=== PATIENT | female | born 1950 | race Caucasian/White ===

== ENCOUNTER 2023-12-18 08:03 | Emergency (ER) | payer OTHER, SELFPAY ==
[2023-12-18 08:05] VITALS: BP 131/97
[2023-12-18 08:38] VITALS: BMI 16.5
[2023-12-18] MEDS: TORADOL 30 MG IV (08:47)
[2023-12-18] MEDS: DILAUDID 0.5 MG IV (08:47)
--- NOTE | 2023-12-18 08:56 | EDRN ---
Justo RUST was at the pts bedside speaking with the pt and the pts cousin, the pt stated to this RN and provider, 'Just go get me pain medication right now i need pain medication i don't need to answer questions or talk about why i'm here',
provider continued to question the pt appropriately with this RN present, orders were placed and per provider this RN administered Toradol IV and dilaudid IV both of which were pushed slowly, the pt screamed and jumped up and continued to scream,
'Ouch ouch you're hurting me you're hurting me someone help me someone help me!', this RN checked the pts PIV and no s/s of infiltration present, positive blood return with a successful flush performed, the pt then stated to this RN, 'Okay okay i
feel much better it's working, you can leave now', VS WNL, the pt is laying in stretcher in the lowest position, side rails up x2, call aggarwal within reach, HOB elevated, no s/s of distress, will continue to monitor the pt closely
[2023-12-18 09:00] VITALS: BP 144/90
[2023-12-18 09:04] LABS: % Basophils 0.6 % (0-2); % Eosinophils 0.1 % (0-6); % Immature Granulocytes 0.2 % (0-0.5); % Lymphocytes 10.1 % (20.5-51.1); % Monocytes 3.4 % (1.7-9.3); % Neutrophils 85.6 % (42.2-75.2); Absolute Basophils 0.1 10^3/uL (0-0.2); Absolute Lymphocytes 1.1 10^3/uL (1.2-3.4); Absolute Monocytes 0.4 10^3/uL (0.1-0.6); Absolute Neutrophils 9.3 10^3/uL (1.4-6.5); Hematocrit 33.4 % (37.0-47.0); Hemoglobin 10.9 g/dL (12.0-16.0); Mean Corp Hgb Conc. 32.6 g/dL (33.0-37.0); Mean Corpuscular Hgb 27.7 pg (27.0-31.0); Mean Corpuscular Volume 84.8 fL (81.0-99.0); Mean Platelet Volume 9.3 fL (7.4-10.4); Nucleated Red Blood Cells % 0 %; Platelet Count 366 10^3/uL (130-400); Red Blood Cell Count 3.94 10^6/uL (4.20-5.40); Red Cell Dist. Width 15.3 % (11.5-14.5); White Blood Cell Count 10.9 10^3/uL (4.8-10.8)
--- NOTE | 2023-12-18 09:09 | ED.GENMED ---
Addendum entered and electronically signed by Jackie Casey NP 12/21/23 16:25:
Final urine culture results: > 100,000 Enterococcus faecalis sensitive to Nitrofurantoin and Levaquin. No answer at pt's number. Called contact Brie, her cousin and explained to stop the Cefuroxime and I sent rx for Nitrofurantoin to her
pharmacy. She will relay the message to pt.
Addendum entered and electronically signed by Eduardo Whitten PA-C 12/20/23 07:51:
UCx positive for enterococcus, pt on cefuroxime. Will await sensitivity however likely to require change to therapy
Original Note:
History of Present Illness
General
Chief Complaint: Urinary Symptoms
Source: patient and family
Time Seen by Provider: 12/18/23 08:26
Travel History
Have you had any contact with someone who has COVID-19?: No
Do you have any symptoms of coronavirus? Fever > 100 degrees, chills, cough, shortness of breath, sore throat, loss of taste or smell, muscle aches, or headache?: No
History of Present Illness
History of Present Illness:
73-year-old female with past medical history of chronic pain, status post right BKA, spina bifida presenting to the emergency department for evaluation of hematuria that has been ongoing for 1 week, unchanged today but due to continued pain decided
to come to the ER for further evaluation. She notes a history of similar in the past and is seeing urology for this but does not follow with urology routinely. She previously lived in [facility] but recently moved in with her cousin
who lives in this area who brought her here for further evaluation. Secondary concern of chronic pain and patient takes methadone as well as gabapentin but has been being weaned down from this by her pain management physician. Patient reportedly
saw her pain management physician on Sunday but states she took her last dose of gabapentin and methadone yesterday and has yet to fern picker her new prescription from the pharmacy. Patient denies any fevers, chills, rigors, vomiting, bowel changes or
any other concerns.
Past History
Past History
ED Past Medical History: Other (Chronic pain on the bifida)
ED Past Surgical History: Orthopedic and Other
Social History
Tobacco: Former smoker
Alcohol: None
Drug: None
Personal: Single
Living: with family
Review of Systems
Review of Systems
All Other Systems: ROS reviewed and negative except as documented in HPI and ROS
Phy Exam
Physical Exam
Physical Exam:
GENERAL: Alert , appears uncomfortable, minimally conversive but when prompted will answer questions more elaborately
EYE: Clear conjunctiva
NECK: Supple
ENT: o/p clr, mmm.
CARDIAC: Regular rate and rhythm .
LUNGS: Clear breath sounds bilaterally, no acute respiratory distress, no wheezes/rales/rhonchi
ABDOMEN: Soft, without focal tenderness, no r/g, no cvat
NEUROLOGICAL: Alert and oriented
SKIN: Warm and dry, skin intact.
MUSCULOSKELETAL: Right BKA stump noted without any overlying erythema, bogginess, pain
PSYCH: Normal and appropriate interaction.
Scores
Heart Failure Risk
Heart Failure Risk Score: Not Applicable
Heart Score for Chest Pain Patients
STEMI patient?: Not applicable
Withdrawal Assessment of Alcohol
Withdrawal Assessment Completed?: Not applicable
Course
Orders/Labs/Results
Orders:
Orders
12/18/23 08:38
Basic Metabolic Panel Urgent
Complete Blood Count/With Diff Urgent
Fentanyl, Urine Urgent
PTT Urgent
Prothrombin Time Urgent
Urinalysis Reflex To Culture Urgent
Date Specimen was Collected: 12/18/23
Time Specimen was Collected: 08:26
Urine Drug Abuse Screen Urgent
Date Specimen was Collected: 12/18/23
Time Specimen was Collected: 08:26
Urine Microscopic Reflex Cult Urgent
Urine Culture Urgent
THOMAS Source: U
Specimen Description:
Date Specimen was Collected: 12/18/23
Time Specimen was Collected: 08:26
12/18/23 08:43
HYDROmorphone [Dilaudid] 0.5 mg IV NOW STA
Ketorolac [Toradol] 30 mg IV NOW STA
12/18/23 08:44
CT Abd/pel Without Iv Or Oral Urgent
Comment:
Reason For Exam: hematuria
12/18/23 08:52
Add On- LAB Urgent
Tests Added?: urine drug screen
12/18/23 10:32
CefTRIAXone [Rocephin] 1,000 mg IV NOW STA
12/18/23 11:31
Gabapentin [Neurontin] 600 mg PO NOW STA
Abnormal Lab Results
12/18/23
08:38
WBC 10.9 H 10^3/uL
(4.8-10.8)
RBC 3.94 L 10^6/uL
(4.20-5.40)
Hgb 10.9 L g/dL
(12.0-16.0)
Hct 33.4 L %
(37.0-47.0)
MCHC 32.6 L g/dL
(33.0-37.0)
RDW 15.3 H %
(11.5-14.5)
Absolute Neuts (auto) 9.3 H 10^3/uL
(1.4-6.5)
Absolute Lymphs (auto) 1.1 L 10^3/uL
(1.2-3.4)
Neutrophils % 85.6 H %
(42.2-75.2)
Lymphocytes % 10.1 L %
(20.5-51.1)
Chloride 108 H mmol/L
(98-107)
Carbon Dioxide 20 L mmol/L
(22-30)
BUN 19 H mg/dl
(7-17)
Glucose 146 H mg/dl
(70-99)
Urine Ketones 1+ A
(Negative)
Ur Occult Blood Reflex 4+ A
(Negative)
Leukocyte Esterase Rfl 2+ A
(Negative)
Urine RBC >100 A /HPF
(0-2)
Urine Albumin (Reflex) 3+ A
(Neg - Trace)
Urine Methadone Screen Positive H
(Negative)
12/18/23 08:38
12/18/23 08:38
Vital Signs
Initial and Last Documented VS:
Initial Vital Signs
Temp Pulse Resp BP Pulse Ox
98.3 F 92 20 131/97 100
12/18/23 08:05 12/18/23 08:05 12/18/23 08:05 12/18/23 08:05 12/18/23 08:05
Last Documented Vital Signs
Temp Pulse Resp BP Pulse Ox
98.3 F 92 20 104/87 99
12/18/23 08:05 12/18/23 08:05 12/18/23 08:05 12/18/23 10:00 12/18/23 10:15
MDM/Problems Addressed
Differential Diagnosis Includes:
Urinary tract infection, malignancy, renal/ureteral colic, exacerbation of patient's usual chronic pain
MDM/Problems Addressed:
73-year-old female present emergency department for evaluation of hematuria x 1 week. Patient has history of similar but unable to tell me exactly what has previously caused the symptoms but she does note that she has been started on antibiotics in
the past for infection which usually does help. Patient noted a secondary concern of her chronic pain exacerbation and pain all over. I expressed to the patient that this is a chronic issue and would unlikely be solved today and has been having
follow-up with her outpatient pain specialist who has been attempting to wean patient down off of her usual pain medications. I did explain that we would give 1 dose of pain medication here however further medication and pain control would need to
be continued through her outpatient pain management regimen. Patient did express understanding.
Chronic conditions affecting care: Other (Chronic pain)
*Radiology
Radiology exam reviewed: radiology read reviewed
*Pulse Oximetry
Patient hypoxic: no
*Critical Care Note
Total Time (30-74mins, 75-104mins- exclusive of procedures): Not Applicable
Patient Management
Escalation/DeEscalation of care consider admission/obs:
Patient's symptoms are improved following medications. Her labs and imaging seem to be most consistent with hemorrhagic cystitis. Patient was given a dose of Rocephin prior to her discharge and cefuroxime for home medication. Patient will
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 Aware of return precautions emergency department but otherwise stable for discharge home.
ED Attending Note
-
Portions of this chart may have been created with voice recognition software.� Occasional wrong word or��sound alike� substitutions may have occurred due to the inherent limitations of voice recognition software.
Discharge Plan
Departure
Patient Disposition: Home (Routine Discharge)
Date of Disposition: 12/18/23
Time of Disposition: 11:27
Patient with high blood pressure during this ER visit?: Yes
Discharge Problem:
Acute hemorrhagic cystitis
Instructions: Urinary Tract Infection, Adult (DC)
Prescriptions:
New
cefuroxime axetil 500 mg tablet
500 mg PO BID 10 Days Qty: 20 0RF
Referrals:
NONE,* [Family Provider] -
Interventions
Interventions:
*Risk Screen - Suicide Last Done: 12/18/23 08:05
*General Assessment Last Done: 12/18/23 08:05
*Neglect/Abuse Screening Last Done: 12/18/23 08:05
ED- Fall Risk Assessment Last Done: 12/18/23 08:38
*ED COVID-19 Vaccine History Last Done: 12/18/23 08:38
*Nursing Disposition Last Done: 12/18/23 11:49
ED-Female Genitourinary Assessment Last Done: 12/18/23 08:38
Discharge Date and Time
Discharge Date/Time: 12/18/23 11:49
[2023-12-18 09:19] LABS: Urine Albumin 3+ (Neg - Trace); Urine Bilirubin Negative (Negative); Urine Character Bloody (Clear); Urine Color Red; Urine Glucose Negative (Negative); Urine Ketone 1+ (Negative); Urine Leukocyte 2+ (Negative); Urine Nitrite Negative (Negative); Urine Occult Blood 4+ (Negative); Urine Specific Gravity 1.015 (<1.030); Urine Urobilinogen Negative (Neg - 1+); Urine pH 6.5 (5.0-9.0)
[2023-12-18 09:31] LABS: Urine Red Blood Cell >100 /HPF (0-2)
[2023-12-18 09:36] VITALS: BP 114/60
--- NOTE | 2023-12-18 09:39 | EDRN ---
the pt returned from CT with no issues, the pt is resting in stretcher in the lowest position, side rails up x2, call aggarwal within reach, HOB flat per the pts request, the pt states that she cannot sit up due to pain, VS WNL, no s/s of distress, the
pt is calm and trying to sleep, will continue to monitor the pt closely
[2023-12-18 09:50] LABS: Blood Urea Nitrogen 19 mg/dl (7-17); Calcium 9.1 mg/dl (8.4-10.2); Carbon Dioxide 20 mmol/L (22-30); Chloride 108 mmol/L (98-107); Estimated Creatinine Clearance 36 ml/min; Glucose 146 mg/dl (70-99); Sodium 136 mmol/L (135-145); eGFR 59.86
[2023-12-18 10:00] VITALS: BP 104/87
--- NOTE | 2023-12-18 10:18 | EDRN ---
the pt is sitting up in bed laughing and talking on the phone, no s/s of distress, the pt reports to this RN, 'My pain is so much better', VS WNL, the pt is sitting up in stretcher in the lowest position, side rails up x2, call aggarwal within reach,
HOB flat per the pts request due to the pt stating that she cannot sit up even though the pt is currently sitting up in bed, the pts cousin is currently still at the pts bedside, will continue to monitor the pt closely
[2023-12-18 10:33] LABS: Amphetamines Negative (Negative); Barbiturates Negative (Negative); Benzodiazepines Negative (Negative); Buprenorphine Negative (Negative); Cocaine Negative (Negative); Marijuana Negative (Negative); Methadone Positive (Negative); Methamphetamines Negative (Negative); Opiates Negative (Negative); Phencyclidine Negative (Negative); Tricyclic Antidepressants Negative (Negative)
[2023-12-18] MEDS: ROCEPHIN 1000 MG IV (10:55)
[2023-12-18 11:05] LABS: Fentanyl, Urine Negative (Negative)
[2023-12-18] MEDS: NEURONTIN 600 MG PO (11:38)
== END 2023-12-18 11:49 | disposition home or self-care (01) ==
LOC: EMR 08:03
PROVIDERS: Physician Assistant Medical; EMERGENCY PHYSICIAN Student in an Organized Health Care Education/Training Program
DX: N30.01 Acute cystitis with hematuria (principal); B95.2 Enterococcus as the cause of diseases classified elsewhere; R03.0 Elevated blood-pressure reading, without diagnosis of hypertension; Z87.891 Personal history of nicotine dependence
CPT/HCPCS: 99284; 96374; 96375 ×2; 74176; 80048; 80306; 80307; 81003; 81015; 85025; 85610; 85730; 87077; 87086; 87186

== ENCOUNTER 2024-04-04 05:23 | Inpatient (IN) | payer OTHER, SELFPAY ==
[2024-04-04] VITALS (47 sets, daily range): BP systolic 45–149; BP diastolic 27–92; BMI 19.3; BMI 18.3
--- NOTE | 2024-04-04 01:56 | ED.GENMED ---
History of Present Illness
<Pratibha Mello MD - Last Filed: 04/04/24 02:37>
General
Chief Complaint: Skin Problem
Source: patient
Time Seen by Provider: 04/04/24 01:46
Travel History
Have you had any contact with someone who has COVID-19?: No
Do you have any symptoms of coronavirus? Fever > 100 degrees, chills, cough, shortness of breath, sore throat, loss of taste or smell, muscle aches, or headache?: No
History of Present Illness
History of Present Illness:
This patient is a 73-year-old female who presents emergency department complaints of a left foot wound that is been present ever since she 'scraped it' a few days ago. The wound is becoming increasingly painful, which prompted her visit here. She
states that she has not had this wound before a few days ago. She denies associated fever or chills, notes intermittent drainage. Patient has a history of a right BKA and expresses concern about another infection occurring. Patient denies chest
pain, shortness of breath, abdominal pain, nausea, vomiting, or other complaints. Patient is under the care of a chronic pain doctor, states that her methadone is being gradually discontinued.
Past History
<Pratibha Mello MD - Last Filed: 04/04/24 02:37>
Past History
ED Past Medical History: Other (Chronic pain, spina bifida, chronic incontinence)
ED Past Surgical History: Orthopedic
Social History
Tobacco: Former smoker
Alcohol: None
Drug: None
Personal: Single
Living: with family
Phy Exam
<Pratibha Mello MD - Last Filed: 04/04/24 02:37>
Physical Exam
Physical Exam:
GENERAL: Alert , in no apparent distress
EYE: pupils equal and reactive
NECK: Supple, no significant adenopathy.
ENT: o/p clr, mmm.
CARDIAC: Regular rate and rhythm .
LUNGS: Clear breath sounds bilaterally, no acute respiratory distress, no wheezes/rales/rhonchi
ABDOMEN: Soft, without focal tenderness, no r/g
NEUROLOGICAL: Alert and oriented, no focal neuro deficits
SKIN:
MUSCULOSKELETAL: r bKA, no skin changes noted to suggest infx here. Left foot at great toe MTP area there is a circular wound noted without active drainage and mild edema, opening dry, no fluctuance/crepitus, no streaking. Superficial abrasions
volar aspect 2/3/4 toe. 2+ dp pulse noted, no cyanosis, well perfused.
PSYCH: Normal and appropriate interaction.
Course
<Pratibha Mello MD - Last Filed: 04/04/24 02:37>
Orders/Labs/Results
Orders:
Orders
04/04/24 01:55
Foot, Left 3 View [CR Foot - Left Min 3 Views] Urgent
Comment:
Reason For Exam: WOUND
04/04/24 02:25
HYDROmorphone [Dilaudid] 1 mg IV NOW STA
04/04/24 02:35
Piperacillin/Tazo 3.375 Gram [Zosyn] 3.375 gram in 50 ml IV NOW
Vancomycin 1 Gram/200 ml [Vancocin] 1 gram in 200 ml IV NOW
04/04/24 03:17
Lactic Acid Urgent
Comment: RECOLLECT
Blood Culture Urgent
THOMAS Source: B
Specimen Description:
Comment: RECOLLECT
04/04/24 03:20
Blood Culture Urgent
THOMAS Source: B
Specimen Description:
Comment: RECOLLECT
04/04/24 03:24
C-Reactive Protein Urgent
Comment: RECOLLECT
Complete Blood Count/With Diff Urgent
Comment: RECOLLECT
Comprehensive Metabolic Panel Urgent
Comment: RECOLLECT
Erythrocyte Sed Rate Urgent
Comment: RECOLLECT
04/04/24 03:25
Ondansetron Injectable [Zofran] 4 mg IV NOW STA
04/04/24 03:26
Ondansetron Injectable [Zofran] 4 mg .ROUTE .STK-MED ONE
04/04/24 03:29
Type+Screen Urgent
04/04/24 03:32
Blood Bank Products [* Blood Bank Products] Urgent
's Orders: En Loomis, DO
Blood Bank Products: *Packed RBC Leuko(PRBC's)
Quantity: 3
Transfuse Today: Yes
Reason: Anemia
04/04/24 03:33
CT Angio Abd/Pelvis w/wo IV [CT Abd/pelvis Angio W/wo Iv] Urgent
Comment:
Reason For Exam: anemia, general abd pain
04/04/24 03:38
HYDROmorphone [Dilaudid] 1 mg IV NOW STA
04/04/24 06:00
Lactic Acid Q4H
Comment: CANCEL 2nd LACTIC ACID IF 1st LACTIC ACID IS LESS THAN 2
Abnormal Lab Results
04/04/24
03:24
RBC 1.67 L 10^6/uL
(4.20-5.40)
Hgb 3.0 L* g/dL
(12.0-16.0)
Hct 11.0 L* %
(37.0-47.0)
MCV 65.9 L fL
(81.0-99.0)
MCH 18.0 L pg
(27.0-31.0)
MCHC 27.3 L g/dL
(33.0-37.0)
RDW 21.8 H %
(11.5-14.5)
Abs Immat Gran (auto) 0.1 H 10^3/uL
(0-0.05)
Absolute Lymphs (auto) 0.7 L 10^3/uL
(1.2-3.4)
Immature Gran % 0.7 H %
(0-0.5)
Neutrophils % 83.4 H %
(42.2-75.2)
Lymphocytes % 9.6 L %
(20.5-51.1)
04/04/24 03:24
Vital Signs
Initial and Last Documented VS:
Initial Vital Signs
Temp Resp BP Pulse Ox
98.8 F 24 132/51 95
04/04/24 00:54 04/04/24 00:54 04/04/24 00:54 04/04/24 00:54
Last Documented Vital Signs
Temp Resp BP Pulse Ox
98.8 F 24 132/51 95
04/04/24 00:54 04/04/24 00:54 04/04/24 00:54 04/04/24 00:54
<En Loomis, DO - Last Filed: 04/04/24 03:40>
Orders/Labs/Results
Orders:
Orders
04/04/24 01:55
Foot, Left 3 View [CR Foot - Left Min 3 Views] Urgent
Comment:
Reason For Exam: WOUND
04/04/24 02:25
HYDROmorphone [Dilaudid] 1 mg IV NOW STA
04/04/24 02:35
Piperacillin/Tazo 3.375 Gram [Zosyn] 3.375 gram in 50 ml IV NOW
Vancomycin 1 Gram/200 ml [Vancocin] 1 gram in 200 ml IV NOW
04/04/24 03:17
Lactic Acid Urgent
Comment: RECOLLECT
Blood Culture Urgent
THOMAS Source: B
Specimen Description:
Comment: RECOLLECT
04/04/24 03:20
Blood Culture Urgent
THOMAS Source: B
Specimen Description:
Comment: RECOLLECT
04/04/24 03:24
C-Reactive Protein Urgent
Comment: RECOLLECT
Complete Blood Count/With Diff Urgent
Comment: RECOLLECT
Comprehensive Metabolic Panel Urgent
Comment: RECOLLECT
Erythrocyte Sed Rate Urgent
Comment: RECOLLECT
04/04/24 03:25
Ondansetron Injectable [Zofran] 4 mg IV NOW STA
04/04/24 03:26
Ondansetron Injectable [Zofran] 4 mg .ROUTE .STK-MED ONE
04/04/24 03:29
Type+Screen Urgent
04/04/24 03:32
Blood Bank Products [* Blood Bank Products] Urgent
's Orders: En Loomis, DO
Blood Bank Products: *Packed RBC Leuko(PRBC's)
Quantity: 3
Transfuse Today: Yes
Reason: Anemia
04/04/24 03:33
CT Angio Abd/Pelvis w/wo IV [CT Abd/pelvis Angio W/wo Iv] Urgent
Comment:
Reason For Exam: anemia, general abd pain
04/04/24 03:38
HYDROmorphone [Dilaudid] 1 mg IV NOW STA
04/04/24 06:00
Lactic Acid Q4H
Comment: CANCEL 2nd LACTIC ACID IF 1st LACTIC ACID IS LESS THAN 2
Abnormal Lab Results
04/04/24
03:24
RBC 1.67 L 10^6/uL
(4.20-5.40)
Hgb 3.0 L* g/dL
(12.0-16.0)
Hct 11.0 L* %
(37.0-47.0)
MCV 65.9 L fL
(81.0-99.0)
MCH 18.0 L pg
(27.0-31.0)
MCHC 27.3 L g/dL
(33.0-37.0)
RDW 21.8 H %
(11.5-14.5)
Abs Immat Gran (auto) 0.1 H 10^3/uL
(0-0.05)
Absolute Lymphs (auto) 0.7 L 10^3/uL
(1.2-3.4)
Immature Gran % 0.7 H %
(0-0.5)
Neutrophils % 83.4 H %
(42.2-75.2)
Lymphocytes % 9.6 L %
(20.5-51.1)
04/04/24 03:24
Vital Signs
Initial and Last Documented VS:
Initial Vital Signs
Temp Resp BP Pulse Ox
98.8 F 24 132/51 95
04/04/24 00:54 04/04/24 00:54 04/04/24 00:54 04/04/24 00:54
Last Documented Vital Signs
Temp Resp BP Pulse Ox
98.8 F 24 132/51 95
04/04/24 00:54 04/04/24 00:54 04/04/24 00:54 04/04/24 00:54
<En Loomis DO - Last Filed: 04/04/24 03:40>
*Critical Care Note
Total Time (30-74mins, 75-104mins- exclusive of procedures): 33 min
comment:
The high probability of a clinically significant, sudden or life threatening deterioration of the cardiovascular/GI system(s) required my full and direct attention, intervention and personal management. The aggregate critical care time was 33
minutes. This time is in addition to time spent performing reported procedures but includes the following:
[x] Data Review and interpretation
[x] Patient assessment and monitoring of vital signs
[x] Documentation
[x] Medication orders and management
<Pratibha Mello MD - Last Filed: 04/04/24 02:37>
Update Note
Update Note:
Patient presents to the Emergency Department with L foot wound
Number and Complexity of Problems Addressed at the Encounter
� Chronic conditions affecting care:
� Acute Exacerbation and/or Progression of Chronic Illness:
� Differential Diagnosis includes:
Amount and/or Complexity of Data to be Reviewed and Analyzed
� I performed an independent evaluation of and my interpretation is:
EKG:
CT:
Xrays:
Laboratory Studies:
Other:
� Review of other/old records reveals:
� Clinical information was obtained by an independent historian:
� Prescriptions/Medications Considered but not given:
� Further testing considered but not performed:
Risk of Complications and/or Morbidity or Mortality of Patient Management
� Social determinants of health affecting care:
� Discussion with other providers (PCP, Hospitalists, Consultants, etc):
� Escalation of care including admission/observation vs risk of discharge considered:
<En Loomis, DO - Last Filed: 04/04/24 03:40>
Update Note
Update Note:
Patient presents to the Emergency Department with L foot wound
Number and Complexity of Problems Addressed at the Encounter
� Chronic conditions affecting care:
� Acute Exacerbation and/or Progression of Chronic Illness:
� Differential Diagnosis includes:
Amount and/or Complexity of Data to be Reviewed and Analyzed
� I performed an independent evaluation of and my interpretation is:
EKG:
CT:
Xrays:
Laboratory Studies:
Other:
� Review of other/old records reveals:
� Clinical information was obtained by an independent historian:
� Prescriptions/Medications Considered but not given:
� Further testing considered but not performed:
Risk of Complications and/or Morbidity or Mortality of Patient Management
� Social determinants of health affecting care:
� Discussion with other providers (PCP, Hospitalists, Consultants, etc):
� Escalation of care including admission/observation vs risk of discharge considered:
3:30 AM care of patient was transitioned pending blood work. Patient was admitted under the assumption of osteomyelitis of her foot. Blood work was obtained showing significant anemia. I placed an ultrasound-guided IV in her right antecubital
fossa and rechecked the blood work which confirmed a hemoglobin of 3. Patient signed consent for 3 units of packed red blood cells. While this was happening, the admitting doctor was at bedside. Given the progression of her abdominal pain, will
obtain a CT angiogram abdomen and pelvis.
Rectal exam was performed showing brown stool guaiac negative
ED Attending Note
<Pratibha Mello MD - Last Filed: 04/04/24 02:37>
-
Portions of this chart may have been created with voice recognition software.� Occasional wrong word or��sound alike� substitutions may have occurred due to the inherent limitations of voice recognition software.
Discharge Plan
Departure
Patient Disposition: Admit
Date of Disposition: 04/04/24
Time of Disposition: 02:36
Admit to: Med/Surg
Presentation/result/management discussed w/ accepting MD/DO: Hospitalist
Condition: Good
Discharge Problem:
Cellulitis
Prescriptions:
No Action
No Current Medications
0
Referrals:
NONE,* [Family Provider] -
Interventions
Interventions:
*Risk Screen - Suicide Last Done: 04/04/24 00:54
*General Assessment Last Done: 04/04/24 01:04
*Neglect/Abuse Screening Last Done: 04/04/24 00:54
*ED COVID-19 Vaccine History Last Done: 04/04/24 00:54
ED-Skin Assessment Last Done: 04/04/24 01:04
Discharge Date and Time
Print Language: ISRAELI
[2024-04-04] MEDS: DILAUDID 1 MG IV ×3 (02:59→04:35)
[2024-04-04] MEDS: ZOFRAN 4 MG IV (03:28)
[2024-04-04 03:30] LABS: % Basophils 0.3 % (0-2); % Eosinophils 0.3 % (0-6); % Immature Granulocytes 0.7 % (0-0.5); % Lymphocytes 9.6 % (20.5-51.1); % Monocytes 5.7 % (1.7-9.3); % Neutrophils 83.4 % (42.2-75.2); Absolute Immature Granulocytes 0.1 10^3/uL (0-0.05); Absolute Lymphocytes 0.7 10^3/uL (1.2-3.4); Absolute Monocytes 0.4 10^3/uL (0.1-0.6); Absolute Neutrophils 5.8 10^3/uL (1.4-6.5); Mean Corp Hgb Conc. 27.3 g/dL (33.0-37.0); Mean Corpuscular Volume 65.9 fL (81.0-99.0); Mean Platelet Volume 10.1 fL (7.4-10.4); Nucleated Red Blood Cells % 0 %; Platelet Count 251 10^3/uL (130-400); Red Blood Cell Count 1.67 10^6/uL (4.20-5.40); Red Cell Dist. Width 21.8 % (11.5-14.5)
[2024-04-04 03:39] LABS: Erythrocyte Sed Rate 140 mm/hour (0-20)
[2024-04-04 03:49] LABS: ALT (SGPT) 188 U/L (0-35); AST (SGOT) 28 U/L (14-36); Albumin 3.1 g/dl (3.5-5.0); Alkaline Phosphatase 109 U/L (38-126); Blood Urea Nitrogen 20 mg/dl (7-17); Calcium 8.6 mg/dl (8.4-10.2); Carbon Dioxide 17 mmol/L (22-30); Chloride 115 mmol/L (98-107); Estimated Creatinine Clearance 30 ml/min; Glucose 127 mg/dl (70-99); Potassium 4.5 mmol/L (3.5-5.1); Sodium 143 mmol/L (135-145); Total Bilirubin 0.4 mg/dl (0.2-1.3); Total Protein 5.7 g/dl (6.3-8.2); eGFR 39.97
[2024-04-04 03:51] LABS: Lactic Acid 1.7 mmol/L (0.7-2.0)
[2024-04-04 04:06] LABS: Anisocytosis 2+; Normal RBC Morphology No
[2024-04-04 04:07] LABS: Hypochromasia 3+; Microcytosis 2+
[2024-04-04 04:08] LABS: Polychromasia Occasional
[2024-04-04] MEDS: ATIVAN 1 MG IV (04:08)
[2024-04-04 04:09] LABS: Ovalocytes Occasional; Schistocytes Occasional; Target Cells 2+
[2024-04-04 04:14] LABS: Rouleaux Occasional; Tear Drop Red Blood Cells 1+
[2024-04-04 04:16] LABS: Acanthocytes Occasional; Hypersegmented Neutrophil Occasional
--- NOTE | 2024-04-04 05:08 | HPS.HSE ---
Family Physician
-
Family Physician: * NONE
Chief Complaint
-
Left foot wound
History of Present Illness
Patient is 73 years old female with history of chronic pain, spina bifida, right BKA, came into the hospital with left foot wound pain. Patient not very forthcoming on my interview and she states that she is in significant amount of pain in her
abdomen and her food. As far she can tells me patient noticed left foot wound after manipulating it and he has been getting more painful over the last several days around this area and some serous drainage coming from the wound. She denies fevers
or chills. She also has abdominal pain that has been increasingly getting worse. She has some nausea and vomiting. She does have chronic pain and she has been taken off her methadone as outpatient. She denies any chest pain or shortness of
breath. In the ER, her hemoglobin was noted to be 3 and it was repeated and appears to be the same. Last hemoglobin back in November here was 10.9. Her creatinine noticed to be 1.4 last creatinine back in November was 1. There is a foot x-ray
pending and I asked for a stat abdominal pelvis CTA that is being ordered and pending.
Medical History
Past Medical History
Past Medical History: Reports Other (Chronic pain, spina bifida.)
Past Surgical History: Reports Other (Right BKA and other orthopedic surgeries)
Social History
Tobacco: Former Smoker
Alcohol: None
Drug: None
Family History
Family History: Not pertinent
Allergies / Home Medications
Allergies reflects when Allergies were last updated in [facility].
Home Medications with original date entered in [facility]
Allergy/Medication List:
Allergies
Allergy/AdvReac Type Severity Reaction Status Date / Time
No Known Allergies Allergy Unverified 04/04/24 00:57
Home Medications
No Meds [No Current Medications] 04/04/24
Review of Systems
-
A 12 point ROS was completed and negative except as noted: Yes
Physical Exam
Vital Signs
Vital Signs
Temp Pulse Resp BP Pulse Ox
98.8 F 85 20 149/67 95
04/04/24 00:54 04/04/24 04:15 04/04/24 04:15 04/04/24 04:00 04/04/24 00:54
Physical exam:
General: Acutely ill
HEENT: Normocephalic, Atraumatic and Moist Mucous Membranes
Respiratory: Clear to Auscultation; Negative Wheezes, Rales or Rhonchi
Cardiac: Regular Rhythm and S1/S2
GI: Soft, Tender and Nondistended
Musculoskeletal: Right BKA. At the left foot area of the lateral part of the MTP there is a wound about 2 x 3 cm with mild drainage and edema, no significant erythema. Rest of the extremity no Clubbing, No Cyanosis and No Edema
Neuro: Awake, Alert and Oriented, no gross neuro-deficits
Psych: Anxious.
Physical Exam
General: Other
Laboratory Results
-
04/04/24 03:24
Laboratory Results
Lactic Acid Cancelled 04/04/24 07:00
Total Bilirubin 0.4 mg/dl (0.2-1.3) 04/04/24 03:24
AST 28 U/L (14-36) 04/04/24 03:24
ALT 188 U/L (0-35) H 04/04/24 03:24
Alkaline Phosphatase 109 U/L (38-126) 04/04/24 03:24
Data Reviewed
-
CT Scan: Image Personally Visualized and interpreted
Lab Data: Labs Reviewed by me
Impression/Plan
-
IMPRESSION:
Patient 73 years old female with chronic pain syndrome came into the hospital with findings of infection of the left foot wound concerns for osteomyelitis. She also was found to have severe anemia in the setting of abdominal pain. Patient at
increased risk of morbidity and mortality due to her presentation and multiple comorbidities therefore she will need to be treated in the hospital and managed accordingly.
PLAN:
Wound infection on left foot:
IV broad-spectrum antibiotics, Zosyn and vancomycin
Follow-up foot x-ray definitive report
Blood cultures
Wound culture
CRP 24
Podiatry consult
Severe microcytic anemia:
Hemoglobin 3
Last hemoglobin 10.9 back in November
Anemia workup
Blood transfusion ordered in the ER.
Plan for CTA of the abdomen pelvis
Start IV PPI twice daily
Monitor hemoglobin every 4-6 hours
Currently hemodynamically stable
Cardiac monitoring
IV fluids
Keep vascular access
Keep n.p.o.
Avoid NSAIDs
Acute kidney injury:
Avoid nephrotoxic
Monitor renal function closely
Monitor urine output
Creatinine today 1.4; Last known creatinine back in November was 1
Chronic pain syndrome:
Keep IV Dilaudid for now until rest of the workup
DVT prophylaxis:
SCDs
CODE STATUS:
Full code
Time spent 75 minutes
[2024-04-04] MEDS: ZOSYN 50 IV ×2 (05:09→08:56)
[2024-04-04] MEDS: VANCOCIN 200 IV (05:09)
--- NOTE | 2024-04-04 05:25 | EDRN ---
pt placed back on special education curriculum specialist, verbalizes understanding of leaving all monitors on. pre-transfusion vital signs taken. unable to obtain spo2 due to poor perfusion. dr gutierrez and blood bank made aware
--- NOTE | 2024-04-04 06:00 | PTCARENOTE ---
Pt arrived from ED, transferred to bed. Pt presenting restless trying to move around and out of the bed, unable to redirect patient. Pt Loudly saying she was in pain, pain medication given. Pt IVF and first unit PRBC started. SPO2 84%, 4L NC placed
SPO2 now 92%. Pt uncooperative with admit questions a times. Report given at bed side to on coming RN.
[2024-04-04] MEDS: DILAUDID 0.5 MG IV (06:10)
[2024-04-04] MEDS: PROTONIX IV 40 MG IV ×3 (06:15→19:55)
[2024-04-04] MEDS: NSS (PRESERVATIVE FREE) 10 ML IV ×3 (06:16→19:55)
[2024-04-04] MEDS: NSS 1000 IV ×2 (06:45→16:08)
[2024-04-04 07:06] LABS: Total Iron Binding Capacity 378 ug/dl (265-497)
[2024-04-04 07:07] LABS: Iron < 20 ug/dl (37-170)
--- NOTE | 2024-04-04 07:07 | CON.GI ---
Addendum entered and electronically signed by Nigel Douglass MD 04/04/24 18:59:
I saw and examined the patient.
The CARBON BRUSH MAKER's note was reviewed and I agree with the note.
Pt is a 73yo with hx spina bifida, cystitis, right BKA with complaint of foot pain with noted foot wound and abdominal pain. On admission noted with hbg 3 with MCV 65.9 with significant iron deficiency. hbg was 10.9 in November. CTA moderate stool
no active GI bleeding. Diffuse mesenteric edema and small amount of ascites within the pelvis. Small bilateral pleural effusions. Anasarca. Findings compatible with hypervolemic state/third spacing.
-severe iron deficiency anemia -reported rectal bleeding intermittently by cousin. No overt GI bleeding since admission. CTA negative for active bleeding
-left foot infection s/p podiatry eval
-Chronic methadone use
-Acute metabolic encephalopathy/hallucination
plan
4 units PRBC ordered by medical team
Continue monitor H&H as well as signs of overt GI bleeding
Patient was refusing to undergo EGD/colonoscopy with CAR[employer] BRUSH MAKER today . unable to have any meaningful conversation . Will hold off on endoscopic evaluation considering patient's current mental status
continue PPI
daily bowel regimen
further management as per medical team
No other recommendation at this point. GI will sign off for now. Please call us back if patient is willing to have endoscopic evaluation after improvement of mental status in the future.
Original Note:
Consultation
-
Date/Time Consultation Requested: 04/04/24 0500
Date/Time Consultation Performed: 04/04/24 0930
Requesting Provider: Marvin Puri MD
Performing Provider: KINGSLEY Jones, Nigel Douglass MD
Reason for Consultation: anemia
Medical History
Chief Complaint / HPI
History of Present Illness:
Pt is a 73yo with hx spina bifida, cystitis, right BKA with complaint of foot pain with noted foot wound and abdominal pain. On admission noted with hbg 3 with MCV 65.9 with significant iron deficiency. Pt with some limited history with some
drifting off but declines for staff to call family. She currently denies dysphagia, GERD, nausea, vomiting, abdominal pain, diarrhea, constipation or rectal bleeding. She report no prior EGD or colonoscopy in past. Last hbg 10.9 back in November
2023. Denies NSAID use.
Past Medical History
Past Medical History: Other (chronic pain, spina bifida, cystitis )
Past Surgical History: Orthopedic (right BKA)
Social History
Tobacco: Smoker (9 cig per day )
Alcohol: None
Drug: None
Living: Other (cousin)
Family History
Family History: Reviewed & Not Pertinent
Allergies / Home Medications
Allergy/AdvReac Type Severity Reaction Status Date / Time
No Known Allergies Allergy Unverified 04/04/24 00:57
�Medication �Instructions �Recorded
No Meds [No Current Medications] 04/04/24
Review of Systems
-
Unable to obtain full review of systems at this time due to: Other (some drifting off in conversation)
History Source: Patient
Constitutional: Reports Weight Loss and Chills
EENT: Reports No Symptoms
Respiratory: Reports Trouble Breathing (on admission )
Cardiac: Reports Chest Pain (at times )
Abdomen/GI: Reports Abdominal Pain (prior to admission now declines)
: Reports No Symptoms
Musculoskeletal: Reports Other (amputation noted foot pain on admission )
Skin: Reports No Symptoms
Neurological: Reports Weakness
Endocrine: Reports No Symptoms
Hematologic/Lymphatic: Reports No Symptoms
Vital Signs
Temp Pulse Resp BP Pulse Ox
97.9 F 79 17 118/65 90
04/04/24 06:28 04/04/24 06:28 04/04/24 06:28 04/04/24 06:28 04/04/24 06:28
Physical Exam
Exam
General: Other (ill appearing - pale with some drifting off in conversation )
HEENT: Normocephalic and Anicteric
Respiratory: Clear
Cardiac: Regular Rhythm
GI: Soft, Non Tender and Non Distended
Musculoskeletal: No Clubbing, No Cyanosis and Other (s/p amp with some ulceration on other foot)
Skin: Warm and Dry
Neuro: Other (awakens to voice answering appropriate some questions then drifts off )
Psych: Calm
Results
WBC 7.0 10^3/uL (4.8-10.8) 04/04/24 03:24
Hgb 3.0 g/dL (12.0-16.0) L* 04/04/24 03:24
Hct 11.0 % (37.0-47.0) L* 04/04/24 03:24
MCV 65.9 fL (81.0-99.0) L 04/04/24 03:24
Plt Count 251 10^3/uL (130-400) 04/04/24 03:24
Absolute Neuts (auto) 5.8 10^3/uL (1.4-6.5) 04/04/24 03:24
Sodium 143 mmol/L (135-145) 04/04/24 03:24
Potassium 4.5 mmol/L (3.5-5.1) 04/04/24 03:24
Chloride 115 mmol/L (98-107) H 04/04/24 03:24
Carbon Dioxide 17 mmol/L (22-30) L 04/04/24 03:24
BUN 20 mg/dl (7-17) H 04/04/24 03:24
Creatinine 1.4 mg/dL (0.6-1.0) H 04/04/24 03:24
Calcium 8.6 mg/dl (8.4-10.2) 04/04/24 03:24
Total Bilirubin 0.4 mg/dl (0.2-1.3) 04/04/24 03:24
AST 28 U/L (14-36) 04/04/24 03:24
ALT 188 U/L (0-35) H 04/04/24 03:24
Alkaline Phosphatase 109 U/L (38-126) 04/04/24 03:24
Diagnostic Image Results:
04/04 CT Abd/pelvis Angio W/wo Iv
1. Limited evaluation of the GI tract. However, no evidence for active bleeding. No evidence for obstruction.
2. Normal caliber abdominal aorta with mild to moderate calcified plaque throughout. No dissections.
3. Diffuse mesenteric edema and small amount of ascites within the pelvis. Small bilateral pleural effusions. Anasarca. Findings compatible with hypervolemic state/third spacing.
4. Atrophic left kidney.
5. Additional findings above.-- Moderate amount of stool within distal colon, including within the rectum.
Prior GI Procedures:
EGD: denies
Colonoscopy: denies
Assessment / Plan
-
Pt is a 73yo with hx spina bifida, cystitis, right BKA with complaint of foot pain with noted foot wound and abdominal pain. On admission noted with hbg 3 with MCV 65.9 with significant iron deficiency. hbg was 10.9 in November. CTA moderate stool
no active GI bleeding. Diffuse mesenteric edema and small amount of ascites within the pelvis. Small bilateral pleural effusions. Anasarca. Findings compatible with hypervolemic state/third spacing.
-severe iron deficiency anemia
-left foot infection s/p podiatry eval
-? abdominal pain on admission
-MARY
-moderate stool on imaging
-mesenteric edema and small amount ascites on CT
other medical problems:
-spina bifida
-cystitis
-right BKA
-tobacco abuse
PLAN:
Etiology of anemia unclear some drop since December 01.9 to 3- PUD, ectasia, mass vs other
agree with transfusion
PPI BID
monitor stools for bleeding
CTA as noted - no active GI bleed
discussed for EGD/colon with patient pt did not answer if would like to proceed-- I discussed with patient and nursing staff if ok to call family - pt declines
will try to obtain [facility] records as pt report prior care at that facility in past
for now monitor for bleeding, transfuse, optimized medically and consider EGD/colon if agreeable when mental status and hbg improves
ok for clear diet-- speech eval for safety with eating
will add Miralax and dulcolax with moderate stool on imaging
pt reported abdominal pain on admission -- she now denies pain CT with noted constipation and mesenteric edema etiology unclear
NSAID/ tobacco avoidance
-
-
Thank you for consultation and allowing me to participate in the patient's care. Please call the vocational school teacher GI physician during the after hours with any questions or concerns.
--- NOTE | 2024-04-04 07:34 | PTCARENOTE ---
Pt lethargic answers to name, pulling O2 off desating to 76O2 at 6l bp 97/51 map 65 hr 82 PRBC running vis MISHA HENLEY Iv not running can not flush. IV team called.
[2024-04-04 07:45] LABS: Ferritin 6.4 ng/ml (11.1-264.0)
[2024-04-04 08:17] LABS: Folate > 20.0 ng/ml (2.76-20); Vitamin B12 937 pg/ml (239-931)
--- NOTE | 2024-04-04 08:33 | W.CS.POD ---
Consult Summary - Podiatry
-
Pt seen for ulcer left foot, appears superficial, no clinical signs of infection, pedal pulses palpable
Admitted for left foot and abdominal pain. relates she was picking at the callus or blister. x-rays are pending, if suspicious for osteomyelitis would confirm with MRI and consult surgical ordnance truck installation mechanic reconditioner.
Recommend wound care consult, will follow consult dictated
[2024-04-04 09:17] LABS: Reticulocyte Count 2.8 % (0.4-2.8)
--- NOTE | 2024-04-04 09:18 | PHA.VAN.IN ---
Assessment
- Assessment
Renal Function: Unknown baseline (SCR 1.4 vs 1 for only prior value here in Nov 2023)
Concomitant Antimicrobials: piperacillin/tazobactam
Plan
- Plan
Initial / Loading Dose: 1000mg - 04/04 05:09 PLUS additional 500mg x1 today
Maintenance Regimen: dosing by level
Monitoring: random 04/05 600
Pharmacokinetics Vancomycin I
- -
Patient Age: 73
Patient Sex: Female
Vancomycin Day #: 1
Indication: Skin And Soft Tissue
Requesting Provider: Dr. Puri
Pertinent Antimicrobial Allergies:
NKDA
Height / Weight:
Height 5 ft 5 in
Actual Weight 49.9 kg
IBW in k
Pertinent Past Medical History: BMI ~18, R BKA
- Vital Signs / Lab Results
Temp Pulse Resp BP Pulse Ox
97.1 F 79 17 118/65 96
04/04/24 07:25 04/04/24 06:28 04/04/24 06:28 04/04/24 06:28 04/04/24 08:00
Lab Results - Hematology
04/04/24 04/04/24
02:54 03:24
WBC Cancelled 7.0
Lab Results - Chemistry
04/04/24 04/04/24
02:54 03:24
BUN Cancelled 20 H
Creatinine Cancelled 1.4 H
Estimated Creat Clear Cancelled 30
Albumin Cancelled 3.1 L
04/04/24 04/04/24 04/04/24
02:54 03:24 07:00
Lactic Acid 1.7 Cancelled Cancelled
--- NOTE | 2024-04-04 09:26 | W.PN.UPDATE ---
Update Note
Progress Note Update
Patient has been uncooperative and at times delirious. Has poor IV access and not able to get PICC line/central line.
Patient here to be transferred to ICU for Precedex drip
1. Acute microcytic anemia /iron deficiency anemia-hemoglobin of 3. MCV of 66 at admission. Presumed blood loss related as cousin reported patient having on and off blood in stool. 4 unit of PRBC ordered out of which patient able to get two
units, two more to be transfused once able. GI invovlved
2. Left foot toe osteomyelitis -confirmed on foot x-ray. Medical and surgical podiatry evaluated. Recommended vascular study and surgery eval once patient able to undergo testing. No true indication for emergent surgery. Currently on empiric
vancomycin and Zosyn, normal WBC/afebrile. No concern for systemic sepsis. will hold abx now and monitor. wound is dry and no drainage on exam, local wound care as needed.
3. Chronic pain on methadone -PDMP reviewed/discussed with patient primary pain specialist. Patient has failed to follow-up regularly. Patient pain specialist has been trying to wean patient off of methadone. Currently patient on p.o. 20 mg twice
daily, changed to 10 mg twice daily. Check QTc periodically with patient being on methadone and other QTc prolonging medication.
4. Acute toxic metabolic encephalopathy -patient was somnolent although now getting agitated. No tachycardia/hypertension. Starting on precedex drip
5. TME/Reported hallucination -cousin reported patient having hallucination episode. Patient damaging a lot of things in the house. Have h/o of sucidial ideation in Nov 14. Once medically stabilized unable to cooperate will require psychiatry
evaluation for
6. Abnormal RBC -peripheral blood smear showing schistocytes/acanthocytes/target cells/target cells/anisocytosis. No thrombocytopenia. Will need to repeat CBC. Check DIC panel as well. Clinical suspicion for both scenario low.
Case discussed with media sales representative.
Time spent : 75mins
--- NOTE | 2024-04-04 09:38 | PTCARENOTE ---
Now recieving 2nd unit of PRBC GI here to see pt, pt refused for GI to talk with cousin whom she lives with . Pt continues to answer some questions not all. Pt Awaiting PICC plaacement to run ABT
--- NOTE | 2024-04-04 11:04 | PTCARENOTE ---
Pr very anxious at this time, gasping for breath O2 back on. Pt will not leave O2 on, taking sips of gingerale , Turned on her r side Pt staes her bottom hurt feels better now .
--- NOTE | 2024-04-04 11:56 | PTCARENOTE ---
Second unit of bloods finishing up. Flavia called with info PT hasd taken methadone for 20 years stopped on sunday DR Haris Ball [facility] is prescriber. Cousin states she has been bleeding rectally foe months. 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
always had mental issues. Cousin states pt can be very difficult.
[2024-04-04] MEDS: ATIVAN 0.5 MG IV (12:06)
--- NOTE | 2024-04-04 12:12 | VATNOTE ---
PICC order noted. Coags/labs unable to be drawn do to multiple blood transfusions. Patient also restless and not always able to follow commands. Concerns relayed to MD, who states he will evaluate the patient. PCN updated.
[2024-04-04] MEDS: VANCOCIN HCL 500 MG 100 IV (13:02)
[2024-04-04] MEDS: DOLOPHINE 10 MG PO ×2 (13:06→19:55)
--- NOTE | 2024-04-04 13:07 | CM ---
Addendum entered by Eloina Benson RN 04/04/24 15:45:
1:1 observation started for patient safety. Transferred from IMU to ICU.
Original Note:
Patient with Hx chronic pain, spina bifida, right BKA with Dx Wound infection on left foot, Severe microcytic anemia, MARY. O2 6L. Transfusion today. COWS per nursing. Receiving IV Fe Gluconate, IV Abx, methadone, Dilaudid prn. Per nurse
assessment; lethargic, agitated.
Met with patient, observed as restless, minimal verbal response to questions, seems confused/disoriented.
Spoke with Brie, patient's cousin;
the patient was living in a hotel in [place] until Nov 2023 when she called Brei and asked her to pick her up and take her to her home.
The patient has been residing with her cousin in Brie's 3 story house with 3+1 TYRONE and 10 steps to 2nd floor bedroom/bath.
She has been independent in ADLs and is able to ambulate with her prosthetic leg, however has been 'crawling on the floor like a spider 90% of the time'.
The patient has been seeing bugs and talks to herself for a while now.
She cut out a section of the box spring of the mattress looking for bugs.
She has destroyed the carpet in the house by using a wire brush on it.
She has damaged the porch, the yard and many other things in the house.
The patient has income from social security however Brie has been buying all her food and cigarettes.
The patient has been taking extra Methadone, ran out of Methadone and then began begging Brie to give her pain meds to her.
She is supplied with Methadone by pain management Dr Ermias Ball in [place].
Brie was assisting the patient to take her meds.
DME - [facility] - not using
No VN.
PCP - patient has not shared this info with her
Pharmacy - [facility]
The patient has no other services and has not been followed by [facility].
Brie states she can no longer allow her to return there to live. She feels that the patient only cares about herself and no one else. Brie had shoulder surgery yesterday and needs to focus on her own recovery.
The patient has a brother in [place] and a brother in [place]. She has no children.
Brie is hoping patient will agree to inpatient drug rehab.
Message to Dr Shirley - wondering if patient may benefit from Psych Consult once she is more alert/oriented.
Plan offer [facility] for drug rehab once no longer actively withdrawing.
Plan will need to resolve housing issue once no longer actively withdrawing.
--- NOTE | 2024-04-04 13:14 | PTCARENOTE ---
Pt remains very resatless and agitated. Brother Gage called pt took round up in Oct to kill herself, was in [facility] . Dr Shirley aware of conversation with brotherbut does not want to call him.
[2024-04-04] MEDS: DULCOLAX 10 MG RECTAL (13:26)
--- NOTE | 2024-04-04 13:39 | PTCARENOTE ---
Pt incont large amt urine .Positive doppler pulse in l foot
[2024-04-04] MEDS: MIRALAX PO (13:45)
[2024-04-04] MEDS: HALDOL 1 MG IV (14:39)
[2024-04-04] MEDS: PRECEDEX 100 IV ×2 (15:08→22:14)
--- NOTE | 2024-04-04 15:11 | PTCARENOTE ---
IR unable to place central line due to pt agitation, Goyo Marmolejo attempted to draw labs . Pt !:1 for safety . Haldol 1mg given. Pt now tx to ICU report to Katy MARMOLEJO
[2024-04-04 15:49] LABS: % Basophils 0.4 % (0-2); % Eosinophils 0.8 % (0-6); % Immature Granulocytes 1.1 % (0-0.5); % Lymphocytes 10.1 % (20.5-51.1); % Monocytes 6.1 % (1.7-9.3); % Neutrophils 81.5 % (42.2-75.2); Absolute Eosinophils 0.1 10^3/uL (0-0.7); Absolute Immature Granulocytes 0.1 10^3/uL (0-0.05); Absolute Lymphocytes 0.7 10^3/uL (1.2-3.4); Absolute Monocytes 0.4 10^3/uL (0.1-0.6); Absolute Neutrophils 5.9 10^3/uL (1.4-6.5); Mean Corp Hgb Conc. 30.4 g/dL (33.0-37.0); Mean Corpuscular Hgb 22.8 pg (27.0-31.0); Mean Corpuscular Volume 75.2 fL (81.0-99.0); Mean Platelet Volume 10.4 fL (7.4-10.4); Nucleated Red Blood Cells % 0.4 %; Platelet Count 205 10^3/uL (130-400); Red Blood Cell Count 2.54 10^6/uL (4.20-5.40); Red Cell Dist. Width 23.5 % (11.5-14.5); White Blood Cell Count 7.2 10^3/uL (4.8-10.8)
[2024-04-04 15:59] LABS: Hematocrit 19.1 % (37.0-47.0); Hemoglobin 5.8 g/dL (12.0-16.0)
[2024-04-04 16:00] LABS: INR 1.29
--- NOTE | 2024-04-04 16:00 | PTCARENOTE ---
Rec'd pt via bed from IMU at 1500- rec'd pt restless. Minimally directable but very forgetful. BOURGEOIS. Pt with R BKA. Denies pain. Speech is mostly clear but will at times ramble. Skin is pale wm and dry. Wounds as documented. L medial foot with
purple/necrotic area open to air. See wound documentation. Respirs are unlabored on 6L nc with sats of 100%-will adjust as tolerated. BS are coarse posteriorly. Monitor SR. + pulses. DP pulse with the doppler. TR LE and UE edema. Denies chest pain .
VS as documented. Extrem are warm. Abd is soft with + BS. Incont of a large amt of pasty yeh chalky colored stool. Incont of small amt of urine. IV Precedex started at 1510 at 0.3 mcg/kg/hr via L Ex Jug IV site. Labs sent at ordered. Unable however
to insert another line for blood. IR to put in a TLC once pt calmer. Pt on one to one observation.
[2024-04-04 16:01] LABS: APTT 23.1 Sec (23.4-35.0)
[2024-04-04 16:03] LABS: D-Dimer 3.22 ug/mlFEU (0.00-0.50)
--- NOTE | 2024-04-04 16:09 | CON.INTV ---
Consultation
Consultation Request
Date/Time Consultation Requested: 04/04/2024
Date/Time Consultation Performed: 04/04/2024
Requesting Provider: Dr. Shirley
Performing Provider: Dr. Duc Cho
Reason for Consultation: Change in mental status/symptomatic any
Medical History
-
History of Present Illness:
73-year-old woman with history of chronic pain, spina bifida, right below the knee amputation, left foot osteomyelitis which is chronic came to the hospital complaining of left groin pain. On admission she was complaining of abdominal pain and foot
pain. Apparently she was taken off her methadone in the outpatient setting.
In the emergency room she was noted to have hemoglobin of 3 g/dL. Previously in November was 10.9. She had mild MARY.
Due to anemia GI was consulted. Patient declined EGD and colonoscopy.
CT abdomen pelvis with bowel edema. Does not complain of abdominal pain. Also noted some constipation
Past Medical History
Past Medical History: Other (See assessment and plan section)
Social History
Tobacco: Former Smoker
Alcohol: None
Drug: None
Family History
Family History: Unable to Obtain
Allergies / Home Medications
Allergies
Allergy/AdvReac Type Severity Reaction Status Date / Time
No Known Allergies Allergy Unverified 04/04/24 00:57
Home Medications
�Medication �Instructions �Recorded �Confirmed �Last Taken �Type
methadone 10 mg tablet 20 mg PO BID Pain 04/04/24 04/04/24 04/01/24 History
Review of Systems
-
Unable to Obtain full review of systems at this time due to: Acuity
Vitals / Labs / Diagnostic Testing
Vital Signs
Temp Pulse Resp BP Pulse Ox
97.6 F 85 15 103/65 100
04/04/24 11:30 04/04/24 15:15 04/04/24 15:15 04/04/24 15:15 04/04/24 15:01
Laboratory Results
04/04/24
15:36
PT 16.0 H
INR 1.29
APTT 23.1 L
Diagnostic Testing:
Physical Exam
-
HEENT: Normocephalic
Cardiovascular: S1/S2 and Regular Rhythm
Respiratory: Clear
GI: Soft
Neurology: Other (Open eyes spontaneously. Occasionally following commands. Restless. At times uncooperative.)
Skin: Warm, Other ( status post right BKA) and Other (Left foot osteomyelitis. Dry)
General: Respiratory Distress (n)
Assessment
-
Toxic metabolic encephalopathy: Unclear etiology.
Severe microcytic anemia-likely chronic blood loss
Acute kidney injury
Left foot caurniqfosxgz-t-vzo Findings consistent with osteomyelitis of the LEFT first metatarsal phalangeal joint.
Conditions present prior admission:
Chronic pain on narcotics
Spina bifida
Right below the knee amputation
Nonhealing left foot wound
Assessment and plan:
Transferred to critical care on 04/04/2024
Toxic metabolic encephalopathy: Unclear etiology. Patient is delirious,? Hospital delirium versus opiate withdrawal.
Only medication she takes at home is methadone.
? Withdrawal from methadone
Haldol I V as needed
Precedex drip, will titrate as necessary. Monitor hemodynamics.
Monitor QT
Hopefully can obtain IV access for transfusion
-
It is not clear if this patient has some psychiatric underlying history.
-
So far no evidence for infection-continue to monitor fever and leukocytosis
Avoid benzodiazepines as possible.
Left foot osteomyelitis suspect chronic: Podiatry following. May need some sort of intervention.
-
Mild acute kidney injury: Suspect volume depletion
Once IV access obtained transfusion and possibly IV fluids.
No other laboratory abnormalities.
Check a UA if able
-
Severe anemia: Iron deficiency
GI correspondence reviewed: Patient declined EGD or colonoscopy
Follow H&H
Bowel movement this afternoon nonbloody.
Suspect chronic bleeding
Continue PPI
-
N.p.o. okay to give pills.
Head of the bed elevation
Fall precautions
One-to-one observation
-
Case discussed with Dr. Shirley
-
Critical care statement: A total of 31 minutes of critical care time was provided for this patient today. This includes management of unstable vital signs, evaluation of the patient at bedside, reviewing the patient's pertinent medical records
including , radiographs, microbiology, laboratory evaluations and discussion with primary team, critical care nursing, and respiratory therapy.
[2024-04-04 16:17] LABS: ALT (SGPT) 165 U/L (0-35); AST (SGOT) 25 U/L (14-36); Albumin 2.9 g/dl (3.5-5.0); Alkaline Phosphatase 105 U/L (38-126); Blood Urea Nitrogen 18 mg/dl (7-17); Calcium 8.4 mg/dl (8.4-10.2); Carbon Dioxide 16 mmol/L (22-30); Chloride 113 mmol/L (98-107); Direct Bilirubin 0.5 mg/dl (0.0-0.4); Estimated Creatinine Clearance 29 ml/min; Glucose 136 mg/dl (70-99); Magnesium 2.1 mg/dl (1.6-2.3); Potassium 4.5 mmol/L (3.5-5.1); Sodium 138 mmol/L (135-145); Total Bilirubin 1.2 mg/dl (0.2-1.3); Total Protein 5.6 g/dl (6.3-8.2); eGFR 39.97
[2024-04-04 16:40] LABS: Anisocytosis 1+; Normal RBC Morphology No
--- NOTE | 2024-04-04 16:40 | PTCARENOTE ---
Precedex currently at 0.7- calms at intervals but then will get restless and try to get oob. Needs frequent reminders. One to one continues.
[2024-04-04 16:43] LABS: Hypochromasia 3+; Schistocytes Occasional
[2024-04-04 16:44] LABS: Microcytosis 1+
--- NOTE | 2024-04-04 16:50 | PTCARENOTE ---
Olena. IR in and RIJ TLC placed. Port CXRay ordered
--- NOTE | 2024-04-04 17:20 | PTCARENOTE ---
Precedex at 0.9 mcg. RIJ TLC placement confirmed. Pt sleeping/dozing sitting leaning over her legs in tcr-aaereurv-djtnfzv resists lying back on pillow. States she wants to go to another bed. Zach placed on pt. Dr. Cho updated on labs
--- NOTE | 2024-04-04 17:40 | PTCARENOTE ---
Placement confirmed on RIJ TLC and #3 unit of PRBC started via RIJTLC. Currently sitting up . with head down on her legs. O2 at 4L nc and sats are 100%
--- NOTE | 2024-04-04 17:56 | PTCARENOTE ---
Dozes then is restless wanting to go to bed even though she is in bed. Blood infusing. Some bloody drainage on RIJ TLC dressing but contained within the dressing. Blood infusing. Pt ripped O2 out of her nose and sats are 100%-will leave off.
Precedex at 1.1 mcg
--- NOTE | 2024-04-04 18:37 | PTCARENOTE ---
Blood infusing. Took in some clear liquids without difficulty and is currenlty dozing. Decreased the Precedex to 0.9 as Bp is starting to run in the 90's 91/51. No other changes.
--- NOTE | 2024-04-04 20:32 | PTCARENOTE ---
Pt initially received sleeping with blood transfusing through R TLC. Precedex at 0.9mcg infusing via L EJ. Pt then awake, restless, agitated, uncooperative, confused to time, place and situation. Pt grossly incontinent. Pt changed and obie care
done. Purewick removed as pt incont of some loose stool. Assessment as charted. Pt follows some directions but not others. Discussed with radio interference investigator KINGSLEY the following- COWS not done as pt back on methadone and is currently on precedex. Also will
check blood work at 2300 before giving any further transfusions. 1:1 remains at bedside.
[2024-04-04 23:02] LABS: Hematocrit 18.7 % (37.0-47.0); Hemoglobin 6.1 g/dL (12.0-16.0)
[2024-04-05] VITALS (29 sets, daily range): BP systolic 107–152; BP diastolic 56–104; BMI 20.1
[2024-04-05] MEDS: NSS 1000 IV ×3 (02:00→21:07)
[2024-04-05] MEDS: DILAUDID 0.5 MG IV ×6 (04:33→23:09)
--- NOTE | 2024-04-05 04:41 | PTCARENOTE ---
Pt awake intermittently. Incontinent of urine. Attends changed. R TLC catheter seemed to be out further than earlier. PCXR done for placement. Examined by wing coverer KINGSLEY and site redressed. Pt screaming 'Knock me out' ' I need pain medicine'. Med
with dilaudid IV. Pt was able to tell me where she was and the month which she could not do at the beginning of the shift. Continues to be uncooperative and restless at times. 1:1 continues.
--- NOTE | 2024-04-05 04:45 | PTCARENOTE ---
Pt awake intermittently. Incont of urine. Attends changed. Pt transfused additional 2 units PRBCs after last HGB result of 6.1. R TLC catheter appears to be out further than it had been. Examined by bundle tier home health manager and portable CXR done. Per [employer]
TLC ok to use. Site redressed. Pt continues to be uncooperative and restless at times. This am awake and screaming 'knock me out' ' I need pain medicine'. Pt med with dilaudid. Pt was able to tell me where she was and month of year which she was
unable to do earlier in shift. 1:1 continues.
[2024-04-05 05:45] LABS: Hematocrit 26.6 % (37.0-47.0); Mean Corpuscular Hgb 25.1 pg (27.0-31.0); Mean Corpuscular Volume 78.7 fL (81.0-99.0); Mean Platelet Volume 9.7 fL (7.4-10.4); Platelet Count 156 10^3/uL (130-400); Red Blood Cell Count 3.38 10^6/uL (4.20-5.40); Red Cell Dist. Width 19.9 % (11.5-14.5); White Blood Cell Count 6.5 10^3/uL (4.8-10.8)
--- NOTE | 2024-04-05 05:47 | W.PN.UPDATE ---
Update Note
Progress Note Update
0500- Right TLC re-dressed. Chest xray obtained for placement verfication.
[2024-04-05 06:00] LABS: ALT (SGPT) 137 U/L (0-35); AST (SGOT) 20 U/L (14-36); Albumin 2.5 g/dl (3.5-5.0); Alkaline Phosphatase 88 U/L (38-126); Blood Urea Nitrogen 15 mg/dl (7-17); Carbon Dioxide 17 mmol/L (22-30); Chloride 113 mmol/L (98-107); Estimated Creatinine Clearance 33 ml/min; Glucose 102 mg/dl (70-99); Magnesium 1.8 mg/dl (1.6-2.3); Phosphorus 3.6 mg/dl (2.5-4.5); Potassium 4.4 mmol/L (3.5-5.1); Sodium 137 mmol/L (135-145); Total Bilirubin 1.5 mg/dl (0.2-1.3); eGFR 48.09
[2024-04-05 06:09] LABS: Hemoglobin 8.5 g/dL (12.0-16.0)
[2024-04-05] MEDS: PRECEDEX 100 IV (06:18)
[2024-04-05] MEDS: DOLOPHINE 10 MG PO ×2 (07:53→19:09)
[2024-04-05] MEDS: PROTONIX IV 40 MG IV ×2 (07:53→19:09)
[2024-04-05] MEDS: NSS (PRESERVATIVE FREE) 10 ML IV ×2 (07:54→19:09)
[2024-04-05] MEDS: MIRALAX 17 GRAMS PO (07:54)
--- NOTE | 2024-04-05 08:20 | W.PN.HOSP.TC ---
Today's Communication/Plan
-
See note
Assessment / Plan
Assessment / Plan
1. Acute microcytic anemia from blood loss
Iron deficiency anemia
GI bleeding
-hemoglobin of 3. MCV of 66 at admission.
-Presumed blood loss related as cousin reported patient having on and off blood in stool, confirmed with patient cousin who has stated of seeing blood in commode many times after patient uses bathroom.
-s/p 5 U prbc , hbg ~ 8.5 in morning today
-GI evaluated and patient apparently declined endoscopy, although patient encephalopathic and not reliable. If patient have further episode of anemia/bleed or agreeable to endoscopy GI will need to be reengaged.
-of note peripheral smear showing multiple variety of abnormal RBC including schistocytes/anisocytosis/microcytosis.
2. Left foot toe osteomyelitis
Suspected PAD
-confirmed on foot x-ray.
-Recommended vascular study once patient able to undergo testing. ordering LE art doppler
-Currently on empiric vancomycin and Zosyn, normal WBC/afebrile. No concern for systemic sepsis. will hold abx now and monitor.
-wound is dry and no drainage on exam, local wound care as needed.
3. Chronic pain on methadone
-PDMP reviewed/discussed with patient primary pain specialist.
- Patient has failed to follow-up regularly. Patient pain specialist has been trying to wean patient off of methadone.
- Currently patient on p.o. 20 mg twice daily, changed to 10 mg twice daily.
- Check QTc periodically with patient being on methadone and other QTc prolonging medication.
4. Acute toxic metabolic encephalopathy
- patient at times not cooperative and difficult is not allowing nurse to provide care
-Patient required to be put on Precedex drip and moved to ICU
-After blood transfusion/improvement in anemia patient more awake and conversive. Psychiatry involved in care this patient continues to have behavioral problems.
5. Visual hallucinations
h/o of suicidal ideation in Nov 14.
-Patient have reportedly seen bugs in house, according to cousin patient ended up tearing apart couch looking for bugs
-No clear history of psychiatric issues/schizophrenia/bipolar disorder
6. MARY
Metabolic acidosis
-Baseline renal function unknown, creatinine 1.2. Bicarb 17
-Maintain on slow IV fluid, already got 5 units of blood transfusion yesterday
-Maintain on oral bicarb
7. Elevated T bilirubin
-minimal, indirect dominant,
Patient remains a poor historian at this point. According to cousin patient having bleeding on and off which patient emphatically denies. Patient also seeing things and have damaged property at cousin's place although patient denying that as well.
Patient not forthcoming with past information. Remains difficult and hindering her own care at times.
Total time spent ;53 mins
Anticipated Discharge: > 48 hours
Subjective/Interval History
-
Date of Service: April 05, 2024
patient remains agitated, does not allow RN to clean patient
remains on precedex drip
no other issues
Objective Data
-
Labs:
Laboratory Results
04/04/24 04/05/24
22:44 05:29
WBC 6.5
Hgb 6.1 L* 8.5 L D
Hct 18.7 L* 26.6 L
Plt Count 156 D
Sodium 137
Potassium 4.4
Chloride 113 H
Carbon Dioxide 17 L
BUN 15
Creatinine 1.2 H
Glucose 102 H
Calcium 8.0 L
Total Bilirubin 1.5 H
AST 20
ALT 137 H
Alkaline Phosphatase 88
Vital Signs:
Vital Signs
Temp Pulse Resp BP Pulse Ox
98.0 F 59 14 152/95 98
04/05/24 06:54 04/05/24 05:00 04/05/24 05:00 04/05/24 05:00 06/15/24 05:00
I&O
04/04/24 04/05/24 04/06/24
06:59 06:59 06:59
Intake Total 0 / 0 4043.0 / 4043.0
Balance 0 / 0 4043.0 / 4043.0
Review of Systems
-
Respiratory: Reports No Symptoms
Cardiac: Reports No Symptoms
Abdomen/GI: Reports No Symptoms
Physical Exam
-
General: Comfortable
HEENT: Negative Oxygen
Respiratory: Clear to Auscultation
Cardiac: Regular Rhythm and S1/S2; Negative Murmur or Rub
GI: Soft, Nontender and Nondistended
Musculoskeletal: No Edema
Neuro: Awake, Alert and Other (Right BKA, Left foot osteo of first MTP joint)
Psych: Agitated
--- NOTE | 2024-04-05 08:39 | W.PN.INTV ---
Today's Communication / Plan
Recommendations
Continue Precedex drip, will wean off today if able.
Monitor hemodynamics
Follow H&H
Antipsychotics for behavior control
One-to-one observation
This patient transfer out of critical care team will sign off.
Assessment
-
73-year-old woman with past medical history noted. Admitted with foot pain. Found to have osteomyelitis. Developed toxic metabolic encephalopathy, agitation on the floors. Transferred to critical care unit 04/04/2024 for chemical restraint.
Started on Precedex. Central line obtained.
Toxic metabolic encephalopathy: Unclear etiology.? Hospital delirium/cannot rule out withdrawal from methadone as well.
Severe microcytic anemia-likely chronic blood loss
Acute kidney injury
Left foot kiejccsfmbpst-m-upw Findings consistent with osteomyelitis of the LEFT first metatarsal phalangeal joint.
Conditions present prior admission:
Chronic pain on narcotics
Spina bifida
Right below the knee amputation
Nonhealing left foot wound
Assessment and plan:
Transferred to critical care on 04/04/2024
Toxic metabolic encephalopathy: Unclear etiology. Patient is delirious,? Hospital delirium versus opiate withdrawal.
Only medication she takes at home is methadone.
Methadone restarted. Patient taking.
Haldol I V as needed
Precedex drip, will titrate as necessary. Monitor hemodynamics. Will continue to wean off today.
Monitor QT.
-
Zyprexa will be started
It is not clear if this patient has some psychiatric underlying history.
Currently followed commands. Intermittently agitated.
-
So far no evidence for infection-continue to monitor fever and leukocytosis
Avoid benzodiazepines as possible.
-
Left foot osteomyelitis suspect chronic: Podiatry following. May need some sort of intervention during this hospital stay.
-
Mild acute kidney injury: Suspect volume depletion, resolving after IV fluid
No other laboratory abnormalities.
Check a UA if able
-
Severe anemia: Iron deficiency
Status posttransfusion hemoglobin responded well up to 8.5.
GI correspondence reviewed: Patient declined EGD or colonoscopy
Follow H&H
Bowel movement this afternoon nonbloody.
Suspect chronic bleeding
Continue PPI
-
N.p.o. okay to give pills.
Head of the bed elevation
Fall precautions
One-to-one observation
-
Case discussed with Dr. Shirley
-
Critical care statement: A total of 31 minutes of critical care time was provided for this patient today. This includes management of unstable vital signs, evaluation of the patient at bedside, reviewing the patient's pertinent medical records
including , radiographs, microbiology, laboratory evaluations and discussion with primary team, critical care nursing, and respiratory therapy.
-Will remain in ICU until Precedex drip can be weaned off.
Subjective Dataa
Subjective Data
Date of Service:
Date of Service: April 05, 2024
Chief Complaint: Videographer Follow Up (Delirium/toxic metabolic encephalopathy)
Subjective:
This morning intermittently agitated. She is redirectable.
Complaining of foot pain.
There is no reports of nausea and vomiting.
Denies shortness of breath.
Review of Systems
General: Fever (n) and Pain
Cardiopulmonary: Dyspnea (n)
GI: Abdominal Pain (n) and Nausea (n)
Objective Data
Data Reviewed
Vital Signs / I&O / Oxygen:
Vital Signs
Temp Pulse Resp BP Pulse Ox
98.0 F 59 14 152/95 98
04/05/24 06:54 04/05/24 05:00 04/05/24 05:00 04/05/24 05:00 04/05/24 05:00
Intake and Output
04/04/24 04/05/24 04/06/24
06:59 06:59 06:59
Intake Total 0 / 0 4043.0 / 4043.0
Balance 0 / 0 4043.0 / 4043.0
SaO2 98
Nasal Cannula flow liters per 4
minute
Physical Exam
General: Respiratory Distress (n) and Comfortable
HEENT: Normocephalic
Cardiovascular: S1-S2 and Regular Rhythm
Respiratory: Clear and Non-Labored Respirations
GI: Soft and Non Distended
Neurology: Awake, Alert, Other (Intermittently agitated) and Other (Follows commands. She knows that she is in the hospital)
Skin: Other (Status post right great amputation-nonhealing wound) and Other (Right below the knee amputation)
Labs/Micro/Reports
Lab Data
04/05/24 05:29
04/05/24 05:29
Laboratory Results
04/04/24
15:36
PT 16.0 H
INR 1.29
APTT 23.1 L
Microbiology
04/04/24 02:54 Blood/Venous Blood Culture - Preliminary
No Growth in 24 hours- Final report to follow
04/04/24 02:54 Blood/Venous Blood Culture - Preliminary
No Growth in 24 hours- Final report to follow
04/04/24 16:05 Foot - Left Gram Stain - Preliminary
[2024-04-05] MEDS: ZYPREXA 10 MG PO (08:42)
--- NOTE | 2024-04-05 09:00 | PTCARENOTE ---
pt awake and restless in bed , disheveled appearance pt impulsive , not aware she is in hospital , unaware of medical needs, requesting for pain Meds , co L foot pain, Doppler pulses , pink and warm , L foot at first metatarsal join with necrotic
area , Dilaudid for pain , pt tolerated clear liquid breakfast , NSR on monitor , BP appropriate 149.90 , on room air with 02 sat of 99% , pt is on Precedex gtt and increased to 1.0mcg this am as she is very restless and not cooperative ,she lacks
thinking and reasoning at this time , she is a 1:1 level of care for safety reasons , she is unaware of her IVs that are in her neck and risk of dislodgement is increased with her restlessness , psychiatry is now consulted
--- NOTE | 2024-04-05 10:59 | CON.MD ---
Consultation - Medical
-
73 y/o single woman who has been living with her cousin in [place] since Dec 06 admitted yesterday for left foot pain and found to have osteomyelitis. Furthermore, her hemoglobin was found to be 3 which is suspected to be from a GI bleed (cousin
saw blood in stool) which is being corrected. She became agitated on the floor and required transfer to ICU for sedation with Precedex. I spoke to her cousin Fermin [phone]. Cousin reports that she has been seeing bugs and has cut open the
mattress and box spring and used a brush to find these bugs which do not exist. Has also cut into the hanna. Cousin attributes this to being on Methadone; recently missed two days of Methadone. No alcohol use. Pt. now denies seeing anything. In
ICU has been agitated and restless at times. Has been given IV Haldol and Zyprexa.
PH: Pt. denies any history of serious mental illness but was depressed because she has spina bifida and children made fun of her when she was in school. Never suicidal. No mental health treatment reported. Cousin said that after she went bankrupt
and the house her mother's house in was sold, she moved in with a neighbor but was disruptive there. Was living in a motel when she called cousin asking to live with her.
FH of [place]: Maternal and Paternal uncles were treated for depression; the paternal [facility]was hospitalized at [facility]. A maternal aunt received ECT.
: Raised in [place], [place]. Nearly completed an associates degree from [employer]. 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 Because of spina bifida, has always been incontinent. Was able to walk. Cousin said she
is not using prosthesis and is crawling in her house. Never . Rare use of alcohol. No abuse of drugs. Did abuse Percocet in high school. Former smoker.
MSE: Elderly woman with blond hair who was mildly sedated from Precedex. Restless and sat up in bed several times. Alert. Oriented to person and place. Thought date was April 14. Aware of reason for hospitalization. Is thinking about whether
she will consent to colonoscopy. Denies auditory and visual hallucinations. Denies paranoia and shows no signs of being paranoid or delusional. Seems to be of average or above average intelligence. Some knowledge of current events. Judgment has
been poor.
WBC - 6.5, H/H 8.5/26.6%; Plt 145, ALT 137, protein low at 5.0; albumen low at 2.5.
Discussion: There apparently has been some ongoing hallucinations of bugs and acting on this by cutting into items in the home to look for them. Unclear if this was from use of Methadone. Unlikely primary psychiatric disorder as she did not have
any psychosis until recent years. Isolated visual hallucinations are mostly associated with a medical condition rather than psychiatric.
Diagnosis: Delirium, resolving perhaps due to use of Methadone and severe anemia
Restlessness, may be akathisia
Plan: I will begin very low dose Zyprexa 2.5 mg. twice daily for agitation and help prevent recurrence of hallucinations Will need psychiatric follow-up after discharge and perhaps involvement from a community agency. Her cousin who just had
surgery, has concerns about her returning to her home too quickly and would favor a stay at a SNF rehab.
Psychiatry will follow.
--- NOTE | 2024-04-05 14:10 | PTCARENOTE ---
pt more cooperative after Zyprexa given , she does have periods of agitation and argumentative but less frequent , she is now aware she is in a hospital , she continues to complain of L foot pain , medicated with Dilaudid as able , tolerated
regular diet , able to feed self
[2024-04-05] MEDS: FERRLECIT 110 MG IV (14:13)
--- NOTE | 2024-04-05 15:38 | PTCARENOTE ---
pt weaning down on Precedex, pt brother Gage who resides in [place] ) called and stated she has been trying to hurt herself for many years , she has been addicted to methadone and takes her Meds as not prescribed , she once had taken 10
tablets in one day and needed to be admitted to a hospital , she sees Quinn Abraham at [facility] for pain control, , he also states she only has one kidney , her last admission to the hospital was January 05, 2024 at [facility] in [place] ,
she purposely ingested roundup as a suicide attempt , and needed HD , he stated he has tried several years for her to get psychiatric help and she is never been placed into a rehab facility for drug dependancy , he said she has never lived on her
own , she was only in the hotel living situation for one day before her cousin took her in ,prior to that she was living with her brother in [place] and had destroyed their living quarters , she has now has used up her all of her support system ,
'she destroys the living space she lives in when she has her episodes from withdrawing and she hallucinates by seeing seeing bugs and destroys the living quarters ' has been doing this behavior in almost every living situation she has been .
--- NOTE | 2024-04-05 17:05 | PTCARENOTE ---
off Precedex, more cooperative , she continues to be restless at times but will settle down after a few minutes and dozes off to sleep
[2024-04-05] MEDS: ZYPREXA 2.5 MG PO (19:44)
--- NOTE | 2024-04-05 20:21 | PTCARENOTE ---
Pt is alert and oriented, very anxious and restless, repeating 'god help me' and 'Im not gonna make it'. VS suggest otherwise. VSS, NSR on monitor, BP stable, RA sats 96%. Pt having 10/10 pain in left foot, all PRNs have been administered in a
safely manor, pt still continues to complain of pain. repositioned, and warm blankets offered. Continues to be a 1:!, safety measures in place, will continue with plan of care.
--- NOTE | 2024-04-05 23:03 | PTCARENOTE ---
Pt VSS, NSR on monitor, C/o 10/10 pain in left foot. PRN medication given per order for patients safety. Pt restless, agitated, and sobbing in bed, complaining of bugs biting her. She is Aox3. Fluids continued. Incontinent on urine.
[2024-04-06] VITALS (11 sets, daily range): BP systolic 106–160; BP diastolic 68–93; BMI 18.5
[2024-04-06] MEDS: DILAUDID 1 MG IV (02:06)
[2024-04-06 04:05] LABS: Hematocrit 26.9 % (37.0-47.0); Hemoglobin 8.9 g/dL (12.0-16.0); Mean Corp Hgb Conc. 33.1 g/dL (33.0-37.0); Mean Corpuscular Volume 75.6 fL (81.0-99.0); Mean Platelet Volume 9.9 fL (7.4-10.4); Platelet Count 218 10^3/uL (130-400); Red Blood Cell Count 3.56 10^6/uL (4.20-5.40); Red Cell Dist. Width 21.1 % (11.5-14.5); White Blood Cell Count 8.4 10^3/uL (4.8-10.8)
[2024-04-06 04:30] LABS: Blood Urea Nitrogen 17 mg/dl (7-17); Calcium 8.4 mg/dl (8.4-10.2); Carbon Dioxide 17 mmol/L (22-30); Chloride 114 mmol/L (98-107); Estimated Creatinine Clearance 37 ml/min; Glucose 138 mg/dl (70-99); Potassium 4.1 mmol/L (3.5-5.1); Sodium 138 mmol/L (135-145); eGFR 48.09
[2024-04-06] MEDS: DILAUDID 0.5 MG IV ×2 (04:55→07:52)
--- NOTE | 2024-04-06 05:58 | PTCARENOTE ---
Pt assessment unchanged, continues to seek more pain medication. VSS. Right IJ dressing changed. Hemoglobin trending up.
[2024-04-06] MEDS: PROTONIX IV 40 MG IV ×2 (07:16→21:14)
[2024-04-06] MEDS: DOLOPHINE 10 MG PO ×2 (07:16→21:15)
[2024-04-06] MEDS: ZYPREXA 2.5 MG PO ×2 (07:16→21:13)
[2024-04-06] MEDS: NSS (PRESERVATIVE FREE) 10 ML IV ×2 (07:16→21:14)
[2024-04-06] MEDS: MIRALAX 17 GRAMS PO (07:17)
[2024-04-06] MEDS: FLUSH (NSS) 3 FLUSH IV (07:17)
--- NOTE | 2024-04-06 07:58 | PTCARENOTE ---
report received, assessments per work list. patient anxious, tearful. OrientedX3. denies hallucinations. very restless in bed. c/o severe whole body pain. monitor nsr lungs diminished. Doppler left pedal pulses. wounds per work list documentation.
right IJ triple line patent with good blood returns. capped. incontinent yellow urine. medicated with prn dose Dilaudid. 1:1 observation maintained
--- NOTE | 2024-04-06 08:30 | W.PN.HOSP.TC ---
Addendum entered and electronically signed by Viet Shirley MD 04/06/24 08:57:
I have changed IV Dilaudid to oral tramadol. (Likely will not be able to control pain) although patient have pain in toe and chronic pain syndrome with history of addiction to narcotics, not an ideal candidate to providing IV Dilaudid.
Also patient on methadone and may require stronger pain medication, I will be increasing to oral pain medication and try to avoid IV narcotics unless absolutely needed for true medical reasons.
Discussed with RN as well.
Original Note:
Today's Communication/Plan
-
see note
Assessment / Plan
Assessment / Plan
1. Acute microcytic anemia from blood loss
Iron deficiency anemia
GI bleeding
-hemoglobin of 3. MCV of 66 at admission.
-Presumed blood loss related as cousin reported patient having on and off blood in stool, confirmed with patient cousin who has stated of seeing blood in commode many times after patient uses bathroom.
-s/p 5 U prbc , hbg ~ 9, continue follow
-GI evaluated and patient apparently declined endoscopy, although patient encephalopathic and not reliable. If patient have further episode of anemia/bleed or agreeable to endoscopy GI will need to be reengaged.
-of note peripheral smear showing multiple variety of abnormal RBC including schistocytes/anisocytosis/microcytosis. Repeat manual differentiation ordered for today.
-Patient remains a poor historian despite being fully oriented today, not sure if she had endoscopy in the past. Patient is willing to undergo EGD. Does not want colon prep. GI informed about the discussion
2. Left foot toe osteomyelitis
Suspected PAD
-confirmed on foot x-ray.
-Recommended vascular study once patient able to undergo testing. ordering LE art doppler
-Currently on empiric vancomycin and Zosyn, normal WBC/afebrile. No concern for systemic sepsis. will hold abx now and monitor.
-wound is dry and no drainage on exam, local wound care as needed.
3. Chronic pain on methadone
-PDMP reviewed/discussed with patient primary pain specialist. Patient has failed to follow-up regularly. Patient pain specialist has been trying to wean patient off of methadone.
- Currently patient on p.o. 20 mg twice daily, changed to 10 mg twice daily. Would benefit if patient can be weaned off of methadone completely this visit. Will discuss with pharmacy as well.
- QTc of 440ms at admit.
4. Acute toxic metabolic encephalopathy -resolved
- patient at times not cooperative and difficult is not allowing nurse to provide care
-Patient required to be put on Precedex drip and moved to ICU
-Patient has been able to be weaned off of Precedex drip.
-Patient has been started on Zyprexa 2.5 mg twice daily. Mentation better today and transferring to [facility].
5. Visual hallucinations
h/o of suicidal ideation in Nov 14.
-Patient have reportedly seen bugs in house, according to cousin patient ended up tearing apart couch looking for bugs
-No clear history of psychiatric issues/schizophrenia/bipolar disorder
6. MARY vs CKDIII
Metabolic acidosis
-Baseline renal function unknown, creatinine 1.2. Bicarb 17
-Maintain on slow IV fluid, already got 5 units of blood transfusion yesterday
-Maintain on oral bicarb
7. Elevated T bilirubin
-minimal, indirect dominant,
8. History of suicidal ideation
-Patient in January 04 drank [place] and was admitted to [facility] in [place]
-no current suicidal ideation this visit, remains on 1:1
04/05 patient brother from [place] called and informed that patient have been living with brother in [place] and has destroyed his living space. Patient has done similar things with previous accommodations and have exhausted all support system at
this point. Brother worried that patient withdraws from methadone periodically and hallucination episodes.
Discussed briefly patient's plans post discharge. Patient remains evasive and tells me that she is going to travel to [place] by train, I have my reservation about patient's ability physically and financially to do so. Also patient's brother from
[place] have contacted us yesterday and may not agree to accept patient in his house as patient have destroyed all the accommodation with her behavioral outbursts. Although discussion needs to be done with brother/sibling if patient truly wants to go
[place]. This remains a difficult situation regarding discharge planning and patient may end up requiring to be placed in jail if no other arrangements happens.
and unfortunately patient has a poor insight into her current condition. Case management help will be required.
Total time spent : 52 mins
I personally saw and examined the patient.
I have reviewed all diagnostic interpretations and treatment plans as written.
Time includes patient management by me, time spent at the patients bedside, time to review lab and imaging results, discussing patient care, documentation in the medical record, and time spent with the family or caregiver and discussing care plan
with RN/Consultants.
Anticipated Discharge: > 48 hours
Subjective/Interval History
-
Date of Service: April 06, 2024
Patient sitting up comfortably in bed having breakfast
Denies of having any problems except difficulty sleeping
No reported issues
Objective Data
-
Labs:
Laboratory Results
04/06/24
03:33
WBC 8.4
Hgb 8.9 L
Hct 26.9 L
Plt Count 218 D
Sodium 138
Potassium 4.1
Chloride 114 H
Carbon Dioxide 17 L
BUN 17
Creatinine 1.2 H
Glucose 138 H
Calcium 8.4
Vital Signs:
Vital Signs
Temp Pulse Resp BP Pulse Ox
98.3 F 75 24 106/70 98
04/06/24 07:19 04/06/24 07:25 04/06/24 07:44 04/06/24 07:25 04/06/24 07:44
I&O
04/05/24 04/06/24 04/07/24
06:59 06:59 06:59
Intake Total 4043.0 / 4154.2 3028.6 / 3028.6 120 / 120
Balance 4043.0 / 4154.2 3028.6 / 3028.6 120 / 120
Review of Systems
-
Respiratory: Reports No Symptoms
Cardiac: Reports No Symptoms
Abdomen/GI: Reports No Symptoms
Physical Exam
-
General: Negative Appears in Distress
HEENT: Negative Oxygen
Musculoskeletal: Other (Right BKA)
Neuro: Awake, Alert, Oriented and No Motor Deficits
Psych: Calm
[2024-04-06 09:14] LABS: Absolute Neutrophils -Man Diff 6.8 10^3/uL (1.4-6.5); Band Neutrophils 0 % (0-3); Eosinophils 1 % (0-6); Lymphocytes 15 % (20-51); Monocytes 3 % (2-9); Platelets Checked Yes; Segmented Neutrophils 81 % (42-75)
[2024-04-06 09:15] LABS: Anisocytosis 1+; Hypochromasia 2+; Normal RBC Morphology No; Polychromasia 1+; Target Cells 1+
[2024-04-06 09:16] LABS: Acanthocytes 1+; Ovalocytes 1+; Schistocytes FEW; Total Cells Counted 100
[2024-04-06] MEDS: ULTRAM 50 MG PO ×3 (10:32→22:59)
--- NOTE | 2024-04-06 11:22 | PTCARENOTE ---
midline placed by VAT RN. right IJ removed by VAT nurse. patient medicated with tramadol per prn order. +wound culture MRSA. placed on contact precautions. hospitalist notified by laurie text
[2024-04-06] MEDS: ULTRAM 25 MG PO (13:59)
[2024-04-06] MEDS: FERRLECIT 110 MG IV (14:36)
--- NOTE | 2024-04-06 16:43 | W.PN.UPDATE ---
Update Note
Progress Note Update
73 y/o woman with spina bifida, right leg amputation in remote past admitted with osteomyelitis. Had been hallucinating bugs and acting on that by cutting open mattress, etc. She is now out of ICU; has 1:1. Is pleasant and appropriate with me
today. Did not remember us meeting, but was on Precedex at the time. Said she slept well. Has very good appetite and ate entire dinner confirmed by staff). Complains of severe pain, but is being weaned from Methadone. Tramadol has been added as
PRN. She had misused Methadone at home and hallucinations and delusions likely related to its use or withdrawal. She was very flattered that I remembered she had worked for [employer].
She has tolerated olanzapine 2.5 mg. BID. Will continue for now without change. I would not consider stopping 1:1 until at least tomrrow as she tends to try to get out of bed.
Psychiatry will follow.
[2024-04-07] MEDS: TYLENOL 1000 MG PO
[2024-04-07] MEDS: ZOFRAN 4 MG IV (03:09)
[2024-04-07 03:20] VITALS: BP 152/88
--- NOTE | 2024-04-07 03:30 | PTCARENOTE ---
Pt c/o nausea without PRN available. 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 Pt reports moderate relief upon reassessment.
[2024-04-07] MEDS: ULTRAM 25 MG PO (04:34)
--- NOTE | 2024-04-07 04:50 | PTCARENOTE ---
Pt observed by 1:1 at the bedside attempting to stick her finger down her throat to vomit. When instructed not to self-induce vomiting, pt held up her vomit basin towards 1:1 tech as if she was going to throw the basin at the tech. When RN entered
room pt states she's having 'terrible pain throughout her body' and c/o nausea. Pt received a one time dose of PRN Zofran < 3 hours ago, and is not due for 50mg Tramadol for ~ 30min. Pt asking for lower dose 25 mg Tramadol. Explained to pt given her
nausea, PO intake could worsen her symptoms and if she vomits up her pill, she most likely will not be eligible for another one within the next 6 hours per the order. Pt agreeable anyway, 25mg Tramadol given without vomiting. Thorough education
provided on the importance of refraining from self-inflicting vomiting.
[2024-04-07 07:24] LABS: Hematocrit 28.2 % (37.0-47.0); Mean Corp Hgb Conc. 31.9 g/dL (33.0-37.0); Mean Corpuscular Hgb 25.1 pg (27.0-31.0); Mean Corpuscular Volume 78.8 fL (81.0-99.0); Mean Platelet Volume 9.7 fL (7.4-10.4); Platelet Count 233 10^3/uL (130-400); Red Blood Cell Count 3.58 10^6/uL (4.20-5.40); Red Cell Dist. Width 22.5 % (11.5-14.5); White Blood Cell Count 7.2 10^3/uL (4.8-10.8)
[2024-04-07 07:40] VITALS: BP 151/88
[2024-04-07 07:49] LABS: Blood Urea Nitrogen 16 mg/dl (7-17); Calcium 8.4 mg/dl (8.4-10.2); Carbon Dioxide 21 mmol/L (22-30); Chloride 110 mmol/L (98-107); Estimated Creatinine Clearance 34 ml/min; Glucose 116 mg/dl (70-99); Potassium 3.8 mmol/L (3.5-5.1); Sodium 140 mmol/L (135-145); eGFR 48.09
[2024-04-07] MEDS: NSS (PRESERVATIVE FREE) 10 ML IV ×2 (09:30→20:58)
[2024-04-07] MEDS: MIRALAX PO ×2 (09:31→09:38)
[2024-04-07] MEDS: PROTONIX IV 40 MG IV ×2 (09:31→20:58)
[2024-04-07] MEDS: DOLOPHINE 10 MG PO (09:31)
[2024-04-07] MEDS: ZYPREXA 2.5 MG PO ×2 (09:32→20:58)
--- NOTE | 2024-04-07 10:52 | W.PN.HOSP.TC ---
Addendum entered and electronically signed by Trudy Callahan MD 04/07/24 19:36:
Patient seen and examined independently--agree with plan set forth by Dr. Pereyra
GENERAL: well developed, well nourished, female in no apparent distress
HEENT: NC/AT--no O2 requirement
HEART: regular rate and rhythm, +S1, +S2
LUNGS : clear to auscultation bilaterally
ABDOM: soft, nontender, nondistended, + bowel sounds
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
NEUROLOGIC: grossly intact
Severe acute microcytic anemia--Hb 3.0 on admission, most likely iron deficiency anemia from acute blood loss vs chronic GI bleeding given Hx of Hb 10.90 11/2023. Her cousin reported intermittent rectal bleeding, however no overt GI bleeding on
CTA---S/p 5U PRBC, Hb improved to 9.0--apprec GI-- unclear why pt refused EGD/colonoscopy today--asked GI to re-eval for tomorrow- schistocytes and anisocytosis on peripheral blood smear indicate bone marrow duress due to HGB of 3--N.p.o. past
midnight for possible EGD and colonoscopy tomorrow--Continue PPI, with daily bowel regimen.
Left foot toe osteomyelitis, confirmed on foot x-ray---LLE wound culture with MRSA--Blood culture pending, NGTD--Wound consult--Vancomycin and Zosyn discontinued 04/04/2024, patient currently on febrile WBC counts WNL--MR CUEVAS in a.m--ID Consult in
AM--Consult surgical residential program coordinator in AM
Chronic pain on methadone--PDMP reviewed/discussed with patient primary pain specialist by previous physicians--pt could not tell us who her pain doctor is... Patient has failed to follow-up regularly (pt denies this) Patient pain specialist has
been trying to wean patient off of methadone--Currently patient on p.o. 10 mg twice daily, changed to 5 mg twice daily--Would benefit if patient can be weaned off of methadone completely this visit. Will discuss with pharmacy as well---QTc of 440ms
at admit.
Acute toxic metabolic encephalopathy with hallucinations--Patient currently fully oriented, but at times not cooperative with nursing team--Continue 1:1 for now, patient reportedly seen bugs and cuts in hospital mattress, this has been going on
MANAGER ELIGIBILITY--Continue Zyprexa 2.5 mg twice daily, Precedex discontinued--Psych following.
MARY vs CKDIII--Metabolic acidosis--Baseline renal function unknown, creatinine 1.2. Bicarb improved from 17 to 21--Maintain on slow IV fluid, already got 5 units of blood transfusion yesterday--Maintain on oral bicarb
Elevated T bilirubin--minimal
History of suicidal ideation--Patient in January 04 drank [place] and was admitted to [facility] in [place]--no current suicidal ideation this visit, remains on 1:1
04/05 patient brother from [place] called and informed that patient have been living with brother in [place] and has destroyed his living space. Patient has done similar things with previous accommodations and have exhausted all support system at
this point. Brother worried that patient withdraws from methadone periodically and hallucination episodes.
Discussed briefly patient's plans post discharge. Patient states that she will be going to [place] to live with her brother, but currently does not want to go back to live with her cousin. Also patient's brother from [place] have contacted us
yesterday and may not agree to accept patient in his house as patient have destroyed all the accommodation with her behavioral outbursts. Although discussion needs to be done with brother/sibling if patient truly wants to go [place]. This remains a
difficult situation regarding discharge planning and patient may end up requiring to be placed in penitentiary if no other arrangements happens. Unfortunately patient has a poor insight into her current condition. Case management help will be
required.
Original Note:
Today's Communication/Plan
-
N.p.o. past midnight for potential EGD tomorrow.
Continue to wean methadone currently on 5 mg twice daily.
Monitor H&H
ID consult in a.m. for osteomyelitis
MR CUEVAS in a.m.
Nausea surgical residential program coordinator consult
Assessment / Plan
Assessment / Plan
ASSESSMENT: 73-year-old female with history of chronic pain syndrome, methadone abuse/misuse noncompliance with pain specialist visits, admitted 04/04/2024 for abdominal pain and left toe osteomyelitis. CBC on admission consistent with severe anemia
with hemoglobin 3.0, s/p 5U PRBC with improvement of anemia. Patient refused EGD and colonoscopy.
Impression/Plan:
1. Severe acute microcytic anemia
-Hb 3.0 on admission, most likely iron deficiency anemia from acute blood loss vs chronic GI bleeding given Hx of Hb 10.90 11/2023. Her cousin reported intermittent rectal bleeding, however no overt GI bleeding on CTA.
-S/p 5U PRBC, Hb improved to 9.0.
-Normal platelet counts despite schistocytes and anisocytosis on peripheral blood smear.
-Patient not amenable to EGD and colonoscopy at this point, stated she would be ready tomorrow.
-N.p.o. past midnight for possible EGD and colonoscopy tomorrow.
-GI evaluation appreciated.
-Continue to monitor H&H with CBC.
-Continue PPI, with daily bowel regimen.
2. Left foot toe osteomyelitis, confirmed on foot x-ray.
-LLE wound culture with MRSA.
-Blood culture pending, NGTD.
-Wound consult.
-LE arterial Doppler pending.
-Vancomycin and Zosyn discontinued 04/04/2024, patient currently on febrile WBC counts WNL.
-MR CUEVAS in a.m.
-ID Consult in AM
-Consider surgical residential program coordinator consult.
3. Chronic pain on methadone
-PDMP reviewed/discussed with patient primary pain specialist. Patient has failed to follow-up regularly. Patient pain specialist has been trying to wean patient off of methadone.
-Currently patient on p.o. 10 mg twice daily, changed to 5 mg twice daily. Would benefit if patient can be weaned off of methadone completely this visit. Will discuss with pharmacy as well.
-QTc of 440ms at admit.
4. Acute toxic metabolic encephalopathy with hallucinations.
-Patient currently fully oriented, but at times not cooperative with nursing team.
-Continue 1:1 for now, patient reportedly seen bugs and cuts in hospital mattress, this has been going on MANAGER ELIGIBILITY.
-Continue Zyprexa 2.5 mg twice daily, Precedex discontinued.
-Psych following.
5. MARY vs CKDIII
-Metabolic acidosis
-Baseline renal function unknown, creatinine 1.2. Bicarb improved from 17 to 21.
-Maintain on slow IV fluid, already got 5 units of blood transfusion yesterday.
-Maintain on oral bicarb
6. Elevated T bilirubin
-minimal, indirect dominant
7. History of suicidal ideation
-Patient in January 04 drank [place] and was admitted to [facility] in [place]
-no current suicidal ideation this visit, remains on 1:1
04/05 patient brother from [place] called and informed that patient have been living with brother in [place] and has destroyed his living space. Patient has done similar things with previous accommodations and have exhausted all support system at
this point. Brother worried that patient withdraws from methadone periodically and hallucination episodes.
Discussed briefly patient's plans post discharge. Patient states that she will be going to [place] to live with her brother, but currently does not want to go back to live with her cousin. Also patient's brother from [place] have contacted us
yesterday and may not agree to accept patient in his house as patient have destroyed all the accommodation with her behavioral outbursts. Although discussion needs to be done with brother/sibling if patient truly wants to go [place]. This remains a
difficult situation regarding discharge planning and patient may end up requiring to be placed in penitentiary if no other arrangements happens. Unfortunately patient has a poor insight into her current condition. Case management help will be
required.
Anticipated Discharge: > 48 hours
Subjective/Interval History
-
Date of Service: April 07, 2024
Objective Data
-
Labs:
Laboratory Results
04/07/24
06:55
WBC 7.2
Hgb 9.0 L
Hct 28.2 L
Plt Count 233
Sodium 140
Potassium 3.8
Chloride 110 H
Carbon Dioxide 21 L
BUN 16
Creatinine 1.2 H
Glucose 116 H
Calcium 8.4
Vital Signs:
Vital Signs
Temp Pulse Resp BP Pulse Ox
98.3 F 87 18 151/88 100
04/07/24 07:40 04/07/24 07:40 04/07/24 07:40 04/07/24 07:40 04/07/24 07:40
I&O
04/06/24 04/07/24 04/08/24
06:59 06:59 06:59
Intake Total 3028.6 / 3028.6 960 / 960
Balance 3028.6 / 3028.6 960 / 960
Review of Systems
-
History Source: Patient and Other (Blood historian)
All other systems: Not reviewed unless documented
Constitutional: Denies Fever
EENT: Reports No Symptoms Reported
Respiratory: Reports No Symptoms; Denies Cough
Cardiac: Reports No Symptoms
Abdomen/GI: Reports No Symptoms
Skin: Reports Other (Left foot ulcer)
Physical Exam
-
General: No Apparent Distress; Negative Respiratory Distress
HEENT: Moist Mucous Membranes; Negative Oxygen
Respiratory: Clear to Auscultation and Non Labored Respirations; Negative Crackles
Cardiac: Regular Rhythm and S1/S2
GI: Soft, Nondistended, Normal Bowel Sounds (Decreased bowel sounds) and Tender (Midepigastric); Negative Distended
Rectal: Deferred by Provider
Genito-urinary: No Costovertebral Tender
Musculoskeletal: No Edema and Other (Right BKA)
Skin: Warm
Neuro: Awake, Alert, Oriented, AO x 3 and No Motor Deficits
Psych: Calm
Data Reviewed
-
Diagnostic Radiology: Report Reviewed by me and Discussed with Physician
CT Scan: Report Reviewed by me and Discussed with Physician
Ultrasound: Report Reviewed by me and Discussed with Physician
Labs: Labs Reviewed by me and Discussed with Physician
Old Records: Reviewed
[2024-04-07] MEDS: ULTRAM 50 MG PO ×2 (11:01→23:34)
--- NOTE | 2024-04-07 12:35 | W.PN.UPDATE ---
Update Note
Progress Note Update
Patient is scheduled to have EGD today but currently refusing all GI procedures . Will hold off on them . Please call us back if anything changes in the future. will s/o
--- NOTE | 2024-04-07 13:15 | CM ---
Patient seen at bedside. patient stated to CM that she wanted to go home but indicated that home was in [place] with her mother and acknowledged that her mother was no longer there. Patient currently on 1:1 and unable to return to patient prior home with
family per chart review. CM will continue to follow for discharge planning needs.
Plan; SNF pending functional recommendations.
--- NOTE | 2024-04-07 13:52 | PN.CDI ---
CDI
- -
CDI:
Physician Documentation Request
Admit Date: 04/04/24 05:23
Dear Doctor Casper,
Please review the following and provide your response in the progress notes.
Clinical Indicators:
Pt admitted with Chronic osteomyelitis left leg/ GI bleed/ABLA
Pt care note 04/04 @ 0600, ' ...SPO2 84%, 4L NC placed SPO2 now 92%.....'
Pt care note 0734, ' ...pulling O2 off desating to 76O2 at 6l .....'
Pt care note 04/04 @ 1104, ' Pt very anxious at this time, gasping for breath O2 back on. Pt will not leave O2...'
Per vital signs 04/04 HR as high as 101, RR 27, on 6 LPM via NC
Please provide a diagnosis for the above findings/treatment regarding pt respiratory status:
Acute Hypoxic respiratory failure
Hypoxia Only
Other ( please specify)
Additional information for Respiratory Failure:
Recognized criteria for Respiratory Failure (Source: [facility] Hospitalist Aug 2013)
ABGs: (1 or more) Symptoms Please indicate type if known
1. p)2 <60 or RA SPO2 <91% on RA 1. Tachypnea, SOB, dyspnea Hypoxic
2. pCO2 50 and pH <7.35 2. Use of accessory muscles Hypercapnic
3. pO2 decrease of pCO2 increase by 3. Pallor or cyanosis Hypoxic and Hypercapnic
10 mmHg from baseline if known 4. Anxiety or restlessness Unable to determine
5. Unable to speak in full sentences
Supplemental O2 of > 40% (5LPM) Intubation is not required
Use of terms such as suspected, likely, concern for, or probable (associated with a specific diagnosis that is being evaluated, monitored, or treated as if it exists) are acceptable and can be coded in the inpatient setting, when documented at the
time of discharge.
Thank you,
Kristin Medeiros RN
CDI Specialist
[place] [facility]
Please use your independent medical judgment in providing your response.
--- NOTE | 2024-04-07 14:02 | PN.CDI ---
CDI
- -
CDI:
Physician Documentation Request
Admit Date: 04/04/24 05:23
Dear Doctor,
Please review the following and provide your response in the progress notes.
Clinical Indicators:
Pt admitted with Chronic osteomyelitis left leg/ GI bleed/ABLA
Documented per H&P,' Chronic pain syndrome: Keep IV Dilaudid for now until rest of the workup..'
Update note 04/04 ,' Chronic pain on methadone -PDMP reviewed/discussed with patient primary pain specialist. Patient has failed to follow-up regularly. Patient pain specialist has been trying to wean patient off of methadone. Currently patient
on p.o. 20 mg twice daily, changed to 10 mg twice daily. Check QTc periodically with patient being on methadone and other QTc prolonging medication...'
Dispute Resolution Analyst note 04/04,' Patient is delirious,? Hospital delirium versus opiate withdrawal.Only medication she takes at home is methadone. Withdrawal from methadone Haldol I V as needed Precedex drip, will titrate as necessary. Monitor
hemodynamics.'
Pt home medications includes Methadone. Please clarify if there is a diagnosis associated with the above medication usage.
Opioid dependence, continuous/daily use.
Opioid dependence, intermittent/not daily use
Other
Thank you,
Kristin Medeiros RN
CDI Specialist
[place] [facility]
Please use your independent medical judgment in providing your response.
--- NOTE | 2024-04-07 14:41 | WOUNDNOTE ---
L PLANTAR 1ST MET HEAD
--- NOTE | 2024-04-07 14:42 | WOUNDNOTE ---
L 3RD AND 4TH TOE DORSAL
--- NOTE | 2024-04-07 14:45 | WOUNDNOTE ---
WON RN note: Patient admitted with cellulitis.
See H&P for complete history.
PMH: R BKA, ex smoker, anemia, spina bifida, chronic pain on methadone- followed by pain DrVince & incontinence.
Wound Location and type/assessment: Patient admitted with: L plantar 1st met head with Callus and purple discoloration in middle, + osteomyelitis on X Ray. + palpable pedal pulse, skin warm and dry. No drainage, odor, edema or redness. L heel with
shallow cracked fissure, skin very dry. L 3rd and 4th toe with intact dry scabs from abrasions. R BKA stump with intact scab, suspect unstageable PI vs abrasion from prosthetic. Patient states she needs to see real estate rep for new prosthetic. Does not
have prosthetic at bedside. Currently sitting in chair with leg elevated on bed, sacrum is intact. Reviewed Author Agent Dr. Godwin's report, Dr. Giles's consult pending. Per hospitalists note yesterday, arterial studies to be done once patient
stable, recovering from toxic metabolic encephalopathy. Today patient answered questions appropriately and was cooperative.
Appetite: NPO
Pressure redistribution devices in place: On Versa care air bed, pillow placed under L leg.
Plan: Recommend dry dressing with foam to L plantar foot until further orders from Author Agent. Confirmed with Dr. Callahan and made aware Dr. Giles's consult pending. Applied protective foam on R BKA scab, skin prep L toe scabs and moisturize
legs and L foot daily after bathing. Updated care plan and will follow peripherally and assist as needed.
Note to case management of equipment requested for discharge:TBD
Recommend follow up with Author Agent.
[2024-04-07 15:00] VITALS: BP 132/69
[2024-04-07] MEDS: FERRLECIT 110 MG IV (15:22)
--- NOTE | 2024-04-07 18:19 | PTCARENOTE ---
Pt refused EGD during shift, stating 'maybe tomorrow' GI made aware. MD made aware of Pt's refusal. Communicated with diamond finishing supervisor during shift, Pt will begin medsitter at change of shift. No behavioral issues during day shift, started on a regular
diet and tolerated it well. Wound nurse consulted and new wound care orders. PRN pain medication administered for abdominal discomfort with +effects.
[2024-04-07] MEDS: DOLOPHINE 5 MG PO (20:59)
[2024-04-07 23:16] VITALS: BP 134/82
[2024-04-08] MEDS: TYLENOL 1000 MG PO ×2 (01:22→19:50)
[2024-04-08] MEDS: ULTRAM 25 MG PO (05:23)
[2024-04-08 07:25] VITALS: BP 139/80
[2024-04-08 07:35] LABS: % Basophils 0.9 % (0-2); % Eosinophils 2.5 % (0-6); % Immature Granulocytes 0.4 % (0-0.5); % Lymphocytes 14.6 % (20.5-51.1); % Monocytes 7.1 % (1.7-9.3); % Neutrophils 74.5 % (42.2-75.2); Absolute Basophils 0.1 10^3/uL (0-0.2); Absolute Eosinophils 0.2 10^3/uL (0-0.7); Absolute Monocytes 0.5 10^3/uL (0.1-0.6); Hematocrit 28.8 % (37.0-47.0); Hemoglobin 9.1 g/dL (12.0-16.0); Mean Corp Hgb Conc. 31.6 g/dL (33.0-37.0); Mean Corpuscular Hgb 25.8 pg (27.0-31.0); Mean Corpuscular Volume 81.6 fL (81.0-99.0); Mean Platelet Volume 9.4 fL (7.4-10.4); Nucleated Red Blood Cells % 0 %; Platelet Count 209 10^3/uL (130-400); Red Blood Cell Count 3.53 10^6/uL (4.20-5.40); Red Cell Dist. Width 24.1 % (11.5-14.5); White Blood Cell Count 6.7 10^3/uL (4.8-10.8)
--- NOTE | 2024-04-08 08:00 | W.PN.HOSP.TC ---
Addendum entered and electronically signed by Trudy Callahan MD 04/08/24 18:44:
Patient seen and examined independently--agree with plan set forth by Dr. Pereyra
GENERAL: well developed, well nourished, female in no apparent distress
HEENT: NC/AT--no O2 requirement
HEART: regular rate and rhythm, +S1, +S2
LUNGS : clear to auscultation bilaterally
ABDOM: soft, nontender, nondistended, + bowel sounds
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
NEUROLOGIC: grossly intact
Severe acute microcytic anemia--Hgb 3.0 on admission, most likely iron deficiency anemia from acute blood loss vs chronic GI bleeding given Hx of Hgb 10.9 on 11/2023. Her cousin reported intermittent rectal bleeding, however no overt GI bleeding on
CTA---S/p 5U PRBC, Hb improved to 9.1--apprec GI-- unclear why pt refused EGD/colonoscopy today--asked GI to re-eval for tomorrow- schistocytes and anisocytosis on peripheral blood smear indicate bone marrow duress due to HGB of 3-- EGD with no
evidence for cause of bleeding, aubree incidentally found and now on nystatin, for colonoscopy tomorrow--Continue PPI, with daily bowel regimen.
Left foot toe osteomyelitis, confirmed on foot x-ray---LLE wound culture with MRSA--Blood culture NGTD--apprec Wound consult--Vancomycin and Zosyn discontinued 04/04/2024, WBC counts WNL--MRI LLE shows osteomyelitis of first proximal phalanx and
metatarsal (apprec surgical podiatry-not convinced)--apprec ID Consult
Chronic pain on methadone--PDMP reviewed/discussed with patient primary pain specialist by previous physicians--pt could not tell us who her pain doctor is... Patient has failed to follow-up regularly (pt denies this) Patient pain specialist has
been trying to wean patient off of methadone--Currently patient on p.o. 10 mg twice daily, changed to 5 mg twice daily--Would benefit if patient can be weaned off of methadone completely this visit. Will discuss with pharmacy as well---QTc of 440ms
at admit.
Acute toxic metabolic encephalopathy with hallucinations--Patient currently fully oriented, but at times not cooperative with nursing team--Continue 1:1 for now, patient reportedly seen bugs and cuts in hospital mattress, this has been going on
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
MARY vs CKDIII--Metabolic acidosis--Baseline renal function unknown, creatinine 1.2. Bicarb improved from 17 to 21--Maintain on slow IV fluid, already got 5 units of blood transfusion yesterday--Maintain on oral bicarb
Elevated T bilirubin--minimal
History of suicidal ideation--Patient in January 04 drank [place] and was admitted to [facility] [place]--no current suicidal ideation this visit, now off 1:1 but on medsitter
04/05 patient brother from [place] called and informed that patient have been living with brother in [place] and has destroyed his living space. Patient has done similar things with previous accommodations and have exhausted all support system at
this point. Brother worried that patient withdraws from methadone periodically and hallucination episodes.
Discussed briefly patient's plans post discharge. Patient states that she will be going to [place] to live with her brother, but currently does not want to go back to live with her cousin. Also patient's brother from [place] have contacted us
yesterday and may not agree to accept patient in his house as patient have destroyed all the accommodation with her behavioral outbursts. Although discussion needs to be done with brother/sibling if patient truly wants to go [place]. This remains a
difficult situation regarding discharge planning and patient may end up requiring to be placed in detention if no other arrangements happens. Unfortunately patient has a poor insight into her current condition. Case management help will be
required.
Original Note:
Today's Communication/Plan
-
Clear liquids, possible colonoscopy tomorrow
Monitor H&H
Psych consult
Assessment / Plan
Assessment / Plan
ASSESSMENT: 73-year-old female with history of chronic pain syndrome, methadone abuse/misuse noncompliance with pain specialist visits, admitted 04/04/2024 for abdominal pain and left toe osteomyelitis. CBC on admission consistent with severe anemia
with hemoglobin 3.0, s/p 5U PRBC with improvement of anemia. Patient refused EGD and colonoscopy.
Impression/Plan:
1. Severe acute microcytic anemia
-Hb 3.0 on admission, most likely iron deficiency anemia from acute blood loss vs chronic GI bleeding given Hx of Hb 10.90 11/2023. Her cousin reported intermittent rectal bleeding, however no overt GI bleeding on CTA.
-S/p 5U PRBC, Hb improved to 9.0.
-Normal platelet counts despite schistocytes and anisocytosis on peripheral blood smear.
-EGD today shows multiple esophageal plaques, and erythematous stomach mucosa.
-Multiple biopsies taken from the esophagus, stomach, and duodenum, follow pathology results.
-Clear liquids, n.p.o. past midnight for possible colonoscopy tomorrow.
-GI evaluation appreciated.
-Continue to monitor H&H with CBC.
-Continue PPI, with daily bowel regimen.
2. Left foot toe osteomyelitis, confirmed on foot x-ray.
-LLE wound culture with MRSA.
-Blood culture pending, NGTD.
-Wound consult.
-LE arterial Doppler pending.
-Vancomycin and Zosyn discontinued 04/04/2024, patient currently on febrile WBC counts WNL.
-MR LLE today
-ID Consult today
-Surgical metal box maker consulted.
3. Chronic pain on methadone
-PDMP reviewed/discussed with patient primary pain specialist. Patient has failed to follow-up regularly. Patient pain specialist has been trying to wean patient off of methadone.
-Currently patient on p.o. 5 mg twice daily, changed to 2.5 mg twice daily. Would benefit if patient can be weaned off of methadone completely this visit. Will discuss with pharmacy as well.
-QTc of 440ms at admit.
4. Acute toxic metabolic encephalopathy with hallucinations.
-Patient currently fully oriented, but at times not cooperative with nursing team.
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
-Continue Zyprexa 2.5 mg twice daily, Precedex discontinued.
-Psych consulted to assess patient for capacity.
5. MARY vs CKDIII
-Metabolic acidosis
-Baseline renal function unknown, creatinine 1.3. Bicarb normalized.
-Maintain on slow IV fluid, already got 5 units of blood transfusion
6. Elevated T bilirubin
-minimal, indirect dominant
7. History of suicidal ideation
-Patient in January 04 drank [place] and was admitted to [facility] [place]
-no current suicidal ideation this visit, remains on 1:1
04/05 patient brother from [place] called and informed that patient have been living with brother in [place] and has destroyed his living space. Patient has done similar things with previous accommodations and have exhausted all support system at
this point. Brother worried that patient withdraws from methadone periodically and hallucination episodes.
Discussed briefly patient's plans post discharge. Patient states that she will be going to [place] to live with her brother, but currently does not want to go back to live with her cousin. Also patient's brother from [place] have contacted us
yesterday and may not agree to accept patient in his house as patient have destroyed all the accommodation with her behavioral outbursts. Although discussion needs to be done with brother/sibling if patient truly wants to go [place]. This remains a
difficult situation regarding discharge planning and patient may end up requiring to be placed in detention if no other arrangements happens. Unfortunately patient has a poor insight into her current condition. Case management help will be
required.
Anticipated Discharge: > 48 hours
Subjective/Interval History
-
Date of Service: April 08, 2024
Objective Data
-
Labs:
Laboratory Results
04/08/24
07:26
WBC 6.7
Hgb 9.1 L
Hct 28.8 L
Plt Count 209
Sodium Pending
Potassium Pending
Chloride Pending
Carbon Dioxide Pending
BUN Pending
Creatinine Pending
Glucose Pending
Calcium Pending
Vital Signs:
Vital Signs
Temp Pulse Resp BP Pulse Ox
98.3 F 79 20 134/82 99
04/07/24 23:16 04/07/24 23:16 04/07/24 23:16 04/07/24 23:16 04/08/24 03:53
I&O
04/07/24 04/08/24 04/09/24
06:59 06:59 06:59
Intake Total 960 / 960 760 / 760
Output Total 850 / 850
Balance 960 / 960 -90 / -90
Review of Systems
-
History Source: Patient and Other (Blood historian)
All other systems: Not reviewed unless documented
Constitutional: Denies Fever
EENT: Reports No Symptoms Reported
Respiratory: Reports No Symptoms; Denies Cough
Cardiac: Reports No Symptoms
Abdomen/GI: Reports No Symptoms
Skin: Reports Other (Left foot ulcer)
Physical Exam
-
General: No Apparent Distress and Comfortable; Negative Respiratory Distress
HEENT: Moist Mucous Membranes; Negative Oxygen
Respiratory: Clear to Auscultation and Non Labored Respirations; Negative Crackles
Cardiac: Regular Rhythm and S1/S2
GI: Soft, Nondistended, Normal Bowel Sounds (Decreased bowel sounds) and Tender (Midepigastric); Negative Distended
Rectal: Deferred by Provider
Genito-urinary: No Costovertebral Tender
Musculoskeletal: No Edema and Other (Right BKA)
Skin: Warm
Neuro: Awake, Alert, Oriented, AO x 3 and No Motor Deficits
Psych: Calm
Data Reviewed
-
Diagnostic Radiology: Report Reviewed by me and Discussed with Physician
CT Scan: Report Reviewed by me and Discussed with Physician
Ultrasound: Report Reviewed by me and Discussed with Physician
Labs: Labs Reviewed by me and Discussed with Physician
Old Records: Reviewed
[2024-04-08] MEDS: ZYPREXA 2.5 MG PO ×2 (08:32→19:51)
[2024-04-08] MEDS: PROTONIX IV 40 MG IV ×2 (08:32→19:51)
[2024-04-08] MEDS: DOLOPHINE 5 MG PO (08:32)
[2024-04-08] MEDS: NSS (PRESERVATIVE FREE) 10 ML IV ×2 (08:32→19:51)
[2024-04-08] MEDS: MIRALAX PO (08:33)
--- NOTE | 2024-04-08 08:56 | W.PN.UPDATE ---
Update Note
Progress Note Update
Patient agreeable to EGD today d/w hospitalist and pt will proceed
--- NOTE | 2024-04-08 08:59 | CM ---
Possible testing today pending patient agreement. Psych to assess. CM will attempt to reach family and speak with brother in [place] about patient sister and supports. CM will continue to follow for discharge planning needs.
Plan; TBD; SNF
[2024-04-08 09:12] LABS: Blood Urea Nitrogen 15 mg/dl (7-17); Calcium 8.5 mg/dl (8.4-10.2); Carbon Dioxide 25 mmol/L (22-30); Chloride 108 mmol/L (98-107); Estimated Creatinine Clearance 31 ml/min; Glucose 98 mg/dl (70-99); Sodium 138 mmol/L (135-145); eGFR 43.69
--- NOTE | 2024-04-08 10:01 | CON.ID ---
Consultation
-
Date/Time Consultation Requested: April 07, 2024 1743
Date/Time Consultation Performed: April 08, 2024 1000
Requesting Provider: Dr. Jason Pereyra
Performing Provider: Dr. Migdalia Epstein
Reason for Consultation: Osteomyelitis of left foot
Chief Complaint / Past History
Chief Complaint
Left foot pain
History of Present Illness
73 years old female with history of spina bifida, right BKA, chronic pain syndrome on methadone, who presented to the hospital on April 04 with change in mental status, complaining abdominal pain with nausea and vomiting, left foot pain with
worsening wound. In the ER, hemoglobin was 3.0. She was in [facility]. CT a/p without findings of GI bleed. Foot x-ray shows left first metatarsal phalangeal joint osteomyelitis. Currently no abx. She had EGD this am. She developed the foot wound
2 weeks ago. She has been sleeping outside at the front porch at her cousin's house. She was using her left bare foot to push against the floor to get off of the couch. Also complains of bug bite on her left knee. No fevers or chills.
Past History
Additional Past Medical History:
Spinal bifida
Chronic pain on methadone
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
Allergy History:
No Known Allergies Allergy (Unverified 04/04/24 00:57)
Medications Reviewed: Yes
Current Antibiotics:
None
Social History
Tobacco: Former Smoker
Alcohol: None
Drug: None
Personal: Single
Living: Homeless (Staying with her cousin. )
Family History
Family History: Not Pertinent
Review of Systems
Review of Systems
General: Negative Fever, Chills or Change in Appetite
HEENT: Negative Sinus Problems, Headache or Pharyngitis
Cardiovascular: Negative Chest Pain
Respiratory: Negative Dyspnea or Cough
Gasteroenterology: Other (no diarrhea)
Genital / Urological: Negative Dysuria
Neurological: Negative Headache or Dizziness
Vital Signs
Temp Pulse Resp BP Pulse Ox
98.6 F 76 18 139/80 99
04/08/24 07:25 04/08/24 07:25 04/08/24 07:25 04/08/24 07:25 04/08/24 07:25
Physical Exam
Physical Exam
Constitutional: No Acute Distress
Eyes: No Conjunctival Hemorrhage and Sclera Anicteric
Cardiovascular: Regular Rate and S1/S2
Pulmonary: Clear
Gastrointestinal: Soft, Non Tender, Non Distended and Normal Bowel Sounds
Genito-Urinary: Negative CVA Tenderness
Extremities: Pulses (strong pedal pulses left foot)
Wound: Other (Hammertoes noted. Left first met head -large callus with central dark purple wound, no deep probe)
Neurological: AO x 3
Lab / Diagnostic Study Results
04/08/24 07:26
04/08/24 07:26
Abs Immat Gran (auto) 0.0 10^3/uL (0-0.05) 04/08/24 07:26
Absolute Neuts (auto) 5.0 10^3/uL (1.4-6.5) 04/08/24 07:26
Absolute Lymphs (auto) 1.0 10^3/uL (1.2-3.4) L 04/08/24 07:26
Absolute Monos (auto) 0.5 10^3/uL (0.1-0.6) 04/08/24 07:26
Absolute Basos (auto) 0.1 10^3/uL (0-0.2) 04/08/24 07:26
Total Counted 100 04/06/24 03:33
Immature Gran % 0.4 % (0-0.5) 04/08/24 07:26
Neutrophils % 74.5 % (42.2-75.2) 04/08/24 07:26
Lymphocytes % 14.6 % (20.5-51.1) L 04/08/24 07:26
Monocytes % 7.1 % (1.7-9.3) 04/08/24 07:26
Eosinophils % 2.5 % (0-6) 04/08/24 07:26
Basophils % 0.9 % (0-2) 04/08/24 07:26
Abs Neuts (Manual) 6.8 10^3/uL (1.4-6.5) H 04/06/24 03:33
Segmented Neutrophils 81 % (42-75) H 04/06/24 03:33
Band Neutrophils 0 % (0-3) 04/06/24 03:33
Lymphocytes (Manual) 15 % (20-51) L 04/06/24 03:33
Eosinophils (Manual) 1 % (0-6) 04/06/24 03:33
ESR 140 mm/hour (0-20) H 04/04/24 03:24
PT 16.0 Sec (11.4-14.6) H 04/04/24 15:36
INR 1.29 04/04/24 15:36
Lactic Acid Cancelled 04/04/24 07:00
C-Reactive Protein 24.20 mg/L (0.0-10.00) H 04/04/24 03:24
Microbiology Results
Micro:
04/04/24 02:54 Blood Culture - Preliminary
Blood/Venous No Growth in 4 days- Final report to follow
04/04/24 02:54 Blood Culture - Preliminary
Blood/Venous No Growth in 4 days- Final report to follow
04/04/24 16:05 Wound Culture - Final
Foot - Left Staph aureus MRSA
Gram Stain - Final
04/04/24 Foot XRAY: There is deformity of the left first MTP joint with subluxation/dislocation of the first phalanx with destructive changes and erosions noted along the metatarsal head and base of the phalanx. There appears to be a wound/tract
extending from the skin to this area.
04/04/24 CT a/p: limited evaluation of the GI tract. However, no evidence for active bleeding. No evidence for obstruction. Normal caliber abdominal aorta with mild to moderate calcified plaque throughout. No dissections. Diffuse mesenteric edema
and small amount of ascites within the pelvis. Small bilateral pleural effusions. Anasarca. Findings compatible with hypervolemic state/third spacing. Atrophic left kidney.
04/05/24 CXR: Findings suggesting mild CHF. New. Mild cardiomegaly. New
Assessment / Plan
# Probable osteomyelitis of left first met head.
- Agree with MRI.
- Surface wound swab +MRSA - may not reflect deep culture.
- Pt is stable. Observe off abx at this time to increase intra-op cx yield.
# Severe anemia
- 04/08 s/p EGD + plaques in esophagus, biopsies pending; erythematous mucosa in stomach; giant pill in duodenum.
- For colonoscopy tomorrow.
[2024-04-08 10:24] VITALS: BP 134/77; BP_SYST 12
[2024-04-08 10:39] VITALS: BP 151/91; BP_SYST 14
[2024-04-08 10:54] VITALS: BP 150/90; BP_SYST 14
[2024-04-08] MEDS: MYCOSTATIN ORAL SUSPENSION 5 ML PO ×3 (12:23→21:06)
[2024-04-08 15:37] VITALS: BP 159/80
--- NOTE | 2024-04-08 16:38 | W.PN.UPDATE ---
Update Note
Progress Note Update
pt seen at bedside
+ pain
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
pt states wound noted for 2 weeks
Pt also sates she fell and was on floor
pedal pulses palp wound noted, debrided at bedside, no probe to bone for deep structures, no cellulitis
+ mrsa from swab of wound
mri uptake at 1st met head/prox phal hallux, no abscess...will d.w radio to see about a fx, full consult to be dictated
will follow and w/ with med
[2024-04-08] MEDS: NULYTELY SOLUTION 2 LITERS PO (17:29)
[2024-04-08] MEDS: ULTRAM 50 MG PO (17:29)
--- NOTE | 2024-04-08 17:31 | PTCARENOTE ---
pt verbalizing 10/10 L foot pain. given prn tramadol. see DEC. bowel prep started at 1730.
[2024-04-08] MEDS: DOLOPHINE 2.5 MG PO (19:51)
[2024-04-08] MEDS: DILAUDID 0.25 MG IV (21:23)
[2024-04-08 23:16] VITALS: BP 109/59
[2024-04-09] MEDS: ULTRAM 50 MG PO ×3 (00:54→20:14)
--- NOTE | 2024-04-09 03:58 | DOWNTIME ---
There was a [facility] Client Cathodic Protection Technician Downtime on 04/09/2024 from 0100 to 04/09/2024 at 0337. Downtime documentation of patient's care, including medication administrations, has been reconciled in the electronic record per guidelines. Refer to the
patient's paper chart under the miscellaneous tab to see printed paper medication records and downtime forms.
[2024-04-09] MEDS: TYLENOL 1000 MG PO (04:06)
[2024-04-09] MEDS: NULYTELY SOLUTION 2 LITERS PO (05:03)
--- NOTE | 2024-04-09 07:53 | W.PN.HOSP.TC ---
Addendum entered and electronically signed by Trudy Callahan MD 04/09/24 20:34:
Patient seen and examined independently--agree with plan set forth by Dr. Pereyra
GENERAL: well developed, well nourished, female in no apparent distress
HEENT: NC/AT--no O2 requirement
HEART: regular rate and rhythm, +S1, +S2
LUNGS : clear to auscultation bilaterally
ABDOM: soft, nontender, nondistended, + bowel sounds
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
NEUROLOGIC: grossly intact
Severe acute microcytic anemia--Hgb 3.0 on admission, most likely iron deficiency anemia from acute blood loss vs chronic GI bleeding given Hx of Hgb 10.9 in 11/2023. Her cousin reported intermittent rectal bleeding, however no overt GI bleeding on
CTA---S/p 5U PRBC, Hb improved to 11.2--apprec GI-- unclear why pt refused EGD/colonoscopy --- schistocytes and anisocytosis on peripheral blood smear indicate bone marrow duress due to HGB of 3, doubt hemolysis-- EGD with no evidence for cause of
bleeding, aubree incidentally found and now on nystatin for colonoscopy tomorrow as pt refused today 04/09 and barely took the prep--Continue PPI, with daily bowel regimen.
Left foot toe osteomyelitis, confirmed on foot x-ray---LLE wound culture with MRSA--Blood culture NGTD--apprec Wound consult--Vancomycin and Zosyn discontinued 04/04/2024, WBC counts WNL--MRI LLE shows osteomyelitis of first proximal phalanx and
metatarsal (apprec surgical podiatry-not convinced)--apprec ID Consult
Chronic pain on methadone--PDMP reviewed/discussed with patient primary pain specialist by previous physicians--pt could not tell us who her pain doctor is... Patient has failed to follow-up regularly (pt denies this) Patient pain specialist has
been trying to wean patient off of methadone--Currently patient on p.o. 10 mg twice daily, changed to 5 mg twice daily and would d/c on that--QTc of 440ms at admit.
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
Zyprexa 2.5 mg twice daily, Precedex discontinued--Psych following, pt found to have capacity to make medical decisions
MARY vs CKDIII--Metabolic acidosis--Baseline renal function unknown, creatinine 1.2. Bicarb improved from 17 to 21- already got 5 units of blood transfusion yesterday--Maintain on oral bicarb
Elevated T bilirubin--minimal
History of suicidal ideation--Patient in January 05, 2024 drchucho Diaz and was admitted to [facility] [place]--no current suicidal ideation this visit, now off 1:1 but on medsitter
04/05 patient brother from [place] called and informed that patient have been living with brother in [place] and has destroyed his living space. Patient has done similar things with previous accommodations and have exhausted all support system at
this point. Brother worried that patient withdraws from methadone periodically and hallucination episodes.
Discussed briefly patient's plans post discharge. Patient states that she will be going to [place] to live with her brother, but currently does not want to go back to live with her cousin. Also patient's brother from [place] have contacted us
yesterday and may not agree to accept patient in his house as patient have destroyed all the accommodation with her behavioral outbursts. Although discussion needs to be done with brother/sibling if patient truly wants to go [place]. This remains a
difficult situation regarding discharge planning and patient may end up requiring to be placed in retirement if no other arrangements happens. Unfortunately patient has a poor insight into her current condition. Case management help will be
required.
Original Note:
Today's Communication/Plan
-
Foot osteomyelitis confirmed by MRI
Observe While on Antibiotics
Possible foot surgery tomorrow
Follow H&H
Colonoscopy tomorrow
Assessment / Plan
Assessment / Plan
ASSESSMENT: 73-year-old female with history of chronic pain syndrome, methadone abuse/misuse noncompliance with pain specialist visits, admitted 04/04/2024 for abdominal pain and left toe osteomyelitis. CBC on admission consistent with severe anemia
with hemoglobin 3.0, s/p 5U PRBC with improvement of anemia. Patient refused EGD and colonoscopy.
Impression/Plan:
1. Severe acute microcytic anemia
-Hb 3.0 on admission, most likely iron deficiency anemia from acute blood loss vs chronic GI bleeding given Hx of Hb 10.90 11/2023. Her cousin reported intermittent rectal bleeding, however no overt GI bleeding on CTA.
-S/p 5U PRBC, Hb improved to 11.2.
-Normal platelet counts despite schistocytes and anisocytosis on peripheral blood smear.
-EGD 04/08/2024 shows multiple esophageal plaques, and erythematous stomach mucosa, no obvious signs of bleeding.
-Candidal esophagitis
-Start micafungin. Per ID, fluconazole interacts with methadone.
-Multiple biopsies taken from the esophagus, stomach, and duodenum, follow pathology results.
-Possible colonoscopy tomorrow.
-GI evaluation and recs appreciated.
-Continue to monitor H&H with CBC.
-Continue PPI, with daily bowel regimen.
2. Left foot toe osteomyelitis, confirmed on foot x-ray.
-Surface LLE wound culture with MRSA, this does not reflect deep culture, patient afebrile with normal WBC counts.
-Blood culture, no growth.
-Wound consulted.
-Vancomycin and Zosyn discontinued 04/04/2024, patient currently on febrile WBC counts WNL.
-MR LLE 04/08/2024 findings consistent with septic arthritis of first MTP joint (and osteomyelitis of first proximal phalanx and first metatarsal). No evidence for abscess.
-ID consulted, recs appreciated.
-Surgical director of clinical applications assessments and recs appreciated.
-Possible foot surgery tomorrow, observe while off antibiotics to optimize IntraOp cultures.
3. Chronic pain on methadone
-PDMP reviewed/discussed with patient primary pain specialist. Patient has failed to follow-up regularly. Patient pain specialist has been trying to wean patient off of methadone.
-Currently patient on p.o. 5 mg twice daily, changed to 2.5 mg twice daily. Would benefit if patient can be weaned off of methadone completely this visit.
-Reports pain 07/01, received 1 dose Dilaudid overnight, and another 0.5 mg IV Dilaudid in a.m.
-QTc of 440ms at admit.
4. Acute toxic metabolic encephalopathy with hallucinations.
-Patient currently fully oriented, but at times not cooperative with nursing team.
-Continue 1:1 for now, patient reportedly seen bugs and cuts in hospital mattress, this has been going on [employer] BRINE TESTER.
-Continue Zyprexa 2.5 mg twice daily, Precedex discontinued.
-Psych consulted to assess patient for capacity.
5. MARY vs CKDIII
-Metabolic acidosis
-Baseline renal function unknown, creatinine 1.3. Bicarb normalized.
-Maintain on slow IV fluid, already got 5 units of blood transfusion
6. Elevated T bilirubin
-minimal, indirect dominant
7. History of suicidal ideation
-Patient in January 04 drank Belsano and was admitted to [facility] [place]
-no current suicidal ideation this visit, remains on 1:1
8. Spina Bifida
9. Chronic pain on methadone
10. 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
04/05 patient brother from [place] called and informed that patient have been living with brother in [place] and has destroyed his living space. Patient has done similar things with previous accommodations and have exhausted all support system at
this point. Brother worried that patient withdraws from methadone periodically and hallucination episodes.
Discussed briefly patient's plans post discharge. Patient states that she will be going to [place] to live with her brother, but currently does not want to go back to live with her cousin. Also patient's brother from [place] have contacted us
yesterday and may not agree to accept patient in his house as patient have destroyed all the accommodation with her behavioral outbursts. Although discussion needs to be done with brother/sibling if patient truly wants to go [place]. This remains a
difficult situation regarding discharge planning and patient may end up requiring to be placed in retirement if no other arrangements happens. Unfortunately patient has a poor insight into her current condition. Case management help will be
required.
Anticipated Discharge: 24 - 48 hours
Subjective/Interval History
-
Date of Service: April 09, 2024
Objective Data
-
Labs:
Laboratory Results
04/09/24
06:00
WBC Pending
Hgb Pending
Hct Pending
Plt Count Pending
Sodium Pending
Potassium Pending
Chloride Pending
Carbon Dioxide Pending
BUN Pending
Creatinine Pending
Glucose Pending
Calcium Pending
Vital Signs:
Vital Signs
Temp Pulse Resp BP Pulse Ox
98.0 F 72 18 109/59 99
04/08/24 23:16 04/08/24 23:16 04/08/24 23:16 04/08/24 23:16 04/08/24 23:16
I&O
04/08/24 04/09/24 04/10/24
06:59 06:59 06:59
Intake Total 760 / 760 2880 / 2880
Output Total 850 / 850
Balance -90 / -90 2880 / 2880
Review of Systems
-
History Source: Patient and Other (Blood historian)
All other systems: Not reviewed unless documented
Constitutional: Denies Fever
EENT: Reports No Symptoms Reported
Respiratory: Reports No Symptoms; Denies Cough
Cardiac: Reports No Symptoms
Abdomen/GI: Reports No Symptoms
Skin: Reports Other (Left foot ulcer)
Physical Exam
-
General: No Apparent Distress and Comfortable; Negative Respiratory Distress
HEENT: Moist Mucous Membranes; Negative Oxygen
Respiratory: Clear to Auscultation and Non Labored Respirations; Negative Crackles
Cardiac: Regular Rhythm and S1/S2
GI: Soft, Nondistended, Normal Bowel Sounds (Decreased bowel sounds) and Tender (Midepigastric); Negative Distended
Rectal: Deferred by Provider
Genito-urinary: No Costovertebral Tender
Musculoskeletal: No Edema and Other (Right BKA)
Skin: Warm
Neuro: Awake, Alert, Oriented, AO x 3 and No Motor Deficits
Psych: Calm
Data Reviewed
-
Diagnostic Radiology: Report Reviewed by me and Discussed with Physician
CT Scan: Report Reviewed by me and Discussed with Physician
Ultrasound: Report Reviewed by me and Discussed with Physician
MRI: Report Reviewed by me, Discussed with Physician and Other (Left lower extremity)
Labs: Labs Reviewed by me and Discussed with Physician
Old Records: Reviewed
[2024-04-09 08:40] VITALS: BP 129/77
[2024-04-09 08:58] LABS: % Basophils 1.4 % (0-2); % Eosinophils 1.9 % (0-6); % Immature Granulocytes 0.5 % (0-0.5); % Lymphocytes 14.7 % (20.5-51.1); % Monocytes 6.2 % (1.7-9.3); % Neutrophils 75.3 % (42.2-75.2); Absolute Basophils 0.1 10^3/uL (0-0.2); Absolute Eosinophils 0.1 10^3/uL (0-0.7); Absolute Lymphocytes 0.9 10^3/uL (1.2-3.4); Absolute Monocytes 0.4 10^3/uL (0.1-0.6); Absolute Neutrophils 4.8 10^3/uL (1.4-6.5); Hematocrit 34.8 % (37.0-47.0); Hemoglobin 11.2 g/dL (12.0-16.0); Mean Corp Hgb Conc. 32.2 g/dL (33.0-37.0); Mean Corpuscular Hgb 25.3 pg (27.0-31.0); Mean Corpuscular Volume 78.6 fL (81.0-99.0); Nucleated Red Blood Cells % 0 %; Red Blood Cell Count 4.43 10^6/uL (4.20-5.40); Red Cell Dist. Width 25.2 % (11.5-14.5); White Blood Cell Count 6.3 10^3/uL (4.8-10.8)
[2024-04-09] MEDS: DOLOPHINE 2.5 MG PO ×2 (08:59→20:06)
[2024-04-09] MEDS: ZYPREXA 2.5 MG PO ×2 (08:59→20:06)
[2024-04-09] MEDS: MYCOSTATIN ORAL SUSPENSION 5 ML PO ×2 (08:59→12:51)
[2024-04-09] MEDS: NSS (PRESERVATIVE FREE) 10 ML IV ×2 (09:00→20:07)
[2024-04-09] MEDS: DILAUDID 0.25 MG IV (09:00)
[2024-04-09] MEDS: MIRALAX PO (09:00)
[2024-04-09] MEDS: PROTONIX IV 40 MG IV ×2 (09:00→20:07)
[2024-04-09 09:34] LABS: Blood Urea Nitrogen 14 mg/dl (7-17); Calcium 9.1 mg/dl (8.4-10.2); Carbon Dioxide 21 mmol/L (22-30); Chloride 107 mmol/L (98-107); Estimated Creatinine Clearance 34 ml/min; Glucose 102 mg/dl (70-99); Potassium 4.3 mmol/L (3.5-5.1); Sodium 136 mmol/L (135-145); eGFR 48.09
[2024-04-09 09:39] LABS: Normal RBC Morphology No
[2024-04-09 09:40] LABS: Anisocytosis 1+; Hypochromasia 2+; Polychromasia 1+; Target Cells 1+
[2024-04-09 09:41] LABS: Ovalocytes FEW
[2024-04-09 09:42] LABS: Acanthocytes 1+; Schistocytes 1+
--- NOTE | 2024-04-09 11:45 | W.PN.GI.CBS2 ---
Today's Communication / Plan
-
cscope tmwr
Assessment / Plan
-
Pt is a 73yo with hx spina bifida, cystitis, right BKA with complaint of foot pain with noted foot wound and abdominal pain. On admission noted with hbg 3 with MCV 65.9 with significant iron deficiency. hbg was 10.9 in November. CTA moderate stool
no active GI bleeding. Diffuse mesenteric edema and small amount of ascites within the pelvis. Small bilateral pleural effusions. Anasarca. Findings compatible with hypervolemic state/third spacing.
-severe iron deficiency anemia
-left foot infection s/p podiatry eval
-? abdominal pain on admission
-MARY
-moderate stool on imaging
-mesenteric edema and small amount ascites on CT
other medical problems:
-spina bifida
-cystitis
-right BKA
-tobacco abuse
s/p EGD 04/08 no source of SU elicted
Brother recently of colon Ca
Very concerning for colon cancer
PLAN:
D/w pt and brother Gage on phone in detail stressed importance of cscope
Due to CKD hesitancy to use Sutab (Gage asked)
Pt willing to reprep tonight with Colyte
Will also give a dulcolax now
Suspect with methadone extended clean out needed (brother mentions she is constipated)
Discussed my concern this is colon Ca
Pt had some GI work up done at [facility] with Dr. En Christianson last year - will request records
Pt and brother agreeing to cscope tomorrow with prep tonight
Clears today npo after midnight
D/w hospitalist Dr. Mosqueda
Total Time Spent with Patient (in minutes): 35
Subjective
Subjective
Date of Service: April 09, 2024
Only drank 1/3 of prep
Minimal BM
Objective
Data Reviewed
Laboratory Data:
Laboratory Results
04/09/24 08:40
04/09/24 08:40
Laboratory Results
PT 16.0 Sec (11.4-14.6) H 04/04/24 15:36
INR 1.29 04/04/24 15:36
APTT 23.1 Sec (23.4-35.0) L 04/04/24 15:36
Phosphorus 3.6 mg/dl (2.5-4.5) 04/05/24 05:29
Magnesium 1.8 mg/dl (1.6-2.3) 04/05/24 05:29
Total Bilirubin 1.5 mg/dl (0.2-1.3) H 04/05/24 05:29
AST 20 U/L (14-36) 04/05/24 05:29
ALT 137 U/L (0-35) H 04/05/24 05:29
Alkaline Phosphatase 88 U/L (38-126) 04/05/24 05:29
Vital Signs and I&O:
Vital Signs
Temp Pulse Resp BP Pulse Ox
97.9 F 68 16 129/77 98
04/09/24 08:40 04/09/24 08:40 04/09/24 08:40 04/09/24 08:40 04/09/24 08:40
I&O
04/08/24 04/09/24 04/10/24
06:59 06:59 06:59
Intake Total 760 / 760 2880 / 2880
Output Total 850 / 850
Balance -90 / -90 2880 / 2880
Physical Exam
Physical Exam
GI: Non Distended and Non Tender
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
--- NOTE | 2024-04-09 12:40 | W.PN.UPDATE ---
Update Note
Progress Note Update
d/w dr cortez. He already saw pt prior to me and he will be taking over care. I d/w dr mills as well. I will sign off. Call dr cortez for podiatry treatment
[2024-04-09] MEDS: DULCOLAX 10 MG PO (12:51)
--- NOTE | 2024-04-09 15:06 | PTCARENOTE ---
this AM pt received one time dose of dilaudid due to verbalizing pain that was not managed with 50mg tramadol given early this morning by nightshift. pt refused to go for colonoscopy this AM. Dr. Baeza came and spoke with her and is now in
agreement to try and do bowel prep and colonoscopy tomorrow. pt to begin prep at 1700 this evening.
[2024-04-09 15:25] VITALS: BP 124/76
--- NOTE | 2024-04-09 15:50 | W.PN.ID1 ---
Date of Service
Date of Service: April 09, 2024
Today's Communication
Start micafungin for sabrina esophagitis.
Assessment / Plan
# Acute osteomyelitis of left first met head and proximal metatarsal (see MRI report)
- Surface wound swab +MRSA - may not reflect deep culture.
- Awaiting podiatry's input regarding surgical intervention
- Pt is stable. Observe off abx at this time to increase intra-op cx yield.
# Sabrina esophagitis
- 04/08 s/p EGD + plaques in esophagus. Biopsy + fungal elements.
- fluconazole interacts with methadone.
- Start Micafungin 100mg IV q24.
# H. pylori gastritis - seen in stomach biopsy
- Will defer management to GI
# Severe anemia
- For colonoscopy tomorrow.
#Spinal bifida
#Chronic pain on methadone
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
Chief Complaint
-: Other (Foot wound)
Subjective / Review of Systems
No new issues. Feels same.
Vital Signs / Physical Exam
Vital Signs
Vital Signs
Temp Pulse Resp BP Pulse Ox
97.9 F 68 16 129/77 98
04/09/24 08:40 04/09/24 08:40 04/09/24 08:40 04/09/24 08:40 04/09/24 09:12
Physical Exam
Constitutional: No Acute Distress
Cardiovascular: Regular Rate and S1/S2
Pulmonary: Other (decreased BS bases)
Gastrointestinal: Soft, Non Tender and Non Distended
Extremities: Edema (LLE 1+)
Neurological: AO x 3
Objective Data
Lab Data
Lab Results
04/09/24 08:40
04/09/24 08:40
ESR 140 mm/hour (0-20) H 04/04/24 03:24
PT 16.0 Sec (11.4-14.6) H 04/04/24 15:36
INR 1.29 04/04/24 15:36
APTT 23.1 Sec (23.4-35.0) L 04/04/24 15:36
Estimated Creat Clear 34 ml/min 04/09/24 08:40
Lactic Acid Cancelled 04/04/24 07:00
Total Bilirubin 1.5 mg/dl (0.2-1.3) H 04/05/24 05:29
AST 20 U/L (14-36) 04/05/24 05:29
ALT 137 U/L (0-35) H 04/05/24 05:29
Alkaline Phosphatase 88 U/L (38-126) 04/05/24 05:29
C-Reactive Protein 24.20 mg/L (0.0-10.00) H 04/04/24 03:24
Most recent labs reviewed.
Micro Results:
04/04/24 02:54 Blood Culture - Final
Blood/Venous No Growth - Final Report
04/04/24 02:54 Blood Culture - Final
Blood/Venous No Growth - Final Report
04/04/24 16:05 Wound Culture - Final
Foot - Left Staph aureus MRSA
Gram Stain - Final
04/04/24 Foot XRAY: There is deformity of the left first MTP joint with subluxation/dislocation of the first phalanx with destructive changes and erosions noted along the metatarsal head and base of the phalanx. There appears to be a wound/tract
extending from the skin to this area.
04/04/24 CT a/p: limited evaluation of the GI tract. However, no evidence for active bleeding. No evidence for obstruction. Normal caliber abdominal aorta with mild to moderate calcified plaque throughout. No dissections. Diffuse mesenteric edema
and small amount of ascites within the pelvis. Small bilateral pleural effusions. Anasarca. Findings compatible with hypervolemic state/third spacing. Atrophic left kidney.
04/05/24 CXR: Findings suggesting mild CHF. New. Mild cardiomegaly. New
04/08/24 MRI LLE wo and w contrast: Findings consistent with septic arthritis of first MTP joint (and osteomyelitis of first proximal phalanx and first metatarsal). No evidence for abscess. Severe extension deformity at the first MTP joint.
Care Review
Plan reviewed with: Physician (Dr. Baeza)
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
--- NOTE | 2024-04-09 16:19 | W.PN.UPDATE ---
Addendum entered and electronically signed by Ace Baeza MD 04/10/24 14:53:
treat HP abx total 10-14 days
will have gi follow up afterwards to ensure eradication
Original Note:
Update Note
Progress Note Update
message from ID
+ HP
will treat with quadruple therapy (can't do clarithro prolong QTc)
also + aubree ID put on antifungal
[2024-04-09] MEDS: PEPTO-BISMOL 2 TABLET PO ×2 (17:51→22:31)
[2024-04-09] MEDS: MYCAMINE 105 MG IV (17:52)
[2024-04-09] MEDS: NULYTELY SOLUTION 4 LITERS PO (17:52)
--- NOTE | 2024-04-09 18:29 | PTCARENOTE ---
brother requesting psych doctor to give him a call tomorrow for update on consult. this nurse said would make a note of it.
[2024-04-09] MEDS: [UNRECOGNIZED DRUG - OTHER] 500 MG PO (20:06)
[2024-04-09] MEDS: FLAGYL 500 MG PO (22:31)
[2024-04-09 23:16] VITALS: BP 128/70
[2024-04-10] VITALS (10 sets, daily range): BP systolic 13–153; BP diastolic 75–90
--- NOTE | 2024-04-10 01:00 | PTCARENOTE ---
Patient ordered bowel prep for scheduled colonoscopy tomorrow, received patient on second cup. Patient requires excessive encouragement to drink. Patient with one loose, watery, brown BM and states 'I'm not doing this', provided education on
importance of prep and colonoscopy. Patient uncooperative and refuses to drink the ordered amount and with frequent incontinent loose, watery, brown BMs. Hygiene care provided, linens changed, and bath wipes utilized multiple times. Fecal
incontinence pouch placed in order to contain incontinent loose BM. Ongoing efforts to encourage patient to drink prep.
[2024-04-10] MEDS: ULTRAM 50 MG PO ×4 (04:23→22:36)
--- NOTE | 2024-04-10 05:00 | PTCARENOTE ---
Patient refusing to complete bowel prep for colonoscopy scheduled for later today, provided education to patient on importance of prep for scope. Patient not clear. Patient persistently refusing stating 'I prepped yesterday' and became agitated with
staff threatening to scream. Hygiene care provided and linens changed.
[2024-04-10 07:40] LABS: Hematocrit 28.5 % (37.0-47.0); Hemoglobin 9.4 g/dL (12.0-16.0); Mean Corpuscular Hgb 25.9 pg (27.0-31.0); Mean Corpuscular Volume 78.5 fL (81.0-99.0); Mean Platelet Volume 9.5 fL (7.4-10.4); Platelet Count 276 10^3/uL (130-400); Red Blood Cell Count 3.63 10^6/uL (4.20-5.40); Red Cell Dist. Width 25.1 % (11.5-14.5)
[2024-04-10 07:55] LABS: Blood Urea Nitrogen 13 mg/dl (7-17); Carbon Dioxide 23 mmol/L (22-30); Chloride 107 mmol/L (98-107); Estimated Creatinine Clearance 40 ml/min; Glucose 95 mg/dl (70-99); Potassium 3.9 mmol/L (3.5-5.1); Sodium 134 mmol/L (135-145); eGFR 59.86
--- NOTE | 2024-04-10 08:15 | W.PN.HOSP.TC ---
Addendum entered and electronically signed by Trudy Callahan MD 04/10/24 16:54:
Patient seen and examined independently--agree with plan set forth by Dr. Pereyra
GENERAL: well developed, well nourished, female in no apparent distress
HEENT: NC/AT--no O2 requirement
HEART: regular rate and rhythm, +S1, +S2
LUNGS : clear to auscultation bilaterally
ABDOM: soft, nontender, nondistended, + bowel sounds
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
NEUROLOGIC: grossly intact
Severe acute microcytic anemia--Hgb 3.0 on admission, most likely iron deficiency anemia from chronic GI bleeding given Hx of Hgb 10.9 in 11/2023. Her cousin reported intermittent rectal bleeding, however no overt GI bleeding on CTA---S/p 5U PRBC,
Hb improved to 11.2--apprec GI-- schistocytes and anisocytosis on peripheral blood smear indicate bone marrow duress due to HGB of 3, doubt hemolysis-- EGD with no evidence for cause of bleeding but H. Pylori positive and aubree incidentally found
and now on nystatin--complete 10-14 day course --colonoscopy with large sessile polyp--biopsies pending--f/u with GI post d/c
Left foot toe osteomyelitis, confirmed on foot x-ray---LLE wound culture with MRSA--Blood culture NGTD--apprec Wound consult--Vancomycin and Zosyn discontinued 04/04/2024, WBC counts WNL--MRI LLE shows osteomyelitis of first proximal phalanx and
metatarsal (apprec surgical podiatry-not convinced)--apprec ID Consult--nothing surgical per podiatry (can do as outpt)--f/u with Dr. Monster Giles at d/c--cont Bactrim DS at d/c
Chronic pain on methadone--PDMP reviewed/discussed with patient primary pain specialist by previous physicians--pt could not tell us who her pain doctor is... Patient has failed to follow-up regularly (pt denies this) Patient pain specialist has
been trying to wean patient off of methadone--Currently patient on p.o. 10 mg twice daily, changed to 2.5 mg twice daily and would d/c on that--QTc of 440ms at admit.
Acute toxic metabolic encephalopathy with hallucinations--resolved--Patient currently fully oriented, but at times not cooperative with nursing team--off 1:1, patient reportedly seen bugs and cuts in hospital mattress, this has been going on
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
MARY vs CKDIII--Metabolic acidosis--Baseline renal function unknown, creatinine 1.2. Bicarb improved from 17 to 21- already got 5 units of blood transfusion yesterday--Maintain on oral bicarb
Elevated T bilirubin--minimal
History of suicidal ideation--Patient in January 05, 2024 drank [place] and was admitted to [facility] in [place]--no current suicidal ideation this visit, now off 1:1 but on medsitter
04/05 patient brother from [place] called and informed that patient have been living with brother in [place] and has destroyed his living space. Patient has done similar things with previous accommodations and have exhausted all support system at
this point. Brother worried that patient withdraws from methadone periodically and hallucination episodes.
Discussed briefly patient's plans post discharge. Patient states that she will be going to [place] to live with her brother, but currently does not want to go back to live with her cousin. Also patient's brother from [place] have contacted us
yesterday and may not agree to accept patient in his house as patient have destroyed all the accommodation with her behavioral outbursts. Although discussion needs to be done with brother/sibling if patient truly wants to go [place]. This remains a
difficult situation regarding discharge planning and patient may end up requiring to be placed in [facility] if no other arrangements happens. Unfortunately patient has a poor insight into her current condition. Case management help will be
required.
Original Note:
Today's Communication/Plan
-
S/p colonoscopy with colonic polyps
Monitor H&H
But did Bactrim for osteomyelitis today
Continue antibiotics
Wound care
Pain control as needed
Assessment / Plan
Assessment / Plan
ASSESSMENT: 73-year-old female with history of chronic pain syndrome, methadone abuse/misuse noncompliance with pain specialist visits, admitted 04/04/2024 for abdominal pain and left toe osteomyelitis. CBC on admission consistent with severe anemia
with hemoglobin 3.0, s/p 5U PRBC with improvement of anemia. Patient refused EGD and colonoscopy.
Impression/Plan:
Severe acute microcytic anemia
-Hb 3.0 on admission (currently 9.4 today), most likely chronic GI bleeding given Hx of Hb 10.90 11/2023. Iron deficiency anemia from acute blood loss less likely.
-Her cousin reported intermittent rectal bleeding, however no overt GI bleeding on CTA.
-EGD 04/08/2024 shows multiple esophageal plaques, and erythematous stomach mucosa, no obvious signs of bleeding. Aubree esophagitis incidental finding, continue micafungin, patient on methadone and cannot take fluconazole.
-Pathology reports for esophageal, stomach, and duodenal biopsies pending.
-Colonoscopy today reports 1 large (20 mm) polyp in the ascending colon, two 5 to 6 mm polyps in the transverse colon, and several small polyps in the sigmoid colon. External and internal hemorrhoids likely source of chronic bleeding. Pathology
pending. Plan to repeat colonoscopy VCE outpatient.
-GI evaluation and recs appreciated.
-Continue to monitor H&H.
-Continue PPI, with daily bowel regimen.
Left foot toe osteomyelitis, confirmed on foot x-ray.
-MR LLE 04/08/2024 findings consistent with septic arthritis of first MTP joint (and osteomyelitis of first proximal phalanx and first metatarsal). No evidence for abscess.
-S/p wound debridement today.
-Surface LLE wound culture with MRSA, this does not reflect deep culture, patient afebrile with normal WBC counts.
-Blood culture, no growth.
-Surgical podiatry recs appreciated.
-Start Bactrim DS 800 mg BID, creatinine 1.0.
-ID evaluation and recs appreciated.
-Follow surgical podiatry outpatient.
Chronic pain on methadone
-PDMP reviewed/discussed with patient primary pain specialist. Patient has failed to follow-up regularly. Patient pain specialist has been trying to wean patient off of methadone.
-Reports no pain on 2.5 mg daily methadone
-As needed tramadol.
-QTc of 440ms at admit.
Acute toxic metabolic encephalopathy with hallucinations.
-Patient currently fully oriented, but at times not cooperative with nursing team.
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
-Continue Zyprexa 2.5 mg twice daily, Precedex discontinued.
-Psych consulted to assess patient for capacity.
MARY vs CKDIII
-Metabolic acidosis on presentation
-Baseline renal function unknown, creatinine 1.0 today.
-Maintain on slow IV fluid, already got 5 units of blood transfusion
Elevated T bilirubin
-minimal, indirect dominant
History of suicidal ideation
-Patient in January 04 drank [place] and was admitted to [facility] [place]
-no current suicidal ideation this visit, remains on 1:1
Spina Bifida
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
DVT prophylaxis: SCD
CODE STATUS: Full code
Case management help appreciated.
Anticipated Discharge: 24 - 48 hours
Subjective/Interval History
-
Date of Service: April 10, 2024
Objective Data
-
Labs:
Laboratory Results
04/10/24
07:31
WBC 6.0
Hgb 9.4 L
Hct 28.5 L
Plt Count 276 D
Sodium 134 L
Potassium 3.9
Chloride 107
Carbon Dioxide 23
BUN 13
Creatinine 1.0
Glucose 95
Calcium 9.0
Vital Signs:
Vital Signs
Temp Pulse Resp BP Pulse Ox
98.3 F 71 18 128/70 100
04/09/24 23:16 04/09/24 23:16 04/09/24 23:16 04/09/24 23:16 04/09/24 23:16
I&O
04/09/24 04/10/24 04/11/24
06:59 06:59 06:59
Intake Total 2880 / 2880 1800 / 1800
Balance 2880 / 2880 1800 / 1800
Review of Systems
-
History Source: Patient and Other (Blood historian)
All other systems: Not reviewed unless documented
Constitutional: Denies Fever
EENT: Reports No Symptoms Reported
Respiratory: Reports No Symptoms; Denies Cough
Cardiac: Reports No Symptoms
Abdomen/GI: Reports No Symptoms
Genitourinary: Reports No Symptoms; Denies Frequency or Flank Pain
Musculoskeletal: Reports No Symptoms and Other (Right BKA)
Skin: Reports Other (Left foot ulcer)
Allergy / Immunology: Reports No Symptoms
Physical Exam
-
General: No Apparent Distress and Comfortable; Negative Respiratory Distress
HEENT: Normocephalic and Moist Mucous Membranes; Negative Oxygen
Respiratory: Clear to Auscultation and Non Labored Respirations; Negative Crackles
Cardiac: Regular Rhythm and S1/S2
GI: Soft, Nondistended, Normal Bowel Sounds (Decreased bowel sounds) and Tender (Midepigastric); Negative Distended
Rectal: Deferred by Provider
Genito-urinary: No Costovertebral Tender
Musculoskeletal: No Edema and Other (Right BKA)
Skin: Warm and Other (Left foot ulcer)
Neuro: Awake, Alert, Oriented, AO x 3 and No Motor Deficits
Psych: Calm and Intact Judgement/Insight
Data Reviewed
-
Diagnostic Radiology: Report Reviewed by me and Discussed with Physician
CT Scan: Report Reviewed by me and Discussed with Physician
Ultrasound: Report Reviewed by me and Discussed with Physician
MRI: Report Reviewed by me, Discussed with Physician and Other (Left lower extremity)
Labs: Labs Reviewed by me and Discussed with Physician
Old Records: Reviewed
[2024-04-10] MEDS: FLAGYL 500 MG PO ×3 (09:27→21:04)
[2024-04-10] MEDS: [UNRECOGNIZED DRUG - OTHER] 500 MG PO ×2 (09:28→21:04)
[2024-04-10] MEDS: DOLOPHINE 2.5 MG PO ×2 (09:28→21:04)
[2024-04-10] MEDS: PEPTO-BISMOL 2 TABLET PO ×4 (09:28→21:04)
[2024-04-10] MEDS: ZYPREXA 2.5 MG PO ×2 (09:29→21:04)
[2024-04-10] MEDS: MIRALAX PO (09:29)
[2024-04-10] MEDS: NSS (PRESERVATIVE FREE) 10 ML IV ×2 (09:29→21:04)
[2024-04-10] MEDS: PROTONIX IV 40 MG IV ×2 (09:29→21:03)
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
--- NOTE | 2024-04-10 09:53 | PN.CDI ---
CDI
- -
CDI:
Physician Documentation Request
Admit Date: 04/04/24 05:23
Dear Doctor Edison,
Please review the following and provide your response in the progress notes.
Clinical Indicators:
Pt with Acute osteomyelitis of left first met head and proximal metatarsal /PVD
Documented per update note 04/08,' ....wound noted, debrided at bedside, no probe to bone for deep structures, no cellulitis...'
Podiatry Consult 04/09,' Upon debridement, good bleeding is noted. No deeper surrounding sinus tract was identified. There was a fragment of bone on her x-ray, which certainly can be osteomyelitis, but it is also a possibility to be a fracture. It
was debrided at bedside...'
Could you provide, in the progress notes further clarification regarding the debridement.
Please specify the type of debridement performed:
1. Excisional Debridement - defined as removal by excision of devitalized tissue, necrosis or slough
2. Non-excisional debridement - defined as removal of devitalized tissue, necrosis or slough by such methods as irrigation, brushing, scrubbing or washing.
If the debridement was excisional, please also include:
1. Type of instrument used (#11 blade, #15 blade etc.)
2. What was excised (necrotic tissue, gangrenous tissue, slough etc.)
For excisional or non-excisional, please also include:
1. Depth of debridement (skin, subcutaneous tissue, fascia, muscle, bone etc)
2. Size and appearance of the wound (L, W, D, color of wound, drainage)
Use of terms such as suspected, likely, concern for, or probable (associated with a specific diagnosis that is being evaluated, monitored, or treated as if it exists) are acceptable and can be coded in the inpatient setting, when documented at the
time of discharge.
Thank you,
Kristin Medeiros RN
CDI Specialist
[facility]
Please use your independent medical judgment in providing your response.
--- NOTE | 2024-04-10 10:31 | W.PN.UPDATE ---
Update Note
Progress Note Update
addendum---when wound was debrided at bedside it was excisional debridement with 11 blade
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
--- NOTE | 2024-04-10 12:43 | PTCARENOTE ---
pt. [id number] to room, bedside report given to Danyelle MAC
--- NOTE | 2024-04-10 12:52 | PTCARENOTE ---
Pt ordered Enema which was administered with +effects. Pt agreeable to colonoscopy and did have procedure during shift. Pt now on a regular diet.
--- NOTE | 2024-04-10 13:46 | W.PN.UPDATE ---
Update Note
Progress Note Update
I s/w son, patient, hospitalist.
Updated findings.
Pending path plan repeat cscope and VCE.
GI will sign off call with ?S
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
[2024-04-10] MEDS: MYCAMINE 105 MG IV (17:50)
[2024-04-10] MEDS: BACTRIM DS 800 MG/160 MG 1 TABLET PO (21:04)
[2024-04-10] MEDS: TYLENOL 1000 MG PO (21:15)
[2024-04-10] MEDS: MELATONIN 3 MG PO (22:36)
[2024-04-11 03:27] VITALS: BP 145/87
[2024-04-11] MEDS: ULTRAM 50 MG PO ×2 (04:36→20:34)
--- NOTE | 2024-04-11 07:21 | W.PN.HOSP.TC ---
Addendum entered and electronically signed by Trudy Callahan MD 04/11/24 18:47:
Patient seen and examined independently--agree with plan set forth by Dr. Pereyra
GENERAL: well developed, well nourished, female in no apparent distress
HEENT: NC/AT--no O2 requirement
HEART: regular rate and rhythm, +S1, +S2
LUNGS : clear to auscultation bilaterally
ABDOM: soft, nontender, nondistended, + bowel sounds
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
NEUROLOGIC: grossly intact
Severe acute microcytic anemia--Hgb 3.0 on admission, most likely iron deficiency anemia from chronic GI bleeding given Hx of Hgb 10.9 in 11/2023. Her cousin reported intermittent rectal bleeding, however no overt GI bleeding on CTA---S/p 5U PRBC,
Hb improved to 11.2--apprec GI-- schistocytes and anisocytosis on peripheral blood smear indicate bone marrow duress due to HGB of 3, doubt hemolysis-- EGD with no evidence for cause of bleeding but H. Pylori positive and aubree incidentally found
and was on nystatin, on micafungin, fluconazole but QTc 486 (back on micafungin) through 04/18 --colonoscopy biopsies with tubular adenoma, sessile serrated lesion, hyperplastic polyp--f/u with GI post d/c
Left foot toe osteomyelitis, confirmed on foot x-ray---LLE wound culture with MRSA--Blood culture NGTD--apprec Wound consult--Vancomycin and Zosyn discontinued 04/04/2024, WBC counts WNL--MRI LLE shows osteomyelitis of first proximal phalanx and
metatarsal (apprec surgical podiatry-not convinced)--apprec ID Consult--nothing surgical per podiatry (can do as outpt)--f/u with Dr. Monster Giles at d/c--cont Bactrim DS at d/c
Chronic pain on methadone--PDMP reviewed/discussed with patient primary pain specialist by previous physicians--pt could not tell us who her pain doctor is... Patient has failed to follow-up regularly (pt denies this) Patient pain specialist has
been trying to wean patient off of methadone--Currently patient on p.o. 10 mg twice daily, changed to 2.5 mg twice daily and would d/c on that--QTc of 440ms at admit.
Acute toxic metabolic encephalopathy with hallucinations--resolved--Patient currently fully oriented, but at times not cooperative with nursing team--off 1:1, patient reportedly seen bugs and cuts in hospital mattress, this has been going on
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
MARY vs CKDIII--Metabolic acidosis--Baseline renal function unknown, creatinine 1.2. Bicarb improved from 17 to 21- already got 5 units of blood transfusion yesterday--Maintain on oral bicarb
Elevated T bilirubin--minimal
History of suicidal ideation--Patient in January 05, 2024 drchucho Diaz and was admitted to [facility] [place]--no current suicidal ideation this visit, now off 1:1 but on medsitter
Case Management involved with d/c planning
Original Note:
Today's Communication/Plan
-
Monitor H&H
Continue antibiotics for 2 weeks until podiatry surgery
Due to QTc prolongation, placed patient back on micafungin
No planned discharge today
Assessment / Plan
Assessment / Plan
ASSESSMENT: 73-year-old female with history of chronic pain syndrome, methadone abuse/misuse noncompliance with pain specialist visits, admitted 04/04/2024 for abdominal pain and left toe osteomyelitis. CBC on admission consistent with severe anemia
with hemoglobin 3.0, s/p 5U PRBC with improvement of anemia. Patient refused EGD and colonoscopy.
Impression/Plan:
Severe acute microcytic anemia
-Hb 3.0 on admission, currently 10.7 today s/p 5U PRBC, most likely chronic GI bleeding given Hx of Hb 10.90 11/2023. Iron deficiency anemia from acute blood loss less likely.
-Her cousin reported intermittent rectal bleeding, however no overt GI bleeding on CTA.
-EGD 04/08/2024 shows multiple esophageal plaques, and erythematous stomach mucosa, no obvious signs of bleeding.
-Pathology reports for esophageal, stomach, and duodenal biopsies positive for H. pylori gastritis and Aubree esophagitis.
-Colonoscopy reports 1 large (20 mm) polyp in the ascending colon, two 5 to 6 mm polyps in the transverse colon, and several small polyps in the sigmoid colon an several external and internal hemorrhoids likely source of chronic bleeding, but no
acute source of bleeding. Plan to repeat colonoscopy VCE outpatient.
-GI evaluation and recs appreciated.
-Continue to monitor H&H.
-Continue PPI, with daily bowel regimen.
Candidal esophagitis
-Incidental discovery during EGD 04/08/2024.
-Restart micafungin (previously DC'd s/p 2 doses). Fluconazole started today but subsequent EKG showed prolonged QTc 486 ms (440 MS at admission)
Left foot toe osteomyelitis on foot x-ray, confirmed on MRI of left foot.
-MR LLE 04/08/2024 findings consistent with septic arthritis of first MTP joint (and osteomyelitis of first proximal phalanx and first metatarsal). No evidence for abscess.
-S/p wound debridement, surface LLE wound culture with MRSA, this does not reflect deep culture, patient afebrile with normal WBC counts.
-Blood culture, no growth.
-Surgical podiatry recs appreciated.
-Continue Bactrim DS 800 mg BID for 2 weeks until surgery.
-ID evaluation and recs appreciated.
-Follow surgical podiatry outpatient.
Chronic pain on methadone
-PDMP reviewed/discussed with patient primary pain specialist. Patient has failed to follow-up regularly. Patient pain specialist has been trying to wean patient off of methadone.
-Reports no pain on 2.5 mg BID methadone
-As needed tramadol.
-QTc of 440ms at admit.
Acute toxic metabolic encephalopathy with hallucinations.
-Resolved.
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
-Continue Zyprexa 2.5 mg twice daily, Precedex discontinued.
-Psych assessment and recs appreciated.
MARY vs CKDIII
-Metabolic acidosis on presentation
-Baseline renal function unknown, creatinine 1.1 today.
-Maintain on slow IV fluid, already got 5 units of blood transfusion
Elevated T bilirubin
-minimal, indirect dominant
History of suicidal ideation
-Patient in January 04 drank [place] and was admitted to [facility] [place]
-no current suicidal ideation this visit, remains on 1:1
Spina Bifida
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
DVT prophylaxis: SCD
CODE STATUS: Full code
Case management help appreciated.
Anticipated Discharge: 24 - 48 hours
Subjective/Interval History
-
Date of Service: April 11, 2024
Objective Data
-
Labs:
Laboratory Results
04/11/24
06:38
Sodium Pending
Potassium Pending
Chloride Pending
Carbon Dioxide Pending
BUN Pending
Creatinine Pending
Glucose Pending
Calcium Pending
Vital Signs:
T. max
04/10/24
23:53
Temp 98.8 F
Vital Signs
Temp Pulse Resp BP Pulse Ox
98.9 F 91 20 145/87 98
04/11/24 03:27 04/11/24 03:27 04/11/24 03:27 04/11/24 03:27 04/11/24 03:27
I&O
04/10/24 04/11/24 04/12/24
06:59 06:59 06:59
Intake Total 1800 / 1800 960 / 960
Balance 1800 / 1800 960 / 960
Review of Systems
-
History Source: Patient and Other (Blood historian)
All other systems: Not reviewed unless documented
Constitutional: Denies Fever
EENT: Reports No Symptoms Reported
Respiratory: Reports No Symptoms; Denies Cough
Cardiac: Reports No Symptoms
Abdomen/GI: Reports No Symptoms
Genitourinary: Reports No Symptoms; Denies Frequency or Flank Pain
Musculoskeletal: Reports No Symptoms and Other (Right BKA)
Skin: Reports Other (Left foot ulcer)
Allergy / Immunology: Reports No Symptoms
Physical Exam
-
General: No Apparent Distress and Comfortable; Negative Respiratory Distress
HEENT: Normocephalic and Moist Mucous Membranes; Negative Oxygen
Respiratory: Clear to Auscultation and Non Labored Respirations; Negative Crackles
Cardiac: Regular Rhythm and S1/S2
GI: Soft, Nondistended, Normal Bowel Sounds (Decreased bowel sounds) and Tender (Midepigastric); Negative Distended
Rectal: Deferred by Provider
Genito-urinary: No Costovertebral Tender
Musculoskeletal: No Edema and Other (Right BKA)
Skin: Warm and Other (Left foot ulcer)
Neuro: Awake, Alert, Oriented, AO x 3 and No Motor Deficits
Psych: Calm and Intact Judgement/Insight
Data Reviewed
-
Diagnostic Radiology: Report Reviewed by me and Discussed with Physician
CT Scan: Report Reviewed by me and Discussed with Physician
Ultrasound: Report Reviewed by me and Discussed with Physician
MRI: Report Reviewed by me, Discussed with Physician and Other (Left lower extremity)
Labs: Labs Reviewed by me and Discussed with Physician
Old Records: Reviewed
[2024-04-11 07:30] VITALS: BP 128/71
[2024-04-11 07:40] LABS: Blood Urea Nitrogen 16 mg/dl (7-17); Calcium 9.4 mg/dl (8.4-10.2); Carbon Dioxide 23 mmol/L (22-30); Chloride 105 mmol/L (98-107); Estimated Creatinine Clearance 37 ml/min; Glucose 119 mg/dl (70-99); Potassium 3.9 mmol/L (3.5-5.1); Sodium 137 mmol/L (135-145); eGFR 53.39
[2024-04-11] MEDS: PROTONIX IV 40 MG IV ×2 (08:12→20:33)
[2024-04-11] MEDS: NSS (PRESERVATIVE FREE) 10 ML IV ×2 (08:12→20:32)
[2024-04-11] MEDS: DOLOPHINE 2.5 MG PO ×2 (08:13→20:30)
[2024-04-11] MEDS: PEPTO-BISMOL 2 TABLET PO ×3 (08:13→22:20)
[2024-04-11] MEDS: ZYPREXA 2.5 MG PO ×2 (08:13→20:32)
[2024-04-11] MEDS: FLAGYL 500 MG PO ×3 (08:13→22:20)
[2024-04-11] MEDS: MIRALAX PO (08:14)
[2024-04-11] MEDS: BACTRIM DS 800 MG/160 MG 1 TABLET PO ×2 (08:15→20:32)
[2024-04-11 08:21] LABS: HIV Combo Negative (Negative)
--- NOTE | 2024-04-11 09:08 | PN.CDI ---
CDI
- -
CDI:
Physician Documentation Request
Admit Date: 04/04/24 05:23
Dear Doctor Edison,
Please review the following and provide your response in the progress notes.
Clinical Indicators:
Pt with Acute osteomyelitis of left first met head and proximal metatarsal /PVD
Documented per update note, ' ....debrided at bedside, no probe to bone for deep structures, no cellulitis
+ mrsa from swab of wound...'
Previous query response ,' addendum---when wound was debrided at bedside it was excisional debridement with 11 blade...'
Could you provide, in the progress notes further clarification regarding the debridement of what tissue was excised:
Subcutaneous Tissue/Fascia
Muscle
Skin
Bone
Other (please specify)
Use of terms such as suspected, likely, concern for, or probable (associated with a specific diagnosis that is being evaluated, monitored, or treated as if it exists) are acceptable and can be coded in the inpatient setting, when documented at the
time of discharge.
Thank you,
Kristin Medeiros RN
CDI Specialist
[place] [facility]
Please use your independent medical judgment in providing your response.
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
[2024-04-11] MEDS: [UNRECOGNIZED DRUG - OTHER] 500 MG PO ×2 (11:44→20:32)
[2024-04-11] MEDS: DIFLUCAN 200 MG PO (11:44)
--- NOTE | 2024-04-11 11:59 | W.PN.UPDATE ---
Update Note
Progress Note Update
patient seen chart reviewed. discussed w nursing and dr lowe. the patient underwent colonoscopy yesterday. polyps found she will need followup. she is in pretty good spirits today. she carried on a lively conversation with me about a variety
of topics. most importantly we talked about the change in her ability to focus and attend as well as her improved interaction with those caring for her. it is my impression that zyprexa and the methadone at this point are at an effective dosage
with minimal side effects. she told me that her brother has accused her of being an addict and needing rehab. i don't see any need for rehab at this point. she has tolerable pain with a relatively low dose of medication. i suspect the zyprexa is
modulating mood /affect favorably as well and this too is a low dose. she could gain weight but she can afford some weight gain. no changes made in meds. continue to follow
[2024-04-11] MEDS: PEPTO-BISMOL PO (12:31)
--- NOTE | 2024-04-11 14:47 | PTOTSP ---
SPEECH THERAPY SWALLOW EVALUATION:
Patient exhibits grossly functional oropharyngeal swallow at this time. Tolerating Regular texture diet and thin liquids without signs of aspiration. Denied dysphagia symptoms. Recommend continue Regular texture diet, thin liquids. Medications whole
with liquid as best tolerated. General aspiration precautions. No skilled ST services are indicated at this time. Sign off swallow therapy.
RECOMMEND:
1) Regular texture diet and thin liquids
2) Medications whole with liquid as best tolerated
3) General aspiration precautions
4) Sign off swallow therapy
[2024-04-11 15:29] VITALS: BP 114/60
[2024-04-11 17:01] LABS: % Basophils 0.8 % (0-2); % Eosinophils 1.5 % (0-6); % Immature Granulocytes 0.4 % (0-0.5); % Lymphocytes 11.3 % (20.5-51.1); % Monocytes 7.9 % (1.7-9.3); % Neutrophils 78.1 % (42.2-75.2); Absolute Basophils 0.1 10^3/uL (0-0.2); Absolute Eosinophils 0.1 10^3/uL (0-0.7); Absolute Lymphocytes 0.8 10^3/uL (1.2-3.4); Absolute Monocytes 0.6 10^3/uL (0.1-0.6); Absolute Neutrophils 5.8 10^3/uL (1.4-6.5); Hematocrit 34.4 % (37.0-47.0); Hemoglobin 10.7 g/dL (12.0-16.0); Mean Corp Hgb Conc. 31.1 g/dL (33.0-37.0); Mean Corpuscular Hgb 25.7 pg (27.0-31.0); Mean Corpuscular Volume 82.5 fL (81.0-99.0); Mean Platelet Volume 9.4 fL (7.4-10.4); Nucleated Red Blood Cells % 0 %; Platelet Count 305 10^3/uL (130-400); Red Blood Cell Count 4.17 10^6/uL (4.20-5.40); Red Cell Dist. Width 26.4 % (11.5-14.5); White Blood Cell Count 7.4 10^3/uL (4.8-10.8)
[2024-04-11 17:20] LABS: Anisocytosis 1+; Hypochromasia 1+; Normal RBC Morphology No; Ovalocytes 1+
[2024-04-11] MEDS: MYCAMINE 105 MG IV (20:31)
[2024-04-11 23:13] VITALS: BP 139/76
[2024-04-12] MEDS: ULTRAM 50 MG PO ×2 (03:55→14:04)
--- NOTE | 2024-04-12 07:07 | W.PN.HOSP.TC ---
Addendum entered and electronically signed by Trudy Callahan MD 04/12/24 14:43:
Patient seen and examined independently--agree with plan set forth by Dr. Pereyra
GENERAL: well developed, well nourished, female in no apparent distress
HEENT: NC/AT--no O2 requirement
HEART: regular rate and rhythm, +S1, +S2
LUNGS : clear to auscultation bilaterally
ABDOM: soft, nontender, nondistended, + bowel sounds
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
NEUROLOGIC: grossly intact
Severe acute microcytic anemia--Hgb 3.0 on admission, most likely iron deficiency anemia from chronic GI bleeding given Hx of Hgb 10.9 in 11/2023. Her cousin reported intermittent rectal bleeding, however no overt GI bleeding on CTA---S/p 5U PRBC,
Hb improved to 11.2--apprec GI-- schistocytes and anisocytosis on peripheral blood smear indicate bone marrow duress due to HGB of 3, doubt hemolysis-- EGD with no evidence for cause of bleeding but H. Pylori positive and aubree incidentally found
and was on nystatin, on micafungin, fluconazole but QTc 486 (back on micafungin) through 04/18 --colonoscopy biopsies with tubular adenoma, sessile serrated lesion, hyperplastic polyp--f/u with GI post d/c
Left foot toe osteomyelitis, confirmed on foot x-ray---LLE wound culture with MRSA--Blood culture NGTD--apprec Wound consult--Vancomycin and Zosyn discontinued 04/04/2024, WBC counts WNL--MRI LLE shows osteomyelitis of first proximal phalanx and
metatarsal (apprec surgical podiatry-not convinced)--apprec ID Consult--nothing surgical per podiatry (can do as outpt)--f/u with Dr. Monster Giles in 2 weeks from d/c--cont tetracycline as opposed to Bactrim per ID for H. pylori
Chronic pain on methadone--PDMP reviewed/discussed with patient primary pain specialist by previous physicians--pt could not tell us who her pain doctor is... Patient has failed to follow-up regularly (pt denies this) Patient pain specialist has
been trying to wean patient off of methadone--Currently patient on p.o. 10 mg twice daily, changed to 2.5 mg twice daily and would d/c on that--QTc of 440ms at admit.
Acute toxic metabolic encephalopathy with hallucinations--resolved--Patient currently fully oriented, but at times not cooperative with nursing team--off 1:1, patient reportedly seen bugs and cuts in hospital mattress, this has been going on
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
MARY vs CKDIII--Metabolic acidosis--Baseline renal function unknown, creatinine 1.2. Bicarb improved from 17 to 21- already got 5 units of blood transfusion yesterday--Maintain on oral bicarb
Elevated T bilirubin--minimal
History of suicidal ideation--Patient in January 05, 2024 drchucho Diaz and was admitted to [facility] in [place]--no current suicidal ideation this visit, now off 1:1 but on medsitter
Case Management involved with d/c planning
Original Note:
Today's Communication/Plan
-
Hemoglobin improving, H&H
Restarted fluconazole and increased tetracycline, monitor QTc
Stopped Bactrim
Zyprexa reduced
Dispo determination for discharge planning
PT evaluation
Assessment / Plan
Assessment / Plan
ASSESSMENT: 73-year-old female with history of chronic pain syndrome, methadone abuse/misuse noncompliance with pain specialist visits, admitted 04/04/2024 for abdominal pain and left toe osteomyelitis. CBC on admission consistent with severe anemia
with hemoglobin 3.0, s/p 5U PRBC with improvement of anemia. Patient refused EGD and colonoscopy.
Impression/Plan:
Severe acute microcytic anemia
-Hb 3.0 on admission, iron deficiency most likely iron deficiency anemia from chronic GI bleeding given history of hemoglobin 10.90 11/2023, currently 10.9 Today.
-Her cousin reported intermittent rectal bleeding, however no overt GI bleeding on CTA.
-S/p 5U PRBC, GI appreciated.
-EGD 04/08/2024 shows no evidence of bleeding source, duodenal biopsies positive for H. pylori and consider esophagitis incidental findings.
-Currently on fluconazole 200 mg daily, QTc 440 at presentation, increased to 480 with previous dose, check ECG in a.m. If QTc prolonged > 500 reduced dose or change to alternate.
-Colonoscopy biopsies with tubular adenoma, sessile serrated lesion, hyperplastic polyp.
-External and internal hemorrhoids found on colonoscopy likely source of chronic bleeding, but no acute source of bleeding.
-Plan to repeat colonoscopy outpatient, F/U with GI post D/C.
-Continue to monitor H&H.
-Continue PPI, with daily bowel regimen.
Left foot toe osteomyelitis on foot x-ray, confirmed on MRI of left foot.
-LLE wound culture with MRSA, blood culture NGTD, vancomycin and Zosyn discontinued 04/04/2024, WBC count WNL.
-Appreciate wound consult.
-MR LLE 04/08/2024 findings consistent with septic arthritis of first MTP joint (and osteomyelitis of first proximal phalanx and first metatarsal). No evidence for abscess.
-Appreciate surgical podiatry.
-Follow surgical podiatry outpatient.
-Tetracycline dose increased for both H. pylori and MRSA.
-ID appreciated.
-PT consult.
H. pylori infection
-Currently on tetracycline, increased to QID, Bactrim discontinued, will restart Bactrim if tetracycline not tolerated by patient per ID.
Chronic pain on methadone
-PDMP reviewed/discussed with patient primary pain specialist by previous physician. Patient does not remember who her previous pain doctor is. Patient has failed to follow-up regularly (patient denies this).
-On 10 mg methadone BID on presentation, weaned to 2.5 mg BID, reports no pain on 2.5 mg BID methadone. Will discharge on this dose.
-As needed tramadol.
-QTc of 440ms at admit.
Acute toxic metabolic encephalopathy with hallucinations.
-Resolved.
-Continue 1:1 for now, patient reportedly seen bugs and cuts in hospital mattress, this has been going on [employer] DISPATCHER.
-Reports not tolerating Zyprexa 2.5 mg twice daily, reduced to 2.5 mg once daily in the morning, Precedex discontinued.
-Psych following, found patient to have capacity to make medical decisions
-Psych appreciated.
MARY vs CKDIII
-Metabolic acidosis on presentation, Baseline renal function unknown, creatinine 1.1 today.
-Bicarb improved to 23.
Elevated T bilirubin
-minimal, indirect dominant
History of suicidal ideation
-Patient in January 04 drank [place] and was admitted to [facility] in [place]
-no current suicidal ideation this visit, remains on 1:1
Spina Bifida
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
Dispo planning
DVT prophylaxis: SCD
CODE STATUS: Full code
Case management help appreciated.
Anticipated Discharge: 24 - 48 hours
Subjective/Interval History
-
Date of Service: April 12, 2024
Objective Data
-
Labs:
Laboratory Results
04/12/24
06:00
WBC Pending
Hgb Pending
Hct Pending
Plt Count Pending
Sodium Pending
Potassium Pending
Chloride Pending
Carbon Dioxide Pending
BUN Pending
Creatinine Pending
Glucose Pending
Calcium Pending
Vital Signs:
t max in 24 hrs
04/11/24
23:13
Temp 98.2 F
Vital Signs
Temp Pulse Resp BP Pulse Ox
98.2 F 80 16 139/76 95
04/11/24 23:13 04/11/24 23:13 04/11/24 23:13 04/11/24 23:13 04/11/24 23:13
I&O
04/11/24 04/12/24 04/13/24
06:59 06:59 06:59
Intake Total 960 / 960 2300 / 2300
Balance 960 / 960 2300 / 2300
Review of Systems
-
History Source: Patient and Other (Blood historian)
All other systems: Not reviewed unless documented
Constitutional: Denies Fever
EENT: Reports No Symptoms Reported
Respiratory: Reports No Symptoms; Denies Cough
Cardiac: Reports No Symptoms
Abdomen/GI: Reports No Symptoms
Genitourinary: Reports No Symptoms; Denies Frequency or Flank Pain
Musculoskeletal: Reports No Symptoms and Other (Right BKA)
Skin: Reports Other (Left foot ulcer)
Allergy / Immunology: Reports No Symptoms
Psych: Reports Other (Intermittently agitated)
Physical Exam
-
General: No Apparent Distress and Comfortable; Negative Respiratory Distress
HEENT: Normocephalic and Moist Mucous Membranes; Negative Oxygen
Respiratory: Clear to Auscultation and Non Labored Respirations; Negative Crackles
Cardiac: Regular Rhythm and S1/S2
GI: Soft, Nondistended, Normal Bowel Sounds (Decreased bowel sounds) and Tender (Midepigastric); Negative Distended
Rectal: Deferred by Provider
Genito-urinary: No Costovertebral Tender
Musculoskeletal: No Edema and Other (Right BKA)
Skin: Warm and Other (Left foot ulcer)
Neuro: Awake, Alert, Oriented, AO x 3 and No Motor Deficits
Psych: Calm and Agitated; Negative Intact Judgement/Insight
Data Reviewed
-
Diagnostic Radiology: Report Reviewed by me and Discussed with Physician
CT Scan: Report Reviewed by me and Discussed with Physician
Ultrasound: Report Reviewed by me and Discussed with Physician
MRI: Report Reviewed by me, Discussed with Physician and Other (Left lower extremity)
Labs: Labs Reviewed by me and Discussed with Physician
Old Records: Reviewed
[2024-04-12 07:20] VITALS: BP 143/87
[2024-04-12] MEDS: PROTONIX IV 40 MG IV ×2 (07:49→20:20)
[2024-04-12] MEDS: NSS (PRESERVATIVE FREE) 10 ML IV ×2 (07:49→20:20)
[2024-04-12] MEDS: BACTRIM DS 800 MG/160 MG 1 TABLET PO (07:49)
[2024-04-12] MEDS: DOLOPHINE 2.5 MG PO ×2 (07:49→20:19)
[2024-04-12] MEDS: FLAGYL 500 MG PO ×3 (07:49→22:24)
[2024-04-12] MEDS: PEPTO-BISMOL 2 TABLET PO ×2 (07:49→14:02)
[2024-04-12] MEDS: ZYPREXA 2.5 MG PO (07:50)
[2024-04-12] MEDS: MIRALAX PO (07:58)
[2024-04-12 08:50] LABS: % Basophils 1.4 % (0-2); % Eosinophils 1.6 % (0-6); % Immature Granulocytes 0.4 % (0-0.5); % Lymphocytes 14.1 % (20.5-51.1); % Monocytes 5.7 % (1.7-9.3); % Neutrophils 76.8 % (42.2-75.2); Absolute Basophils 0.1 10^3/uL (0-0.2); Absolute Eosinophils 0.1 10^3/uL (0-0.7); Absolute Lymphocytes 0.8 10^3/uL (1.2-3.4); Absolute Monocytes 0.3 10^3/uL (0.1-0.6); Absolute Neutrophils 4.3 10^3/uL (1.4-6.5); Hematocrit 33.9 % (37.0-47.0); Hemoglobin 10.9 g/dL (12.0-16.0); Mean Corp Hgb Conc. 32.2 g/dL (33.0-37.0); Mean Corpuscular Hgb 25.9 pg (27.0-31.0); Mean Corpuscular Volume 80.5 fL (81.0-99.0); Mean Platelet Volume 9.2 fL (7.4-10.4); Nucleated Red Blood Cells % 0 %; Platelet Count 279 10^3/uL (130-400); Red Blood Cell Count 4.21 10^6/uL (4.20-5.40); Red Cell Dist. Width 26.9 % (11.5-14.5); White Blood Cell Count 5.6 10^3/uL (4.8-10.8)
[2024-04-12 09:01] LABS: Blood Urea Nitrogen 20 mg/dl (7-17); Calcium 9.3 mg/dl (8.4-10.2); Carbon Dioxide 20 mmol/L (22-30); Chloride 104 mmol/L (98-107); Estimated Creatinine Clearance 29 ml/min; Glucose 173 mg/dl (70-99); Potassium 4.3 mmol/L (3.5-5.1); Sodium 137 mmol/L (135-145); eGFR 39.97
--- NOTE | 2024-04-12 10:54 | CM ---
patient is ready for dc today.i called her cousin carlos [phone] who state she cannot take her back until she goes to rehab.she told cm patient's checking account is overdrawn and she has no money to pay for anything until she gets her ss
check on april 23.apparentoly the reason the hotel in [place] asked her to leave is because she had no money left to pay the hotel.will see if therapy can approve her for snf.if so she will need an auth from insurance .
[2024-04-12] MEDS: [UNRECOGNIZED DRUG - OTHER] 500 MG PO ×3 (11:38→22:24)
--- NOTE | 2024-04-12 11:44 | W.PN.UPDATE ---
Update Note
Progress Note Update
Psychiatry follow up. Chart reviewed. Patient presents in good spirits and fully oriented. She denies pain. She states she plans to go to a hotel room from here and then return in two weeks for her surgery. She understands the risks of this
decision. I shared my concerns about this plan and we discussed getting evaluated by PT to see if SNF would be a more appropriate next step.
MSE- good eye contact. fluent spontanous speech. Mood is euthymic. She is logical and goal directed. She denies SI/HI/AVH. no delusions. she is fully oriented.
A/P- 73 yo female seems to have responded well to low dose zyprexa. 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 Recommend PT evaluation for SNF. She does have capacity
for dispo decision making but certainly SNF would be the safer/preferred option to hotel as next step. Case discussed with nursing.
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
[2024-04-12] MEDS: DIFLUCAN 200 MG PO (14:02)
[2024-04-12 15:20] VITALS: BP 123/60
[2024-04-12] MEDS: ULTRAM 25 MG PO (17:51)
[2024-04-12] MEDS: PEPTO-BISMOL PO ×2 (17:52→22:30)
[2024-04-12 23:29] VITALS: BP 127/86
[2024-04-13] MEDS: ZYPREXA 2.5 MG PO (05:32)
[2024-04-13 07:30] VITALS: BP 130/84
--- NOTE | 2024-04-13 07:30 | W.PN.HOSP.TC ---
Addendum entered and electronically signed by Trudy Callahan MD 04/13/24 14:56:
Patient seen and examined independently--agree with plan set forth by Dr. Pereyra
GENERAL: well developed, well nourished, female in no apparent distress
HEENT: NC/AT--no O2 requirement
HEART: regular rate and rhythm, +S1, +S2
LUNGS : clear to auscultation bilaterally
ABDOM: soft, nontender, nondistended, + bowel sounds
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
NEUROLOGIC: grossly intact
Severe acute microcytic anemia--Hgb 3.0 on admission, most likely iron deficiency anemia from chronic GI bleeding given Hx of Hgb 10.9 in 11/2023. Her cousin reported intermittent rectal bleeding, however no overt GI bleeding on CTA---S/p 5U PRBC,
Hb improved to 11.2--apprec GI-- EGD with no evidence for cause of bleeding but H. Pylori positive and aubree incidentally found and was on nystatin, on micafungin, fluconazole through 04/18 --colonoscopy biopsies with tubular adenoma, sessile
serrated lesion, hyperplastic polyp--f/u with GI post d/c
Left foot toe osteomyelitis, confirmed on foot x-ray---LLE wound culture with MRSA--Blood culture NGTD--apprec Wound consult--Vancomycin and Zosyn discontinued 04/04/2024, WBC counts WNL--MRI LLE shows osteomyelitis of first proximal phalanx and
metatarsal (apprec surgical podiatry-not convinced)--apprec ID Consult--nothing surgical per podiatry as inpt (can do as outpt)--f/u with Dr. Monster Giles in 2 weeks from d/c--cont tetracycline as opposed to Bactrim per ID for H. pylori
Chronic pain on methadone--PDMP reviewed/discussed with patient primary pain specialist by previous physicians--pt could not tell us who her pain doctor is... Patient has failed to follow-up regularly (pt denies this) Patient pain specialist has
been trying to wean patient off of methadone--Currently patient on p.o. 10 mg twice daily, changed to 2.5 mg twice daily and would d/c on that--QTc of 440ms at admit--restart gabapentin 100 mg HS
Acute toxic metabolic encephalopathy with hallucinations--resolved--Patient currently fully oriented, but at times not cooperative with nursing team--off 1:1, patient reportedly seen bugs and cuts in hospital mattress, this has been going on
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
MARY vs CKDIII--Metabolic acidosis--Baseline renal function unknown, creatinine 1.2. Bicarb improved from 17 to 21- already got 5 units of blood transfusion yesterday--Maintain on oral bicarb
Elevated T bilirubin--minimal
History of suicidal ideation--Patient in January 05, 2024 drchucho Diaz and was admitted to [facility] in [place]--no current suicidal ideation this visit, now off 1:1 but on medsitter
Case Management involved with d/c planning
Original Note:
Today's Communication/Plan
-
Tolerating Zyprexa at lower dose
Continue antibiotics
Dispo planning
Assessment / Plan
Assessment / Plan
ASSESSMENT: 73-year-old female with history of chronic pain syndrome, methadone abuse/misuse noncompliance with pain specialist visits, admitted 04/04/2024 for abdominal pain and left toe osteomyelitis. CBC on admission consistent with severe anemia
with hemoglobin 3.0, s/p 5U PRBC with improvement of anemia. Patient refused EGD and colonoscopy.
Impression/Plan:
Severe acute microcytic anemia
-Resolved. S/p 5U PRBC.
-Hb 3.0 on admission, iron deficiency most likely iron deficiency anemia from chronic GI bleeding given history of hemoglobin 10.90 11/2023.
-Her cousin reported intermittent rectal bleeding, however no overt GI bleeding on CTA.
-GI appreciated.
-EGD 04/08/2024 shows no evidence of bleeding source, duodenal biopsies positive for H. pylori and consider esophagitis incidental findings.
-Currently on fluconazole 200 mg daily, QTc 440 at presentation, QTc today 465. check ECG in a.m. If QTc prolonged > 500 reduced dose or change to alternate.
-Colonoscopy biopsies with tubular adenoma, sessile serrated lesion, hyperplastic polyp.
-External and internal hemorrhoids found on colonoscopy likely source of chronic bleeding, but no acute source of bleeding.
-Plan to repeat colonoscopy outpatient, F/U with GI post D/C.
-Continue to monitor H&H.
-Continue PPI, with daily bowel regimen.
Left foot toe osteomyelitis on foot x-ray, confirmed on MRI of left foot.
-LLE wound culture with MRSA, blood culture NGTD, vancomycin and Zosyn discontinued 04/04/2024, WBC count WNL.
-Appreciate wound consult.
-MR LLE 04/08/2024 findings consistent with septic arthritis of first MTP joint (and osteomyelitis of first proximal phalanx and first metatarsal). No evidence for abscess.
-Appreciate surgical podiatry.
-Follow surgical podiatry outpatient.
-Tetracycline dose increased for both H. pylori and MRSA.
-ID appreciated.
-PT consult.
H. pylori infection
-Continue tetracycline QID, day #12/05, tolerating.
Chronic pain on methadone
-PDMP reviewed/discussed with patient primary pain specialist by previous physician. Patient does not remember who her previous pain doctor is. Patient has failed to follow-up regularly (patient denies this).
-On 10 mg methadone BID on presentation, weaned to 2.5 mg BID, reports no pain on 2.5 mg BID methadone. Will discharge on this dose.
-As needed tramadol.
-QTc of 440ms at admit.
Acute toxic metabolic encephalopathy with hallucinations.
-Resolved.
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
-Zyprexa reduced to 2.5 mg daily, patient tolerating (patient reports it makes her 'jumpy') Precedex discontinued.
-Psych following, found patient to have capacity to make medical decisions
-Psych appreciated.
MARY vs CKDIII
-Resolved.
-Metabolic acidosis on presentation, Baseline renal function unknown.
-Bicarb improved to 23.
Elevated T bilirubin
-minimal, indirect dominant
History of suicidal ideation
-Patient in January 04 drank [place] and was admitted to [facility] in [place]
-no current suicidal ideation this visit, remains on 1:1
Spina Bifida
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
Dispo planning
DVT prophylaxis: SCD
CODE STATUS: Full code
Case management help appreciated.
Anticipated Discharge: 24 - 48 hours
Subjective/Interval History
-
Date of Service: April 13, 2024
Objective Data
-
Vital Signs:
T.max 24 HRS
04/12/24
23:29
Temp 98.2 F
Vital Signs
Temp Pulse Resp BP Pulse Ox
98.2 F 92 16 127/86 97
04/12/24 23:29 04/12/24 23:29 04/12/24 23:29 04/12/24 23:29 04/12/24 23:29
I&O
04/12/24 04/13/24 04/14/24
06:59 06:59 06:59
Intake Total 2300 / 2300 1800 / 1800
Balance 2300 / 2300 1800 / 1800
Review of Systems
-
History Source: Patient and Other (Blood historian)
All other systems: Not reviewed unless documented
Constitutional: Denies Fever
EENT: Reports No Symptoms Reported
Respiratory: Reports No Symptoms; Denies Cough
Cardiac: Reports No Symptoms
Abdomen/GI: Reports No Symptoms
Genitourinary: Reports No Symptoms; Denies Frequency or Flank Pain
Musculoskeletal: Reports No Symptoms and Other (Right BKA)
Skin: Reports Other (Left foot ulcer)
Allergy / Immunology: Reports No Symptoms
Psych: Reports Other (Intermittently agitated)
Physical Exam
-
General: No Apparent Distress and Comfortable; Negative Respiratory Distress
HEENT: Normocephalic and Moist Mucous Membranes; Negative Oxygen
Respiratory: Clear to Auscultation and Non Labored Respirations; Negative Crackles
Cardiac: Regular Rhythm and S1/S2
GI: Soft, Nondistended, Normal Bowel Sounds (Decreased bowel sounds) and Tender (Midepigastric); Negative Distended
Rectal: Deferred by Provider
Genito-urinary: No Costovertebral Tender
Musculoskeletal: No Edema and Other (Right BKA)
Skin: Warm and Other (Left foot ulcer)
Neuro: Awake, Alert, Oriented, AO x 3 and No Motor Deficits
Psych: Calm and Agitated; Negative Intact Judgement/Insight
Data Reviewed
-
Diagnostic Radiology: Report Reviewed by me and Discussed with Physician
CT Scan: Report Reviewed by me and Discussed with Physician
Ultrasound: Report Reviewed by me and Discussed with Physician
MRI: Report Reviewed by me, Discussed with Physician and Other (Left lower extremity)
Labs: Labs Reviewed by me and Discussed with Physician
Old Records: Reviewed
[2024-04-13] MEDS: PEPTO-BISMOL 2 TABLET PO ×3 (08:30→16:58)
[2024-04-13] MEDS: [UNRECOGNIZED DRUG - OTHER] 500 MG PO ×4 (08:30→21:05)
[2024-04-13] MEDS: DIFLUCAN 200 MG PO (08:31)
[2024-04-13] MEDS: FLAGYL 500 MG PO ×3 (08:31→21:04)
[2024-04-13] MEDS: DOLOPHINE 2.5 MG PO ×2 (08:31→19:31)
[2024-04-13] MEDS: NSS (PRESERVATIVE FREE) 10 ML IV ×2 (08:31→19:30)
[2024-04-13] MEDS: MIRALAX 17 GRAMS PO (08:32)
[2024-04-13] MEDS: PROTONIX IV 40 MG IV ×2 (08:32→19:30)
[2024-04-13] MEDS: ULTRAM 50 MG PO ×2 (10:04→21:07)
--- NOTE | 2024-04-13 11:31 | W.PN.UPDATE ---
Update Note
Progress Note Update
Psychiatry follow up. Chart reviewed. Zyprexa was lowered to 2.5mg daily yesterday secondary to patient stating it was making her 'jumpy.' Patient presents again in good spirits and fully oriented. She denies pain. She states she knows plan for
discharge to hotel was not ideal and admits that sometimes she does not make great choices. she agrees that SNF is the appropriate next step. She states she ordered a wheelchair from [employer] and socks from [employer] to be delivered to the hospital.
MSE- good eye contact. fluent spontaneous speech. Mood is euthymic. She is logical and goal directed. She denies SI/HI/AVH. no delusions. she is fully oriented.
A/P- 73 yo female seems to have responded well to low dose zyprexa. 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 Plan for SNF from here.
--- NOTE | 2024-04-13 13:05 | CM ---
patient on tetracycline for mrsa/om left first metatarsal,also on anti fungals fir cabduda esophagus/h pylori.continues on methadone bid.patient is agreeable to dc to snf .referrals sent via care port.Plan is dc to snf when bed available.patient
needs auth from [facility].
[2024-04-13 15:10] VITALS: BP 119/76
[2024-04-13] MEDS: NEURONTIN 100 MG PO (21:04)
[2024-04-13 22:58] VITALS: BP 131/90
[2024-04-13] MEDS: PEPTO-BISMOL PO (23:27)
[2024-04-14] MEDS: ULTRAM 50 MG PO (03:44)
[2024-04-14] MEDS: ZYPREXA 2.5 MG PO (06:09)
[2024-04-14 07:40] VITALS: BP 113/79
[2024-04-14] MEDS: DOLOPHINE 2.5 MG PO (08:34)
[2024-04-14] MEDS: DIFLUCAN 200 MG PO (08:34)
[2024-04-14] MEDS: [UNRECOGNIZED DRUG - OTHER] 500 MG PO ×4 (08:35→21:34)
[2024-04-14] MEDS: PROTONIX IV 40 MG IV ×2 (08:36→20:18)
[2024-04-14] MEDS: FLAGYL 500 MG PO ×3 (08:36→21:33)
[2024-04-14] MEDS: PEPTO-BISMOL 2 TABLET PO ×4 (08:36→21:34)
[2024-04-14] MEDS: MIRALAX PO (08:37)
[2024-04-14] MEDS: NSS (PRESERVATIVE FREE) 10 ML IV ×2 (08:37→20:17)
--- NOTE | 2024-04-14 10:20 | W.PN.UPDATE ---
Addendum entered and electronically signed by KINGSLEY Sheridan 04/14/24 10:31:
Pt will also need GI follow up after colonoscopy for capsule and repeat testing for H pylori after treatment
Original Note:
Update Note
Progress Note Update
reviewed colonoscopy path with patient with noted TA and HP polyp but large polyp note resected with sessile serrated polyp. She will need to return with Dr. Javier for resection. I offered to call her brother but she declines. reviewed with social
work and Dr. Shirley.
--- NOTE | 2024-04-14 10:35 | W.PN.ID1 ---
Date of Service
Date of Service: April 14, 2024
Today's Communication
Continue tetracycline 500mg po QID through surgery.
Continue fluconazole 200mg po qd through 04/18/24.
See below
Assessment / Plan
# Acute osteomyelitis of left first met head and proximal metatarsal. Bone exposed.
- Surface wound swab +MRSA - may not reflect deep culture.
- Podiatry planning for outpatient surgical intervention in 2 weeks; requesting abx
- Continue tetracycline 500mg po QID through surgery. Hoping for surgery cure. If outpt bone margin + osteo, may need a course of IV abx.
# Sabrina esophagitis
- 04/08 s/p EGD + plaques in esophagus. Biopsy + fungal elements.
-Continue fluconazole 200mg po qd through 04/18/24.
QTc 480 post fluconazole dose which is acceptable; if >500 then would either decrease fluconazole dose or use alternative.
Fluconazole may increase methadone level. However, the methadone dose has been decreased significantly from 10mg bid to 2.5 mg bid.
- Dr Epstein Informed pt HIV negative 04/12
# H. pylori gastritis - seen in stomach biopsy
- On tetracycline, metronidazole, Pepto-Bismol, pantoprazole per GI for 14 day course
# Severe anemia
- Colonoscopy + polyps. .
#Spinal bifida
#Chronic pain on methadone
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
Chief Complaint
-: Other (Foot wound)
Subjective / Review of Systems
Feels well. Will go home to a one-bedroom apt.
Vital Signs / Physical Exam
Vital Signs
Vital Signs
Temp Pulse Resp BP Pulse Ox
98.0 F 89 18 113/79 100
04/14/24 07:40 04/14/24 07:40 04/14/24 07:40 04/14/24 07:40 04/14/24 07:40
Physical Exam
Constitutional: No Acute Distress and Comfortable
Pulmonary: Clear
Gastrointestinal: Soft, Non Tender and Non Distended
Wound: Other (left hallux base of MT with dry wound, bone palpable)
Neurological: AO x 3
Objective Data
Lab Data
Lab Results
04/12/24 08:34
04/12/24 08:34
ESR 140 mm/hour (0-20) H 04/04/24 03:24
PT 16.0 Sec (11.4-14.6) H 04/04/24 15:36
INR 1.29 04/04/24 15:36
APTT 23.1 Sec (23.4-35.0) L 04/04/24 15:36
Estimated Creat Clear 29 ml/min 04/12/24 08:34
Lactic Acid Cancelled 04/04/24 07:00
Total Bilirubin 1.5 mg/dl (0.2-1.3) H 04/05/24 05:29
AST 20 U/L (14-36) 04/05/24 05:29
ALT 137 U/L (0-35) H 04/05/24 05:29
Alkaline Phosphatase 88 U/L (38-126) 04/05/24 05:29
C-Reactive Protein 24.20 mg/L (0.0-10.00) H 04/04/24 03:24
Most recent labs reviewed.
Micro Results:
04/04/24 02:54 Blood Culture - Final
Blood/Venous No Growth - Final Report
04/04/24 02:54 Blood Culture - Final
Blood/Venous No Growth - Final Report
04/04/24 16:05 Wound Culture - Final
Foot - Left Staph aureus MRSA
Gram Stain - Final
04/04/24 Foot XRAY: There is deformity of the left first MTP joint with subluxation/dislocation of the first phalanx with destructive changes and erosions noted along the metatarsal head and base of the phalanx. There appears to be a wound/tract
extending from the skin to this area.
04/04/24 CT a/p: limited evaluation of the GI tract. However, no evidence for active bleeding. No evidence for obstruction. Normal caliber abdominal aorta with mild to moderate calcified plaque throughout. No dissections. Diffuse mesenteric edema
and small amount of ascites within the pelvis. Small bilateral pleural effusions. Anasarca. Findings compatible with hypervolemic state/third spacing. Atrophic left kidney.
04/05/24 CXR: Findings suggesting mild CHF. New. Mild cardiomegaly. New
04/08/24 MRI LLE wo and w contrast: Findings consistent with septic arthritis of first MTP joint (and osteomyelitis of first proximal phalanx and first metatarsal). No evidence for abscess. Severe extension deformity at the first MTP joint.
--- NOTE | 2024-04-14 12:48 | W.PN.HOSP.TC ---
Addendum entered and electronically signed by Viet Shirley MD 04/15/24 15:42:
Add onto diagnosis
Acute upper respiratory failure - resolved
H/o opioid dependance - being weaned off of methadone
Original Note:
Today's Communication/Plan
-
see note
difficult discharge planning
Assessment / Plan
Assessment / Plan
Severe acute microcytic anemia
-Hgb 3.0 on admission, most likely iron deficiency anemia from chronic GI bleeding given Hx of Hgb 10.9 in 11/2023. Her cousin reported intermittent rectal bleeding, however no overt GI bleeding on CTA
-S/p 5U PRBC, Hb improved to 11.2
-EGD with no evidence for cause of bleeding but H. Pylori positive and aubree incidentally found and was on nystatin, on micafungin, fluconazole through 04/18
-colonoscopy biopsies with tubular adenoma, sessile serrated lesion, hyperplastic polyp
-patient will need to f/u with GI in office for definitive resection of the polyp
H Pylori infection
-being treated with tetarcycline
Left foot toe osteomyelitis
-confirmed on foot x-ray
-LLE wound culture with MRSA
-Blood culture NGTD
-appreciate Wound consult
-MRI LLE shows osteomyelitis of first proximal phalanx and metatarsal (appreciate surgical podiatry-not convinced)
-appreciate ID Consult and to be maintained on tetracycline till definitive surgery plan
Chronic pain on methadone
-PDMP reviewed/discussed with patient primary pain specialist by previous physicians
-Discussed with Dr Ermias Ball at admission, patient has failed to f/u regularly, dr ball has been trying to wean patient off of methadone
-Patient currently on methadone 2.5 mg twice daily
Acute toxic metabolic encephalopathy with hallucinations
-Patient encephalopathy has been resolved
-Unfortunately patient continues to complain seeing bugs. Patient not willing to try Zyprexa 2.5 milligram twice daily, makes her jumpy. Currently on 2-1/2 mg Zyprexa daily.
MARY vs CKDIII
Metabolic acidosis
-Baseline renal function unknown, creatinine 1.2.
-cr elevated to 1.4 yesterday, repeat check tomorrow
-oral bicarb as needed,
Elevated T bilirubin
-minimal
History of suicidal ideation
-Patient in January 05, 2024 drank [place] and was admitted to [facility] in [place]
-no current suicidal ideation this visit, now off 1:1 but on medsitter
h/o spina bifida
h/o right BKA
Full code
Patient medically appropriate for discharge planning unfortunately not willing to go to SNF rehab. Patient telling me she has apartment rented in [facility] (likely not true) and planning to move there. There is no clear discharge
plan as family does not want to take care of the patient. With current circumstances patient may also sign out AMA is getting anxious to leave, unfortunately patient is high risk of readmission without any clear outpatient support system.
Anticipated Discharge: Today
Subjective/Interval History
-
Date of Service: April 14, 2024
patient adamant about leaving the hospital
Objective Data
-
Vital Signs:
Vital Signs
Temp Pulse Resp BP Pulse Ox
98.0 F 89 18 113/79 100
04/14/24 07:40 04/14/24 07:40 04/14/24 07:40 04/14/24 07:40 04/14/24 11:11
I&O
04/13/24 04/14/24 04/15/24
06:59 06:59 06:59
Intake Total 1799 / 1799
Balance 1799 / 1800 1979
Review of Systems
-
Respiratory: Reports No Symptoms
Cardiac: Reports No Symptoms
Abdomen/GI: Reports No Symptoms
Physical Exam
-
General: Comfortable; Negative Respiratory Distress
HEENT: Negative Oxygen
Respiratory: Clear to Auscultation and Non Labored Respirations; Negative Crackles
Cardiac: Regular Rhythm and S1/S2
GI: Soft, Nontender and Nondistended
Musculoskeletal: No Edema and Other (Right BKA)
Skin: Warm and Other (Left foot ulcer)
Neuro: Awake, Alert, Oriented, AO x 3 and No Motor Deficits
Psych: Calm and Agitated; Negative Intact Judgement/Insight
--- NOTE | 2024-04-14 13:17 | W.PN.UPDATE ---
Update Note
Progress Note Update
clarification---excisional debridement to subcutaneus tissue
[2024-04-14 15:15] VITALS: BP 120/70
--- NOTE | 2024-04-14 15:49 | WOUNDNOTE ---
WON RN NOTE: Followed up today regarding L plantar foot wound. s/p bedside excisional debridement of wound by Dr. Hogan, to follow up in 2 wks as outpatient. Per Dr. Hogan, wound care orders to be obtained from Dr. Giles. Applied 2x2 gauze and
silicone foam to wound, confirmed with Dr. Miller. Teaching done with patient, not sure how much she is comprehending as she seems more confused today. Nurse Rekha also said patient was saying things that didn't make sense. Updated care plan and
discharge instructions.
[2024-04-14] MEDS: STERILE WATER FOR INJECTION 2.10000000000000009 ML IM (16:27)
[2024-04-14] MEDS: ZYPREXA 5 MG IM (16:28)
--- NOTE | 2024-04-14 17:15 | PTCARENOTE ---
pt with increased agitation at the bedside. OTD of zyprexa given IM. after administration pt began swinging her prosthesis at other workers on the floor while this nurse was in another room. pt refused to get off of the floor. this nurse was able to
get pt to get back in chair and order dinner at bedside. pt states she is not staying here and will not stay off the floor. pt is off the floor at this time and being cooperative for this nurse at this time.
[2024-04-14] MEDS: NEURONTIN 100 MG PO (21:33)
--- NOTE | 2024-04-14 23:23 | W.PN.UPDATE ---
Update Note
Progress Note Update
Patient requested to leave. Explained the AMA paperwork to her and she signed. VAT to remove PICC line.
--- NOTE | 2024-04-14 23:30 | VATNOTE ---
Addendum entered by Esperanza Al RN 04/14/24 23:35:
Midline removed intact and measured at 10cm after removal.
Original Note:
Paged by PCN to remove patients Midline due to patient signing out AMA. Patient complaining during removal that it was talking too long and she just wanted to leave. Midline removed pressure held for as long as patient would tolerate. No active
bleeding noted. Dressing applied while patient trying to get up to leave. PCN aware midline was removed.
--- NOTE | 2024-04-14 23:48 | W.PN.UPDATE ---
Addendum entered and electronically signed by KINGSLEY Solorzano 04/15/24 01:26:
Patient went downstairs to the waiting in room in the ED to wait for her supposed ride. She was noted to have slid out of the chair in the waiting room.
Addendum entered and electronically signed by KINGSLEY Solorzano 04/15/24 00:44:
Patient changed her mind and has decided to leave at 0030.
Original Note:
Update Note
Progress Note Update
Patient has agreed to stay over night here with us.
--- NOTE | 2024-04-15 00:39 | PTCARENOTE ---
At 2323, patient signed out AMA. Per patient's RN and correctional supervisor, patient does not have a ride home. At 2348, patient agreed to stay overnight in 2135. However, patient continues to get OOB to chair. Patient has a BKA. Patient is a Lindsay Risk
and will not listen to staff regards to safety. This RN spoke w/ nurse correctional supervisor and explained this. Nursing correctional supervisor spoke w/ ED charge nurse and updated on events that led to AMA. Patient was escorted via wheelchair by this RN and PCT. Patient
brought outside to ED main door and asked if ride was here. Patient stated ride was not here. Patient was then brought into ED waiting room and left in wheelchair in locked position, with personal belongings. Nursing correctional supervisor updated.
--- NOTE | 2024-04-15 01:10 | PTCARENOTE ---
Pt increasingly agitated, requesting to sign out AMA. Educated pt on risks of leaving AMA. Notified PATIENTS TRANSPORTER and nursing bridges and buildings supervisor. Paperwork signed and in chart. Midline removed. Pt repeatedly stating she is tired and needs some sleep. House COPY CAMERA OPERATOR
notified and agreed to allow patient to stay the night. Pt w/ BKA- High Fall risk, continues to get OOB. Neuroscientist notified and informed staff to take pt downstairs to wait for ride. ER charge nurse aware.
--- NOTE | 2024-04-15 07:47 | W.DCSUMMARY ---
Discharge Summary
Discharge Data
Date of Admission: 04/04/24
Date of Discharge: 04/14/24
-
Pending Results: No
Hospital Course
This is an AMA note for Ms Shruti Gerber who left AMA on 04/14/24 at 2200
List of diagnosis:
Acute blood loss anemia from gastrointestinal bleed
Helicobacter pylori stomach infection
Left foot toe osteomyelitis
Large sessile serrated polyp in colon
Chronic pain with history of narcotic dependence on methadone
Acute toxic metabolic encephalopathy
Presumed chronic kidney disease stage IIIa
History of suicidal ideation and attempt
History of spina bifida
History of right below-knee amputation due to trauma
Hospital course:
Patient is a 73-year-old female with above-mentioned past medical history was brought in by EMS for patient noted to having altered mental state. Patient reportedly was brought in from cousin's house where patient ended up damaging a lot of
property as patient was seeing bugs everywhere. On evaluation in ER patient noted to be having significant anemia and according to family was having bright red blood in stool. Patient required blood transfusion for correction of anemia. Patient
underwent EGD and was noted to having incidental Sabrina esophagitis status and H. pylori stomach infection. Patient was started on regimen of tetracycline/Flagyl and fluconazole. Patient also had colonoscopy and was found to having large serrated
sessile polyp in colon. Patient was instructed to follow-up with GI in office for elective resection of the polyp.
Patient also complaining left foot pain and noted to having an chronic dry wound on left foot great toe. An x-ray and MRI confirmed osteomyelitic changes. Podiatry involved in care who recommended outpatient follow-up in 2 weeks for further
evaluation and elective surgery. Patient maintained on tetracycline based on MRSA growth from superficial wound.
Patient also have problem with chronic pain and on methadone. Case discussed with primary pain specialist who is in process of weaning patient off of methadone due to poor compliance and follow-up. Patient was able to be weaned off of to 2-1/2 mg
twice daily of methadone.
Patient continued to have visual hallucination with seeing bugs on hospital bed. Patient was started on Zyprexa twice daily also patient was feeling anxious with Zyprexa use and was lowered to daily. Patient continued to have some of this
hallucination although patient was coherent and was deemed competent otherwise.
Plan was for patient to be discharged to nursing home facility for rehab although patient continued to disagree and making plan of going to [place] in a rented apartment which patient really does not have any arrangements for. Patient left
AMA on 04/14/24 at 2200.
Discharge Plan
-
Patient Disposition: Against Medical Advice
Activity Restrictions/Additional Instructions:
Wound Care Instructions
L plantar foot: clean with soap and water, dry gauze dressing, change q 2-3 days and prn drainage.
offloading shoe per podiatry
R BKA: cover with small silicone foam change q 2-3 days and prn soilage
Follow up with gun repair clerk for new prosthetic to R leg
Follow up with [facility]
Referrals:
Gentry Javier MD [Active] - (call to arrange GI follow up for resection of large precancerous polyp with Dr. Javier. )
NONE,* [Family Provider] -
Monster Giles DPM [Active] - (Call to make appointment)
Ace Baeza MD [Active] - (will need follow up with Dr. Baeza or ADZ WORKER/PA after repeat colonoscopy as will need to arrange capsule endoscopy and repeat H pylori testing after treatment. )
Migdalia Epstein MD [Active] - in two to three weeks (Follow-up after foot surgery to determine whether or not you need further antibiotic. )
Prescriptions:
No Action
methadone 5 mg Tablet
2.5 mg PO BID
fluconazole 200 mg Tablet
200 mg PO DAILY
pantoprazole [Protonix] 40 mg Recon Soln
40 mg IV BID
metronidazole 500 mg Tablet
500 mg PO TID
olanzapine 2.5 mg Tablet
2.5 mg PO DAILY@0700
tramadol 50 mg Tablet
50 mg PO Q6H PRN (Reason: Severe pain)
bismuth subsalicylate 262 mg Tablet,Chewable
2 tab PO QID
gabapentin 100 mg Capsule
100 mg PO HS
tetracycline 500 mg Tablet
500 mg PO QID
Discharge Date and Time
Discharge Date/Time: 04/15/24 00:30
Print Language: MONTSERRATIAN
== END 2024-04-14 22:00 | disposition left against medical advice (07) | DRG 463 ==
LOC: 2 NORTH 05:23
PROVIDERS: Internal Medicine Gastroenterology; Nurse Practitioner Family; Student in an Organized Health Care Education/Training Program; ADMITTING PHYSICIAN Hospitalist; ATTENDING PHYSICIAN Hospitalist; CONSULT PHYSICIAN Internal Medicine Gastroenterology; CONSULT PHYSICIAN Podiatrist; CONSULT PHYSICIAN Podiatrist Foot Surgery; CONSULT PHYSICIAN Psychiatry & Neurology Psychiatry; CONSULT PHYSICIAN Student in an Organized Health Care Education/Training Program; EMERGENCY PHYSICIAN Emergency Medicine; OTHER PHYSICIAN Internal Medicine Critical Care Medicine; OTHER PHYSICIAN Internal Medicine Infectious Disease; OTHER PHYSICIAN Psychiatry & Neurology Psychiatry
PROC: 30233N1 Transfusion of Nonautologous Red Blood Cells into Peripheral Vein, Percutaneous Approach (ICD-10-PCS; 2024-04-04)
PROC: 0JBR0ZZ Excision of Left Foot Subcutaneous Tissue and Fascia, Open Approach (ICD-10-PCS; 2024-04-04)
PROC: 0DB98ZX Excision of Duodenum, Via Natural or Artificial Opening Endoscopic, Diagnostic (ICD-10-PCS; 2024-04-08)
PROC: 0DB58ZX Excision of Esophagus, Via Natural or Artificial Opening Endoscopic, Diagnostic (ICD-10-PCS; 2024-04-08)
PROC: 0DB68ZX Excision of Stomach, Via Natural or Artificial Opening Endoscopic, Diagnostic (ICD-10-PCS; 2024-04-08)
PROC: 3E0H8KZ Introduction of Other Diagnostic Substance into Lower GI, Via Natural or Artificial Opening Endoscopic (ICD-10-PCS; 2024-04-10)
PROC: 0DBK8ZX Excision of Ascending Colon, Via Natural or Artificial Opening Endoscopic, Diagnostic (ICD-10-PCS; 2024-04-10)
PROC: 0DBN8ZX Excision of Sigmoid Colon, Via Natural or Artificial Opening Endoscopic, Diagnostic (ICD-10-PCS; 2024-04-10)
PROC: 0DBL8ZX Excision of Transverse Colon, Via Natural or Artificial Opening Endoscopic, Diagnostic (ICD-10-PCS; 2024-04-10)
DX: M86.172 Other acute osteomyelitis, left ankle and foot (principal); G92.8 Other toxic encephalopathy; J96.00 Acute respiratory failure, unspecified whether with hypoxia or hypercapnia; N17.9 Acute kidney failure, unspecified; R18.8 Other ascites; E87.20 Acidosis, unspecified; F05 Delirium due to known physiological condition; B37.81 Candidal esophagitis; D62 Acute posthemorrhagic anemia; F11.23 Opioid dependence with withdrawal; N18.31 Chronic kidney disease, stage 3a; D50.9 Iron deficiency anemia, unspecified; N30.90 Cystitis, unspecified without hematuria; B95.62 Methicillin resistant Staphylococcus aureus infection as the cause of diseases classified elsewhere; Z53.29 Procedure and treatment not carried out because of patient's decision for other reasons; Q05.9 Spina bifida, unspecified; F17.210 Nicotine dependence, cigarettes, uncomplicated; E87.70 Fluid overload, unspecified; K59.00 Constipation, unspecified; N26.1 Atrophy of kidney (terminal); E80.7 Disorder of bilirubin metabolism, unspecified; G89.4 Chronic pain syndrome; M79.672 Pain in left foot; M21.612 Bunion of left foot; L97.529 Non-pressure chronic ulcer of other part of left foot with unspecified severity; R45.1 Restlessness and agitation; D12.3 Benign neoplasm of transverse colon; K63.5 Polyp of colon; K64.0 First degree hemorrhoids; K64.4 Residual hemorrhoidal skin tags; K29.70 Gastritis, unspecified, without bleeding; B96.81 Helicobacter pylori [H. pylori] as the cause of diseases classified elsewhere; Z89.511 Acquired absence of right leg below knee; Z81.8 Family history of other mental and behavioral disorders
CPT/HCPCS: 88305; 88312; 36556; 71045; 73630; 73720; 74174; 76937; 80048; 80053; 82248; 82607; 82728; 82746; 83540; 83550; 83605; 83735; 84100; 85014; 85018; 85025; 85027; 85045; 85379; 85610; 85652; 85730; 86140; 86850; 86900; 86901; 86920; 87040; 87070; 87147; 87186; 87205; 87389; 88342; 92610; 93005; 96365; 96367; 96375; 96376; 97162; 97166; 99291; A9575; C1751; J2358; J2916; P9016; Q9967

== ENCOUNTER 2024-04-21 09:06 | Inpatient (IN) | payer OTHER, SELFPAY ==
[2024-04-15] VITALS (13 sets, daily range): BP systolic 106–156; BP diastolic 74–96
--- NOTE | 2024-04-15 01:34 | EDRN ---
Patient had been admitted upstairs on [address] and had signed out AMA. Patient stated to staff upstairs that she wanted to leave even though she didn't have a ride. Patient was brought down to the waiting room and was in wheelchair. Patient has
belongings in bag. Patient ended up sliding out of the wheelchair and onto the floor. Patient was noted to be taking off her clothes while laying on the floor. Patient seems very out of it and needs painful stimuli before getting response. Vitals
are stable. Patient is noted to have right BKA. Patient brought back to room 4 in the ED in order to provide safe area for patient to be monitored. Patient placed on cardiac cath lab manager.
[2024-04-15 03:55] LABS: Glucose - Point of Care 98 mg/dl (70-99)
--- NOTE | 2024-04-15 07:35 | ED.GENMED ---
History of Present Illness
General
Chief Complaint: Social Service Referral
Source: patient
Exam Limitations: none
Time Seen by Provider: 04/15/24 07:21
History of Present Illness
History of Present Illness:
73-year-old female left AMA from the hospital last evening. She was here for osteomyelitis of her left toe she had a PICC line and was due for long-term antibiotics. She expressed her desire to wait last evening and was discharged AMA. Patient
tells me she was just tired and was not acting appropriately. Now she is set on receiving the appropriate treatment for her foot. Patient is a difficult historian.
Past History
Past History
ED Past Medical History: Other (Chronic pain, spina bifida, chronic incontinence)
ED Past Surgical History: Orthopedic
Social History
Tobacco: Former smoker
Alcohol: None
Drug: None
Personal: Single
Living: with family
Phy Exam
Physical Exam
Physical Exam:
General: Chronically ill-appearing female no acute respiratory distress
HEENT: Normocephalic atraumatic
Heart: Regular rate and rhythm no murmurs lungs: Clear no wheeze
Skin: Wound noted to the plantar surface of the left foot at the level of the MTP joint.
Extremities: Right lower extremity amputation
Neurologic: Alert responsive verbal stimuli answering questions appropriately
Course
Orders/Labs/Results
Orders:
Orders
04/15/24 07:38
Case Management Consult ONCE
Case Management Consult: Discharge Planning
04/15/24 09:29
Admit/Transfer Patient As Directed
Co-Sign Provider:
Level of Care: Observation services
Assign to:: Medical/Surgical
Physician / Group: Viet Shirley
Diagnosis: Left toe osteomyelitis, recent GI bleed, psyhosis
04/15/24 09:30
Code Status As Directed
Resuscitation Status: Full Code
Vital Signs
Initial and Last Documented VS:
Initial Vital Signs
Pulse Resp Pulse Ox
74 16 100
04/15/24 01:55 04/15/24 01:55 04/15/24 01:55
Last Documented Vital Signs
Temp Pulse Resp BP Pulse Ox
98.1 F 76 15 129/93 100
04/15/24 02:13 04/15/24 05:15 04/15/24 05:15 04/15/24 05:00 04/15/24 05:15
MDM/Problems Addressed
Differential Diagnosis Includes:
Patient left AMA from the hospital last evening and slid out of wheelchair while waiting in the waiting room here. She was brought to room for evaluation. She slept all night. She states she wants to stay in the hospital again. Case management
consult placed
*Critical Care Note
Total Time (30-74mins, 75-104mins- exclusive of procedures): Not Applicable
Update Note
Update Note:
Patient evaluated by case management. This admitting team. They will keep her again in the hospital under observation.
ED Attending Note
-
Portions of this chart may have been created with voice recognition software.� Occasional wrong word or��sound alike� substitutions may have occurred due to the inherent limitations of voice recognition software.
Discharge Plan
Departure
Patient Disposition: Admit
Date of Disposition: 04/15/24
Time of Disposition: 09:39
Admit to: Med/Surg
Presentation/result/management discussed w/ accepting MD/DO: Hospitalist
Discharge Problem:
Osteomyelitis
Prescriptions:
No Action
methadone 10 mg Tablet
20 mg PO BID
Patient Comments:
patient package pick up at 30 days day supply on 03/17/24 #120 tabs
gabapentin 600 mg Tablet
600 mg PO QID
Referrals:
NONE,* [Family Provider] -
Interventions
Interventions:
*Risk Screen - Suicide Last Done: 04/15/24 02:13
*General Assessment Last Done: 04/15/24 02:13
*Neglect/Abuse Screening Last Done: 04/15/24 02:13
ED- Fall Risk Assessment Last Done: 04/15/24 02:23
*ED COVID-19 Vaccine History Last Done: 04/15/24 02:23
ED-Psychological Assessment Last Done: 04/15/24 02:23
Discharge Date and Time
Print Language: NORWEGIAN
--- NOTE | 2024-04-15 09:19 | CM ---
Cm reviewed medical records. CM advised ED PA patient's discharge planning is complicated by her psychiatric diagnosis and behavior. Patient further does not have any supports in the community. Plan for admission.
Cm reviewed previous referral attempts. The following SNF's have declined patient.
[facility]
CM will continue bed search. Patient will need a Level II assessment prior to placement.
--- NOTE | 2024-04-15 09:34 | HPS.HSE ---
Family Physician
-
Family Physician: * NONE
Chief Complaint
-
Ambulatory dysfunction, behavioral problems
History of Present Illness
Patient is 73-year-old female with past medical history of GI bleed, blood loss anemia, H. pylori infection, left foot toe osteomyelitis, presumed peripheral artery disease, chronic pain on methadone, presumed CKD, history of suicidal ideation,
history of spina bifida, history of right BKA, episodic visual hallucination who was admitted initially on 04/04 for main issues of left foot infection and GI bleed and who left AMA on morning of 04/15 around 0100 is being readmitted for further need
of placement. Patient impulsive behavior and problems with hallucination and/seeing bugs and was not willing to stay for rehab placement yesterday after discussion. Patient yesterday agreeable to staying overnight for re-discussion for placement
issues in the morning although in the night patient signed AMA paper and was waiting in ER waiting area. Apparently patient slid down in the chair and was brought back into ER. Patient willing to stay in the hospital this time for placement.
During my evaluation patient remains evasive and not answering clearly. This has been patient baseline somewhat depending on patient mood for the day. No new medical issues reported.
Medical History
Past Medical History
Past Medical History: Reports Other
Additional Past Medical History:
GI bleed, blood loss anemia, H. pylori infection, left foot toe osteomyelitis, presumed peripheral artery disease, chronic pain on methadone, presumed CKD, history of suicidal ideation, history of spina bifida, history of right BKA, episodic visual
hallucination
Past Surgical History: Reports None and Other
Social History
Tobacco: Former Smoker
Alcohol: None
Drug: None
Living: Homeless
Family History
Family History: Not pertinent
Allergies / Home Medications
Allergies reflects when Allergies were last updated in [facility].
Home Medications with original date entered in [facility]
Allergy/Medication List:
Allergies
Allergy/AdvReac Type Severity Reaction Status Date / Time
No Known Allergies Allergy Unverified 04/04/24 00:57
Home Medications
bismuth subsalicylate 262 mg chewable tablet 2 tab PO QID Gastrointestinal Issue 04/15/24
fluconazole 200 mg tablet 200 mg PO DAILY Infection 04/15/24
gabapentin 100 mg capsule 100 mg PO HS Pain 04/15/24
methadone 5 mg tablet 2.5 mg PO BID Pain 04/15/24
metronidazole 500 mg tablet 500 mg PO TID Infection 04/15/24
olanzapine 2.5 mg tablet 2.5 mg PO DAILY@0700 Neurological Condition 04/15/24
pantoprazole 40 mg intravenous solution (Protonix) 40 mg IV BID Gastrointestinal Issue 04/15/24
tetracycline 500 mg tablet 500 mg PO QID Infection 04/15/24
tramadol 50 mg tablet 50 mg PO Q6H PRN Severe pain 04/15/24
Review of Systems
-
A 12 point ROS was completed and negative except as noted: Yes
Physical Exam
Vital Signs
Vital Signs
Temp Pulse Resp BP Pulse Ox
98.1 F 76 15 129/93 100
04/15/24 02:13 04/15/24 05:15 04/15/24 05:15 04/15/24 05:00 04/15/24 05:15
Physical Exam
General: No Apparent Distress
HEENT: Atraumatic
Respiratory: Clear
Cardiac: S1/S2 and Regular Rhythm; No Murmur or Rub
GI: Soft, Non Tender, Non Distended and Normal Bowel Sounds; No Organomegaly
Rectal: Deferred by Provider
Musculoskeletal: No Cyanosis, No Edema and Other (Right BKA)
Skin: No Rash
Neuro: Awake, Alert, Oriented and Nonfocal/grossly intact
Impression/Plan
-
Severe acute microcytic anemia
-Hgb 3.0 on previous admission, most likely iron deficiency anemia from chronic GI bleeding given Hx of Hgb 10.9 in 11/2023. Her cousin reported intermittent rectal bleeding, however no overt GI bleeding on CTA
-S/p 5U PRBC last week.
-EGD with no evidence for cause of bleeding but H. Pylori positive and aubree incidentally found and was on nystatin, on micafungin, fluconazole through 04/18
-colonoscopy biopsies with tubular adenoma, sessile serrated lesion, hyperplastic polyp
-patient will need to f/u with GI in office for definitive resection of the polyp
H Pylori infection
-Continue tetracycline/Flagyl/bismuth/PPI regimen
-last dose for treatment of 05/03
Left foot toe osteomyelitis
-confirmed on foot x-ray
-LLE wound culture with MRSA
-Blood culture NGTD
-MRI LLE shows osteomyelitis of first proximal phalanx and metatarsal (appreciate surgical podiatry-not convinced)
-appreciate ID Consult and to be maintained on tetracycline till definitive surgery plan
Chronic pain on methadone
-PDMP reviewed/discussed with patient primary pain specialist by previous physicians
-Discussed with Dr Ermias Ball last week, patient has failed to f/u regularly, dr ball has been trying to wean patient off of methadone
-Discontinuing methadone completely.
Acute toxic metabolic encephalopathy with hallucinations
-Patient encephalopathy has been resolved
-Unfortunately patient continues to complain seeing bugs. Patient not willing to try Zyprexa 2.5 milligram twice daily, makes her jumpy. Currently on 2-1/2 mg Zyprexa daily.
CKD IIIA
Metabolic acidosis
-Baseline renal function unknown
-ct stable around 1.4
History of suicidal ideation
-Patient in January 05, 2024 drchucho Diaz and was admitted to [facility] in [place]
-no current suicidal ideation this visit, now off 1:1 but on medsitter
h/o spina bifida
h/o right BKA
Full code
Total time spent : 76 mins
I personally saw and examined the patient.
I have reviewed all diagnostic interpretations and treatment plans as written.
Time includes patient management by me, time spent at the patients bedside, time to review lab and imaging results, discussing patient care, documentation in the medical record, and time spent with the family or caregiver and discussing care plan
with RN/Consultants.
--- NOTE | 2024-04-15 09:37 | PHANOTE ---
MED REC NOTE- Patient note making any sense, patient has no ecw but does fill two medication. patient did mention she apply a small amount of something to her foot wound.
--- NOTE | 2024-04-15 11:20 | CM ---
CM reviewed patient's chart. Patient was sitting up in litter, alert and oriented. She knew where she was, year and situation. She would occasionally say unfinished sentences or words/phrases not related to the conversation being had. CM introduced
self and role. CM spoke with patient at bedside.
Patient stated that she does not have any support. She stated, 'I need to learn to lean on myself and be my own support. Family has been very very hard for me'. She reported that she needs assistance with walking. She showed CM her prosthetic leg
and shared she needs a new one from [facility].
Living situation: Patient was living with her cousin, Brie. Patient stated that she does not want to return back to Brie's home.
Finances: Patient receives social security on the 3rd of the month. She denied receiving any additional support, such as food stamps
DME: Patient stated she owns a prosthetic leg and a bedside commode. CM did not see the bedside commode
Transportation: Patient will most likely need transportation set up when she is discharged.
SDOHs: Patient denies any +SDOHs. Patient currently has no home
PLAN:
Case management spoke with patient about her discharge instructions before she left the hospital and then returned in the ED. She is agreeable to going to a SNF. CM discussed the steps and paperwork it would take, in order to place referrals to
different SNFs in the community. Shruti verbalized understanding. She signed [place] [address] and [facility] Level 2 paperwork. CM also obtained a Medicare Obs letter from patient as well.
CM will continue to follow case and available for further assistance.
[2024-04-15] MEDS: DIFLUCAN 200 MG PO (12:11)
[2024-04-15] MEDS: [UNRECOGNIZED DRUG - OTHER] 500 MG PO ×3 (12:12→20:30)
[2024-04-15] MEDS: ZYPREXA 2.5 MG PO ×2 (12:12→20:30)
[2024-04-15] MEDS: PROTONIX 40 MG PO ×2 (12:12→20:30)
[2024-04-15] MEDS: PEPTO-BISMOL 2 TABLET PO ×3 (12:12→23:00)
[2024-04-15] MEDS: ULTRAM 50 MG PO (12:23)
--- NOTE | 2024-04-15 13:21 | CM ---
Addendum entered by Tawny Lawrence 04/15/24 13:45:
Referrals sent to the following SNFs:
1. [facility] [place] [phone]
2. [facility]
3. [facility]
4. [facility]
5. [facility]
6. [facility]
7. [facility]
8. [facility] [phone]
9. [facility]
10. [facility]
11. [facility]
12. [facility]
13. [facility]
14. [facility] [place] [facility] [place]
Original Note:
LETICIA faxed over clinicals and PASSR to [facility]. Fax status returned with an 'ok'. Also called [facility] office and medical office receptionist forwarded to call to Prema's desk. Call answered by LOVELY. LETICIA notified Prema that clinicals were sent for a Level 2 and if she
could return LETICIA's phone call.
--- NOTE | 2024-04-15 14:16 | PTCARENOTE ---
Report called to [facility]. Pt transferred by PCT with all belongings.
[2024-04-15 15:12] LABS: Hematocrit 37.6 % (37.0-47.0); Mean Corp Hgb Conc. 31.9 g/dL (33.0-37.0); Mean Corpuscular Hgb 26.1 pg (27.0-31.0); Mean Corpuscular Volume 81.9 fL (81.0-99.0); Mean Platelet Volume 9.2 fL (7.4-10.4); Platelet Count 302 10^3/uL (130-400); Red Blood Cell Count 4.59 10^6/uL (4.20-5.40); Red Cell Dist. Width 26.4 % (11.5-14.5); White Blood Cell Count 4.6 10^3/uL (4.8-10.8)
[2024-04-15] MEDS: FLAGYL 500 MG PO (15:15)
[2024-04-15 15:27] LABS: Blood Urea Nitrogen 41 mg/dl (7-17); Calcium 10.1 mg/dl (8.4-10.2); Carbon Dioxide 17 mmol/L (22-30); Chloride 110 mmol/L (98-107); Glucose 163 mg/dl (70-99); Potassium 4.8 mmol/L (3.5-5.1); Sodium 142 mmol/L (135-145); eGFR 39.97
[2024-04-15] MEDS: LOVENOX 30 MG SC (17:48)
[2024-04-15] MEDS: SODIUM BICARBONATE 650 MG PO (20:30)
[2024-04-15] MEDS: NEURONTIN 100 MG PO (20:30)
[2024-04-16 07:00] VITALS: BP 124/73
[2024-04-16] MEDS: SODIUM BICARBONATE 650 MG PO ×2 (08:28→20:38)
[2024-04-16] MEDS: PROTONIX 40 MG PO ×2 (08:28→20:38)
[2024-04-16] MEDS: PEPTO-BISMOL 2 TABLET PO ×4 (08:28→23:03)
[2024-04-16] MEDS: DIFLUCAN 200 MG PO (08:28)
[2024-04-16] MEDS: ZYPREXA 2.5 MG PO ×2 (08:29→20:38)
[2024-04-16] MEDS: FLAGYL 500 MG PO ×4 (08:29→23:03)
[2024-04-16] MEDS: [UNRECOGNIZED DRUG - OTHER] 500 MG PO ×4 (08:29→20:37)
--- NOTE | 2024-04-16 11:21 | CM ---
Addendum [facility] 04/16/24 14:58:
Call back from [facility] noting pt now denied at [facility] facilities
Oversight of MH hx and suicide attempt in clinicals by reviewers
Will consider if pt set up with outpt services prior to admission
Addendum [facility] 04/16/24 12:53:
Call from Graciela Booker [phone]
Will consider for admission with level II pending if auth can be obtained
Several [facility] have offered bed as well
Call with Ruby- will need level II completed prior to admission
Will need to reconsider acceptance if auth is not able to be obtained
PT/OT orders requested-awaiting evals
Original Note:
CM reviewed chart and pt with nursing and attending
Call with Marianela Gerard/NIKKIE- level II paperwork was not received
Level II paperwork faxed directly to her at [phone]
Awaiting assessment scheduling
Pt will require LTC placement with eventual MA, will need initial [facility] auth for SNF admission
Updated SNF referrals sent via [facility]
Per Dr Shirley- methadone is now discontinued
Aware of dc planning delay due to level II assessment
Discharge Disposition- LTC placement at SNF with level II assessment
--- NOTE | 2024-04-16 14:05 | W.PN.UPDATE ---
Addendum entered and electronically signed by Analilia Madrid MD 04/16/24 14:14:
noted dr garnica did increase zyprexa to 2.5 mg bid. will leave as is and leave prn of zyprexa 2.5 mg as well.
Original Note:
Update Note
Progress Note Update
patient seen chart reviewed. this patient is well known to me . she was last seen by this repairer typewriter on sundayapril 11. at that time she was cooperative and pleasantly interactive. she was not seeing bugs and really offered no complaints. her hope at
that time was to eventually go to [place] to live with her brother. she was being rx with zyprexa 2.5 mg bid which seems to have stabilized her mood and there were no complaints in the three days i saw her last week of seeing or hearing things. she
admits that leaving [facility] was not the right decision and that she has 'apologized ' to staff. from here on in she says she will listen to staff's recommendations and abide by them. i do note that the zyprexa has been decreased to 2.5 mg bid and
wonder if that is the cause of the weekend upheaval. she says she just felt impatient and bothered by being here. (dr garnica tells me she said she could not sleep in a place w bugs...) i asked her about the 'bugs' today and she told me she does
not have bugs but she did think she had poison sami. she denies hearing or seeing things at this point. at this moment i do not see her as incompetent. it is my impression that with explanation and gentle guidance she will make the right decision
but i would favor returning to 2.5 mg bid of zyprexa which i will discuss w her tomorrow. for now will leave a prn of 2.5 mg prn agitation.
--- NOTE | 2024-04-16 14:12 | W.PN.HOSP.TC ---
Today's Communication/Plan
-
discharge planning for rehab
Assessment / Plan
Assessment / Plan
H Pylori infection
-Continue tetracycline/Flagyl/bismuth/PPI regimen
-last dose for treatment of 05/03
Left foot toe osteomyelitis
-confirmed on foot x-ray
-LLE wound culture with MRSA
-Blood culture NGTD
-MRI LLE shows osteomyelitis of first proximal phalanx and metatarsal (appreciate surgical podiatry-not convinced)
-appreciate ID Consult and to be maintained on tetracycline till definitive surgery plan
Severe acute microcytic anemia
GI bleed
-Hgb 3.0 on previous admission, most likely iron deficiency anemia from chronic GI bleeding given Hx of Hgb 10.9 in 11/2023. Her cousin reported intermittent rectal bleeding, however no overt GI bleeding on CTA
-S/p 5U PRBC last week.
-EGD with no evidence for cause of bleeding but H. Pylori positive and aubree incidentally found and was on nystatin, on micafungin, fluconazole through 04/18
-colonoscopy biopsies with tubular adenoma, sessile serrated lesion, hyperplastic polyp
-patient will need to f/u with GI in office for definitive resection of the polyp
Chronic pain on methadone
-PDMP reviewed/discussed with patient primary pain specialist by previous physicians
-Discussed with Dr Ermias Blal last week, patient has failed to f/u regularly, dr ball has been trying to wean patient off of methadone
-Discontinuing methadone completely. continue monitoring.
Acute toxic metabolic encephalopathy with hallucinations
-Patient encephalopathy has been resolved
-Unfortunately patient continues to complain seeing bugs. Patient not willing to try Zyprexa 2.5 milligram twice daily, makes her jumpy. Currently on 2-1/2 mg Zyprexa daily.
CKD IIIA
Metabolic acidosis
-Baseline renal function unknown
-ct stable around 1.4
History of suicidal ideation
-Patient in January 05, 2024 drchucho Diaz and was admitted to [facility] in [place]
-no current suicidal ideation this visit, now off 1:1 but on medsitter
h/o spina bifida
h/o right BKA
Full code
Anticipated Discharge: > 48 hours
Subjective/Interval History
-
Date of Service: April 16, 2024
no reported problems overnight
Objective Data
-
Vital Signs:
Vital Signs
Temp Pulse Resp BP Pulse Ox
97.3 F 86 16 124/73 95
04/16/24 07:00 04/16/24 07:00 04/16/24 07:00 04/16/24 07:00 04/16/24 14:07
I&O
04/15/24 04/16/24 04/17/24
06:59 06:59 06:59
Intake Total 120 / 120
Balance 120 / 120
Review of Systems
-
Respiratory: Reports No Symptoms
Cardiac: Reports No Symptoms
Abdomen/GI: Reports No Symptoms
Physical Exam
-
General: No Apparent Distress and Comfortable
HEENT: Negative Oxygen
Neuro: Awake, Alert, Oriented and Nonfocal/Grossly Intact
Psych: Calm
[2024-04-16 14:24] VITALS: BMI 13.3
[2024-04-16] MEDS: ULTRAM 50 MG PO (14:32)
[2024-04-16 15:00] VITALS: BP 122/72
[2024-04-16 15:14] VITALS: BMI 13.3
[2024-04-16 16:14] VITALS: BP 122/72
[2024-04-16] MEDS: LOVENOX 30 MG SC (17:10)
[2024-04-16] MEDS: NEURONTIN 100 MG PO (20:38)
[2024-04-16 23:15] VITALS: BP 132/79
[2024-04-17] MEDS: ULTRAM 50 MG PO ×2 (03:34→14:26)
[2024-04-17 07:00] VITALS: BP 163/104
[2024-04-17] MEDS: PEPTO-BISMOL 2 TABLET PO ×4 (07:51→21:46)
[2024-04-17] MEDS: [UNRECOGNIZED DRUG - OTHER] 500 MG PO ×4 (07:52→21:46)
[2024-04-17] MEDS: PROTONIX 40 MG PO ×2 (07:52→21:47)
[2024-04-17] MEDS: ZYPREXA 2.5 MG PO ×2 (07:52→21:48)
[2024-04-17] MEDS: DIFLUCAN 200 MG PO (07:52)
[2024-04-17] MEDS: SODIUM BICARBONATE 650 MG PO ×2 (07:52→21:46)
[2024-04-17] MEDS: FLAGYL 500 MG PO ×2 (07:52→15:48)
[2024-04-17] MEDS: ULTRAM 25 MG PO (07:56)
[2024-04-17 07:57] LABS: Blood Urea Nitrogen 42 mg/dl (7-17); Calcium 9.4 mg/dl (8.4-10.2); Carbon Dioxide 19 mmol/L (22-30); Chloride 107 mmol/L (98-107); Estimated Creatinine Clearance 19 ml/min; Glucose 95 mg/dl (70-99); Sodium 136 mmol/L (135-145)
[2024-04-17 08:39] VITALS: BP 158/99
--- NOTE | 2024-04-17 12:40 | W.PN.UPDATE ---
Update Note
Progress Note Update
patient seen chart reviewed. spoke with nursing . patient does not look well. she was clutching at her abdomen and reported she felt very nauseated. nursing suggested zoffran but her ecg flirts w prolonged qtc. gave her some pepto and notified
danika. she has not eaten today at all despite meds. given ? re gi bleeding as cause for her severe anemia on admit needs assessment. had discussed with dr garnica talking bid zyprexa which she has been refusing but will postpone that discussion for
now.
[2024-04-17] MEDS: PINK BISMUTH 525 MG PO (12:45)
[2024-04-17] MEDS: ZOFRAN 4 MG IV (13:39)
[2024-04-17 15:00] VITALS: BP 164/105
--- NOTE | 2024-04-17 16:17 | W.PN.HOSP.TC ---
Addendum entered and electronically signed by Viet Shirley MD 04/17/24 17:16:
Patient hypertensive currently _ SBP in 160-170 range, PRN hydralazine ordered
Correction as well ; patient is on zyprexa 2.5mg/bid
Original Note:
Today's Communication/Plan
-
d/c planning for rehab
Assessment / Plan
Assessment / Plan
H Pylori infection
-Continue tetracycline/Flagyl/bismuth/PPI regimen
-last dose for treatment of 05/03
Left foot toe osteomyelitis
-confirmed on foot x-ray
-LLE wound culture with MRSA
-Blood culture NGTD
-MRI LLE shows osteomyelitis of first proximal phalanx and metatarsal (appreciate surgical podiatry-not convinced)
-appreciate ID Consult and to be maintained on tetracycline till definitive surgery plan
Severe acute microcytic anemia
GI bleed
-Hgb 3.0 on previous admission, most likely iron deficiency anemia from chronic GI bleeding given Hx of Hgb 10.9 in 11/2023. Her cousin reported intermittent rectal bleeding, however no overt GI bleeding on CTA
-S/p 5U PRBC last week.
-EGD with no evidence for cause of bleeding but H. Pylori positive and aubree incidentally found and was on nystatin, on micafungin, fluconazole through 04/18
-colonoscopy biopsies with tubular adenoma, sessile serrated lesion, hyperplastic polyp
-patient will need to f/u with GI in office for definitive resection of the polyp
Chronic pain on methadone
-PDMP reviewed/discussed with patient primary pain specialist by previous physicians
-Discussed with Dr Ermias Ball last week, patient has failed to f/u regularly, dr ball has been trying to wean patient off of methadone
-Discontinuing methadone completely. continue monitoring.
Acute toxic metabolic encephalopathy with hallucinations
-Patient encephalopathy has been resolved
-Unfortunately patient continues to complain seeing bugs. Patient not willing to try Zyprexa 2.5 milligram twice daily, makes her jumpy. Currently on 2-1/2 mg Zyprexa daily.
CKD IIIA
Metabolic acidosis
-Baseline renal function unknown
-ct stable around 1.4
History of suicidal ideation
-Patient in January 05, 2024 drank [place] and was admitted to [facility] in [place]
-no current suicidal ideation this visit, now off 1:1 but on medsitter
h/o spina bifida
h/o right BKA
Full code
Anticipated Discharge: > 48 hours
Subjective/Interval History
-
Date of Service: April 17, 2024
no issues overnight
Objective Data
-
Labs:
Laboratory Results
04/17/24
06:28
Sodium 136
Potassium 5.0
Chloride 107
Carbon Dioxide 19 L
BUN 42 H
Creatinine 1.5 H
Glucose 95
Calcium 9.4
Vital Signs:
Vital Signs
Temp Pulse Resp BP Pulse Ox
97.8 F 112 12 164/105 99
04/17/24 15:00 04/17/24 15:00 04/17/24 15:00 04/17/24 15:00 04/17/24 15:00
I&O
04/16/24 04/17/24 04/18/24
06:59 06:59 06:59
Intake Total 120 / 120 940 / 940
Balance 120 / 120 940 / 940
Review of Systems
-
Respiratory: Reports No Symptoms
Cardiac: Reports No Symptoms
Abdomen/GI: Reports No Symptoms
Physical Exam
-
General: No Apparent Distress and Comfortable
HEENT: Negative Oxygen
Neuro: Awake, Alert, Oriented and Nonfocal/Grossly Intact
Psych: Calm
[2024-04-17] MEDS: LOVENOX 30 MG SC (17:37)
[2024-04-17] MEDS: APRESOLINE 10 MG IV (17:37)
[2024-04-17 18:34] VITALS: BP 110/77
[2024-04-17] MEDS: NEURONTIN 100 MG PO (21:46)
[2024-04-17 23:22] VITALS: BP 121/77
[2024-04-18] MEDS: FLAGYL 500 MG PO ×4 (00:18→23:08)
[2024-04-18 07:00] VITALS: BP 117/74
[2024-04-18] MEDS: ZYPREXA 2.5 MG PO ×2 (07:42→21:14)
[2024-04-18] MEDS: SODIUM BICARBONATE 650 MG PO ×2 (07:42→20:59)
[2024-04-18] MEDS: PEPTO-BISMOL 2 TABLET PO ×4 (07:42→21:14)
[2024-04-18] MEDS: PROTONIX 40 MG PO ×2 (07:42→20:59)
[2024-04-18] MEDS: DIFLUCAN 200 MG PO (07:42)
[2024-04-18] MEDS: [UNRECOGNIZED DRUG - OTHER] 500 MG PO ×4 (07:43→21:14)
--- NOTE | 2024-04-18 11:02 | CM ---
Updated documentation faxed to [facility] for level II assessment on sunday04/21/24 per Rhea Gonzalez. CM will continue to follow for discharge planning needs.
Plan; level II assessment scheduled for sunday. SNF placement
--- NOTE | 2024-04-18 11:47 | W.PN.UPDATE ---
Update Note
Progress Note Update
patient seen chart reviewed. ms hairston looked the best i have seen her today. perhaps bc of the comparison between how she looked yesterday and today. her nausea is gone. she has attributed it to antibiotics on an empty stomach. she is denying
seeing bugs. she does say she feels she has sx of poison sami lingering on her arms. at any rate she is not interacting in a psychotic manner and is quite pleasant. would for now reduce the zyprexa to 2.5 mg q hs. have talked with cm re placement.
she is being seen on sunday to decide whether she needs a level two assessment.
[2024-04-18 12:52] LABS: Blood Urea Nitrogen 40 mg/dl (7-17); Calcium 9.9 mg/dl (8.4-10.2); Carbon Dioxide 22 mmol/L (22-30); Chloride 108 mmol/L (98-107); Estimated Creatinine Clearance 21 ml/min; Glucose 114 mg/dl (70-99); Potassium 4.8 mmol/L (3.5-5.1); Sodium 138 mmol/L (135-145); eGFR 39.97
[2024-04-18] MEDS: ULTRAM 50 MG PO ×2 (14:08→23:10)
--- NOTE | 2024-04-18 14:24 | W.PN.HOSP.TC ---
Today's Communication/Plan
-
check hbg
monitor for gi blood loss
Assessment / Plan
Assessment / Plan
H Pylori infection
-Continue tetracycline/Flagyl/bismuth/PPI regimen
-last dose for treatment of 05/03
-Patient complaining back stool, last hbg check of 12 on 04/15 recheck today
Left foot toe osteomyelitis
-confirmed on foot x-ray
-LLE wound culture with MRSA
-Blood culture NGTD
-MRI LLE shows osteomyelitis of first proximal phalanx and metatarsal (appreciate surgical podiatry-not convinced)
-appreciate ID Consult and to be maintained on tetracycline till definitive surgery plan
Severe acute microcytic anemia
GI bleed
-Hgb 3.0 on previous admission, most likely iron deficiency anemia from chronic GI bleeding given Hx of Hgb 10.9 in 11/2023. Her cousin reported intermittent rectal bleeding, however no overt GI bleeding on CTA
-S/p 5U PRBC last week.
-EGD with no evidence for cause of bleeding but H. Pylori positive and aubree incidentally found and was on nystatin, on micafungin, fluconazole through 04/18
-colonoscopy biopsies with tubular adenoma, sessile serrated lesion, hyperplastic polyp
-GI possibly planning to do colonoscopy in the hospital
Chronic pain on methadone
-PDMP reviewed/discussed with patient primary pain specialist by previous physicians
-Discussed with Dr Ermias Ball last week, patient has failed to f/u regularly, dr ball has been trying to wean patient off of methadone
-Discontinuing methadone completely. continue monitoring.
Acute toxic metabolic encephalopathy with hallucinations
-Patient encephalopathy has been resolved
-Unfortunately patient continues to complain seeing bugs. Patient not willing to try Zyprexa 2.5 milligram twice daily, makes her jumpy. back on 2-1/2 mg Zyprexa bid.
CKD IIIA
Metabolic acidosis
-Baseline renal function unknown
-ct stable around 1.4
History of suicidal ideation
-Patient in January 05, 2024 drchucho Diaz and was admitted to [facility] in [place]
-no current suicidal ideation this visit, now off 1:1 but on medsitter
h/o spina bifida
h/o right BKA
Full code
Anticipated Discharge: > 48 hours
Subjective/Interval History
-
Date of Service: April 18, 2024
no issues ovenright
Objective Data
-
Labs:
Laboratory Results
04/18/24
12:16
Sodium 138
Potassium 4.8
Chloride 108 H
Carbon Dioxide 22
BUN 40 H
Creatinine 1.4 H
Glucose 114 H
Calcium 9.9
Vital Signs:
Vital Signs
Temp Pulse Resp BP Pulse Ox
97.6 F 94 14 117/74 99
04/18/24 07:00 04/18/24 07:00 04/18/24 07:00 04/18/24 07:00 04/18/24 07:00
I&O
04/17/24 04/18/24 04/19/24
06:59 06:59 06:59
Intake Total 940 / 940 1060 / 1060
Balance 940 / 940 1060 / 1060
Review of Systems
-
Respiratory: Reports No Symptoms
Cardiac: Reports No Symptoms
Abdomen/GI: Reports No Symptoms
Physical Exam
-
General: No Apparent Distress and Comfortable
HEENT: Negative Oxygen
Respiratory: Clear to Auscultation
Cardiac: Regular Rhythm and S1/S2; Negative Irregular Rhythm or Murmur
GI: Soft, Nontender and Nondistended
Neuro: Awake, Alert, Oriented and Nonfocal/Grossly Intact
Psych: Calm
[2024-04-18 14:56] LABS: Hematocrit 36.7 % (37.0-47.0); Hemoglobin 11.4 g/dL (12.0-16.0); Mean Corp Hgb Conc. 31.1 g/dL (33.0-37.0); Mean Corpuscular Hgb 26.5 pg (27.0-31.0); Mean Corpuscular Volume 85.3 fL (81.0-99.0); Mean Platelet Volume 9.5 fL (7.4-10.4); Platelet Count 288 10^3/uL (130-400); Red Cell Dist. Width 25.5 % (11.5-14.5); White Blood Cell Count 5.4 10^3/uL (4.8-10.8)
[2024-04-18 15:00] VITALS: BP 112/76
[2024-04-18] MEDS: LOVENOX 30 MG SC (16:58)
[2024-04-18] MEDS: NEURONTIN 100 MG PO (21:14)
[2024-04-18 23:00] VITALS: BP 134/79
[2024-04-19 07:21] VITALS: BP 141/74
[2024-04-19 08:38] LABS: Hematocrit 36.4 % (37.0-47.0); Hemoglobin 11.2 g/dL (12.0-16.0); Mean Corp Hgb Conc. 30.8 g/dL (33.0-37.0); Mean Corpuscular Hgb 26.2 pg (27.0-31.0); Mean Platelet Volume 8.7 fL (7.4-10.4); Platelet Count 274 10^3/uL (130-400); Red Blood Cell Count 4.28 10^6/uL (4.20-5.40); Red Cell Dist. Width 25.8 % (11.5-14.5); White Blood Cell Count 4.2 10^3/uL (4.8-10.8)
[2024-04-19] MEDS: DIFLUCAN 200 MG PO (08:45)
[2024-04-19] MEDS: PEPTO-BISMOL 2 TABLET PO ×4 (08:45→21:00)
[2024-04-19] MEDS: SODIUM BICARBONATE 650 MG PO ×2 (08:45→20:59)
[2024-04-19] MEDS: [UNRECOGNIZED DRUG - OTHER] 500 MG PO ×4 (08:45→21:00)
[2024-04-19] MEDS: PROTONIX 40 MG PO ×2 (08:45→20:59)
[2024-04-19] MEDS: FLAGYL 500 MG PO ×2 (08:45→16:29)
--- NOTE | 2024-04-19 10:02 | W.PN.UPDATE ---
Update Note
Progress Note Update
Patient reports she is doing well. Denies any psychotic symptoms; states that the bugs that she thought she saw were actually lesions from poison sami/oak lesions.
Denies depression, hopelessness or suicidal thoughts.
Would continue the Zyprexa 2.5 mg hs.
--- NOTE | 2024-04-19 12:40 | W.PN.HOSP.TC ---
Today's Communication/Plan
-
monitor hbg
discharge planning
Assessment / Plan
Assessment / Plan
H Pylori infection
-Continue tetracycline/Flagyl/bismuth/PPI regimen
-last dose for treatment of 05/03
Left foot toe osteomyelitis
-confirmed on foot x-ray
-LLE wound culture with MRSA
-Blood culture NGTD
-MRI LLE shows osteomyelitis of first proximal phalanx and metatarsal (appreciate surgical podiatry-not convinced)
-appreciate ID Consult and to be maintained on tetracycline till definitive surgery plan
Severe acute microcytic anemia
GI bleed
-Hgb 3.0 on previous admission, most likely iron deficiency anemia from chronic GI bleeding given Hx of Hgb 10.9 in 11/2023. Her cousin reported intermittent rectal bleeding, however no overt GI bleeding on CTA
-S/p 5U PRBC last week.
-EGD with no evidence for cause of bleeding but H. Pylori positive and aubree incidentally found and was on nystatin, on micafungin, fluconazole through 04/18
-colonoscopy biopsies with tubular adenoma, sessile serrated lesion, hyperplastic polyp
-Patient complaining back stool, hbg stable, not on iron supplements
-EGD/cscope didn't show bleeding source, small bowel AVM?
-Gi considering possibly doing repeat c-scope to resect large colonic polyp this admit.
Chronic pain on methadone
-PDMP reviewed/discussed with patient primary pain specialist by previous physicians
-Discussed with Dr Ermias Ball last week, patient has failed to f/u regularly, dr ball has been trying to wean patient off of methadone
-Discontinuing methadone completely at this point. continue monitoring.
Acute toxic metabolic encephalopathy with hallucinations
-Patient encephalopathy has been resolved
-Unfortunately patient continues to complain seeing bugs. Patient not willing to try Zyprexa 2.5 milligram twice daily, makes her jumpy. back on 2-1/2 mg Zyprexa bid.
CKD IIIA
Metabolic acidosis
-Baseline renal function unknown
-ct stable around 1.4
History of suicidal ideation
-Patient in January 05, 2024 drank [place] and was admitted to [facility] in [place]
-no current suicidal ideation this visit, now off 1:1 but on medsitter
h/o spina bifida
h/o right BKA
Full code
Anticipated Discharge: > 48 hours
Subjective/Interval History
-
Date of Service: April 19, 2024
no problems overnight
complains of some black stool
Objective Data
-
Labs:
Laboratory Results
04/19/24
08:11
WBC 4.2 L
Hgb 11.2 L
Hct 36.4 L
Plt Count 274
Vital Signs:
Vital Signs
Temp Pulse Resp BP Pulse Ox
98.2 F 80 18 141/74 100
04/19/24 07:21 04/19/24 07:21 04/19/24 07:21 04/19/24 07:21 04/19/24 07:21
I&O
04/18/24 04/19/24 04/20/24
06:59 06:59 06:59
Intake Total 1060 / 1060 820 / 820
Balance 1060 / 1060 820 / 820
Review of Systems
-
Respiratory: Reports No Symptoms
Cardiac: Reports No Symptoms
Abdomen/GI: Reports No Symptoms
Physical Exam
-
General: No Apparent Distress and Comfortable
HEENT: Negative Oxygen
Respiratory: Clear to Auscultation
Cardiac: Regular Rhythm and S1/S2; Negative Irregular Rhythm or Murmur
GI: Soft, Nontender and Nondistended
Neuro: Awake, Alert, Oriented and Nonfocal/Grossly Intact
Psych: Calm
[2024-04-19 15:10] VITALS: BP 136/84
[2024-04-19] MEDS: ULTRAM 50 MG PO (16:37)
[2024-04-19] MEDS: LOVENOX 30 MG SC (17:11)
[2024-04-19] MEDS: NEURONTIN 100 MG PO (21:00)
[2024-04-19] MEDS: ZYPREXA 2.5 MG PO (21:00)
[2024-04-19 23:00] VITALS: BP 151/92
[2024-04-19 23:14] VITALS: BP 151/92
[2024-04-20] MEDS: FLAGYL 500 MG PO ×4 (00:59→23:00)
[2024-04-20] MEDS: ULTRAM 50 MG PO ×3 (03:04→18:38)
[2024-04-20 07:15] VITALS: BP 153/86
[2024-04-20 07:50] LABS: Hematocrit 33.4 % (37.0-47.0); Hemoglobin 10.5 g/dL (12.0-16.0); Mean Corp Hgb Conc. 31.4 g/dL (33.0-37.0); Mean Corpuscular Hgb 26.2 pg (27.0-31.0); Mean Corpuscular Volume 83.3 fL (81.0-99.0); Mean Platelet Volume 9.3 fL (7.4-10.4); Platelet Count 293 10^3/uL (130-400); Red Blood Cell Count 4.01 10^6/uL (4.20-5.40); Red Cell Dist. Width 25.2 % (11.5-14.5); White Blood Cell Count 5.8 10^3/uL (4.8-10.8)
[2024-04-20] MEDS: DIFLUCAN 200 MG PO (07:55)
[2024-04-20] MEDS: [UNRECOGNIZED DRUG - OTHER] 500 MG PO ×4 (07:55→21:02)
[2024-04-20] MEDS: SODIUM BICARBONATE 650 MG PO ×2 (07:55→20:45)
[2024-04-20] MEDS: PROTONIX 40 MG PO ×2 (07:55→20:45)
[2024-04-20] MEDS: PEPTO-BISMOL 2 TABLET PO ×4 (07:55→21:02)
--- NOTE | 2024-04-20 14:44 | W.PN.UPDATE ---
Update Note
Progress Note Update
Spoke with pt. Due to her social circumstances a possible inpatient colonoscopy for EMR of her polyp was requested. However due to scheduling conflict and pending inpatient procedures, this cannot be accommodated. I spoke with patient at length
regarding importance of colonoscopy and she agreed that she will follow-up to get her colonoscopy done as elective procedure. Our office phone number was given. 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 I will
message my staff to call her listed phone number which is valid to schedule her procedure.
--- NOTE | 2024-04-20 14:54 | W.PN.HOSP.TC ---
Today's Communication/Plan
-
see note
f/u hbg level
increase HS zyprexa dose
Assessment / Plan
Assessment / Plan
H Pylori infection
-Continue tetracycline/Flagyl/bismuth/PPI regimen
-last dose for treatment of 05/03
Left foot toe osteomyelitis
-confirmed on foot x-ray
-LLE wound culture with MRSA
-Blood culture NGTD
-MRI LLE shows osteomyelitis of first proximal phalanx and metatarsal (appreciate surgical podiatry-not convinced)
-appreciate ID Consult and to be maintained on tetracycline till definitive surgery plan
Severe acute microcytic anemia
GI bleed
-Hgb 3.0 on previous admission, most likely iron deficiency anemia from chronic GI bleeding given Hx of Hgb 10.9 in 11/2023. Her cousin reported intermittent rectal bleeding, however no overt GI bleeding on CTA
-S/p 5U PRBC last week.
-EGD with no evidence for cause of bleeding but H. Pylori positive and aubree incidentally found and was on nystatin, on micafungin, fluconazole through 04/18
-colonoscopy biopsies with tubular adenoma, sessile serrated lesion, hyperplastic polyp
-Patient complaining back stool, hbg stable, not on iron supplements
-EGD/cscope didn't show bleeding source, small bowel AVM?
-Discussed with GI again and continues to recommend outpatient follow-up for large polyp resection.
-Reports black stools on and off, although hemoglobin remains relatively stable. Check stool for Hemoccult blood.
Chronic pain on methadone
-PDMP reviewed/discussed with patient primary pain specialist by previous physicians
-Discussed with Dr Ermias Ball last week, patient has failed to f/u regularly, dr blal has been trying to wean patient off of methadone
-Discontinuing methadone completely at this point. continue monitoring.
Acute toxic metabolic encephalopathy with hallucinations
-Patient encephalopathy has been resolved
-Unfortunately patient continues to complain seeing bugs. Patient not willing to try Zyprexa 2.5 milligram twice daily, makes her jumpy. back on 2-1/2 mg Zyprexa bid.
CKD IIIA
Metabolic acidosis
-Baseline renal function unknown
-ct stable around 1.4
History of suicidal ideation
-Patient in January 05, 2024 drank [place] and was admitted to [facility] in [place]
-no current suicidal ideation this visit, now off 1:1 but on medsitter
h/o spina bifida
h/o right BKA
Full code
Anticipated Discharge: > 48 hours
Subjective/Interval History
-
Date of Service: April 20, 2024
Patient complains of some sleep disturbance
Denies having excessive abdominal pain/vomit
No other issues reported
Objective Data
-
Labs:
Laboratory Results
04/20/24
07:02
WBC 5.8
Hgb 10.5 L
Hct 33.4 L
Plt Count 293
Vital Signs:
Vital Signs
Temp Pulse Resp BP Pulse Ox
97.8 F 97 17 153/86 96
04/20/24 07:15 04/20/24 07:15 04/20/24 07:15 04/20/24 07:15 04/20/24 07:15
I&O
04/19/24 04/20/24 04/21/24
06:59 06:59 06:59
Intake Total 820 / 820 1310 / 1310
Balance 820 / 820 1310 / 1310
Review of Systems
-
Respiratory: Reports No Symptoms
Cardiac: Reports No Symptoms
Abdomen/GI: Reports No Symptoms
Physical Exam
-
General: No Apparent Distress and Comfortable
HEENT: Negative Oxygen
Respiratory: Clear to Auscultation
Cardiac: Regular Rhythm and S1/S2; Negative Irregular Rhythm or Murmur
GI: Soft, Nontender and Nondistended
Musculoskeletal: Other (Right BKA)
Neuro: Awake, Alert, Oriented and Nonfocal/Grossly Intact
Psych: Calm
[2024-04-20 15:03] VITALS: BP 133/84
[2024-04-20 15:15] VITALS: BP 141/97
[2024-04-20] MEDS: LOVENOX 30 MG SC (17:13)
[2024-04-20] MEDS: NEURONTIN 100 MG PO (21:02)
[2024-04-20] MEDS: ZYPREXA 5 MG PO (21:02)
[2024-04-20 23:41] VITALS: BP 135/92
[2024-04-21 07:18] VITALS: BP 152/99
--- NOTE | 2024-04-21 08:03 | W.PN.HOSP.TC ---
Today's Communication/Plan
-
Cont current mgmt. D/C planning in progress
Assessment / Plan
Assessment / Plan
Physical exam:
General: Well Developed, Well Nourished and No Apparent Distress
HEENT: Normocephalic, Atraumatic and Moist Mucous Membranes
Respiratory: Clear to Auscultation; Negative Wheezes, Rales or Rhonchi
Cardiac: Regular Rhythm and S1/S2
GI: Soft, Nontender and Nondistended
Musculoskeletal: R BKA. No Clubbing, No Cyanosis and No Edema
Neuro: Awake, Alert and Oriented
Psych: Calm
A/P:
H Pylori infection
-Continue tetracycline/Flagyl/bismuth/PPI regimen
-last dose for treatment of 05/03
Left foot toe osteomyelitis
-confirmed on foot x-ray
-LLE wound culture with MRSA
-Blood culture NGTD
-MRI LLE shows osteomyelitis of first proximal phalanx and metatarsal (appreciate surgical podiatry-not convinced)
-appreciate ID Consult and to be maintained on tetracycline till definitive surgery plan
Severe acute microcytic anemia
GI bleed
-Hgb 3.0 on previous admission, most likely iron deficiency anemia from chronic GI bleeding given Hx of Hgb 10.9 in 11/2023. Her cousin reported intermittent rectal bleeding, however no overt GI bleeding on CTA
-S/p 5U PRBC last week.
-EGD with no evidence for cause of bleeding but H. Pylori positive and aubree incidentally found and was on nystatin, on micafungin, fluconazole through 04/18
-colonoscopy biopsies with tubular adenoma, sessile serrated lesion, hyperplastic polyp
-Patient complaining back stool, hbg stable, not on iron supplements
-EGD/scope didn't show bleeding source, small bowel AVM?
-GI plan resection large polyp as OP.
-Hemoglobin stable--> today hemoglobin 11.5
Chronic pain on methadone
-PDMP reviewed/discussed with patient primary pain specialist by previous physicians
-Discussed with Dr Ermias Ball last week, patient has failed to f/u regularly, dr ball has been trying to wean patient off of methadone
-Discontinuing methadone completely at this point. continue monitoring.
Acute toxic metabolic encephalopathy with hallucinations
-Patient encephalopathy has been resolved
-On Zyprexa 5 mg HS
CKD IIIA
Metabolic acidosis
-Baseline renal function unknown
-ct stable around 1.4
-Today Cr--->1.3
History of suicidal ideation
-Patient in January 05, 2024 billy Diaz and was admitted to [facility] in [place]
-no current suicidal ideation this visit, now off 1:1 but on medsitter
-Psyc f/u appreciated
h/o spina bifida
h/o right BKA
Full code
Anticipated Discharge: 24 - 48 hours
Subjective/Interval History
-
Date of Service: April 21, 2024
Patient doing relatively well today. Complains of insomnia but psychiatry addressing.
Objective Data
-
Labs:
Laboratory Results
04/21/24
07:58
WBC Pending
Hgb Pending
Hct Pending
Plt Count Pending
Sodium Pending
Potassium Pending
Chloride Pending
Carbon Dioxide Pending
BUN Pending
Creatinine Pending
Glucose Pending
Calcium Pending
Vital Signs:
Vital Signs
Temp Pulse Resp BP Pulse Ox
98.7 F 96 16 135/92 99
04/20/24 23:41 04/20/24 23:41 04/20/24 23:41 04/20/24 23:41 04/20/24 23:41
I&O
04/20/24 04/21/24 04/22/24
06:59 06:59 06:59
Intake Total 1310 / 1310 480 / 480
Output Total 700 / 700
Balance 1310 / 1310 -220 / -220
[2024-04-21] MEDS: PROTONIX 40 MG PO ×2 (08:13→20:57)
[2024-04-21] MEDS: [UNRECOGNIZED DRUG - OTHER] 500 MG PO ×4 (08:13→21:03)
[2024-04-21] MEDS: DIFLUCAN 200 MG PO (08:13)
[2024-04-21] MEDS: FLAGYL 500 MG PO ×3 (08:13→23:01)
[2024-04-21] MEDS: PEPTO-BISMOL 2 TABLET PO ×4 (08:14→21:04)
[2024-04-21] MEDS: SODIUM BICARBONATE 650 MG PO ×2 (08:21→20:57)
[2024-04-21] MEDS: ULTRAM 50 MG PO ×2 (08:33→17:53)
[2024-04-21 08:44] LABS: Hematocrit 37.8 % (37.0-47.0); Hemoglobin 11.5 g/dL (12.0-16.0); Mean Corp Hgb Conc. 30.4 g/dL (33.0-37.0); Mean Corpuscular Hgb 25.8 pg (27.0-31.0); Mean Corpuscular Volume 84.8 fL (81.0-99.0); Mean Platelet Volume 9.1 fL (7.4-10.4); Platelet Count 286 10^3/uL (130-400); Red Blood Cell Count 4.46 10^6/uL (4.20-5.40); Red Cell Dist. Width 25.1 % (11.5-14.5); White Blood Cell Count 5.6 10^3/uL (4.8-10.8)
[2024-04-21 09:26] LABS: Blood Urea Nitrogen 40 mg/dl (7-17); Carbon Dioxide 20 mmol/L (22-30); Chloride 103 mmol/L (98-107); Estimated Creatinine Clearance 22 ml/min; Glucose 107 mg/dl (70-99); Potassium 4.4 mmol/L (3.5-5.1); Sodium 137 mmol/L (135-145); eGFR 43.42
--- NOTE | 2024-04-21 09:26 | W.PN.UPDATE ---
Update Note
Progress Note Update
Patient is doing well, is in good mood, denies any psychotic symptoms. Appetite stable however still has insomnia, sleeps only 3h/day. She has had difficulty sleeping much of her life.
Will add Melatonin 5 mg hs to see if it helps.
[2024-04-21 15:15] VITALS: BP 137/92
[2024-04-21] MEDS: LOVENOX 30 MG SC (17:50)
[2024-04-21] MEDS: MELATONIN 5 MG PO (21:04)
[2024-04-21] MEDS: NEURONTIN 100 MG PO (21:04)
[2024-04-21] MEDS: ZYPREXA 5 MG PO (21:04)
[2024-04-21] MEDS: BENADRYL 25 MG PO (22:48)
[2024-04-21 23:06] VITALS: BP 127/76
[2024-04-22] MEDS: ULTRAM 50 MG PO ×2 (05:08→13:28)
[2024-04-22 07:13] LABS: Hematocrit 37.5 % (37.0-47.0); Hemoglobin 11.7 g/dL (12.0-16.0); Mean Corp Hgb Conc. 31.2 g/dL (33.0-37.0); Mean Corpuscular Hgb 26.2 pg (27.0-31.0); Mean Corpuscular Volume 84.1 fL (81.0-99.0); Mean Platelet Volume 9.6 fL (7.4-10.4); Platelet Count 296 10^3/uL (130-400); Red Blood Cell Count 4.46 10^6/uL (4.20-5.40); Red Cell Dist. Width 25.2 % (11.5-14.5); White Blood Cell Count 5.5 10^3/uL (4.8-10.8)
[2024-04-22 07:20] VITALS: BP 139/78
[2024-04-22] MEDS: PEPTO-BISMOL 2 TABLET PO ×4 (07:32→21:19)
[2024-04-22] MEDS: PROTONIX 40 MG PO ×2 (07:32→19:36)
[2024-04-22] MEDS: FLAGYL 500 MG PO ×3 (07:33→23:19)
[2024-04-22] MEDS: DIFLUCAN 200 MG PO (07:33)
[2024-04-22] MEDS: [UNRECOGNIZED DRUG - OTHER] 500 MG PO ×4 (07:33→21:18)
[2024-04-22] MEDS: SODIUM BICARBONATE 650 MG PO ×2 (07:40→19:36)
[2024-04-22 08:04] LABS: Blood Urea Nitrogen 47 mg/dl (7-17); Calcium 9.9 mg/dl (8.4-10.2); Carbon Dioxide 18 mmol/L (22-30); Estimated Creatinine Clearance 22 ml/min; Glucose 89 mg/dl (70-99); eGFR 43.42
[2024-04-22 08:25] LABS: Chloride 106 mmol/L (98-107); Potassium 4.6 mmol/L (3.5-5.1); Sodium 136 mmol/L (135-145)
--- NOTE | 2024-04-22 09:13 | W.PN.HOSP.TC ---
Today's Communication/Plan
-
Level 2 assessment today.
Assessment / Plan
Assessment / Plan
Physical exam:
General: Well Developed, Well Nourished and No Apparent Distress
HEENT: Normocephalic, Atraumatic and Moist Mucous Membranes
Respiratory: Clear to Auscultation; Negative Wheezes, Rales or Rhonchi
Cardiac: Regular Rhythm and S1/S2
GI: Soft, Nontender and Nondistended
Musculoskeletal: R BKA. No Clubbing, No Cyanosis and No Edema
Neuro: Awake, Alert and Oriented
Psych: Calm
A/P:
H Pylori infection
-Continue tetracycline/Flagyl/bismuth/PPI regimen
-last dose for treatment of 05/03
Left foot toe osteomyelitis
-confirmed on foot x-ray
-LLE wound culture with MRSA
-Blood culture NGTD
-MRI LLE shows osteomyelitis of first proximal phalanx and metatarsal (appreciate surgical podiatry-not convinced)
-appreciate ID Consult and to be maintained on tetracycline till definitive surgery plan
Severe acute microcytic anemia
GI bleed
-Hgb 3.0 on previous admission, most likely iron deficiency anemia from chronic GI bleeding given Hx of Hgb 10.9 in 11/2023. Her cousin reported intermittent rectal bleeding, however no overt GI bleeding on CTA
-S/p 5U PRBC last week.
-EGD with no evidence for cause of bleeding but H. Pylori positive and aubree incidentally found and was on nystatin, on micafungin, fluconazole through 04/18
-colonoscopy biopsies with tubular adenoma, sessile serrated lesion, hyperplastic polyp
-Patient complaining back stool, hbg stable, not on iron supplements
-EGD/scope didn't show bleeding source, small bowel AVM?
-GI plan resection large polyp as OP.
-Hemoglobin stable--> today hemoglobin 11.5
Chronic pain on methadone
-PDMP reviewed/discussed with patient primary pain specialist by previous physicians
-Discussed with Dr Ermias Ball last week, patient has failed to f/u regularly, dr ball has been trying to wean patient off of methadone
-Discontinuing methadone completely at this point. continue monitoring.
Acute toxic metabolic encephalopathy with hallucinations
-Patient encephalopathy has been resolved
-On Zyprexa 5 mg HS
CKD IIIA
Metabolic acidosis
-Baseline renal function unknown
-ct stable around 1.4
-Today Cr--->1.3
History of suicidal ideation
-Patient in January 05, 2024 billy Emily and was admitted to [facility] in [place]
-no current suicidal ideation this visit, now off 1:1 but on medsitter
-Psyc f/u appreciated
h/o spina bifida
h/o right BKA
Full code
Anticipated Discharge: 24 - 48 hours
Subjective/Interval History
-
Date of Service: April 22, 2024
Patient seen and examined. No new complaints from patient. She did not sleep last night that much but as per her that is her normal. Level 2 assessment evaluation ongoing today.
Objective Data
-
Labs:
Laboratory Results
04/22/24
06:08
WBC 5.5
Hgb 11.7 L
Hct 37.5
Plt Count 296
Sodium 136
Potassium 4.6
Chloride 106
Carbon Dioxide 18 L
BUN 47 H
Creatinine 1.3 H
Glucose 89
Calcium 9.9
Vital Signs:
Vital Signs
Temp Pulse Resp BP Pulse Ox
98.1 F 94 18 139/78 100
04/22/24 07:20 04/22/24 07:20 04/22/24 07:20 04/22/24 07:20 04/22/24 07:20
I&O
0704/22/24 04/23/24
06:59 06:59 06:59
Intake Total 480 / 480 1500 / 1500
Output Total 700 / 700
Balance -220 / -220 1500 / 1500
--- NOTE | 2024-04-22 11:08 | CM ---
Asha from [facility] here to evaluate patient today.
Asha will reach out to patients brother Gage.
Asha phone number:
Office [phone]
--- NOTE | 2024-04-22 12:14 | W.PN.UPDATE ---
Update Note
Progress Note Update
patient seen chart reviewed. patient is in good spirits today. she has good appetite. she complains of some pressure points and is worried about her getting pressure ulcers. asked nursing about getting a special bed for her. will put in a wound
care consult for bed suggestions. hopefully she will be able to go to snf at some point. no changes made in her psych medications. no ill effects noted. no psychosis noted at this point. continue w current zyprexa q hs
--- NOTE | 2024-04-22 14:00 | PN.CDI ---
CDI
- -
CDI:
Physician Documentation Request
Admit Date: 04/21/24 09:06
Dear Doctor Jaxson,
Please review the following and provide your response in the progress notes.
Clinical Indicators:
- 04/21 Slip Caster note indicates severe protein calorie malnutrition
- Unintentional weight loss >10% in 6 months
- Nutrient intake <75% estimated energy needs, >/= 1 month
- Severe subcutaneous loss over rib cage and orbital
- Severe muscle loss over calf, quads, clavicle
- BMI 13.3
Based on the above information and your assessment, which of the following most accurately represents the patient's nutritional status?
Severe protein calorie malnutrition
Other (please specify)
[place] Criteria ([facility] Hospitalist 2017)
2 or more criteria must be present for either
non severe or severe malnutrition
Note that the criteria differs related to the
presence of an acute or chronic illness
Acute Illness Chronic Illness
Energy Intake Non Severe: <75% for >7 days Non Severe: <75% for >1 month
Severe: <50% for >5 days Severe: <75% for >1 month
Weight Loss Non Severe: 1-2% over 1 week Non Severe: 5% over 1 month
5% over 1 month 7.5% over 3 months
7.5% over 3 months 10% over 6 months
1 year N/A 20% over 1 year
Severe: >2% over 1 week Severe: >5% over 1 month
>5% over 1 month >7.5% over 3 months
>7.5% over 3 months >10% over 6 months
1 year N/A >20% over 1 year
Body Fat Non Severe: Mild Decrease Non Severe: Mild Loss
Severe: Moderate Decrease Severe: Severe Loss
Muscle Mass Non Severe: Mild Decrease Non Severe: Mild Loss
Severe: Moderate Decrease Severe: Severe Loss
Fluid Accumulation Non Severe: Mild Accumulation Non Severe: Mild Accumulation
Severe: Moderate to severe Severe: Moderate to severe
accumulation accumulation
Reduced Pan Puller Strength Non Severe: N/A Non Severe: N/A
Severe: Measurably reduced Severe: Measurably reduced
Additional criteria that can be used to Determine if Mild or Moderate Malnutrition ([employer]ck Manual 2018)
Mild Moderate Severe
Albumin gm/dl <3.0 gm/dl <2.5 gm/dl <2.0 gm/dl
Pre Albumin mg/dl <15 gm/dl <10 mg/dl <5.0 mg/dl
BMI <18.5 <17 <16
Use of terms such as suspected, likely, concern for, or probable (associated with a specific diagnosis that is being evaluated, monitored, or treated as if it exists) are acceptable and can be coded in the inpatient setting, when documented at the
time of discharge.
Thank you,
Denis Alvarez RN
CDI Specialist
Please use your independent medical judgment in providing your response.
--- NOTE | 2024-04-22 14:05 | WOUNDNOTE ---
MARY RN NOTE: Consulted for bed recommendations, patient known to service, has L plantar 1st met head diabetic ulcer + osteomyelitis. Called [facility] for [facility] [place] [facility]. Nurse Alexsandra made aware and will make sure bed is brought into rm. Will
follow tomorrow.
--- NOTE | 2024-04-22 14:05 | PN.CDI ---
CDI
- -
CDI:
Physician Documentation Request
Admit Date: 04/21/24 09:06
Dear Doctor Puri,
Please review the following and provide your response in the progress notes.
Clinical Indicators:
- 04/15 RN notes indicate Stage 2 coccyx pressure injury, POA
- BMI 13.3
Physician documentation of the type and location of wounds is required for compliant documentation. Based on the above clinical findings and your assessment, please provide the following in your progress note:
1. Location of the ulcer/wound, including laterality.
2. Type (etiology) of ulcer/wound:
- Diabetic ulcer
- Arterial (ischemic) ulcer
- Traumatic wound
- Venous stasis ulcer
- Pressure (decubitus) ulcer
- Non-healing surgical wound
- Other
- Unable to determine
Use of terms such as suspected, likely, concern for, or probable (associated with a specific diagnosis that is being evaluated, monitored, or treated as if it exists) are acceptable and can be coded in the inpatient setting, when documented at the
time of discharge.
Thank you,
Denis Alvarez RN
CDI Specialist
Please use your independent medical judgment in providing your response.
*Source: National Pressure Ulcer Advisory Panel (NPUAP)
--- NOTE | 2024-04-22 14:07 | PN.CDI ---
CDI
- -
CDI:
Physician Documentation Request
Admit Date: 04/21/24 09:06
Dear Doctor Jaxson,
Please review the following and provide your response in the progress notes.
Clinical Indicators: is not consistently noted i
The diagnosis of GI bleed is documented on 7 PN
- 04/22 PN 'Severe acute microcytic anemia...GI bleed'
- Current admission labs:
Laboratory Tests
04/15/24 04/18/24 04/19/24
15:02 14:45 08:11
Hgb 12.0 11.4 L 11.2 L
04/20/24 04/21/24 04/22/24
07:02 07:58 06:08
Hgb 10.5 L 11.5 L 11.7 L
Please clarify the following:
____ - GI bleed was present on admission and is now resolved.
____ - GI bleed was ruled out, present during prior admission
____ - Other
Use of terms such as suspected, likely, concern for, or probable (associated with a specific diagnosis that is being evaluated, monitored, or treated as if it exists) are acceptable and can be coded in the inpatient setting, when documented at the
time of discharge.
Thank you,
Denis Alvarez RN
CDI Specialist
Please use your independent medical judgment in providing your response.
[2024-04-22 15:48] VITALS: BP 133/90
[2024-04-22] MEDS: LOVENOX 30 MG SC (18:07)
[2024-04-22] MEDS: MELATONIN 5 MG PO (21:18)
[2024-04-22] MEDS: NEURONTIN 100 MG PO (21:18)
[2024-04-22] MEDS: ZYPREXA 5 MG PO (21:18)
[2024-04-22] MEDS: BENADRYL 25 MG PO (21:36)
[2024-04-22 23:47] VITALS: BP 130/83
[2024-04-23 07:56] VITALS: BP 153/90
[2024-04-23] MEDS: PROTONIX 40 MG PO ×2 (08:21→20:59)
[2024-04-23] MEDS: [UNRECOGNIZED DRUG - OTHER] 500 MG PO ×4 (08:21→20:59)
[2024-04-23] MEDS: FLAGYL 500 MG PO ×3 (08:21→22:47)
[2024-04-23] MEDS: SODIUM BICARBONATE 650 MG PO ×2 (08:21→20:59)
--- NOTE | 2024-04-23 08:21 | W.PN.HOSP.TC ---
Addendum entered and electronically signed by Marvin Puri MD 04/23/24 12:46:
Severe protein calorie malnutrition
Stage II coccyx pressure injury, POA
GI bleed was present on admission and has now resolved.
Original Note:
Today's Communication/Plan
-
Psychiatry reeval.
Assessment / Plan
Assessment / Plan
Physical exam:
General: Well Developed, Well Nourished and No Apparent Distress
HEENT: Normocephalic, Atraumatic and Moist Mucous Membranes
Respiratory: Clear to Auscultation; Negative Wheezes, Rales or Rhonchi
Cardiac: Regular Rhythm and S1/S2
GI: Soft, Nontender and Nondistended
Musculoskeletal: R BKA. No Clubbing, No Cyanosis and No Edema
Neuro: Awake, Alert and Oriented
Psych: Calm
A/P:
H Pylori infection
-Continue tetracycline/Flagyl/bismuth/PPI regimen
-last dose for treatment of 05/03
Left foot toe osteomyelitis
-confirmed on foot x-ray
-LLE wound culture with MRSA
-Blood culture NGTD
-MRI LLE shows osteomyelitis of first proximal phalanx and metatarsal (appreciate surgical podiatry-not convinced)
-appreciate ID Consult and to be maintained on tetracycline till definitive surgery plan
Severe acute microcytic anemia
GI bleed
-Hgb 3.0 on previous admission, most likely iron deficiency anemia from chronic GI bleeding given Hx of Hgb 10.9 in 11/2023. Her cousin reported intermittent rectal bleeding, however no overt GI bleeding on CTA
-S/p 5U PRBC last week.
-EGD with no evidence for cause of bleeding but H. Pylori positive and aubree incidentally found and was on nystatin, on micafungin, fluconazole through 04/23.
-colonoscopy biopsies with tubular adenoma, sessile serrated lesion, hyperplastic polyp
-Patient complaining back stool, hbg stable, not on iron supplements
-EGD/scope didn't show bleeding source, small bowel AVM?
-GI plan resection large polyp as OP.
-Hemoglobin stable--> yesterday hemoglobin 11.7
Chronic pain on methadone
-PDMP reviewed/discussed with patient primary pain specialist by previous physicians
-Discussed with Dr Ermias Ball last week, patient has failed to f/u regularly, dr ball has been trying to wean patient off of methadone
-Discontinuing methadone completely at this point. continue monitoring.
Acute toxic metabolic encephalopathy with hallucinations
-Patient encephalopathy has been resolved
-On Zyprexa 5 mg HS
CKD IIIA
Metabolic acidosis
-Baseline renal function unknown
-ct stable around 1.4
-yesterday Cr--->1.3
History of suicidal ideation
-Patient in January 05, 2024 billy Diaz and was admitted to [facility] in [place]
-no current suicidal ideation this visit, now off 1:1 but on medsitter
-Psyc f/u appreciated
h/o spina bifida
h/o right BKA
Full code
Anticipated Discharge: 24 - 48 hours
Subjective/Interval History
-
Date of Service: April 23, 2024
Patient doing well. Wants to discuss with psychiatry about sleep.
Objective Data
-
Vital Signs:
Vital Signs
Temp Pulse Resp BP Pulse Ox
97.9 F 83 18 153/90 100
04/23/24 07:56 04/23/24 07:56 04/23/24 07:56 04/23/24 07:56 04/23/24 07:56
I&O
04/22/24 04/23/24 04/24/24
06:59 06:59 06:59
Intake Total 1500 / 1500 1440 / 1440
Balance 1500 / 1500 1440 / 1440
[2024-04-23] MEDS: DIFLUCAN 200 MG PO (08:22)
[2024-04-23] MEDS: PEPTO-BISMOL 2 TABLET PO ×4 (08:22→20:59)
[2024-04-23] MEDS: ULTRAM 50 MG PO ×2 (08:26→21:04)
[2024-04-23] MEDS: BENADRYL 25 MG PO ×2 (08:27→21:00)
--- NOTE | 2024-04-23 09:53 | WOUNDNOTE ---
L PLANTAR 1ST MET HEAD
--- NOTE | 2024-04-23 09:55 | WOUNDNOTE ---
WON RN note: Patient admitted with known osteomyelitis of L 1st met head.
See H&P for complete history.
PMH: R BKA, ex smoker, anemia, spina bifida, chronic pain on methadone- followed by pain DrVince & incontinence.
Wound Location and type/assessment: Patient admitted with: L plantar 1st met head chronic osteomyelitis. Since last admission wound appears larger in size, red Callus, scant drainage, no odor or visible bone. Palpable pedal pulse, skin warm and
dry. L heel with shallow cracked fissure, skin less dry, patient reports she has been moisturizing with Aquaphor. L 3rd and 4th toe with intact dry scabs from abrasions, smaller. R BKA stump with smaller intact scab, suspect stage 2 PI vs abrasion
from prosthetic. Patient states she still hasn't gone to band presser for new prosthetic. Prosthetic leg at bedside. Patient turns self in bed onto sides, has old healing wound on R buttocks, most likely abrasion rather than true pressure injury.
Coccyx with pink scar from old healed PI. Patient confirmed she had a wound there.
Appetite: Regular, states she has good appetite. Dietary following.
Pressure redistribution devices in place: On [facility] care air bed, turns self onto sides. States bed is comfortable.
Plan: Foam applied to L plantar foot. Patient made aware to keep covered and dry. R BKA scab and L toe scabs open to air. R buttock continue silicone foam dressing. Will confirm orders with Dr. Puri, nurse Cathie updated on the above.
Note to case management of equipment requested for discharge: None, patient can do own wound care.
Recommend follow up with [facility].
--- NOTE | 2024-04-23 12:01 | W.PN.UPDATE ---
Update Note
Progress Note Update
patient seen chart reviewed. discussed with nursing. patient is very pleasant. she is happy with her new bed. she does at times say she sees spiders outside her window. i could see a spider web but not spiders! this does not bother her. she also
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 i could only see very dry skin and she does have cream for it. i do not see the need for any change in her meds except she is not sleeping and asks for help w sleep. attempted
to use trazodone but diflucan interaction. asked dr espana if it could be stopped . for now add benadryl 25 mg q hs for sleep. will continue to follow loosely.
[2024-04-23 14:53] VITALS: BP 151/89
--- NOTE | 2024-04-23 15:10 | CM ---
Await level 2 determination.
Asha from [facility] following.
Asha phone number:
Office [phone]

Updated clinicals via [employer].
Plan: skilled rehab once medically stable and level 2 received.
[2024-04-23] MEDS: LOVENOX 30 MG SC (17:56)
[2024-04-23] MEDS: MELATONIN 5 MG PO (20:59)
[2024-04-23] MEDS: NEURONTIN 100 MG PO (21:00)
[2024-04-23] MEDS: ZYPREXA 5 MG PO (21:00)
[2024-04-23 23:08] VITALS: BP 135/82
[2024-04-24] MEDS: TYLENOL 650 MG PO ×2 (00:42→23:57)
[2024-04-24 07:00] VITALS: BP 152/116
--- NOTE | 2024-04-24 09:35 | W.PN.HOSP.TC ---
Today's Communication/Plan
-
Check UA. Discharge planning in progress.
Assessment / Plan
Assessment / Plan
Physical exam:
General: Well Developed, Well Nourished and No Apparent Distress
HEENT: Normocephalic, Atraumatic and Moist Mucous Membranes
Respiratory: Clear to Auscultation; Negative Wheezes, Rales or Rhonchi
Cardiac: Regular Rhythm and S1/S2
GI: Soft, Nontender and Nondistended
Musculoskeletal: R BKA. No Clubbing, No Cyanosis and No Edema
Neuro: Awake, Alert and Oriented
Psych: Calm
A/P:
H Pylori infection
-Continue tetracycline/Flagyl/bismuth/PPI regimen
-last dose for treatment of 05/03
Urinary symptoms
Will check urinalysis and urine culture if indicated
Repeat labs in a.m.
Left foot toe osteomyelitis
-confirmed on foot x-ray
-LLE wound culture with MRSA
-Blood culture NGTD
-MRI LLE shows osteomyelitis of first proximal phalanx and metatarsal (appreciate surgical podiatry-not convinced)
-appreciate ID Consult and to be maintained on tetracycline till definitive surgery plan
Severe acute microcytic anemia
GI bleed
-Hgb 3.0 on previous admission, most likely iron deficiency anemia from chronic GI bleeding given Hx of Hgb 10.9 in 11/2023. Her cousin reported intermittent rectal bleeding, however no overt GI bleeding on CTA
-S/p 5U PRBC last week.
-EGD with no evidence for cause of bleeding but H. Pylori positive and aubree incidentally found and was on nystatin, on micafungin, fluconazole and completed course.
-colonoscopy biopsies with tubular adenoma, sessile serrated lesion, hyperplastic polyp
-Patient complaining back stool, hbg stable, not on iron supplements
-EGD/scope didn't show bleeding source, small bowel AVM?
-GI plan resection large polyp as OP.
-Hemoglobin stable--> hemoglobin 11.7 on 04/22
Chronic pain on methadone
-PDMP reviewed/discussed with patient primary pain specialist by previous physicians
-Discussed with Dr Ermias Ball last week, patient has failed to f/u regularly, dr ball has been trying to wean patient off of methadone
-Discontinuing methadone completely at this point. continue monitoring.
Acute toxic metabolic encephalopathy with hallucinations
-Patient encephalopathy has been resolved
-On Zyprexa 5 mg HS
CKD IIIA
Metabolic acidosis
-Baseline renal function unknown
-ct stable around 1.4
-On 04/22 last Cr--->1.3
History of suicidal ideation
-Patient in January 05, 2024 drchucho Diaz and was admitted to [facility] in [place]
-no current suicidal ideation this visit, now off 1:1 but on medsitter
-Psyc f/u appreciated
Insomnia
Psychiatry started her on Benadryl and melatonin
h/o spina bifida
h/o right BKA
Full code
Anticipated Discharge: 24 - 48 hours
Subjective/Interval History
-
Date of Service: April 24, 2024
Patient able to sleep well last night. Feels that she has a urinary tract infection with some urinary symptoms and incontinence today.
Objective Data
-
Vital Signs:
Vital Signs
Temp Pulse Resp BP Pulse Ox
97.6 F 86 16 152/116 100
04/24/24 07:00 04/24/24 07:00 04/24/24 07:00 04/24/24 07:00 04/24/24 07:00
I&O
04/23/24 04/24/24 04/25/24
06:59 06:59 06:59
Intake Total 1440 / 1440 1200 / 1200
Balance 1440 / 1440 1200 / 1200
[2024-04-24] MEDS: FLAGYL 500 MG PO ×3 (10:04→23:01)
[2024-04-24] MEDS: PROTONIX 40 MG PO ×2 (10:04→20:05)
[2024-04-24] MEDS: PEPTO-BISMOL 2 TABLET PO ×4 (10:04→21:19)
[2024-04-24] MEDS: [UNRECOGNIZED DRUG - OTHER] 500 MG PO ×4 (10:04→21:19)
[2024-04-24] MEDS: ULTRAM 50 MG PO ×2 (10:05→18:25)
[2024-04-24] MEDS: SODIUM BICARBONATE 650 MG PO ×2 (10:12→20:05)
[2024-04-24 15:00] VITALS: BP 137/78
--- NOTE | 2024-04-24 17:14 | W.PN.UPDATE ---
Update Note
Progress Note Update
Pt seen & evaluated at bedside, chart reviewed. Is sitting up next to bed eating. Quite pleasant and cooperative. Reports that benadryl 25mg HS was very helpful - 'I had the best night's sleep since I got here!' Smiling when saying this and reports
that the night of sleep was quite helpful. Is hopeful tonight will be the same.
Continue benadryl 25mg hs - will re-assess tomorrow to ensure that still sleeping well
[2024-04-24] MEDS: LOVENOX 30 MG SC (17:58)
[2024-04-24] MEDS: BENADRYL 25 MG PO (21:18)
[2024-04-24] MEDS: ZYPREXA 5 MG PO (21:21)
[2024-04-24] MEDS: NEURONTIN 100 MG PO (21:21)
[2024-04-24] MEDS: MELATONIN 5 MG PO (21:21)
[2024-04-24 23:00] VITALS: BP 140/84
[2024-04-25] MEDS: ULTRAM 50 MG PO ×4 (00:25→23:05)
[2024-04-25 00:49] LABS: Urine Albumin 1+ (Neg - Trace); Urine Bilirubin Negative (Negative); Urine Character Clear (Clear); Urine Color Yellow; Urine Glucose Negative (Negative); Urine Ketone Negative (Negative); Urine Leukocyte Trace (Negative); Urine Nitrite Negative (Negative); Urine Occult Blood 3+ (Negative); Urine Specific Gravity 1.015 (<1.030); Urine Urobilinogen Negative (Neg - 1+)
[2024-04-25 01:11] LABS: Urine Bacteria Few (Negative); Urine Red Blood Cell 30-40 /HPF (0-2)
[2024-04-25] MEDS: PEPTO-BISMOL 2 TABLET PO ×4 (08:04→21:16)
[2024-04-25] MEDS: [UNRECOGNIZED DRUG - OTHER] 500 MG PO ×4 (08:04→22:30)
[2024-04-25] MEDS: SODIUM BICARBONATE 650 MG PO ×2 (08:04→20:10)
[2024-04-25] MEDS: PROTONIX 40 MG PO ×2 (08:04→20:10)
[2024-04-25] MEDS: FLAGYL 500 MG PO ×3 (08:04→23:01)
[2024-04-25 08:14] LABS: % Basophils 1.8 % (0-2); % Eosinophils 1.7 % (0-6); % Immature Granulocytes 0.5 % (0-0.5); % Lymphocytes 31.2 % (20.5-51.1); % Monocytes 7.3 % (1.7-9.3); % Neutrophils 57.5 % (42.2-75.2); Absolute Basophils 0.1 10^3/uL (0-0.2); Absolute Eosinophils 0.1 10^3/uL (0-0.7); Absolute Lymphocytes 2.1 10^3/uL (1.2-3.4); Absolute Monocytes 0.5 10^3/uL (0.1-0.6); Absolute Neutrophils 3.8 10^3/uL (1.4-6.5); Hematocrit 37.4 % (37.0-47.0); Hemoglobin 11.2 g/dL (12.0-16.0); Mean Corp Hgb Conc. 29.9 g/dL (33.0-37.0); Mean Corpuscular Hgb 25.7 pg (27.0-31.0); Mean Platelet Volume 9.4 fL (7.4-10.4); Nucleated Red Blood Cells % 0 %; Platelet Count 270 10^3/uL (130-400); Red Blood Cell Count 4.35 10^6/uL (4.20-5.40); Red Cell Dist. Width 24.9 % (11.5-14.5); White Blood Cell Count 6.6 10^3/uL (4.8-10.8)
[2024-04-25 08:24] VITALS: BP 141/89
[2024-04-25 08:27] LABS: Blood Urea Nitrogen 45 mg/dl (7-17); Carbon Dioxide 22 mmol/L (22-30); Chloride 105 mmol/L (98-107); Estimated Creatinine Clearance 18 ml/min; Glucose 92 mg/dl (70-99); Potassium 5.3 mmol/L (3.5-5.1); Sodium 139 mmol/L (135-145); eGFR 33.84
--- NOTE | 2024-04-25 08:54 | W.PN.HOSP.TC ---
Today's Communication/Plan
-
IV antibiotics. IVF.
Assessment / Plan
Assessment / Plan
Physical exam:
General: Well Developed, Well Nourished and No Apparent Distress
HEENT: Normocephalic, Atraumatic and Moist Mucous Membranes
Respiratory: Clear to Auscultation; Negative Wheezes, Rales or Rhonchi
Cardiac: Regular Rhythm and S1/S2
GI: Soft, Nontender and Nondistended
Musculoskeletal: R BKA. No Clubbing, No Cyanosis and No Edema
Neuro: Awake, Alert and Oriented
Psych: Calm
A/P:
H Pylori infection
-Continue tetracycline/Flagyl/bismuth/PPI regimen
-last dose for treatment of 05/03
Probable UTI (dysuria urgency and frequency as well as urinary incontinence)
Checked urinalysis--> urinalysis with microscopic hematuria, few urine bacteria, only 6-10 WBC and no nitrite and trace leukocyte esterase
Not entirely convincing for UTI, but with abnormal UA and urinary symptoms we will start her on IV ceftriaxone and follow-up urine culture. Alternative explanation could be interstitial cystitis.
Mild hyperkalemia
Give gentle IV fluids
Repeat K in a.m.
Left foot toe osteomyelitis
-confirmed on foot x-ray
-LLE wound culture with MRSA
-Blood culture NGTD
-MRI LLE shows osteomyelitis of first proximal phalanx and metatarsal (appreciate surgical podiatry-not convinced)
-appreciate ID Consult and to be maintained on tetracycline till definitive surgery plan
Severe acute microcytic anemia
GI bleed
-Hgb 3.0 on previous admission, most likely iron deficiency anemia from chronic GI bleeding given Hx of Hgb 10.9 in 11/2023. Her cousin reported intermittent rectal bleeding, however no overt GI bleeding on CTA
-S/p 5U PRBC last week.
-EGD with no evidence for cause of bleeding but H. Pylori positive and aubree incidentally found and was on nystatin, on micafungin, fluconazole and completed course.
-colonoscopy biopsies with tubular adenoma, sessile serrated lesion, hyperplastic polyp
-Patient complaining back stool, hbg stable, not on iron supplements
-EGD/scope didn't show bleeding source, small bowel AVM?
-GI plan resection large polyp as OP.
-Hemoglobin stable--> hemoglobin today 11.2
Chronic pain on methadone
-PDMP reviewed/discussed with patient primary pain specialist by previous physicians
-Discussed with Dr Ermias Ball last week, patient has failed to f/u regularly, dr ball has been trying to wean patient off of methadone
-Discontinuing methadone completely at this point. continue monitoring.
Acute toxic metabolic encephalopathy with hallucinations
-Patient encephalopathy has been resolved
-On Zyprexa 5 mg HS
CKD IIIA
Metabolic acidosis
-Baseline renal function unknown
-ct stable around 1.4
-Today creatinine 1.6
-Gentle IV fluid
History of suicidal ideation
-Patient in January 05, 2024 billy Diaz and was admitted to the [facility] in [place]
-no current suicidal ideation this visit, now off 1:1 but on medsitter
-Psyc f/u appreciated
Insomnia
Psychiatry started her on Benadryl and melatonin and initially seem to work but not any longer-defer to psych as to any other medication changes in this regard.
h/o spina bifida
h/o right BKA
Full code
Anticipated Discharge: 24 - 48 hours
Subjective/Interval History
-
Date of Service: April 25, 2024
Patient did not have a good sleep last night. Continues to have urinary symptoms. Afebrile
Objective Data
-
Labs:
Laboratory Results
04/25/24
07:17
WBC 6.6
Hgb 11.2 L
Hct 37.4
Plt Count 270
Sodium 139
Potassium 5.3 H
Chloride 105
Carbon Dioxide 22
BUN 45 H
Creatinine 1.6 H
Glucose 92
Calcium 10.0
Vital Signs:
Vital Signs
Temp Pulse Resp BP Pulse Ox
97.7 F 94 16 141/89 99
04/25/24 08:24 04/25/24 08:24 04/25/24 08:24 04/25/24 08:24 04/25/24 08:24
I&O
04/24/24 04/25/24 04/26/24
06:59 06:59 06:59
Intake Total 1200 / 1200 600 / 600
Balance 1200 / 1200 600 / 600
[2024-04-25 09:24] LABS: Anisocytosis Slight; Normal RBC Morphology No; Target Cells Slight
--- NOTE | 2024-04-25 10:05 | CM ---
TC from Marianela Christine, from [facility] [phone].
Level 2 determination still pending and probably will not be available until next week.
Plan: skilled rehab once level 2 completed.
[2024-04-25] MEDS: ROCEPHIN 1000 MG IV (10:38)
[2024-04-25] MEDS: STERILE WATER FOR INJECTION 10 ML IV (10:38)
[2024-04-25] MEDS: 0.45%NACL 1000 IV (10:39)
[2024-04-25 15:37] VITALS: BP 132/74
[2024-04-25] MEDS: LOVENOX 30 MG SC (17:00)
--- NOTE | 2024-04-25 18:28 | W.PN.UPDATE ---
Update Note
Progress Note Update
Pt reports that unfortunately she did not sleep well last night - says that benadryl was causing muscular twitching which was too uncomfortable to allow her to sleep. Says that she thinks she slept well the night prior because she had been so tired
from lack of sleep that the sedation from benadryl outweighed possible side effects. While she did note sedation last evening, it was not adequate to outweigh the twitching she experienced. Does not want to take benadryl any longer & prefers to wait
to tomorrow to consider trials of any other medications.
Stop benadryl, no other changes - will discuss other potential options tomorrow.
[2024-04-25] MEDS: NEURONTIN 100 MG PO (21:17)
[2024-04-25] MEDS: ZYPREXA 5 MG PO (21:17)
[2024-04-25] MEDS: MELATONIN 5 MG PO (21:17)
[2024-04-25] MEDS: BENADRYL PO (22:20)
[2024-04-25 23:30] VITALS: BP 139/80
[2024-04-26] MEDS: ULTRAM 50 MG PO ×3 (06:28→23:26)
[2024-04-26] MEDS: 0.45%NACL 1000 IV ×2 (06:28→17:05)
[2024-04-26 07:51] VITALS: BP 147/86
[2024-04-26] MEDS: PROTONIX 40 MG PO ×2 (08:03→20:35)
[2024-04-26] MEDS: SODIUM BICARBONATE 650 MG PO ×2 (08:03→20:35)
[2024-04-26] MEDS: PEPTO-BISMOL 2 TABLET PO ×4 (08:04→21:11)
[2024-04-26] MEDS: FLAGYL 500 MG PO ×3 (08:04→23:29)
[2024-04-26] MEDS: [UNRECOGNIZED DRUG - OTHER] 500 MG PO ×4 (08:04→21:10)
[2024-04-26 10:15] LABS: % Basophils 1.4 % (0-2); % Immature Granulocytes 0.5 % (0-0.5); % Lymphocytes 23.4 % (20.5-51.1); % Monocytes 8.7 % (1.7-9.3); Absolute Basophils 0.1 10^3/uL (0-0.2); Absolute Eosinophils 0.1 10^3/uL (0-0.7); Absolute Lymphocytes 1.4 10^3/uL (1.2-3.4); Absolute Monocytes 0.5 10^3/uL (0.1-0.6); Absolute Neutrophils 3.8 10^3/uL (1.4-6.5); Hematocrit 31.8 % (37.0-47.0); Mean Corp Hgb Conc. 31.4 g/dL (33.0-37.0); Mean Corpuscular Hgb 26.3 pg (27.0-31.0); Mean Corpuscular Volume 83.7 fL (81.0-99.0); Mean Platelet Volume 9.7 fL (7.4-10.4); Nucleated Red Blood Cells % 0 %; Platelet Count 236 10^3/uL (130-400); Red Cell Dist. Width 24.8 % (11.5-14.5); White Blood Cell Count 5.9 10^3/uL (4.8-10.8)
[2024-04-26] MEDS: STERILE WATER FOR INJECTION 10 ML IV (10:26)
[2024-04-26] MEDS: ROCEPHIN 1000 MG IV (10:26)
--- NOTE | 2024-04-26 10:37 | W.PN.HOSP.TC ---
Today's Communication/Plan
-
Discharge planning in progress.
Assessment / Plan
Assessment / Plan
Physical exam:
General: Well Developed, Well Nourished and No Apparent Distress
HEENT: Normocephalic, Atraumatic and Moist Mucous Membranes
Respiratory: Clear to Auscultation; Negative Wheezes, Rales or Rhonchi
Cardiac: Regular Rhythm and S1/S2
GI: Soft, Nontender and Nondistended
Musculoskeletal: R BKA. No Clubbing, No Cyanosis and No Edema
Neuro: Awake, Alert and Oriented
Psych: Calm
A/P:
H Pylori infection
-Continue tetracycline/Flagyl/bismuth/PPI regimen
-last dose for treatment of 05/03
Probable UTI (dysuria urgency and frequency as well as urinary incontinence)
Checked urinalysis--> urinalysis with microscopic hematuria, few urine bacteria, only 6-10 WBC and no nitrite and trace leukocyte esterase
Not entirely convincing for UTI, but with abnormal UA and urinary symptoms we will start her on IV ceftriaxone and follow-up urine culture. Alternative explanation could be interstitial cystitis.
Plan to finish 3 days course of IV antibiotics only. Will stop antibiotic tomorrow.
Mild hyperkalemia
Resolved with IV hydration
Left foot toe osteomyelitis
-confirmed on foot x-ray
-LLE wound culture with MRSA
-Blood culture NGTD
-MRI LLE shows osteomyelitis of first proximal phalanx and metatarsal (appreciate surgical podiatry-not convinced)
-appreciate ID Consult and to be maintained on tetracycline till definitive surgery plan
Severe acute microcytic anemia
GI bleed
-Hgb 3.0 on previous admission, most likely iron deficiency anemia from chronic GI bleeding given Hx of Hgb 10.9 in 11/2023. Her cousin reported intermittent rectal bleeding, however no overt GI bleeding on CTA
-S/p 5U PRBC last week.
-EGD with no evidence for cause of bleeding but H. Pylori positive and aubree incidentally found and was on nystatin, on micafungin, fluconazole and completed course.
-colonoscopy biopsies with tubular adenoma, sessile serrated lesion, hyperplastic polyp
-Patient complaining back stool, hbg stable, not on iron supplements
-EGD/scope didn't show bleeding source, small bowel AVM?
-GI plan resection large polyp as OP.
-Hemoglobin stable--> hemoglobin today 10
Chronic pain on methadone
-PDMP reviewed/discussed with patient primary pain specialist by previous physicians
-Discussed with Dr Ermias Ball last week, patient has failed to f/u regularly, dr ball has been trying to wean patient off of methadone
-Discontinuing methadone completely at this point. continue monitoring.
Acute toxic metabolic encephalopathy with hallucinations
-Patient encephalopathy has been resolved
-On Zyprexa 5 mg HS
CKD IIIA
Metabolic acidosis
-Baseline renal function unknown
-ct stable around 1.4
-On 04/25 creatinine 1.6--> on 04/26 creatinine 1.3
-Gentle IV fluid can be stopped and encourage oral intake
History of suicidal ideation
-Patient in January 05, 2024 drchucho Diaz and was admitted to [facility] in [place]
-no current suicidal ideation this visit, now off 1:1 but on medsitter
-Psyc f/u appreciated
Insomnia
Psychiatry started her on Benadryl and melatonin and initially seem to work but not any longer-defer to psych as to any other medication changes in this regard.
h/o spina bifida
h/o right BKA
Full code
Anticipated Discharge: > 48 hours
Subjective/Interval History
-
Date of Service: April 26, 2024
Patient describes urinary symptoms better. She slept about 4 hours last night. No new complaints.
Objective Data
-
Labs:
Laboratory Results
04/26/24
09:30
WBC 5.9
Hgb 10.0 L
Hct 31.8 L
Plt Count 236
Sodium Pending
Potassium Pending
Chloride Pending
Carbon Dioxide Pending
BUN Pending
Creatinine Pending
Glucose Pending
Calcium Pending
Vital Signs:
Vital Signs
Temp Pulse Resp BP Pulse Ox
97.8 F 86 16 147/86 98
04/26/24 07:51 04/26/24 07:51 04/26/24 07:51 04/26/24 07:51 04/26/24 07:51
I&O
04/25/24 04/26/24 04/27/24
06:59 06:59 06:59
Intake Total 600 / 600 1280 / 1280
Balance 600 / 600 1280 / 1280
[2024-04-26 11:07] LABS: Blood Urea Nitrogen 36 mg/dl (7-17); Calcium 9.6 mg/dl (8.4-10.2); Carbon Dioxide 15 mmol/L (22-30); Chloride 109 mmol/L (98-107); Estimated Creatinine Clearance 22 ml/min; Glucose 105 mg/dl (70-99); Potassium 4.4 mmol/L (3.5-5.1); Sodium 138 mmol/L (135-145); eGFR 43.42
[2024-04-26 14:58] VITALS: BP 157/90
--- NOTE | 2024-04-26 16:56 | W.PN.UPDATE ---
Update Note
Progress Note Update
Pt did not take benadryl last night and says that did not experience twitching. Did discuss that this is an unusual side effect from benadryl however pt is adamant that she does not want to continue taking benadryl at night. Says that she is no
longer feeling itchy and is open to other options that may help with sleep. She reports that she did sleep about 4 hours but is hoping she can get at least 6 so as to feel more adequately rested. Discussed trial of trazodone which she is agreeable
with. Has otherwise been calm and cooperative, quite pleasant, not actively bothered by 'bugs'.
Trial of trazodone 25mg HS + 25mg PRN if needed
no other changes, continue zyprexa
[2024-04-26] MEDS: LOVENOX 30 MG SC (17:00)
[2024-04-26] MEDS: NEURONTIN 100 MG PO (21:10)
[2024-04-26] MEDS: MELATONIN 5 MG PO (21:10)
[2024-04-26] MEDS: ZYPREXA 5 MG PO (21:11)
[2024-04-26] MEDS: DESYREL 25 MG PO (21:40)
[2024-04-26 23:00] VITALS: BP 150/81
[2024-04-27] MEDS: 0.45%NACL 1000 IV (05:48)
[2024-04-27] MEDS: ULTRAM 50 MG PO ×3 (05:56→21:44)
[2024-04-27 07:00] VITALS: BP 143/94
[2024-04-27] MEDS: SODIUM BICARBONATE 650 MG PO ×2 (08:08→19:40)
[2024-04-27] MEDS: PROTONIX 40 MG PO ×2 (08:08→19:40)
[2024-04-27] MEDS: PEPTO-BISMOL 2 TABLET PO ×4 (08:08→22:15)
[2024-04-27] MEDS: [UNRECOGNIZED DRUG - OTHER] 500 MG PO ×4 (08:08→21:44)
[2024-04-27] MEDS: FLAGYL 500 MG PO ×3 (08:09→23:12)
--- NOTE | 2024-04-27 09:02 | W.PN.HOSP.TC ---
Today's Communication/Plan
-
Discharge planning in progress.
Assessment / Plan
Assessment / Plan
Physical exam:
General: Well Developed, Well Nourished and No Apparent Distress
HEENT: Normocephalic, Atraumatic and Moist Mucous Membranes
Respiratory: Clear to Auscultation; Negative Wheezes, Rales or Rhonchi
Cardiac: Regular Rhythm and S1/S2
GI: Soft, Nontender and Nondistended
Musculoskeletal: R BKA. No Clubbing, No Cyanosis and No Edema
Neuro: Awake, Alert and Oriented
Psych: Calm
A/P:
H Pylori infection
-Continue tetracycline/Flagyl/bismuth/PPI regimen
-last dose for treatment of 05/03
Probable UTI (dysuria urgency and frequency as well as urinary incontinence)
Checked urinalysis--> urinalysis with microscopic hematuria, few urine bacteria, only 6-10 WBC and no nitrite and trace leukocyte esterase
Not entirely convincing for UTI, but with abnormal UA and urinary symptoms we will start her on IV ceftriaxone and follow-up urine culture. Alternative explanation could be interstitial cystitis.
Plan to finish 3 days course of IV antibiotics only. Stop antibiotics today.
Mild hyperkalemia
Resolved with IV hydration
Left foot toe osteomyelitis
-confirmed on foot x-ray
-LLE wound culture with MRSA
-Blood culture NGTD
-MRI LLE shows osteomyelitis of first proximal phalanx and metatarsal (appreciate surgical podiatry-not convinced)
-appreciate ID Consult and to be maintained on tetracycline till definitive surgery plan
Severe acute microcytic anemia
GI bleed
-Hgb 3.0 on previous admission, most likely iron deficiency anemia from chronic GI bleeding given Hx of Hgb 10.9 in 11/2023. Her cousin reported intermittent rectal bleeding, however no overt GI bleeding on CTA
-S/p 5U PRBC last week.
-EGD with no evidence for cause of bleeding but H. Pylori positive and aubree incidentally found and was on nystatin, on micafungin, fluconazole and completed course.
-colonoscopy biopsies with tubular adenoma, sessile serrated lesion, hyperplastic polyp
-Patient complaining back stool, hbg stable, not on iron supplements
-EGD/scope didn't show bleeding source, small bowel AVM?
-GI plan resection large polyp as OP.
-Hemoglobin stable--> hemoglobin on 04/26 was 10
Chronic pain on methadone
-PDMP reviewed/discussed with patient primary pain specialist by previous physicians
-Discussed with Dr Ermias Ball last week, patient has failed to f/u regularly, dr ball has been trying to wean patient off of methadone
-Discontinuing methadone completely at this point. continue monitoring.
Acute toxic metabolic encephalopathy with hallucinations
-Patient encephalopathy has been resolved
-On Zyprexa 5 mg HS
CKD IIIA
Metabolic acidosis
-Baseline renal function unknown
-ct stable around 1.4
-On 04/25 creatinine 1.6--> on 04/26 creatinine 1.3
-Gentle IV fluid can be stopped and encourage oral intake
History of suicidal ideation
-Patient in January 05, 2024 drchucho Diaz and was admitted to the [facility] in [place]
-no current suicidal ideation this visit, now off 1:1 but on medsitter
-Psyc f/u appreciated
Insomnia
Patient on melatonin, Zyprexa, and trazodone now-defer to psych as to any other medication changes in this regard.
h/o spina bifida
h/o right BKA
Full code
Anticipated Discharge: 24 - 48 hours
Subjective/Interval History
-
Date of Service: April 27, 2024
Patient feels better today. She had a good night sleep last night.
Objective Data
-
Vital Signs:
Vital Signs
Temp Pulse Resp BP Pulse Ox
98.4 F 84 14 143/94 100
04/27/24 07:00 04/27/24 07:00 04/27/24 07:00 04/27/24 07:00 04/27/24 07:00
I&O
04/26/24 04/27/24 04/28/24
06:59 06:59 06:59
Intake Total 1280 / 1280 2200 / 2200
Balance 1280 / 1280 2200 / 2200
[2024-04-27] MEDS: STERILE WATER FOR INJECTION 10 ML IV (10:17)
[2024-04-27] MEDS: ROCEPHIN 1000 MG IV (10:18)
[2024-04-27] MEDS: 0.45%NACL IV (12:35)
[2024-04-27 15:00] VITALS: BP 132/88
[2024-04-27] MEDS: LOVENOX 30 MG SC (17:22)
--- NOTE | 2024-04-27 17:23 | W.PN.UPDATE ---
Update Note
Progress Note Update
Pt seen at bedside, chart reviewed. Reports that she slept well with trazodone - was told she was snoring and was in a deep sleep, woke up feeling more refreshed. Denies experiencing side effects from the trazodone. Is not being bothered by 'bugs'
and is in good spirits. Had family members visit today with whom she reconnected and now feels emotionally supported by. Is hopeful she can figure out housing soon.
Continue trazodone 25mg HS + 25mg PRN
Continue zyprexa
[2024-04-27] MEDS: TYLENOL 650 MG PO (19:38)
[2024-04-27] MEDS: NEURONTIN 100 MG PO (21:42)
[2024-04-27] MEDS: DESYREL 25 MG PO (21:42)
[2024-04-27] MEDS: ZYPREXA 5 MG PO (21:44)
[2024-04-27] MEDS: MELATONIN 5 MG PO (21:44)
[2024-04-27 23:31] VITALS: BP 135/75
[2024-04-28] MEDS: ULTRAM 50 MG PO ×3 (03:44→23:34)
[2024-04-28 07:00] VITALS: BP 154/100
--- NOTE | 2024-04-28 10:11 | W.PN.HOSP.TC ---
Today's Communication/Plan
-
Discharge planning
Assessment / Plan
Assessment / Plan
Physical exam:
General: Well Developed, Well Nourished and No Apparent Distress
HEENT: Normocephalic, Atraumatic and Moist Mucous Membranes
Respiratory: Clear to Auscultation; Negative Wheezes, Rales or Rhonchi
Cardiac: Regular Rhythm and S1/S2
GI: Soft, Nontender and Nondistended
Musculoskeletal: R BKA. No Clubbing, No Cyanosis and No Edema
Neuro: Awake, Alert and Oriented
Psych: Calm
H Pylori infection
-Continue tetracycline/Flagyl/bismuth/PPI regimen
-last dose for treatment of 05/03
Probable UTI (dysuria urgency and frequency as well as urinary incontinence)
Checked urinalysis--> urinalysis with microscopic hematuria, few urine bacteria, only 6-10 WBC and no nitrite and trace leukocyte esterase
Not entirely convincing for UTI, but with abnormal UA and urinary symptoms we will start her on IV ceftriaxone and follow-up urine culture. Alternative explanation could be interstitial cystitis.
Plan to finish 3 days course of IV antibiotics only. Stop antibiotics today.
Mild hyperkalemia
Resolved with IV hydration
Left foot toe osteomyelitis
-confirmed on foot x-ray
-LLE wound culture with MRSA
-Blood culture NGTD
-MRI LLE shows osteomyelitis of first proximal phalanx and metatarsal (appreciate surgical podiatry-not convinced)
-appreciate ID Consult and to be maintained on tetracycline till definitive surgery plan
Severe acute microcytic anemia
GI bleed
-Hgb 3.0 on previous admission, most likely iron deficiency anemia from chronic GI bleeding given Hx of Hgb 10.9 in 11/2023. Her cousin reported intermittent rectal bleeding, however no overt GI bleeding on CTA
-S/p 5U PRBC last week.
-EGD with no evidence for cause of bleeding but H. Pylori positive and aubree incidentally found and was on nystatin, on micafungin, fluconazole and completed course.
-colonoscopy biopsies with tubular adenoma, sessile serrated lesion, hyperplastic polyp
-Patient complaining back stool, hbg stable, not on iron supplements
-EGD/scope didn't show bleeding source, small bowel AVM?
-GI plan resection large polyp as OP.
-Hemoglobin stable--> hemoglobin on 04/26 was 10
Chronic pain on methadone
-PDMP reviewed/discussed with patient primary pain specialist by previous physicians
-Discussed with Dr Ermias Ball last week, patient has failed to f/u regularly, dr ball has been trying to wean patient off of methadone
-Discontinuing methadone completely at this point. continue monitoring.
Acute toxic metabolic encephalopathy with hallucinations
-Patient encephalopathy has been resolved
-On Zyprexa 5 mg HS
CKD 3A
Metabolic acidosis
-Baseline renal function unknown
-ct stable around 1.4
-On 04/25 creatinine 1.6--> on 04/26 creatinine 1.3
-Gentle IV fluid can be stopped and encourage oral intake
History of suicidal ideation
-Patient in January 05, 2024 drchucho Diaz and was admitted to [facility] in [place]
-no current suicidal ideation this visit, now off 1:1 but on medsitter
-Psyc f/u appreciated
Insomnia
Patient on melatonin, Zyprexa, and trazodone now-defer to psych as to any other medication changes in this regard.
h/o spina bifida
h/o right BKA
Full code
Dispo -stable for discharge to SNF when bed available. Case management aware.
Anticipated Discharge: Within 24 hours
Subjective/Interval History
-
Date of Service: April 28, 2024
Patient seen and examined. No complaints.
Objective Data
-
Vital Signs:
Vital Signs
Temp Pulse Resp BP Pulse Ox
97.5 F 94 17 154/100 100
04/28/24 07:00 04/28/24 07:00 04/28/24 07:00 04/28/24 07:00 04/28/24 07:00
I&O
04/27/24 04/28/24 04/29/24
06:59 06:59 06:59
Intake Total 2200 / 2200 1680 / 1680
Balance 2200 / 2200 1680 / 1680
Review of Systems
-
History Source: Patient
All other systems: Reviewed and negative
[2024-04-28] MEDS: PROTONIX 40 MG PO ×2 (10:38→20:08)
[2024-04-28] MEDS: SODIUM BICARBONATE 650 MG PO ×2 (10:38→20:08)
[2024-04-28] MEDS: PEPTO-BISMOL 2 TABLET PO ×4 (10:38→21:34)
[2024-04-28] MEDS: FLAGYL 500 MG PO ×3 (10:39→23:04)
[2024-04-28] MEDS: [UNRECOGNIZED DRUG - OTHER] 500 MG PO ×4 (10:39→23:04)
[2024-04-28 15:00] VITALS: BP 157/96
--- NOTE | 2024-04-28 15:46 | CM ---
Patient seen bedside.
CM still awaiting BCAAA determination.
Reviewed skilled rehab options with patient.
[facility]st choice [facility].
Discussed with [facility] Liaison, she will review clinicals.
patient interested in STR, possible LTR with transition to d/c to home. patient will need assistance securing housing.
Discussed [facility] and waiting list.
Find help[employer]org website given to patient along with housing resources.
Plan; skilled rehab once BCAAA determination, bed found and insurance auth received
[2024-04-28] MEDS: LOVENOX 30 MG SC (16:46)
[2024-04-28 19:33] VITALS: BP 156/98
[2024-04-28] MEDS: TYLENOL 650 MG PO (20:08)
--- NOTE | 2024-04-28 20:19 | PTCARENOTE ---
Upon initial assessment patient had Left foot w/ clear tape all wrapped around her foot. She stated 'it hurts when it touches the sheets'. I asked patient to please remove the tape, as it is not good for wound healing. She removed the tape, but will
not allow wound care at this time. Will attempt to re-dress the room with ordered wound care.
Pt also c/o L rib tenderness. No obvious bruising noted, but tender to palpation.
[2024-04-28] MEDS: NEURONTIN 100 MG PO (21:33)
[2024-04-28] MEDS: MELATONIN 5 MG PO (21:33)
[2024-04-28] MEDS: DESYREL 25 MG PO (21:33)
[2024-04-28] MEDS: ZYPREXA 5 MG PO (21:34)
[2024-04-28 23:51] VITALS: BP 161/96
[2024-04-29 07:00] VITALS: BP 160/103
[2024-04-29] MEDS: PROTONIX 40 MG PO ×2 (08:35→21:02)
[2024-04-29] MEDS: FLAGYL 500 MG PO ×3 (08:35→23:36)
[2024-04-29] MEDS: SODIUM BICARBONATE 650 MG PO ×2 (08:35→21:02)
[2024-04-29] MEDS: PEPTO-BISMOL 2 TABLET PO ×4 (08:35→22:39)
[2024-04-29] MEDS: ULTRAM 50 MG PO ×3 (08:41→21:11)
--- NOTE | 2024-04-29 09:42 | PTCARENOTE ---
pt aaox3. states pain in right shoulder and stump. pain med given as ordered.
[2024-04-29] MEDS: [UNRECOGNIZED DRUG - OTHER] 500 MG PO ×4 (10:35→23:36)
--- NOTE | 2024-04-29 11:24 | W.PN.HOSP.TC ---
Addendum entered and electronically signed by Donal Mulligan DO 04/29/24 14:31:
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
Original Note:
Today's Communication/Plan
-
Start amlodipine
BMP
Discharge planning
Assessment / Plan
Assessment / Plan
Physical exam:
General: Well Developed, Well Nourished and No Apparent Distress
HEENT: Normocephalic, Atraumatic and Moist Mucous Membranes
Respiratory: Clear to Auscultation; Negative Wheezes, Rales or Rhonchi
Cardiac: Regular Rhythm and S1/S2
GI: Soft, Nontender and Nondistended
Musculoskeletal: R BKA. No Clubbing, No Cyanosis and No Edema
Neuro: Awake, Alert and Oriented
Psych: Calm
H Pylori infection
-Continue tetracycline/Flagyl/bismuth/PPI regimen
-last dose for treatment of 05/03
Probable UTI (dysuria urgency and frequency as well as urinary incontinence)
Checked urinalysis--> urinalysis with microscopic hematuria, few urine bacteria, only 6-10 WBC and no nitrite and trace leukocyte esterase
Not entirely convincing for UTI, but with abnormal UA and urinary symptoms we will start her on IV ceftriaxone and follow-up urine culture. Alternative explanation could be interstitial cystitis.
Plan to finish 3 days course of IV antibiotics only. Stop antibiotics today.
Mild hyperkalemia
Resolved with IV hydration
Left foot toe osteomyelitis
-confirmed on foot x-ray
-LLE wound culture with MRSA
-Blood culture NGTD
-MRI LLE shows osteomyelitis of first proximal phalanx and metatarsal (appreciate surgical podiatry-not convinced)
-appreciate ID Consult and to be maintained on tetracycline till definitive surgery plan
Severe acute microcytic anemia
GI bleed
-Hgb 3.0 on previous admission, most likely iron deficiency anemia from chronic GI bleeding given Hx of Hgb 10.9 in 11/2023. Her cousin reported intermittent rectal bleeding, however no overt GI bleeding on CTA
-S/p 5U PRBC last week.
-EGD with no evidence for cause of bleeding but H. Pylori positive and aubree incidentally found and was on nystatin, on micafungin, fluconazole and completed course.
-colonoscopy biopsies with tubular adenoma, sessile serrated lesion, hyperplastic polyp
-Patient complaining back stool, hbg stable, not on iron supplements
-EGD/scope didn't show bleeding source, small bowel AVM?
-GI plan resection large polyp as OP.
-Hemoglobin stable--> hemoglobin on 04/26 was 10
Chronic pain on methadone
-PDMP reviewed/discussed with patient primary pain specialist by previous physicians
-Discussed with Dr Ermias Ball last week, patient has failed to f/u regularly, dr ball has been trying to wean patient off of methadone
-Discontinuing methadone completely at this point. continue monitoring.
Acute toxic metabolic encephalopathy with hallucinations
-Patient encephalopathy has been resolved
-On Zyprexa 5 mg HS
CKD 3A
Metabolic acidosis
-Baseline renal function unknown
-ct stable around 1.4
-On 04/25 creatinine 1.6--> on 04/26 creatinine 1.3
-Gentle IV fluid can be stopped and encourage oral intake
History of suicidal ideation
-Patient in January 05, 2024 billy Diaz and was admitted to [facility] in [place]
-no current suicidal ideation this visit, now off 1:1 but on medsitter
-Psyc f/u appreciated
Insomnia
Patient on melatonin, Zyprexa, and trazodone now-defer to psych as to any other medication changes in this regard.
h/o spina bifida
h/o right BKA
Elevated blood pressure -unclear if she has baseline essential hypertension. Last reading 160/103. Can start low-dose amlodipine, monitor closely.
Full code
Dispo -stable for discharge to SNF when bed available. Case management aware.
Anticipated Discharge: Within 24 hours
Subjective/Interval History
-
Date of Service: April 29, 2024
Patient seen and examined. Complaining of insomnia.
Objective Data
-
Vital Signs:
Vital Signs
Temp Pulse Resp BP Pulse Ox
97.6 F 92 18 160/103 100
04/29/24 07:00 04/29/24 07:00 04/29/24 07:00 04/29/24 07:00 04/29/24 07:00
I&O
04/28/24 04/29/24 04/30/24
06:59 06:59 06:59
Intake Total 1680 / 1680 240 / 240
Balance 1680 / 1680 240 / 240
Review of Systems
-
History Source: Patient
All other systems: Reviewed and negative
[2024-04-29] MEDS: NORVASC 2.5 MG PO (11:47)
--- NOTE | 2024-04-29 11:49 | W.PN.UPDATE ---
Update Note
Progress Note Update
Patient seen, chart reviewed, discussed with staff. Ms. Gerber reports doing fairly well overall. She tells me she has plans to go to rehab and then to find a small efficiency for her to be able to live on her own. Denies any current
hallucinations, no bugs to report, denies any SI/SB. She is feeling hopeful and understands she needs to make some changes in her life (needs to remove certain people and triggers). She was sleeping okay when trazodone first initiated but feels she
needs a higher dose. Sleep was 'barely at al' last night. Agree to increase to 50mg HS.
Impression/Recommendation: Acute toxic metabolic encephalopathy with hallucinations - now resolved; PTSD
Increase Trazodone to 50mg HS, continue with Zyprexa 5mg HS and Melatonin 5mg HS. Will follow.
[2024-04-29 12:30] LABS: Blood Urea Nitrogen 39 mg/dl (7-17); Calcium 9.9 mg/dl (8.4-10.2); Carbon Dioxide 23 mmol/L (22-30); Chloride 106 mmol/L (98-107); Estimated Creatinine Clearance 22 ml/min; Glucose 95 mg/dl (70-99); Potassium 5.1 mmol/L (3.5-5.1); Sodium 137 mmol/L (135-145); eGFR 43.42
--- NOTE | 2024-04-29 13:30 | PN.CDI ---
CDI
- -
CDI:
Physician Documentation Request
Admit Date: 04/21/24 09:06
Dear Doctor Ese,
Please review the following and provide your response in the progress notes.
Clinical Indicators:
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
Physician documentation of the type and location of wounds is required for compliant documentation. Based on the above clinical findings and your assessment, please provide the following in your progress note:
1. Location of the ulcer/wound, including laterality.
2. Type (etiology) of ulcer/wound:
- Diabetic ulcer
- Arterial (ischemic) ulcer
- Traumatic wound
- Venous stasis ulcer
- Pressure (decubitus) ulcer
- Non-healing surgical wound
- Other
- Unable to determine
Use of terms such as suspected, likely, concern for, or probable (associated with a specific diagnosis that is being evaluated, monitored, or treated as if it exists) are acceptable and can be coded in the inpatient setting, when documented at the
time of discharge.
Thank you,
Denis Alvarez RN
CDI Specialist
Please use your independent medical judgment in providing your response.
*Source: National Pressure Ulcer Advisory Panel (NPUAP)
[2024-04-29 15:00] VITALS: BP 137/102
[2024-04-29] MEDS: LOVENOX 30 MG SC (17:56)
[2024-04-29 19:39] VITALS: BP 136/93
[2024-04-29] MEDS: NEURONTIN 100 MG PO (22:39)
[2024-04-29] MEDS: DESYREL 50 MG PO (22:39)
[2024-04-29] MEDS: MELATONIN 5 MG PO (22:39)
[2024-04-29] MEDS: ZYPREXA 5 MG PO (22:39)
[2024-04-30 00:10] VITALS: BP 150/91
[2024-04-30] MEDS: TYLENOL 650 MG PO (01:24)
[2024-04-30] MEDS: ULTRAM 25 MG PO (01:25)
[2024-04-30] MEDS: ULTRAM 50 MG PO ×3 (03:31→21:45)
[2024-04-30 07:15] VITALS: BP 129/79
[2024-04-30] MEDS: SODIUM BICARBONATE 650 MG PO ×2 (09:25→20:32)
[2024-04-30] MEDS: FLAGYL 500 MG PO ×3 (09:25→23:58)
[2024-04-30] MEDS: NORVASC 2.5 MG PO (09:25)
[2024-04-30] MEDS: PROTONIX 40 MG PO ×2 (09:25→20:32)
[2024-04-30] MEDS: PEPTO-BISMOL 2 TABLET PO ×4 (09:26→22:39)
[2024-04-30] MEDS: [UNRECOGNIZED DRUG - OTHER] 500 MG PO ×4 (09:30→23:58)
--- NOTE | 2024-04-30 09:50 | WOUNDNOTE ---
L PLANTAR 1ST MET HEAD
--- NOTE | 2024-04-30 09:51 | WOUNDNOTE ---
L DORSAL 3&4 TOES
--- NOTE | 2024-04-30 09:53 | WOUNDNOTE ---
Darrel WRIGHT STUMP
--- NOTE | 2024-04-30 09:53 | WOUNDNOTE ---
MARY RN NOTE: Followed up today regarding wounds, all improved since last seen. Changed dressing on R buttock healed ulcer. Patient requested dressing for L plantar foot be left at bedside, she will apply after washing up in bathroom. Left second
silicone foam to apply to sacrum after washing, for protection only. Patient is independent with getting herself into wheelchair and getting into bathroom to wash up. No change in wound care will follow as needed.
--- NOTE | 2024-04-30 12:08 | W.PN.UPDATE ---
Update Note
Progress Note Update
patient seen chart reviewed. discussed w nursing. the patient is in good spirits today. she is hopeful that in the not too distant future a placement will be found for her. she spoke of living w her cousin and how traumatic at times that was for
her. she sees brother as being supportive of her eventually being in a small appartment able to care for herself. sleep was good. appetite is ok. noted bendaryl changed to trazodone. no changes made in her meds. continue to support.
--- NOTE | 2024-04-30 12:17 | W.PN.HOSP.TC ---
Today's Communication/Plan
-
Discharge planning
Assessment / Plan
Assessment / Plan
Physical exam:
General: Well Developed, Well Nourished and No Apparent Distress
HEENT: Normocephalic, Atraumatic and Moist Mucous Membranes
Respiratory: Clear to Auscultation; Negative Wheezes, Rales or Rhonchi
Cardiac: Regular Rhythm and S1/S2
GI: Soft, Nontender and Nondistended
Musculoskeletal: R BKA. No Clubbing, No Cyanosis and No Edema
Neuro: Awake, Alert and Oriented
Psych: Calm
H Pylori infection
-Continue tetracycline/Flagyl/bismuth/PPI regimen
-last dose for treatment of 05/03
Probable UTI (dysuria urgency and frequency as well as urinary incontinence)
Checked urinalysis--> urinalysis with microscopic hematuria, few urine bacteria, only 6-10 WBC and no nitrite and trace leukocyte esterase
Not entirely convincing for UTI, but with abnormal UA and urinary symptoms we will start her on IV ceftriaxone and follow-up urine culture. Alternative explanation could be interstitial cystitis.
Plan to finish 3 days course of IV antibiotics only. Stop antibiotics today.
Mild hyperkalemia
Resolved with IV hydration
Left foot toe osteomyelitis
-confirmed on foot x-ray
-LLE wound culture with MRSA
-Blood culture NGTD
-MRI LLE shows osteomyelitis of first proximal phalanx and metatarsal (appreciate surgical podiatry-not convinced)
-appreciate ID Consult and to be maintained on tetracycline till definitive surgery plan
Severe acute microcytic anemia
GI bleed
-Hgb 3.0 on previous admission, most likely iron deficiency anemia from chronic GI bleeding given Hx of Hgb 10.9 in 11/2023. Her cousin reported intermittent rectal bleeding, however no overt GI bleeding on CTA
-S/p 5U PRBC last week.
-EGD with no evidence for cause of bleeding but H. Pylori positive and aubree incidentally found and was on nystatin, on micafungin, fluconazole and completed course.
-colonoscopy biopsies with tubular adenoma, sessile serrated lesion, hyperplastic polyp
-Patient complaining back stool, hbg stable, not on iron supplements
-EGD/scope didn't show bleeding source, small bowel AVM?
-GI plan resection large polyp as OP.
-Hemoglobin stable--> hemoglobin on 04/26 was 10
Chronic pain on methadone
-PDMP reviewed/discussed with patient primary pain specialist by previous physicians
-Discussed with Dr Ermias Ball last week, patient has failed to f/u regularly, dr ball has been trying to wean patient off of methadone
-Discontinuing methadone completely at this point. continue monitoring.
Acute toxic metabolic encephalopathy with hallucinations
-Patient encephalopathy has been resolved
-On Zyprexa 5 mg HS
CKD 3A
Metabolic acidosis
-Baseline renal function unknown
-ct stable around 1.4
-On 04/25 creatinine 1.6--> on 04/26 creatinine 1.3
-Gentle IV fluid can be stopped and encourage oral intake
History of suicidal ideation
-Patient in January 05, 2024 billy Diaz and was admitted to [facility] in [place]
-no current suicidal ideation this visit, now off 1:1 but on medsitter
-Psyc f/u appreciated
Insomnia
Patient on melatonin, Zyprexa, and trazodone now-defer to psych as to any other medication changes in this regard.
h/o spina bifida
h/o right BKA
Elevated blood pressure -unclear if she has baseline essential hypertension. Last reading 160/103. Can start low-dose amlodipine, monitor closely.
Full code
Dispo -stable for discharge to SNF when bed available. Case management aware.
Anticipated Discharge: Within 24 hours
Subjective/Interval History
-
Date of Service: April 30, 2024
Patient seen and examined. No complaints. Slept better last night.
Objective Data
-
Vital Signs:
Vital Signs
Temp Pulse Resp BP Pulse Ox
97.8 F 94 16 129/79 99
04/30/24 07:15 04/30/24 09:25 04/30/24 07:15 04/30/24 09:25 04/30/24 09:45
I&O
04/29/24 04/30/24 05/01/24
06:59 06:59 06:59
Intake Total 240 / 240 2880 / 2880
Balance 240 / 240 2880 / 2880
Review of Systems
-
History Source: Patient
All other systems: Reviewed and negative
--- NOTE | 2024-04-30 12:53 | CM ---
TC william Barry from [facility], still waiting on level 2 determination.
[facility] will accept once level 2 completed.
Patient will need insurance auth.
Plan: skilled rehab once level 2 determination and insurance auth obtained.
[2024-04-30 13:14] VITALS: BP 156/73; PULSE 99; O2SAT 100
[2024-04-30 15:00] VITALS: BP 132/85
[2024-04-30] MEDS: LOVENOX 30 MG SC (17:13)
[2024-04-30] MEDS: ZYPREXA 5 MG PO (22:39)
[2024-04-30] MEDS: DESYREL 50 MG PO (22:39)
[2024-04-30] MEDS: NEURONTIN 100 MG PO (22:39)
[2024-04-30] MEDS: MELATONIN 5 MG PO (22:39)
[2024-04-30 23:15] VITALS: BP 123/84
[2024-05-01] MEDS: TYLENOL 650 MG PO (00:59)
[2024-05-01] MEDS: ULTRAM 50 MG PO ×3 (05:41→19:52)
[2024-05-01 07:49] VITALS: BP 150/88
[2024-05-01] MEDS: PROTONIX 40 MG PO ×2 (08:50→19:46)
[2024-05-01] MEDS: FLAGYL 500 MG PO ×3 (08:50→23:35)
[2024-05-01] MEDS: SODIUM BICARBONATE 650 MG PO ×2 (08:50→19:46)
[2024-05-01] MEDS: NORVASC 2.5 MG PO (08:51)
[2024-05-01] MEDS: PEPTO-BISMOL 2 TABLET PO ×3 (08:51→19:13)
--- NOTE | 2024-05-01 10:06 | W.PN.HOSP.TC ---
Today's Communication/Plan
-
Discharge planning
Assessment / Plan
Assessment / Plan
Physical exam:
General: Well Developed, Well Nourished and No Apparent Distress
HEENT: Normocephalic, Atraumatic and Moist Mucous Membranes
Respiratory: Clear to Auscultation; Negative Wheezes, Rales or Rhonchi
Cardiac: Regular Rhythm and S1/S2
GI: Soft, Nontender and Nondistended
Musculoskeletal: R BKA. No Clubbing, No Cyanosis and No Edema
Neuro: Awake, Alert and Oriented
Psych: Calm
H Pylori infection
-Continue tetracycline/Flagyl/bismuth/PPI regimen
-last dose for treatment of 05/03
Probable UTI (dysuria urgency and frequency as well as urinary incontinence)
Checked urinalysis--> urinalysis with microscopic hematuria, few urine bacteria, only 6-10 WBC and no nitrite and trace leukocyte esterase
Not entirely convincing for UTI, but with abnormal UA and urinary symptoms we will start her on IV ceftriaxone and follow-up urine culture. Alternative explanation could be interstitial cystitis.
Plan to finish 3 days course of IV antibiotics only. Stop antibiotics today.
Mild hyperkalemia
Resolved with IV hydration
Left foot toe osteomyelitis
-confirmed on foot x-ray
-LLE wound culture with MRSA
-Blood culture NGTD
-MRI LLE shows osteomyelitis of first proximal phalanx and metatarsal (appreciate surgical podiatry-not convinced)
-appreciate ID Consult and to be maintained on tetracycline till definitive surgery plan
Severe acute microcytic anemia
GI bleed
-Hgb 3.0 on previous admission, most likely iron deficiency anemia from chronic GI bleeding given Hx of Hgb 10.9 in 11/2023. Her cousin reported intermittent rectal bleeding, however no overt GI bleeding on CTA
-S/p 5U PRBC last week.
-EGD with no evidence for cause of bleeding but H. Pylori positive and aubree incidentally found and was on nystatin, on micafungin, fluconazole and completed course.
-colonoscopy biopsies with tubular adenoma, sessile serrated lesion, hyperplastic polyp
-Patient complaining back stool, hbg stable, not on iron supplements
-EGD/scope didn't show bleeding source, small bowel AVM?
-GI plan resection large polyp as OP.
-Hemoglobin stable--> hemoglobin on 04/26 was 10
Chronic pain on methadone
-PDMP reviewed/discussed with patient primary pain specialist by previous physicians
-Discussed with Dr Ermias Ball last week, patient has failed to f/u regularly, dr ball has been trying to wean patient off of methadone
-Discontinuing methadone completely at this point. continue monitoring.
Acute toxic metabolic encephalopathy with hallucinations
-Patient encephalopathy has been resolved
-On Zyprexa 5 mg HS
CKD 3A
Metabolic acidosis
-Baseline renal function unknown
-ct stable around 1.4
-On 04/25 creatinine 1.6--> on 04/26 creatinine 1.3
-Gentle IV fluid can be stopped and encourage oral intake
History of suicidal ideation
-Patient in January 05, 2024 billy Diaz and was admitted to [facility] in [place]
-no current suicidal ideation this visit, now off 1:1 but on medsitter
-Psyc f/u appreciated
Insomnia
Patient on melatonin, Zyprexa, and trazodone now-defer to psych as to any other medication changes in this regard.
h/o spina bifida
h/o right BKA
Elevated blood pressure -unclear if she has baseline essential hypertension. Last reading 160/103. Can start low-dose amlodipine, monitor closely.
Full code
Dispo -stable for discharge to SNF when bed available. Case management aware.
Left voicemail for patient's brother Gage to call me back, at the request of the patient. He is located in [place].
Anticipated Discharge: Within 24 hours
Subjective/Interval History
-
Date of Service: May 01, 2024
Patient seen and examined. No complaints.
Objective Data
-
Vital Signs:
Vital Signs
Temp Pulse Resp BP Pulse Ox
97.3 F 95 18 150/89 100
05/01/24 07:49 05/01/24 08:51 05/01/24 07:49 05/01/24 08:51 05/01/24 07:49
I&O
04/30/24 05/01/24 05/02/24
06:59 06:59 06:59
Intake Total 2880 / 2880 1120 / 1120
Balance 2880 / 2880 1120 / 1120
Review of Systems
-
History Source: Patient
All other systems: Reviewed and negative
[2024-05-01] MEDS: [UNRECOGNIZED DRUG - OTHER] 500 MG PO ×3 (11:56→21:29)
--- NOTE | 2024-05-01 12:02 | W.PN.UPDATE ---
Update Note
Progress Note Update
patient seen chart reviewed. ms hairston continues to do reasonably well. she told me today she really feels the zyprexa has evened out her mood and made her less anxious. the improvement since admit is significant in my opinion. she is very
pleasant and seems relatively contented. she is busying herself reading/tv. appetite is quite good she has gained some weight. no changes made in meds. continue to await resolution of disposition.
--- NOTE | 2024-05-01 13:35 | CM ---
Spoke via phone (# [phone]) to Asha @ [facility]; level 2 determination is still pending.
Provided [facility] Fax # to Asha who stated she would fax the Level 2 when she receives it
Asha phone number:
Office [phone]
[2024-05-01 14:39] VITALS: BP 131/80
[2024-05-01 14:49] VITALS: BP 131/80; PULSE 96; O2SAT 100
[2024-05-01] MEDS: LOVENOX 30 MG SC (17:55)
[2024-05-01] MEDS: ZYPREXA 5 MG PO (21:30)
[2024-05-01] MEDS: NEURONTIN 100 MG PO (21:30)
[2024-05-01] MEDS: DESYREL 50 MG PO (21:30)
[2024-05-01] MEDS: MELATONIN 5 MG PO (21:30)
[2024-05-01 23:35] VITALS: BP 131/85
[2024-05-01] MEDS: PEPTO-BISMOL PO (23:35)
[2024-05-02] MEDS: [UNRECOGNIZED DRUG - OTHER] 500 MG PO ×4 (00:37→23:53)
[2024-05-02] MEDS: PEPTO-BISMOL PO (00:37)
[2024-05-02] MEDS: ULTRAM 50 MG PO ×3 (03:16→20:38)
[2024-05-02 07:10] VITALS: BP 150/91
[2024-05-02] MEDS: PROTONIX 40 MG PO ×2 (08:36→20:36)
[2024-05-02] MEDS: PEPTO-BISMOL 2 TABLET PO ×4 (08:36→20:42)
[2024-05-02] MEDS: FLAGYL 500 MG PO ×3 (08:36→23:53)
[2024-05-02] MEDS: SODIUM BICARBONATE 650 MG PO ×2 (08:36→20:36)
[2024-05-02] MEDS: NORVASC 2.5 MG PO (08:36)
--- NOTE | 2024-05-02 11:11 | CM ---
[facility] will accept once level 2 completed.
Patient will need insurance auth.
Plan: skilled rehab once level 2 determination and insurance auth obtained.
--- NOTE | 2024-05-02 12:56 | W.PN.HOSP.TC ---
Today's Communication/Plan
-
Discharge planning
Assessment / Plan
Assessment / Plan
Physical exam:
General: Well Developed, Well Nourished and No Apparent Distress
HEENT: Normocephalic, Atraumatic and Moist Mucous Membranes
Respiratory: Clear to Auscultation; Negative Wheezes, Rales or Rhonchi
Cardiac: Regular Rhythm and S1/S2
GI: Soft, Nontender and Nondistended
Musculoskeletal: R BKA. No Clubbing, No Cyanosis and No Edema
Neuro: Awake, Alert and Oriented
Psych: Calm
H Pylori infection
-Continue tetracycline/Flagyl/bismuth/PPI regimen
-last dose for treatment of 05/03
Probable UTI (dysuria urgency and frequency as well as urinary incontinence)
Checked urinalysis--> urinalysis with microscopic hematuria, few urine bacteria, only 6-10 WBC and no nitrite and trace leukocyte esterase
Not entirely convincing for UTI, but with abnormal UA and urinary symptoms we will start her on IV ceftriaxone and follow-up urine culture. Alternative explanation could be interstitial cystitis.
Completed course of antibiotics.
Mild hyperkalemia
Resolved with IV hydration
Left foot toe osteomyelitis
-confirmed on foot x-ray
-LLE wound culture with MRSA
-Blood culture NGTD
-MRI LLE shows osteomyelitis of first proximal phalanx and metatarsal (appreciate surgical podiatry-not convinced)
-appreciate ID Consult and to be maintained on tetracycline till definitive surgery plan
Severe acute microcytic anemia
GI bleed
-Hgb 3.0 on previous admission, most likely iron deficiency anemia from chronic GI bleeding given Hx of Hgb 10.9 in 11/2023. Her cousin reported intermittent rectal bleeding, however no overt GI bleeding on CTA
-S/p 5U PRBC last week.
-EGD with no evidence for cause of bleeding but H. Pylori positive and aubree incidentally found and was on nystatin, on micafungin, fluconazole and completed course.
-colonoscopy biopsies with tubular adenoma, sessile serrated lesion, hyperplastic polyp
-Patient complaining back stool, hbg stable, not on iron supplements
-EGD/scope didn't show bleeding source, small bowel AVM?
-GI plan resection large polyp as OP.
-Hemoglobin stable--> hemoglobin on 04/26 was 10
Chronic pain on methadone
-PDMP reviewed/discussed with patient primary pain specialist by previous physicians
-Discussed with Dr Ermias Ball last week, patient has failed to f/u regularly, dr ball has been trying to wean patient off of methadone
-Discontinuing methadone completely at this point. continue monitoring.
Acute toxic metabolic encephalopathy with hallucinations
-Patient encephalopathy has been resolved
-On Zyprexa 5 mg HS
CKD 3A
Metabolic acidosis
-Baseline renal function unknown
-ct stable around 1.4
-On 04/25 creatinine 1.6--> on 04/26 creatinine 1.3
-Gentle IV fluid can be stopped and encourage oral intake
History of suicidal ideation
-Patient in January 05, 2024 drchucho Diaz and was admitted to [facility] in [place]
-no current suicidal ideation this visit, now off 1:1 but on medsitter
-Psyc f/u appreciated
Insomnia
Patient on melatonin, Zyprexa, and trazodone now-defer to psych as to any other medication changes in this regard.
h/o spina bifida
h/o right BKA
Elevated blood pressure -unclear if she has baseline essential hypertension. Last reading 160/103. Can start low-dose amlodipine, monitor closely.
Full code
Dispo -stable for discharge to SNF when bed available. Case management aware.
Left voicemail for patient's brother Gage to call me back, at the request of the patient. He is located in [place].
Anticipated Discharge: Within 24 hours
Subjective/Interval History
-
Date of Service: May 02, 2024
Patient seen and examined. Complaining of insomnia again.
Objective Data
-
Vital Signs:
Vital Signs
Temp Pulse Resp BP Pulse Ox
97.7 F 88 16 150/91 100
05/02/24 07:10 05/02/24 07:10 05/02/24 07:10 05/02/24 07:10 05/02/24 07:10
I&O
05/01/24 05/02/24 05/03/24
06:59 06:59 06:59
Intake Total 1120 / 1120 960 / 960
Balance 1120 / 1120 960 / 960
Review of Systems
-
History Source: Patient
All other systems: Reviewed and negative
--- NOTE | 2024-05-02 13:38 | W.PN.UPDATE ---
Update Note
Progress Note Update
patient seen chart reviewed. spoke with cm and with nsg. patient continues to be very positive. she is keeping busy. she did c/o that she did not sleep well last night. will increase trazodone. she also complains that her hair is seeming to fall
out. will order multivit and zinc for now. she asked to know exactly what meds she takes will bring her a list tomorrow and we will go over them.
[2024-05-02 15:05] VITALS: BP 142/86
[2024-05-02] MEDS: LOVENOX 30 MG SC (18:46)
[2024-05-02] MEDS: DESYREL 50 MG PO (20:41)
[2024-05-02] MEDS: NEURONTIN 100 MG PO (20:42)
[2024-05-02] MEDS: ZYPREXA 5 MG PO (20:43)
[2024-05-02] MEDS: MELATONIN 5 MG PO (20:43)
[2024-05-02] MEDS: [UNRECOGNIZED DRUG - OTHER] PO (21:00)
[2024-05-02 23:15] VITALS: BP 130/92
[2024-05-03] MEDS: TYLENOL 650 MG PO ×2 (04:59→22:28)
[2024-05-03] MEDS: ULTRAM 50 MG PO ×4 (05:00→23:53)
[2024-05-03 07:14] LABS: Glucose - Point of Care 97 mg/dl (70-99)
[2024-05-03 07:42] VITALS: BP 149/84
[2024-05-03] MEDS: NORVASC 2.5 MG PO (08:26)
[2024-05-03] MEDS: PEPTO-BISMOL 2 TABLET PO ×2 (08:26→15:59)
[2024-05-03] MEDS: SODIUM BICARBONATE 650 MG PO ×2 (08:26→20:09)
[2024-05-03] MEDS: PROTONIX 40 MG PO ×2 (08:26→20:08)
[2024-05-03] MEDS: THERAGRAN 1 TABLET PO (08:27)
[2024-05-03] MEDS: FLAGYL 500 MG PO ×3 (08:27→23:53)
--- NOTE | 2024-05-03 09:26 | W.PN.HOSP.TC ---
Addendum entered and electronically signed by Donal Mulligan DO 05/03/24 13:47:
I spoke with podiatry service and plan for operative intervention on SundayMay 06.
Podiatry has ordered left ankle MRI.
Original Note:
Today's Communication/Plan
-
Doppler ultrasound left lower extremity
Assessment / Plan
Assessment / Plan
Physical exam:
General: Well Developed, Well Nourished and No Apparent Distress
HEENT: Normocephalic, Atraumatic and Moist Mucous Membranes
Respiratory: Clear to Auscultation; Negative Wheezes, Rales or Rhonchi
Cardiac: Regular Rhythm and S1/S2
GI: Soft, Nontender and Nondistended
Musculoskeletal: R BKA. Left lower extremity edema noted, mild bleeding from left plantar wound
Neuro: Awake, Alert and Oriented
Psych: Calm
Left lower extremity edema -check Doppler ultrasound, rule out DVT.
H Pylori infection
-Continue tetracycline/Flagyl/bismuth/PPI regimen
-last dose for treatment of 05/03
Probable UTI (dysuria urgency and frequency as well as urinary incontinence)
Checked urinalysis--> urinalysis with microscopic hematuria, few urine bacteria, only 6-10 WBC and no nitrite and trace leukocyte esterase
Not entirely convincing for UTI, but with abnormal UA and urinary symptoms we will start her on IV ceftriaxone and follow-up urine culture. Alternative explanation could be interstitial cystitis.
Completed course of antibiotics.
Mild hyperkalemia
Resolved with IV hydration
Left foot toe osteomyelitis
-confirmed on foot x-ray
-LLE wound culture with MRSA
-Blood culture NGTD
-MRI LLE shows osteomyelitis of first proximal phalanx and metatarsal (appreciate surgical podiatry-not convinced)
-appreciate ID Consult and to be maintained on tetracycline till definitive surgery plan. Will try to [place] text Dr. Eduardo Hogan for follow-up recommendation.
Severe acute microcytic anemia
GI bleed
-Hgb 3.0 on previous admission, most likely iron deficiency anemia from chronic GI bleeding given Hx of Hgb 10.9 in 11/2023. Her cousin reported intermittent rectal bleeding, however no overt GI bleeding on CTA
-S/p 5U PRBC last week.
-EGD with no evidence for cause of bleeding but H. Pylori positive and aubree incidentally found and was on nystatin, on micafungin, fluconazole and completed course.
-colonoscopy biopsies with tubular adenoma, sessile serrated lesion, hyperplastic polyp
-Patient complaining back stool, hbg stable, not on iron supplements
-EGD/scope didn't show bleeding source, small bowel AVM?
-GI plan resection large polyp as OP.
-Hemoglobin stable--> hemoglobin on 04/26 was 10
Chronic pain on methadone
-PDMP reviewed/discussed with patient primary pain specialist by previous physicians
-Discussed with Dr Ermias Ball last week, patient has failed to f/u regularly, dr ball has been trying to wean patient off of methadone
-Discontinuing methadone completely at this point. continue monitoring.
Acute toxic metabolic encephalopathy with hallucinations
-Patient encephalopathy has been resolved
-On Zyprexa 5 mg HS
CKD 3A
Metabolic acidosis
-Baseline renal function unknown
-ct stable around 1.4
-On 04/25 creatinine 1.6--> on 04/26 creatinine 1.3
-Gentle IV fluid can be stopped and encourage oral intake
History of suicidal ideation
-Patient in January 05, 2024 drchucho Diaz and was admitted to [facility] in [place]
-no current suicidal ideation this visit, now off 1:1 but on medsitter
-Psyc f/u appreciated
Insomnia
Patient on melatonin, Zyprexa, and trazodone now-defer to psych as to any other medication changes in this regard.
Increase dose of gabapentin to help with insomnia.
h/o spina bifida
h/o right BKA
Elevated blood pressure -unclear if she has baseline essential hypertension. Last reading 160/103. Can start low-dose amlodipine, monitor closely.
Full code
Dispo -stable for discharge to SNF when bed available. Case management aware.
Left voicemail for patient's brother Gage to call me back, at the request of the patient. He is located in [place]. So far no callback.
Anticipated Discharge: > 48 hours
Subjective/Interval History
-
Date of Service: May 03, 2024
Patient seen and examined. Complaining of left lower extremity swelling. Bleeding from left plantar wound.
Objective Data
-
Vital Signs:
Vital Signs
Temp Pulse Resp BP Pulse Ox
97.7 F 84 18 149/84 99
05/03/24 07:42 05/03/24 07:42 05/03/24 07:42 05/03/24 08:26 05/03/24 07:42
I&O
05/02/24 05/03/24 05/04/24
06:59 06:59 06:59
Intake Total 960 / 960 120 / 120
Balance 960 / 960 120 / 120
Review of Systems
-
History Source: Patient
All other systems: Reviewed and negative
Data Reviewed
-
Diagnostic Radiology: Report Reviewed by me
[2024-05-03] MEDS: [UNRECOGNIZED DRUG - OTHER] 500 MG PO ×4 (11:10→23:56)
--- NOTE | 2024-05-03 11:24 | W.PN.UPDATE ---
Update Note
Progress Note Update
Patient initially seen by Dr. Giles on 04/07/2024. At that point was not medically stable for surgery.
MRI of the left foot at that time demonstrated osteomyelitis.
Ultimately, patient left AMA then ended up being readmitted for placement in rehab.
Has been off of IV antibiotics and taking Tetracycline daily per previous ID recommendations.
About 2 days ago, she reports experiencing increased pain in her left foot, increased swelling, and pain/lack of ROM in her ankle.
On exam, there is an ulcer about the 1st metatarsal head with sanguinous drainage. No purulent drainage or significant surrounding erythema. Mild diffuse swelling of ankle and lower leg with mild associated warmth and tenderness. ROM ankle limited
secondary to pain.
Case discussed with Dr. Giles.
At this point, she will likely benefit from surgical intervention to definitively treat her osteomyelitis of her left foot.
Repeat foot x-rays ordered. Ordered left ankle x-rays and MRI as well due to increased pain and swelling in her left ankle more recently.
Patient expresses wish to salvage as much of left limb as possible. Could consider left first metatarsal head resection on Sunday with Dr. Giles. Will provide further/definitive recommendations once the imaging has been completed.
--- NOTE | 2024-05-03 12:29 | W.PN.UPDATE ---
Update Note
Progress Note Update
patient seen chart reviewed. discussed w dr sandhu. the patient will be having surgical rx of her foot on sunday. ms rendon remains in good spirits. she asked for a list of her medications and this was provided for her although w explanations as
to what each of the medications is for. she is hoping the surgery will prevent further degradation of the foot she has left. she is keeping herself busy with movies reading and making plans for her future. she would like a new prosthesis as she
recognizes the one she has is over 25 years old and is not close to state of the art. she has some numbers from to call to help fund this as her copay is significant. she asks if she can take hs meds at 9pm and commented as we discussed her meds
that the pepto at hs delays sleep meds. we discussed eliminating the last dose of pepto and ordering zyprexa trazodone and melatonin at 9pm. will continue to follow
[2024-05-03 15:06] VITALS: BP 155/95
[2024-05-03] MEDS: LOVENOX 30 MG SC (17:46)
[2024-05-03] MEDS: ZYPREXA 5 MG PO (20:09)
[2024-05-03] MEDS: DESYREL 50 MG PO (20:09)
[2024-05-03] MEDS: MELATONIN 5 MG PO (20:09)
[2024-05-03] MEDS: NEURONTIN 200 MG PO (20:09)
[2024-05-03 23:17] VITALS: BP 144/98
[2024-05-04] MEDS: TYLENOL 650 MG PO ×3 (02:32→23:34)
[2024-05-04 07:25] VITALS: BP 116/74
[2024-05-04] MEDS: PROTONIX 40 MG PO ×2 (08:00→21:32)
[2024-05-04] MEDS: PEPTO-BISMOL 2 TABLET PO (08:00)
[2024-05-04] MEDS: SODIUM BICARBONATE 650 MG PO ×2 (08:01→21:32)
[2024-05-04] MEDS: THERAGRAN 1 TABLET PO (08:01)
[2024-05-04] MEDS: FLAGYL 500 MG PO (08:01)
[2024-05-04] MEDS: NORVASC 2.5 MG PO (08:01)
[2024-05-04] MEDS: ULTRAM 50 MG PO ×3 (08:03→23:35)
--- NOTE | 2024-05-04 09:10 | W.PN.UPDATE ---
Update Note
Progress Note Update
Patient being wheeled down to MRI upon my arrival.
Reports pain has continued to increase and is making it difficult for her to sleep at night.
Swelling remains stable. No significant erythema of LLE.
X-rays of foot show stable appearance of previously noted osteomyelitis left 1st metatarsal head.
X-rays of left ankle shows no acute abnormalities.
Will await MRI of left ankle for definitive recommendations, but patient will require at minimum left foot 1st metatarsal head resection.
Will continue to follow.
[2024-05-04] MEDS: [UNRECOGNIZED DRUG - OTHER] 500 MG PO ×4 (10:56→23:34)
--- NOTE | 2024-05-04 11:39 | W.PN.HOSP.TC ---
Today's Communication/Plan
-
Increase gabapentin
Assessment / Plan
Assessment / Plan
Physical exam:
General: Well Developed, Well Nourished and No Apparent Distress
HEENT: Normocephalic, Atraumatic and Moist Mucous Membranes
Respiratory: Clear to Auscultation; Negative Wheezes, Rales or Rhonchi
Cardiac: Regular Rhythm and S1/S2
GI: Soft, Nontender and Nondistended
Musculoskeletal: R BKA. Left lower extremity edema noted, mild bleeding from left plantar wound
Neuro: Awake, Alert and Oriented
Psych: Calm
Left lower extremity edema -Doppler ultrasound negative for DVT. Keep elevated.
H Pylori infection -completed quadruple therapy, end date was May 03. Needs retesting for H. pylori as an outpatient.
Probable UTI (dysuria urgency and frequency as well as urinary incontinence)
Checked urinalysis--> urinalysis with microscopic hematuria, few urine bacteria, only 6-10 WBC and no nitrite and trace leukocyte esterase
Not entirely convincing for UTI, but with abnormal UA and urinary symptoms we will start her on IV ceftriaxone and follow-up urine culture. Alternative explanation could be interstitial cystitis.
Completed course of antibiotics.
Mild hyperkalemia-resolved.
Left foot toe osteomyelitis -left first metatarsal head osteomyelitis.
-confirmed on foot x-ray
-LLE wound culture with MRSA
-Blood culture NGTD
-MRI LLE shows osteomyelitis of first proximal phalanx and metatarsal (appreciate surgical podiatry-not convinced)
-appreciate ID Consult and to be maintained on tetracycline till definitive surgery plan.
-Dr. Giles from podiatry consulted and plans for operative intervention on May 06. Ankle MRI ordered. Procedure will be minimum of left foot first metatarsal head resection as per podiatry.
Severe acute microcytic anemia
GI bleed
-Hgb 3.0 on previous admission, most likely iron deficiency anemia from chronic GI bleeding given Hx of Hgb 10.9 in 11/2023. Her cousin reported intermittent rectal bleeding, however no overt GI bleeding on CTA
-S/p 5U PRBC last week.
-EGD with no evidence for cause of bleeding but H. Pylori positive and aubree incidentally found and was on nystatin, on micafungin, fluconazole and completed course.
-colonoscopy biopsies with tubular adenoma, sessile serrated lesion, hyperplastic polyp
-Patient complaining back stool, hbg stable, not on iron supplements
-EGD/scope didn't show bleeding source, small bowel AVM?
-GI plan resection large polyp as OP.
-Hemoglobin stable--> hemoglobin on 04/26 was 10
Chronic pain on methadone
-PDMP reviewed/discussed with patient primary pain specialist by previous physicians
-Discussed with Dr Ermias Ball last week, patient has failed to f/u regularly, dr ball has been trying to wean patient off of methadone
-Methadone discontinued.
Acute toxic metabolic encephalopathy with hallucinations
-Patient encephalopathy has been resolved
-On Zyprexa 5 mg HS and as needed.
CKD 3b
Metabolic acidosis
-Baseline renal function unknown
-ct stable around 1.4
-On 04/25 creatinine 1.6--> on 04/26 creatinine 1.3
-Gentle IV fluid can be stopped and encourage oral intake
History of suicidal ideation
-Patient in January 05, 2024 drank [place] and was admitted to [facility] in [place]
-no current suicidal ideation this visit, now off 1:1 but on medsitter
-Psyc f/u appreciated
Insomnia
Patient on melatonin, Zyprexa, and trazodone now-defer to psych as to any other medication changes in this regard.
Increase dose of gabapentin to 300 mg at bedtime to help with insomnia.
h/o spina bifida
h/o right BKA
Essential hypertension -suspected diagnosis. Not on blood pressure meds prior to admission. Continue amlodipine.
Full code
Dispo -will need SNF when stable after podiatric surgery.
Left voicemail for patient's brother Gage to call me back, at the request of the patient. He is located in [place]. So far no callback.
Anticipated Discharge: > 48 hours
Subjective/Interval History
-
Date of Service: May 04, 2024
Patient seen and examined. Complaining of insomnia.
Objective Data
-
Vital Signs:
Vital Signs
Temp Pulse Resp BP Pulse Ox
97.5 F 100 16 116/74 100
05/04/24 07:25 05/04/24 07:25 05/04/24 07:25 05/04/24 07:25 05/04/24 07:25
I&O
05/03/24 05/04/24 05/05/24
06:59 06:59 06:59
Intake Total 120 / 120 1370 / 1370
Balance 120 / 120 1370 / 1370
Review of Systems
-
History Source: Patient
All other systems: Reviewed and negative
[2024-05-04 15:10] VITALS: BP 143/74
[2024-05-04] MEDS: LOVENOX 30 MG SC (17:52)
[2024-05-04] MEDS: NEURONTIN 300 MG PO (21:32)
[2024-05-04] MEDS: MELATONIN 5 MG PO (21:33)
[2024-05-04] MEDS: DESYREL 50 MG PO (21:33)
[2024-05-04] MEDS: ZYPREXA 5 MG PO (21:33)
[2024-05-04 23:27] VITALS: BP 118/71
[2024-05-05 07:35] VITALS: BP 141/81
[2024-05-05] MEDS: NORVASC 2.5 MG PO (10:05)
[2024-05-05] MEDS: THERAGRAN 1 TABLET PO (10:05)
[2024-05-05] MEDS: SODIUM BICARBONATE 650 MG PO ×2 (10:05→20:30)
[2024-05-05] MEDS: PROTONIX 40 MG PO ×2 (10:05→20:30)
[2024-05-05] MEDS: ULTRAM 50 MG PO ×2 (10:08→17:10)
--- NOTE | 2024-05-05 10:19 | W.PN.UPDATE ---
Update Note
Progress Note Update
Patient heading to MRI for Left ankle. patient with left first metatarsal osteomyelitis. Plan for first metatarsal head resection via Dr. Giles on Sunday. Need to review ankle MRI first before proceeding. Will follow
[2024-05-05] MEDS: [UNRECOGNIZED DRUG - OTHER] 500 MG PO ×2 (11:25→15:57)
--- NOTE | 2024-05-05 14:25 | CM ---
Addendum entered by Frances Flores 05/05/24 15:12:
Fax not going thru, new fax# [phone].
Original Note:
Level 2 determination received.
Patient has been determined to be eligible or the level of services provided by nursing facility.
Determination good for 180 days.
Copy faxed to [facility] [phone], scanned to chart and copy placed on patients chart.
Plan for OR tomorrow.
Patient will require insurance auth once medically stable for d/c.
Plan: [facility] once medically stable and auth received.
Sherry [facility] NPI# [id number]
Dr Jimenez NPI# [id number]
[2024-05-05 14:30] VITALS: BP 145/73
--- NOTE | 2024-05-05 15:56 | W.PN.HOSP.TC ---
Today's Communication/Plan
-
mri
cont tetracycline
podiatry recs
Assessment / Plan
Assessment / Plan
Physical exam:
General: Well Developed, Well Nourished and No Apparent Distress
HEENT: Normocephalic, Atraumatic and Moist Mucous Membranes
Respiratory: Clear to Auscultation; Negative Wheezes, Rales or Rhonchi
Cardiac: Regular Rhythm and S1/S2
GI: Soft, Nontender and Nondistended
Musculoskeletal: R BKA. Left lower extremity edema noted, mild bleeding from left plantar wound
Neuro: Awake, Alert and Oriented
Psych: Calm
Left lower extremity edema -Doppler ultrasound negative for DVT. Keep elevated.
H Pylori infection -completed quadruple therapy, end date was May 03. Needs retesting for H. pylori as an outpatient.
Probable UTI (dysuria urgency and frequency as well as urinary incontinence)
Checked urinalysis--> urinalysis with microscopic hematuria, few urine bacteria, only 6-10 WBC and no nitrite and trace leukocyte esterase
Not entirely convincing for UTI, but with abnormal UA and urinary symptoms we will start her on IV ceftriaxone and follow-up urine culture. Alternative explanation could be interstitial cystitis.
Completed course of antibiotics.
Mild hyperkalemia-resolved.
Left foot toe osteomyelitis -left first metatarsal head osteomyelitis.
-confirmed on foot x-ray
-LLE wound culture with MRSA
-Blood culture NGTD
-MRI LLE shows osteomyelitis of first proximal phalanx and metatarsal (appreciate surgical podiatry-not convinced)
-appreciate ID Consult and to be maintained on tetracycline till definitive surgery plan.
-Dr. Giles from podiatry consulted and plans for operative intervention on Sunday, May 06. Ankle MRI ordered. Procedure will be minimum of left foot first metatarsal head resection as per podiatry.
Severe acute microcytic anemia
GI bleed
-Hgb 3.0 on previous admission, most likely iron deficiency anemia from chronic GI bleeding given Hx of Hgb 10.9 in 11/2023. Her cousin reported intermittent rectal bleeding, however no overt GI bleeding on CTA
-S/p 5U PRBC last week.
-EGD with no evidence for cause of bleeding but H. Pylori positive and aubree incidentally found and was on nystatin, on micafungin, fluconazole and completed course.
-colonoscopy biopsies with tubular adenoma, sessile serrated lesion, hyperplastic polyp
-Patient complaining back stool, hbg stable, not on iron supplements
-EGD/scope didn't show bleeding source, small bowel AVM?
-GI plan resection large polyp as OP.
-Hemoglobin stable--> hemoglobin on 04/26 was 10
Chronic pain on methadone
-PDMP reviewed/discussed with patient primary pain specialist by previous physicians
-Discussed with Dr Ermias Ball last week, patient has failed to f/u regularly, dr ball has been trying to wean patient off of methadone
-Methadone discontinued.
Acute toxic metabolic encephalopathy with hallucinations
-Patient encephalopathy has been resolved
-On Zyprexa 5 mg HS and as needed.
CKD 3b
Metabolic acidosis
-Baseline renal function unknown
-ct stable around 1.4
-On 04/25 creatinine 1.6--> on 04/26 creatinine 1.3
-Gentle IV fluid can be stopped and encourage oral intake
History of suicidal ideation
-Patient in January 05, 2024 billy Diaz and was admitted to [facility] in [place]
-no current suicidal ideation this visit, now off 1:1 but on medsitter
-Psyc f/u appreciated
Insomnia
Patient on melatonin, Zyprexa, and trazodone now-defer to psych as to any other medication changes in this regard.
Increase dose of gabapentin to 300 mg at bedtime to help with insomnia.
h/o spina bifida
h/o right BKA
Essential hypertension -suspected diagnosis. Not on blood pressure meds prior to admission. Continue amlodipine.
Full code
Dispo -will need SNF when stable after podiatric surgery.
Anticipated Discharge: Within 24 hours
Subjective/Interval History
-
Date of Service: May 05, 2024
no acute events
Objective Data
-
Vital Signs:
Vital Signs
Temp Pulse Resp BP Pulse Ox
98.0 F 102 19 145/73 98
05/05/24 14:30 05/05/24 14:30 05/05/24 14:30 05/05/24 14:30 05/05/24 14:30
I&O
05/04/24 05/05/24 05/06/24
06:59 06:59 06:59
Intake Total 1370 / 1370 600 / 600
Balance 1370 / 1370 600 / 600
Review of Systems
-
History Source: Patient
All other systems: Not reviewed unless documented
Physical Exam
-
General: No Apparent Distress and Comfortable
HEENT: Negative Oxygen
Respiratory: Clear to Auscultation
Cardiac: Regular Rhythm and S1/S2; Negative Irregular Rhythm or Murmur
GI: Soft, Nontender and Nondistended
Musculoskeletal: Other (Right BKA)
Neuro: Awake, Alert, Oriented and Nonfocal/Grossly Intact
Psych: Calm
Data Reviewed
-
Diagnostic Radiology: Report Reviewed by me
[2024-05-05] MEDS: FLAGYL 500 MG PO ×2 (15:57→23:51)
[2024-05-05] MEDS: LOVENOX 30 MG SC (17:09)
[2024-05-05] MEDS: PEPTO-BISMOL 2 TABLET PO (17:11)
[2024-05-05] MEDS: DESYREL 50 MG PO (21:04)
[2024-05-05] MEDS: MELATONIN 5 MG PO (21:04)
[2024-05-05] MEDS: NEURONTIN 300 MG PO (21:04)
[2024-05-05] MEDS: ZYPREXA 5 MG PO (21:04)
[2024-05-05 23:02] VITALS: BP 117/80
[2024-05-06] VITALS (11 sets, daily range): BP systolic 102–165; BP diastolic 64–89
[2024-05-06] MEDS: ULTRAM 50 MG PO ×3 (04:09→21:52)
--- NOTE | 2024-05-06 06:30 | W.PN.UPDATE ---
Update Note
Progress Note Update
Patient seen and evaluated by orthopedic surgery this morning. Plan to proceed to the OR today under the direction of Dr. Giles for LEFT 1st metatarsophalangeal joint resection vs. partial first ray amputation. Patient to remain NPO. Orders
placed. Consent obtained and placed in patient's chart. Left foot marked as correct surgical extremity. Orthopedic surgery/podiatry will continue to follow along. Please hold Lovenox in preparation for OR today.
[2024-05-06] MEDS: PROTONIX 40 MG PO ×2 (07:42→19:53)
[2024-05-06] MEDS: PEPTO-BISMOL 2 TABLET PO ×2 (07:42→12:44)
[2024-05-06] MEDS: FLAGYL 500 MG PO (07:42)
[2024-05-06] MEDS: NORVASC 2.5 MG PO (07:42)
[2024-05-06] MEDS: SODIUM BICARBONATE 650 MG PO ×2 (07:43→19:53)
[2024-05-06] MEDS: THERAGRAN 1 TABLET PO (07:43)
[2024-05-06 08:09] LABS: Hematocrit 33.9 % (37.0-47.0); Hemoglobin 10.8 g/dL (12.0-16.0); Mean Corp Hgb Conc. 31.9 g/dL (33.0-37.0); Mean Corpuscular Hgb 26.9 pg (27.0-31.0); Mean Corpuscular Volume 84.3 fL (81.0-99.0); Mean Platelet Volume 9.1 fL (7.4-10.4); Platelet Count 272 10^3/uL (130-400); Red Blood Cell Count 4.02 10^6/uL (4.20-5.40); Red Cell Dist. Width 23.2 % (11.5-14.5); White Blood Cell Count 6.2 10^3/uL (4.8-10.8)
[2024-05-06 08:56] LABS: Blood Urea Nitrogen 61 mg/dl (7-17); Calcium 9.8 mg/dl (8.4-10.2); Carbon Dioxide 25 mmol/L (22-30); Chloride 107 mmol/L (98-107); Estimated Creatinine Clearance 18 ml/min; Glucose 87 mg/dl (70-99); Potassium 4.7 mmol/L (3.5-5.1); Sodium 139 mmol/L (135-145); eGFR 33.84
[2024-05-06] MEDS: [UNRECOGNIZED DRUG - OTHER] 500 MG PO ×2 (12:46→19:54)
--- NOTE | 2024-05-06 14:20 | W.PN.HOSP.TC ---
Today's Communication/Plan
-
OR today
cont abx
Assessment / Plan
Assessment / Plan
Physical exam:
General: Well Developed, Well Nourished and No Apparent Distress
HEENT: Normocephalic, Atraumatic and Moist Mucous Membranes
Respiratory: Clear to Auscultation; Negative Wheezes, Rales or Rhonchi
Cardiac: Regular Rhythm and S1/S2
GI: Soft, Nontender and Nondistended
Musculoskeletal: R BKA. Left lower extremity edema noted, mild bleeding from left plantar wound
Neuro: Awake, Alert and Oriented
Psych: Calm
Left lower extremity edema -Doppler ultrasound negative for DVT. Keep elevated.
H Pylori infection -completed quadruple therapy, end date was May 03. Needs retesting for H. pylori as an outpatient.
Probable UTI (dysuria urgency and frequency as well as urinary incontinence)
Checked urinalysis--> urinalysis with microscopic hematuria, few urine bacteria, only 6-10 WBC and no nitrite and trace leukocyte esterase
Not entirely convincing for UTI, but with abnormal UA and urinary symptoms we will start her on IV ceftriaxone and follow-up urine culture. Alternative explanation could be interstitial cystitis.
Completed course of antibiotics.
Mild hyperkalemia-resolved.
Left foot toe osteomyelitis -left first metatarsal head osteomyelitis.
-confirmed on foot x-ray
-LLE wound culture with MRSA
-Blood culture NGTD
-MRI LLE shows osteomyelitis of first proximal phalanx and metatarsal (appreciate surgical podiatry-not convinced)
-appreciate ID Consult and to be maintained on tetracycline till definitive surgery plan.
-Dr. Giles from podiatry consulted and plans for operative intervention on Today, May 06. Procedure will be minimum of left foot first metatarsal head resection as per podiatry.
-Cont tetracycline until procedure
Severe acute microcytic anemia
GI bleed
-Hgb 3.0 on previous admission, most likely iron deficiency anemia from chronic GI bleeding given Hx of Hgb 10.9 in 11/2023. Her cousin reported intermittent rectal bleeding, however no overt GI bleeding on CTA
-S/p 5U PRBC last week.
-EGD with no evidence for cause of bleeding but H. Pylori positive and aubree incidentally found and was on nystatin, on micafungin, fluconazole and completed course.
-colonoscopy biopsies with tubular adenoma, sessile serrated lesion, hyperplastic polyp
-Patient complaining back stool, hbg stable, not on iron supplements
-EGD/scope didn't show bleeding source, small bowel AVM?
-GI plan resection large polyp as OP.
-Hemoglobin stable--> hemoglobin on 04/26 was 10
Chronic pain on methadone
-PDMP reviewed/discussed with patient primary pain specialist by previous physicians
-Discussed with Dr Ermias Ball last week, patient has failed to f/u regularly, dr ball has been trying to wean patient off of methadone
-Methadone discontinued.
Acute toxic metabolic encephalopathy with hallucinations
-Patient encephalopathy has been resolved
-On Zyprexa 5 mg HS and as needed.
CKD 3b
Metabolic acidosis
-Baseline renal function unknown
-ct stable around 1.4
-On 04/25 creatinine 1.6--> on 04/26 creatinine 1.3
-Gentle IV fluid can be stopped and encourage oral intake
History of suicidal ideation
-Patient in January 05, 2024 billy Diaz and was admitted to [facility] in [place]
-no current suicidal ideation this visit, now off 1:1 but on medsitter
-Psyc f/u appreciated
Insomnia
Patient on melatonin, Zyprexa, and trazodone now-defer to psych as to any other medication changes in this regard.
Increase dose of gabapentin to 300 mg at bedtime to help with insomnia.
h/o spina bifida
h/o right BKA
Essential hypertension -suspected diagnosis. Not on blood pressure meds prior to admission. Continue amlodipine.
Full code
Dispo -will need SNF when stable after podiatric surgery.
Anticipated Discharge: 24 - 48 hours
Subjective/Interval History
-
Date of Service: May 06, 2024
no acute events
Objective Data
-
Labs:
Laboratory Results
05/06/24
07:19
WBC 6.2
Hgb 10.8 L
Hct 33.9 L
Plt Count 272
Sodium 139
Potassium 4.7
Chloride 107
Carbon Dioxide 25
BUN 61 H
Creatinine 1.6 H
Glucose 87
Calcium 9.8
Vital Signs:
Vital Signs
Temp Pulse Resp BP Pulse Ox
97.4 F 82 19 165/89 96
05/06/24 07:30 05/06/24 07:30 05/06/24 07:30 05/06/24 07:30 05/06/24 07:45
I&O
05/05/24 05/06/24 05/07/24
06:59 06:59 06:59
Intake Total 600 / 600 1380 / 1380
Balance 600 / 600 1380 / 1380
Review of Systems
-
History Source: Patient
All other systems: Not reviewed unless documented
Physical Exam
-
General: No Apparent Distress and Comfortable
HEENT: Negative Oxygen
Respiratory: Clear to Auscultation
Cardiac: Regular Rhythm and S1/S2; Negative Irregular Rhythm or Murmur
GI: Soft, Nontender and Nondistended
Musculoskeletal: Other (Right BKA)
Neuro: Awake, Alert, Oriented and Nonfocal/Grossly Intact
Psych: Calm
Data Reviewed
-
Diagnostic Radiology: Report Reviewed by me
[2024-05-06] MEDS: PEPTO-BISMOL PO (15:05)
--- NOTE | 2024-05-06 15:37 | CM ---
CM reviewed chart, patient for OR today. Patient will need PT/OT after OR for updates notes for SNF auth. Level two received, faxed to [facility]. CM will continue to follow for all discharge planning needs.
Plan: [facility] once medically stable and auth received.
S[facility] NPI# [id number]
Dr Jimenez NPI# [id number]
[2024-05-06] MEDS: DESYREL 50 MG PO (21:47)
[2024-05-06] MEDS: NEURONTIN 300 MG PO (21:47)
[2024-05-06] MEDS: MELATONIN 5 MG PO (21:47)
[2024-05-06] MEDS: ZYPREXA 5 MG PO (21:47)
[2024-05-07] MEDS: TYLENOL 650 MG PO (01:20)
[2024-05-07] MEDS: ULTRAM 25 MG PO ×2 (01:20→15:47)
[2024-05-07 03:15] VITALS: BP 96/61
--- NOTE | 2024-05-07 03:19 | DOWNTIME ---
There was a [employer] Downtime on 05/07/2024 from 0100 to 05/07/2024 at 0255. Downtime documentation of patient's care, including medication administrations, has been reconciled in the electronic record per guidelines. Refer to the
patient's paper chart under the miscellaneous tab to see printed paper medication records and downtime forms.
[2024-05-07 07:26] VITALS: BP 144/85
[2024-05-07 07:26] LABS: Hemoglobin 11.2 g/dL (12.0-16.0); Mean Corpuscular Hgb 27.5 pg (27.0-31.0); Mean Platelet Volume 8.7 fL (7.4-10.4); Platelet Count 244 10^3/uL (130-400); Red Blood Cell Count 4.07 10^6/uL (4.20-5.40); Red Cell Dist. Width 22.8 % (11.5-14.5); White Blood Cell Count 6.7 10^3/uL (4.8-10.8)
--- NOTE | 2024-05-07 07:34 | W.PN.UPDATE ---
Update Note
Progress Note Update
Patient sitting up in chair eating breakfast. She reports that she does have some pain and throbbing in the foot. She feels the tramadol is not helping much. Elevation of the foot does help.
Directed exam of left foot reveals post op dressing in place. This is clean, dry, and intact. Wiggles toes. Cap refill <2secs
POD1 left partial first ray amputation under the direction of Dr. Giles
--Non weight bearing to the left leg. Heel weight bearing for transfers
--Pain control as needed
--Maintain dressings
--On Lovenox for DVT prophylaxis
--Upon discharge, will need home care for dressing changes every other day
--Stable for discharge from podiatry/ortho standpoint
--Case management consult for discharge planning
--Follow up outpatient 2 weeks
[2024-05-07 07:56] LABS: ALT (SGPT) 22 U/L (0-35); AST (SGOT) 28 U/L (14-36); Albumin 3.7 g/dl (3.5-5.0); Alkaline Phosphatase 97 U/L (38-126); Blood Urea Nitrogen 51 mg/dl (7-17); Calcium 9.6 mg/dl (8.4-10.2); Carbon Dioxide 27 mmol/L (22-30); Chloride 105 mmol/L (98-107); Estimated Creatinine Clearance 22 ml/min; Glucose 92 mg/dl (70-99); Potassium 4.9 mmol/L (3.5-5.1); Sodium 138 mmol/L (135-145); Total Bilirubin 0.5 mg/dl (0.2-1.3); eGFR 43.42
[2024-05-07] MEDS: ULTRAM 50 MG PO (08:30)
[2024-05-07] MEDS: PEPTO-BISMOL PO ×4 (08:30→15:40)
[2024-05-07] MEDS: SODIUM BICARBONATE 650 MG PO ×2 (08:30→19:45)
[2024-05-07] MEDS: [UNRECOGNIZED DRUG - OTHER] 500 MG PO ×2 (08:30→19:45)
[2024-05-07] MEDS: THERAGRAN 1 TABLET PO (08:31)
[2024-05-07] MEDS: PROTONIX 40 MG PO ×2 (08:31→19:45)
[2024-05-07] MEDS: NORVASC 2.5 MG PO (08:33)
--- NOTE | 2024-05-07 09:51 | W.PN.UPDATE ---
Update Note
Progress Note Update
patient seen chart reviewed. spoke with nursing. patient had surgery yesterday. she remains in a lot of pain which is keeping her up at night. have tiger texted dr villalba. patient is NOT med seeking. she is quite courageous and resilient in my
opinion. i made no changes in her psych meds at this point. offering her support and will continue to follow
[2024-05-07] MEDS: ROXICODONE 5 MG PO ×2 (11:13→19:10)
[2024-05-07 11:47] VITALS: BP 122/74
--- NOTE | 2024-05-07 13:59 | W.PN.HOSP.TC ---
Today's Communication/Plan
-
abx
dc ready
Assessment / Plan
Assessment / Plan
Physical exam:
General: Well Developed, Well Nourished and No Apparent Distress
HEENT: Normocephalic, Atraumatic and Moist Mucous Membranes
Respiratory: Clear to Auscultation; Negative Wheezes, Rales or Rhonchi
Cardiac: Regular Rhythm and S1/S2
GI: Soft, Nontender and Nondistended
Musculoskeletal: R BKA. Left lower extremity edema noted, mild bleeding from left plantar wound
Neuro: Awake, Alert and Oriented
Psych: Calm
Left lower extremity edema -Doppler ultrasound negative for DVT. Keep elevated.
H Pylori infection -completed quadruple therapy, end date was May 03. Needs retesting for H. pylori as an outpatient.
Probable UTI (dysuria urgency and frequency as well as urinary incontinence)
Checked urinalysis--> urinalysis with microscopic hematuria, few urine bacteria, only 6-10 WBC and no nitrite and trace leukocyte esterase
Not entirely convincing for UTI, but with abnormal UA and urinary symptoms we will start her on IV ceftriaxone and follow-up urine culture. Alternative explanation could be interstitial cystitis.
Completed course of antibiotics.
Mild hyperkalemia-resolved.
Left foot toe osteomyelitis -left first metatarsal head osteomyelitis.
-confirmed on foot x-ray
-LLE wound culture with MRSA
-Blood culture NGTD
-MRI LLE shows osteomyelitis of first proximal phalanx and metatarsal (appreciate surgical podiatry-not convinced)
-appreciate ID Consult and to be maintained on tetracycline till definitive surgery plan.
-left partial first ray amputation - Dr. Giles 05/06
-upon discharge, will need home care for dressing changes every other day
- two weeks of abx requested after surgery
Severe acute microcytic anemia
GI bleed
-Hgb 3.0 on previous admission, most likely iron deficiency anemia from chronic GI bleeding given Hx of Hgb 10.9 in 11/2023. Her cousin reported intermittent rectal bleeding, however no overt GI bleeding on CTA
-S/p 5U PRBC last week.
-EGD with no evidence for cause of bleeding but H. Pylori positive and aubree incidentally found and was on nystatin, on micafungin, fluconazole and completed course.
-colonoscopy biopsies with tubular adenoma, sessile serrated lesion, hyperplastic polyp
-Patient complaining back stool, hbg stable, not on iron supplements
-EGD/scope didn't show bleeding source, small bowel AVM?
-GI plan resection large polyp as OP.
-Hemoglobin stable--> hemoglobin on 04/26 was 10
Chronic pain on methadone
-PDMP reviewed/discussed with patient primary pain specialist by previous physicians
-Discussed with Dr Ermias Ball last week, patient has failed to f/u regularly, dr ball has been trying to wean patient off of methadone
-Methadone discontinued.
Acute toxic metabolic encephalopathy with hallucinations
-Patient encephalopathy has been resolved
-On Zyprexa 5 mg HS and as needed.
CKD 3b
Metabolic acidosis
-Baseline renal function unknown
-ct stable around 1.4
-On 04/25 creatinine 1.6--> on 04/26 creatinine 1.3
-Gentle IV fluid can be stopped and encourage oral intake
History of suicidal ideation
-Patient in January 05, 2024 billy Diaz and was admitted to [facility] in [place]
-no current suicidal ideation this visit, now off 1:1 but on medsitter
-Psyc f/u appreciated
Insomnia
Patient on melatonin, Zyprexa, and trazodone now-defer to psych as to any other medication changes in this regard.
Increase dose of gabapentin to 300 mg at bedtime to help with insomnia.
h/o spina bifida
h/o right BKA
Essential hypertension -suspected diagnosis. Not on blood pressure meds prior to admission. Continue amlodipine.
Full code
Dispo -SNF; DC ready
Anticipated Discharge: Within 24 hours
Subjective/Interval History
-
Date of Service: May 07, 2024
in moderate pain
Objective Data
-
Labs:
Laboratory Results
05/07/24
07:06
WBC 6.7
Hgb 11.2 L
Hct 35.0 L
Plt Count 244
Sodium 138
Potassium 4.9
Chloride 105
Carbon Dioxide 27
BUN 51 H
Creatinine 1.3 H
Glucose 92
Calcium 9.6
Total Bilirubin 0.5
AST 28
ALT 22
Alkaline Phosphatase 97
Vital Signs:
Vital Signs
Temp Pulse Resp BP Pulse Ox
98.1 F 98 16 122/74 98
05/07/24 11:47 05/07/24 11:47 05/07/24 11:47 05/07/24 11:47 05/07/24 11:47
I&O
05/06/24 05/07/24 05/08/24
06:59 06:59 06:59
Intake Total 1380 / 1380 770 / 770
Balance 1380 / 1380 770 / 770
Review of Systems
-
History Source: Patient
All other systems: Not reviewed unless documented
Physical Exam
-
General: No Apparent Distress and Comfortable
HEENT: Negative Oxygen
Respiratory: Clear to Auscultation
Cardiac: Regular Rhythm and S1/S2; Negative Irregular Rhythm or Murmur
GI: Soft, Nontender and Nondistended
Musculoskeletal: Other (Right BKA; Left foot balta wrap)
Neuro: Awake, Alert, Oriented and Nonfocal/Grossly Intact
Psych: Calm
Data Reviewed
-
Diagnostic Radiology: Report Reviewed by me
Labs: Labs Reviewed by me
--- NOTE | 2024-05-07 14:19 | CM ---
Addendum entered by Frances Flores 05/07/24 15:38:
spoke with Asha from [facility], she did not get a hol dof patients brother. She spoke with patient who stated they were looking for information re d/c Marilee email is [email or web address]
CM left vm for brother, await TCB.
Original Note:
Insurance auth initiated.
Authorization for skilled rehab approved.
Authorization # [id number]
Approved 7 days
Start date 05/08/24 LCD 05/14/24 with NRD 05/14/24
Per insurance/Shana they will contact facility with the reviewer covering.
[employer] phone# [phone] fax# [phone].
Per MD possible d/c tomrrow.
Patient will require transport.
Plan: skilled rehab tomorrow
[facility]
report# [phone]
[2024-05-07 15:29] VITALS: BP 147/78
[2024-05-07] MEDS: ZYPREXA 5 MG PO (22:16)
[2024-05-07] MEDS: MELATONIN 5 MG PO (22:16)
[2024-05-07] MEDS: DESYREL 50 MG PO (22:16)
[2024-05-07] MEDS: NEURONTIN 300 MG PO (22:16)
[2024-05-07 23:40] VITALS: BP 97/50
[2024-05-08] MEDS: TYLENOL 650 MG PO ×2 (01:38→08:08)
[2024-05-08] MEDS: ROXICODONE 5 MG PO ×2 (03:21→11:15)
[2024-05-08 07:20] VITALS: BP 138/81
[2024-05-08] MEDS: SODIUM BICARBONATE 650 MG PO (08:00)
[2024-05-08] MEDS: NORVASC 2.5 MG PO (08:01)
[2024-05-08] MEDS: THERAGRAN 1 TABLET PO (08:01)
--- NOTE | 2024-05-08 08:05 | W.PN.ORTHO ---
Today's Communication / Plan
-
PT/OT
Heel weightbearing
Ice with elevation to control swelling and pain
Antibiotics per medical team
Return to office 2 weeks
Assessment
.
Distal Motor Intact: Yes
Dressing:
Clean, dry and intact.
Plan
.
Surgery / Date: L 1st partial ray Amp Chan
DVT Prophylaxis: Aspirin
Activity:
Out of bed.
PT/OT
Discharge Plan: SNF
Subjective
.
.:
Patient resting comfortably.
Vital Signs and Labs
.
Vital Signs and Labs:
Temp Pulse Resp BP Pulse Ox
97.7 F 93 18 138/81 100
05/08/24 07:20 05/08/24 07:20 05/08/24 07:20 05/08/24 07:20 05/08/24 07:20
cultures from left foot positive for MRSA
[2024-05-08] MEDS: ULTRAM 25 MG PO (08:09)
[2024-05-08 09:01] LABS: Hematocrit 35.3 % (37.0-47.0); Hemoglobin 11.3 g/dL (12.0-16.0); Mean Corpuscular Hgb 28.1 pg (27.0-31.0); Mean Corpuscular Volume 87.8 fL (81.0-99.0); Mean Platelet Volume 8.6 fL (7.4-10.4); Platelet Count 231 10^3/uL (130-400); Red Blood Cell Count 4.02 10^6/uL (4.20-5.40); Red Cell Dist. Width 22.7 % (11.5-14.5); White Blood Cell Count 6.7 10^3/uL (4.8-10.8)
[2024-05-08 09:10] LABS: ALT (SGPT) 19 U/L (0-35); AST (SGOT) 23 U/L (14-36); Albumin 3.7 g/dl (3.5-5.0); Alkaline Phosphatase 146 U/L (38-126); Blood Urea Nitrogen 59 mg/dl (7-17); Calcium 9.5 mg/dl (8.4-10.2); Carbon Dioxide 20 mmol/L (22-30); Chloride 108 mmol/L (98-107); Estimated Creatinine Clearance 22 ml/min; Glucose 125 mg/dl (70-99); Potassium 4.2 mmol/L (3.5-5.1); Sodium 140 mmol/L (135-145); Total Bilirubin 0.4 mg/dl (0.2-1.3); Total Protein 6.1 g/dl (6.3-8.2); eGFR 43.42
[2024-05-08] MEDS: [UNRECOGNIZED DRUG - OTHER] 500 MG PO (09:19)
--- NOTE | 2024-05-08 09:35 | CON.ID ---
Consultation
-
Date/Time Consultation Requested: May 08, 2024 0859
Date/Time Consultation Performed: May 08, 2024 0905
Requesting Provider: Dr. Sherif Valdez
Performing Provider: Dr. Migdalia Epstein
Reason for Consultation: s/p toe amp, need abx recommendations
Chief Complaint / Past History
Chief Complaint
fell off chair
History of Present Illness
74 years old female with history of spina bifida, right BKA, chronic pain syndrome on methadone, who presented to the hospital on April 04 with change in mental status, severe anemia hemoglobin of 3, and acute osteomyelitis of the left first phalanx
and metatarsal. On April 08 she underwent EGD which showed Sabrina esophagitis as well as H. pylori gastritis. She was placed on IV micafungin initially then transition to oral fluconazole to complete on April 18. She was also on tetracycline,
metronidazole, pantoprazole, Pepto-Bismol, per GI for 14 days to treat the H. pylori. Regarding the osteomyelitis, podiatry recommended antibiotic and plan for surgery in 2 weeks. Tetracycline dose was increased to 4 times daily to cover the
osteomyelitis. However patient left AGAINST MEDICAL ADVICE on April 14. While waiting for her ride in the ED, she slid off the chair and was readmitted. During this admission she underwent left partial 1st ray amputation with soft tissue
rearrangement greater than 10 cm2. Today, she has some post-op pain. Otherwise, she is in good spirits and will go to rehab. No specific complaints except for her chornic pain. No F/C/N/V/D.
Past History
Additional Past Medical History:
Spinal bifida
Chronic pain on methadone
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
H. pylori
left foot osteo s/p left partial 1st ray amputation with soft tissue rearrangement greater than 10 cm2 (05/06/24)
Allergy History:
No Known Allergies Allergy (Unverified 04/04/24 00:57)
Medications Reviewed: Yes
Current Antibiotics:
Tetracycline 500mg po bid
Social History
Tobacco: Former Smoker
Alcohol: None
Drug: None
Personal: Single
Living: Alone
Family History
Family History: Not Pertinent
Review of Systems
Review of Systems
General: Negative Fever, Chills or Change in Appetite
HEENT: Negative Sinus Problems or Headache
Cardiovascular: Negative Chest Pain or Dyspnea
Respiratory: Negative Dyspnea or Cough
Gasteroenterology: Negative Nausea or Vomiting
Genital / Urological: Negative Dysuria or Flank Pain
Neurological: Negative Dizziness
All systems: All other systems were reviewed and were negative
Vital Signs
Temp Pulse Resp BP Pulse Ox
97.7 F 93 18 138/81 100
05/08/24 07:20 05/08/24 07:20 05/08/24 07:20 05/08/24 08:01 05/08/24 07:20
Physical Exam
Physical Exam
Constitutional: No Acute Distress, Comfortable and Cachetic
Eyes: No Conjunctival Hemorrhage and Sclera Anicteric
Cardiovascular: Regular Rate and S1/S2
Pulmonary: Clear
Gastrointestinal: Soft, Non Tender, Non Distended and Normal Bowel Sounds
Extremities: Negative Edema
Wound: Other (R stump without open wounds; left foot dressing dry. )
Neurological: AO x 3
Lab / Diagnostic Study Results
05/08/24 08:26
05/08/24 08:26
Abs Immat Gran (auto) 0.0 10^3/uL (0-0.05) 04/26/24 09:30
Absolute Neuts (auto) 3.8 10^3/uL (1.4-6.5) 04/26/24 09:30
Absolute Lymphs (auto) 1.4 10^3/uL (1.2-3.4) 04/26/24 09:30
Absolute Monos (auto) 0.5 10^3/uL (0.1-0.6) 04/26/24 09:30
Absolute Basos (auto) 0.1 10^3/uL (0-0.2) 04/26/24 09:30
Immature Gran % 0.5 % (0-0.5) 04/26/24 09:30
Neutrophils % 64.0 % (42.2-75.2) 04/26/24 09:30
Lymphocytes % 23.4 % (20.5-51.1) 04/26/24 09:30
Monocytes % 8.7 % (1.7-9.3) 04/26/24 09:30
Eosinophils % 2.0 % (0-6) 04/26/24 09:30
Basophils % 1.4 % (0-2) 04/26/24 09:30
Ur Squamous Epith Cells 3-5 /LPF (Few) 04/25/24 00:39
Microbiology Results
Micro:
05/06/24 17:09 Wound Culture - Pending
Foot - Left Gram Stain - Preliminary
05/06/24 17:09 Anaerobic Culture - Pending
Foot - Left
05/05/24 Left ankle MRI: At the anterior margin of the field of view, there is increased T2 and decreased T1-weighted signal within the distal first metatarsal bone as well as the proximal phalanx of the great toe, in the region of previously seen
osteomyelitis. This may represent residual marrow signal change from osteomyelitis, but a component of residual infection cannot be excluded. Subcutaneous edema is present, which is greatest in the left lower leg. No evidence for soft tissue
abscess.
Assessment / Plan
# Acute osteomyelitis of left first toe and metatarsal with bone exposed.
- s/p Left partial 1st ray amputation with soft tissue rearrangement greater than 10 cm2.
- OR gram stain neg; cx and path pending.
- Prior surface wound swab +MRSA - may not reflect deep culture.
- Suspect surgical cure.
- Recommend doxycycline 100mg po bid x 7 days through 05/14/24.
- dc tetracycline
Care Review
Plan reviewed with: Physician (Dr. Valdez)
[2024-05-08] MEDS: PEPTO-BISMOL PO ×2 (10:31→11:12)
--- NOTE | 2024-05-08 11:01 | W.PN.UPDATE ---
Update Note
Progress Note Update
patient seen chart reviewed. patient is for dc today to snf. she is in very good spirits. i would continue psych medications as they are at this point. they do seem to help her. i considered at some point reducing zyprexa but when we reduced it
she was less stable mood rondon and she admits she feels better with it. cm spoke to me about having cousin removed as contact cm will discuss w patient. psych will sign off as she is leaving today.
[2024-05-08] MEDS: VIBRAMYCIN 100 MG PO (11:13)
[2024-05-08] MEDS: PROTONIX 40 MG PO (11:13)
--- NOTE | 2024-05-08 11:14 | CM ---
Addendum entered by Frances Flores 05/08/24 12:07:
IMM completed.
Patient updated re d/c time.
Addendum entered by Frances Flores 05/08/24 11:49:
Spoke with kae again today, he stated Brie will bring some clothes and Kae will work with Brie and other family to get her belongings to her. patient would like Brie removed as primary contact : Bire [place] [employer] cell# [phone], home#
[phone].
Brother Kae updated that he is primary contact now and he is in agreement.
Original Note:
Spoke with patients brother Kae via phone.
Kae aware patient for d/c today.
Patient for transfer to [facility], auth provided to facility yesterday.
Patient will require ambulance transport.
Patient with concerns that she would have to stay at facility, verified with [facility], that patient does not have to stay LTC.
Patients has 2 brothers that will assist her with finding an apartment and patient is in phone contact with them.
Kae lives in another [place] and patient also has a brother more local- in [facility].
Patient was living with cousin Brie, and she is unable to return to that home situation.
Per patient, cousin will not allow her to get her belongings, and she may need to get the police involved.
Will reach out to Kae and see if he can intervene with cousin.
Spoke with Asha from [facility] they only followed for the level 2, they do not have an ongoing open case with the patient.
Per Asha, Kae seemed to have a good rapport with Brie and thought he could help.
Plan: skilled rehab today 2 pm.
[facility]
report# [phone]
--- NOTE | 2024-05-08 11:16 | W.PN.HOSP.TC ---
Addendum entered and electronically signed by Sherif Valdez MD 05/08/24 15:19:
[id number]
Original Note:
Today's Communication/Plan
-
doxycycline 100mg bid x 7 days
bmp in 1 week
f/u podiatry, gi, pcp, psych outpatient
Assessment / Plan
Assessment / Plan
Physical exam:
General: Well Developed, Well Nourished and No Apparent Distress
HEENT: Normocephalic, Atraumatic and Moist Mucous Membranes
Respiratory: Clear to Auscultation; Negative Wheezes, Rales or Rhonchi
Cardiac: Regular Rhythm and S1/S2
GI: Soft, Nontender and Nondistended
Musculoskeletal: R BKA. Left lower extremity edema noted, mild bleeding from left plantar wound
Neuro: Awake, Alert and Oriented
Psych: Calm
Left lower extremity edema -Doppler ultrasound negative for DVT. Keep elevated.
H Pylori infection -completed quadruple therapy, end date was May 03. Needs retesting for H. pylori as an outpatient.
Probable UTI (dysuria urgency and frequency as well as urinary incontinence)
Checked urinalysis--> urinalysis with microscopic hematuria, few urine bacteria, only 6-10 WBC and no nitrite and trace leukocyte esterase
Not entirely convincing for UTI, but with abnormal UA and urinary symptoms we will start her on IV ceftriaxone and follow-up urine culture. Alternative explanation could be interstitial cystitis.
Completed course of antibiotics.
Mild hyperkalemia-resolved.
Left foot toe osteomyelitis -left first metatarsal head osteomyelitis.
-confirmed on foot x-ray
-LLE wound culture with MRSA
-Blood culture NGTD
-MRI LLE shows osteomyelitis of first proximal phalanx and metatarsal (appreciate surgical podiatry-not convinced)
-appreciate ID Consult and to be maintained on tetracycline till definitive surgery plan.
-left partial first ray amputation - Dr. Giles 05/06
-upon discharge, will need home care for dressing changes every other day
-DC tetracycline
-Doxycyline 100mg BID x 7 days, appreciate ID recs
Severe acute microcytic anemia
GI bleed
-Hgb 3.0 on previous admission, most likely iron deficiency anemia from chronic GI bleeding given Hx of Hgb 10.9 in 11/2023. Her cousin reported intermittent rectal bleeding, however no overt GI bleeding on CTA
-S/p 5U PRBC last week.
-EGD with no evidence for cause of bleeding but H. Pylori positive and aubree incidentally found and was on nystatin, on micafungin, fluconazole and completed course.
-colonoscopy biopsies with tubular adenoma, sessile serrated lesion, hyperplastic polyp
-Patient complaining back stool, hbg stable, not on iron supplements
-EGD/scope didn't show bleeding source, small bowel AVM?
-GI plan resection large polyp as OP.
-Hemoglobin stable--> hemoglobin on 04/26 was 10
Chronic pain on methadone
-PDMP reviewed/discussed with patient primary pain specialist by previous physicians
-Discussed with Dr Ermias Ball last week, patient has failed to f/u regularly, dr ball has been trying to wean patient off of methadone
-Methadone discontinued.
Acute toxic metabolic encephalopathy with hallucinations
-Patient encephalopathy has been resolved
-On Zyprexa .
CKD 3b
Metabolic acidosis
-Baseline renal function unknown
-ct stable around 1.4
-On 04/25 creatinine 1.6--> on 04/26 creatinine 1.3
-Gentle IV fluid can be stopped and encourage oral intake
-started on bicarb tabs here
-bmp outpatient
History of suicidal ideation
-Patient in January 05, 2024 drchucho Diaz and was admitted to [facility] in [place]
-no current suicidal ideation this visit, now off 1:1 but on medsitter
-Psyc f/u appreciated
Insomnia
Patient on melatonin, Zyprexa, and trazodone now-defer to psych as to any other medication changes in this regard.
Increase dose of gabapentin to 300 mg at bedtime to help with insomnia.
h/o spina bifida
h/o right BKA
Essential hypertension -suspected diagnosis. Not on blood pressure meds prior to admission. Continue amlodipine.
Full code
Dispo -SNF; DC ready
More than 30 minutes spent in discharge including
Final examination of the patient
Summarizing hospital stay
Instructions for continuing care to all relevant caregivers
Preparation of discharge records, prescriptions, and referral forms
Total time spent (35 in minutes):
Anticipated Discharge: Today
Subjective/Interval History
-
Date of Service: May 08, 2024
no acute events overnight
Objective Data
-
Labs:
Laboratory Results
05/08/24
08:26
WBC 6.7
Hgb 11.3 L
Hct 35.3 L
Plt Count 231
Sodium 140
Potassium 4.2
Chloride 108 H
Carbon Dioxide 20 L
BUN 59 H
Creatinine 1.3 H
Glucose 125 H
Calcium 9.5
Total Bilirubin 0.4
AST 23
ALT 19
Alkaline Phosphatase 146 H
Vital Signs:
Vital Signs
Temp Pulse Resp BP Pulse Ox
97.7 F 93 18 138/81 100
05/08/24 07:20 05/08/24 07:20 05/08/24 07:20 05/08/24 08:01 05/08/24 07:20
I&O
05/07/24 05/08/24 05/09/24
06:59 06:59 06:59
Intake Total 770 / 770 1200 / 1200
Balance 770 / 770 1200 / 1200
Review of Systems
-
History Source: Patient
All other systems: Not reviewed unless documented
Data Reviewed
-
Diagnostic Radiology: Report Reviewed by me
MRI: Image personally visualized and interpreted and Report Reviewed by me
Labs: Labs Reviewed by me
--- NOTE | 2024-05-08 11:21 | W.DS.TRANS ---
DC Summary - Flow Worker
-
Discharge Instructions:
Discharge Diagnosis/Procedures
# Acute osteomyelitis of left first toe and
metatarsal with bone exposed.
#Probable UTI
Diet Low Cholesterol,Low Fat
Activity As tolerated
Blood Work f/u bmp in 1 week with pcp
Instructions:
Stand-Alone Forms:
Changes to Home Medications: Yes
Discharge Medications:
DC Medications w/original date entered in [employer]
bismuth subsalicylate 262 mg chewable tablet 2 tab PO QID Gastrointestinal Issue 04/15/24
acetaminophen 325 mg tablet 650 mg (2 x 325 mg) PO Q4HPRN PRN mild pain/SCHROEDER/temp> 100.4F #0 tabs 05/08/24
amlodipine 2.5 mg tablet 2.5 mg PO DAILY #0 tabs 05/08/24
doxycycline hyclate 100 mg capsule 100 mg PO Q12 7 days #14 caps 05/08/24
gabapentin 100 mg capsule 300 mg (3 x 100 mg) PO HS Pain #0 caps 05/08/24
olanzapine 2.5 mg tablet 2.5 mg PO Q8HPRN PRN agitation #0 tabs 05/08/24
olanzapine 5 mg tablet 5 mg PO DAILY@2100 #0 tabs 05/08/24
oxycodone 5 mg tablet 5 mg PO Q8HPRN PRN severe pain 2 days #6 tabs 05/08/24
pantoprazole 40 mg tablet,delayed release 40 mg PO BID #0 tabs 05/08/24
sodium bicarbonate 650 mg tablet 650 mg PO BID #0 tabs 05/08/24
tramadol 50 mg tablet 25 mg (1/2 x 50 mg) PO [id number] PRN moderate pain #4 tabs 05/08/24
Home Medication Changes
amlodipine 2.5 mg tablet 2.5 mg PO DAILY #0 tabs 05/08/24
doxycycline hyclate 100 mg capsule 100 mg PO Q12 7 days #14 caps 05/08/24
gabapentin 100 mg capsule 300 mg (3 x 100 mg) PO HS Pain #0 caps 05/08/24
olanzapine 2.5 mg tablet 2.5 mg PO Q8HPRN PRN agitation #0 tabs 05/08/24
olanzapine 5 mg tablet 5 mg PO DAILY@2100 #0 tabs 05/08/24
oxycodone 5 mg tablet 5 mg PO Q8HPRN PRN severe pain 2 days #6 tabs 05/08/24
pantoprazole 40 mg tablet,delayed release 40 mg PO BID #0 tabs 05/08/24
sodium bicarbonate 650 mg tablet 650 mg PO BID #0 tabs 05/08/24
tramadol 50 mg tablet 25 mg (1/2 x 50 mg) PO [id number] PRN moderate pain #4 tabs 05/08/24
Pending Results: No
[2024-05-08 12:10] VITALS: BP 141/75
== END 2024-05-08 14:10 | DRG 474 ==
LOC: 4 WEST ACU 09:06
PROVIDERS: Hospitalist; Student in an Organized Health Care Education/Training Program; ADMITTING PHYSICIAN Hospitalist; ATTENDING PHYSICIAN Internal Medicine; CONSULT PHYSICIAN Internal Medicine Infectious Disease; EMERGENCY PHYSICIAN Emergency Medicine
PROC: 0JXR0ZZ Transfer Left Foot Subcutaneous Tissue and Fascia, Open Approach (ICD-10-PCS; 2024-05-06)
PROC: 0Y6N0Z9 Detachment at Left Foot, Partial 1st Ray, Open Approach (ICD-10-PCS; 2024-05-06)
DX: M86.172 Other acute osteomyelitis, left ankle and foot (principal); E43 Unspecified severe protein-calorie malnutrition; G92.8 Other toxic encephalopathy; A04.8 Other specified bacterial intestinal infections; B37.81 Candidal esophagitis; E87.20 Acidosis, unspecified; N39.0 Urinary tract infection, site not specified; L97.526 Non-pressure chronic ulcer of other part of left foot with bone involvement without evidence of necrosis; Z68.1 Body mass index [BMI] 19.9 or less, adult; I12.9 Hypertensive chronic kidney disease with stage 1 through stage 4 chronic kidney disease, or unspecified chronic kidney disease; N18.31 Chronic kidney disease, stage 3a; D50.9 Iron deficiency anemia, unspecified; L89.152 Pressure ulcer of sacral region, stage 2; B95.62 Methicillin resistant Staphylococcus aureus infection as the cause of diseases classified elsewhere; K29.70 Gastritis, unspecified, without bleeding; B96.81 Helicobacter pylori [H. pylori] as the cause of diseases classified elsewhere; G89.4 Chronic pain syndrome; Q05.9 Spina bifida, unspecified; W07.XXXA Fall from chair, initial encounter; Y92.238 Other place in hospital as the place of occurrence of the external cause; Z79.891 Long term (current) use of opiate analgesic; Z79.899 Other long term (current) drug therapy; Z87.891 Personal history of nicotine dependence; Z89.511 Acquired absence of right leg below knee
CPT/HCPCS: 88305; 88311; 73610; 73630; 73721; 80048; 80053; 81003; 81015; 82962; 85025; 85027; 86850; 86900; 86901; 87070; 87075; 87205; 93005; 93971; 97116; 97163; 97164; 97166; 97168; 97530; 97535; 99285; 99406